=== PATIENT | male | born 1940 | race American Indian/Alaskan Native ===

== ENCOUNTER 2020-07-29 12:13 | Outpatient (REF) | payer OTHER, SELFPAY | END 2020-07-29 12:14 | disposition home or self-care (01) | LOC: HO.LAB 12:13 | PROVIDERS: Visit Provider Internal Medicine | DX: Z20.822 Contact with and (suspected) exposure to COVID-19 (principal) | CPT/HCPCS: 36415; C9803; U0003; U0005 ==

== ENCOUNTER 2020-08-19 15:41 | Outpatient (REF) | payer OTHER, SELFPAY | END 2020-08-19 15:42 | disposition home or self-care (01) | LOC: HO.LAB 15:41 | PROVIDERS: Visit Provider Internal Medicine | DX: Z20.822 Contact with and (suspected) exposure to COVID-19 (principal) | CPT/HCPCS: 36415; C9803; U0003; U0005 ==

== ENCOUNTER 2020-11-01 10:00 | Outpatient (RCR) | payer OTHER, SELFPAY | END 2021-01-23 08:40 | disposition home or self-care (01) | LOC: HO.PT 10:00 | PROVIDERS: PCP Internal Medicine; Visit Provider Internal Medicine | DX: H81.10 Benign paroxysmal vertigo, unspecified ear (principal) | CPT/HCPCS: 95992; 97112; 97162 ==

== ENCOUNTER 2023-02-11 14:35 | Outpatient (AMB) | payer OTHER, SELFPAY ==
--- NOTE | 2023-01-10 10:22 | A.OFFPC_ITS ---
Vital Signs 01/10/23 10:22 Height 5 ft 7 in Blood Pressure Location Lt brachial Position Sitting Pulse Source Pulse Oximeter Oxygen Delivery Method Room Air Intake Visit Reasons: Establish Care Allergies No Known Allergies Allergy (Mild, Verified 01/10/23 10:22) NA Tobacco use date assessed: 01/10/23 [facility] Social History Patient Tobacco Use Status: Never used Tobacco Physical exam (Primary Care) Tobacco/Smoking Status: Tobacco use Status Patient Tobacco Use Status Never used Tobacco 11/07/22 11:13 Coding Diagnoses
[2023-02-11 14:38] VITALS: BP 104/62; PULSE 60; O2SAT 98; BMI 33.5
--- NOTE | 2023-02-11 14:38 | A.OFFPC_ITS ---
Vital Signs 01/10/23 10:22 02/11/23 14:38 Height 5 ft 7 in 5 ft 7 in Weight 214 lb BMI 33.5 BP 104/62 Blood Pressure Location Lt brachial Lt brachial Position Sitting Sitting Pulse 60 Pulse Source Pulse Oximeter Pulse Oximeter Pulse Oximetry (%) 98 Oxygen Delivery Method Room Air Room Air Intake Visit Reasons: Establish Care Intake Note: Patient is a new patient here to establish care for DN type 2, HTN and GERD. Transferring care from [facility]. Medical release form faxed today. [employer] Consultant Required: Yes [employer] Consultant Language: Romanian Accompanied by: ROAD REPAIRER-Sophie Camargo Allergies No Known Allergies Allergy (Mild, Verified 02/11/23 15:01) NA Medication List - Last Reconciled 02/11/23 by Jerrod Smith PA-C albuterol sulfate 90 mcg/actuation (Ventolin HFA) 2 puffs inhalation Q4H PRN atorvastatin 80 mg PO DAILY bimatoprost 0.01% (Lumigan) 1 drp ophthalmic (eye) BEDTIME blood sugar diagnostic (FreeStyle Lite Strips) As directed blood-glucose meter (FreeStyle Lite Meter kit) As directed cyclobenzaprine 10 mg PO BEDTIME [disposable bedpads As directed] disposable gloves As directed docusate sodium 100 mg PO DAILY hydralazine 25 mg PO Q8H [incontinence wipes As directed] levothyroxine 25 mcg PO DAILY lorazepam 1 mg PO meloxicam 15 mg PO DAILY [men's pull ups As directed] omeprazole 20 mg PO DAILY timolol maleate 0.5% 1 drp ophthalmic (eye) QAM valsartan 320 mg PO DAILY Tobacco use date assessed: 02/11/23 Fall risk assessment: No Falls in past year Last assessed Fall Risk: 02/11/23 Dental Screening Dental Screen Date: 02/11/23 Did you have a dental visit in the last 12 months?: Yes Did you have a dental problem in the last 6 months where you did not have access to dental care?: No Was dental information given to patient?: Patient has dentist HPI Establish Care HPI Details Patient is an 82-year-old male here today for transferring care/establishing care visit. Today patient presents with a ROAD REPAIRER. Previous PCP was at [facility]. Patient has a past medical history hyperlipidemia, glaucoma, legal blindness, hypertension. He presents today with ROAD REPAIRER whom help some with his activities of daily living as patient is legally blind. .. Type 2 diabetes: Today's A1c is 6.3. He is currently diet controlled. .. Hypertension: Continues on hydralazine and valsartan. Reports that home blood pressures are stable. Today's blood pressure in office acceptable. He denies any headache, chest pain or shortness of breath on exertion. Also has urinary incontinence status post radical prostatectomy. Does use urinary incontinence supplies and needs scripts sent to his insurance. [facility] Medical History (Updated 02/12/23 @ 07:07 by Jerrod Smith PA-C) Type II diabetes mellitus Social History Housing: Apartment Patient Tobacco Use Status: Never used Tobacco e-Cigarette/Vaping Use: Never Used service: No Current occupational status: disabled Cognitive needs: No Hearing needs: No Vision needs: Yes Questionnaire PHQ-9 Over the last 2 weeks, how often have you been bothered by any of the following problems? 1. Little interest or pleasure in doing things: not at all 2. Feeling down, depressed, or hopeless: several days 3. Trouble falling or staying asleep, or sleeping too much: nearly every day 4. Feeling tired or having little energy: nearly every day 5. Poor appetite or overeating: nearly every day Source: Developed by Drs. Juan A Pires, Jennifer Morales, Tha Oneil and colleagues, with an educational [place] from [employer]. Thrive Questionnaire Date Thrive assessed: 02/11/23 I am a: Patient What is your living situation today?: I have a steady place to live Within the past 12 months, did the food you bought not last and you didn't have the money to get more?: Never true Within the past 12 months, did you worry whether your food would run out before you got money to buy more?: Never true Do you have trouble paying for medicines?: No Do you have trouble getting transportation to medical appointments?: No Do you have trouble paying your heating and electricity bill?: No Do you have trouble taking care of your child, family member or friend?: No Do you have trouble with day-to-day activities such as bathing, preparing meals, shopping, managing finances, etc.?: No Are you currently unemployed and looking for a job?: No Are you interested in more education?: No Please select the resources that you would like help with: None Currently or been in a relationship where the following occur: no concerns reported AUDIT C Alcohol Use Questionnaire (AUDIT-C) 1. How often do you have a drink containing alcohol?: Never 3. How often do you have six or more drinks on one occasion?: Never Total Score: 0 CYNTHIA-7 AMB Questionnaire CYNTHIA-7 Date CYNTHIA - 7 assessed: 02/11/23 Feeling nervous, anxious, or on edge: 0 = Not at all Not being able to stop or control worryin = Not at all Worrying too much about different things: 0 = Not at all Trouble relaxin = Not at all Being so restless that it is hard to sit still: 0 = Not at all Becoming easily annoyed or irritable: 0 = Not at all Feeling afraid as if something awful might happen: 0 = Not at all Total CYNTHIA-7 score (0-4 normal; 5-9 mild; 10-14 moderate; 15-21 severe): 0 Source: Developed by Drs. Juan A Pires, Jennifer Morales, Tha Oneil and colleagues, with an educational [place] from [employer]. CYNTHIA-7 Assessment Billing CYNTHIA-7 Assessment Tool: CYNTHIA-7 Assessment 21100 Review of Systems Const Denies headache(s) Eyes Denies loss of vision ENT Denies vertigo, Denies dizziness, Denies headache(s) and Denies sore throat Card Denies chest pain, Denies leg edema and Denies lightheadedness Resp Denies cough, Denies hemoptysis and Denies wheezing GI Denies abdominal pain, Denies melena, Denies constipation, Denies diarrhea and Denies vomiting Denies dysuria, Denies urinary frequency and Denies urinary urgency Musc Denies arthralgias, Denies joint swelling, Denies numbness and Denies tingling Neuro Denies Abnormal speech present, Denies behavioral changes, Denies vertigo, Denies dizziness, Denies headache(s), Denies loss of vision, Denies memory loss, Denies numbness and Denies tingling Psych Denies anxiety, Denies behavioral changes, Denies depression, Denies memory loss and Denies panic attacks Wayne/Lymph Denies easy bleeding and Denies easy bruising Aller/Immun Denies wheezing Physical exam (Primary Care) Vital Signs: Last Vital Signs Pulse 60 02/11/23 14:38 BP 104/62 02/11/23 14:38 Pulse Ox 98 02/11/23 14:38 Oxygen Delivery Method Room Air 02/11/23 14:38 BMI result Body Mass Index 33.5 BMI Assessment/Plan discussion: High Tobacco/Smoking Status: Tobacco use Status Tobacco use date assessed 02/11/23 02/11/23 14:55 Patient Tobacco Use Status Never used Tobacco 02/11/23 14:55 e-Cigarette/Vaping Use Never Used 02/11/23 14:55 Thrive Assessment: Date of Thrive Assessment Date Thrive assessed 02/11/23 02/11/23 14:55 Currently or been in a relationship where the following occur: no concerns reported Const Other: OBESE General: healthy appearing, no acute distress, alert and awake Nutritional Appearance: well nourished Orientation/consciousness: oriented to person, oriented to place and oriented to time HENMT Ears: TM's normal bilaterally General nose exam: Normal nasal mucous membranes and turbinates present Eyes Conjunctivae: conjunctivae normal Sclerae: sclerae normal Pupils: Equal, round and reactive pupils present Neck Neck: Yes no lymphadenopathy and Yes no JVD Thyroid: Thyroid normal Carotids: no bruits Resp Effort & Inspection: normal respiratory effort and not tachypneic Auscultation: no crackles, no rales, no rhonchi and no wheezes Cardio Rate: regular rate Rhythm: regular rhythm Heart sounds: no murmurs and normal S1 and S2 GI Palpation (GI): Soft to palpation, nontender, no hepatomegaly and no splenomeg destiny Auscultation: normal bowel sounds Skin General skin exam: no rashes or lesions noted and dry skin Neuro General: oriented to person, oriented to place and oriented to time Cranial nerves: Yes Equal, round and reactive pupils present Speech: No Abnormal speech present Gait exam (Neuro): Normal gait present Motor exam (neuro): no tremor noted Extrem Right upper extremity: full ROM Left upper extremity: full ROM Right lower extremity: full ROM; no edema Left lower extremity: full ROM; no edema Psych Mental Status: mental status grossly normal Speech and movement: Normal speech and movement present Affect: normal affect Attitude: cooperative Thought process: Normal thought process present Results AMB Hemoglobin A1c AMB Hemoglobin A1c 6.3 % Last Edit by ZULEMA England on 02/11/23 15:06 Results Reviewed Results Reviewed: Laboratory Last Values Hgb A1c (Clinic) 6.3 % (4.0-6.0) H 02/11/23 15:00 Assessment and Plan Assessment & Plan (1) Type II diabetes mellitus: Code(s): E11.9 - Type 2 diabetes mellitus without complications Qualifiers: Diabetes mellitus complication status: with hyperglycemia Diabetes mellitus fpc insulin use: with fpc use Qualified Code(s): E11.65 - Type 2 diabetes mellitus with hyperglycemia; Z79.4 - manager intermediate (current) use of insulin Plan: Today's A1c 6.3. Will continue to implement lifestyle modifications to control his diabetes. Goal A1c is to remain below 7.0. (2) HTN (hypertension): Code(s): I10 - Essential (primary) hypertension Qualifiers: Hypertension type: primary hypertension Qualified Code(s): I10 - Essential (primary) hypertension Plan: Patient's blood pressure acceptable today in office. Will continue his current dose of antihypertensive medication with goal blood pressure to be below 140/90 (3) Glaucoma: Code(s): H40.9 - Unspecified glaucoma Qualifiers: Glaucoma type: unspecified Laterality: bilateral Qualified Code(s): H40.9 - Unspecified glaucoma Plan: Patient continues on multiple drops for his glaucoma. He is legally blind in does need full assistance while ambulating. He does have a ROAD REPAIRER whom is with him most of his day. (4) HLD (hyperlipidemia): Code(s): E78.5 - Hyperlipidemia, unspecified Qualifiers: Hyperlipidemia type: mixed hyperlipidemia Qualified Code(s): E78.2 - Mixed hyperlipidemia Plan: Patient is on high-dose statin therapy, will check a fasting lipid panel with goal LDL to remain below 100 (5) GERD (gastroesophageal reflux disease): Code(s): K21.9 - Gastro-esophageal reflux disease without esophagitis Qualifiers: Esophagitis presence: without esophagitis Qualified Code(s): K21.9 - Gastro-esophageal reflux disease without esophagitis Plan: Patient continues on omeprazole 20 mg with good effect on reducing his gastritis. Advised on refraining from gastric irritants been (6) Hypothyroid: Code(s): E03.9 - Hypothyroidism, unspecified Qualifiers: Hypothyroidism type: unspecified Qualified Code(s): E03.9 - Hypothyroidism, unspecified Plan: Patient continues on low-dose levothyroxine. Will check a TSH to assure normal. (7) Urinary incontinence: Code(s): R32 - Unspecified urinary incontinence Qualifiers: Urinary Incontinence type: continuous leakage Qualified Code(s): N39.45 - Continuous leakage (8) H/O radical prostatectomy: Code(s): Z90.79 - Acquired absence of other genital organ(s) (9) Asthma: Code(s): J45.909 - Unspecified asthma, uncomplicated Qualifiers: Asthma complication type: uncomplicated Asthma persistence: intermittent Asthma severity: mild Qualified Code(s): J45.20 - Mild intermittent asthma, uncomplicated Plan: Patient reports his asthma is fairly well controlled with only p.r.n. use of albuterol inhaler. He denies any recent asthma exacerbations or nighttime awakenings with asthma symptoms. (10) Cervical spine arthritis: Code(s): M47.812 - Spondylosis without myelopathy or radiculopathy, cervical region (11) Insomnia: Code(s): G47.00 - Insomnia, unspecified Qualifiers: Insomnia type: primary Qualified Code(s): F51.01 - Primary insomnia Plan: Patient's ROAD REPAIRER spleens that Jevon often has a lot of trouble sleeping. He is willing to try trazodone 25 mg before bed as it has worked for him in the past. (12) Obese: Code(s): E66.9 - Obesity, unspecified Qualifiers: Obesity type: due to excess calories Obesity classification: adult class 1 (BMI 30 - 34.9) Serious obesity comorbidity presence: without serious comorbidity Body mass index: BMI 33.0-33.9 Qualified Code(s): E66.09 - Other obesity due to excess calories; Z68.33 - Body mass index [BMI] 33.0-33.9, adult Plan: Patient does understand his BMI is over 30 will work on being more physically active and adapting to better eating habits to reduce his weight Orders: Orders Comprehensive [place]. Panel Fast 02/11/23 I10 - Essential (primary) hypertension Lipid Panel 02/11/23 E78.2 - Mixed hyperlipidemia Prostate Specific Antigen Scr 02/11/23 I10 - Essential (primary) hypertension, Z12.5 - Encounter for screening for malignant neoplasm of prostate TSH reflex Free T4 02/11/23 E03.9 - Hypothyroidism, unspecified Microalbumin, Random (w Creat) 02/11/23 I10 - Essential (primary) hypertension AMB Hemoglobin A1c 02/11/23 E11.9 - Type 2 diabetes mellitus without complications Medications: New trazodone 25 mg (1/2 x 50 mg) PO BEDTIME 30 days 15 tabs 3RF sleep F51.01 - Primary insomnia levothyroxine 25 mcg PO DAILY 90 days 90 tabs 1RF E03.9 - Hypothyroidism, unspecified hydralazine 25 mg PO Q8H 90 days 270 tabs 1RF I10 - Essential (primary) hypertension atorvastatin 80 mg PO DAILY 90 days 90 tabs 1RF E78.2 - Mixed hyperlipidemia valsartan 320 mg PO DAILY 90 days 90 tabs 1RF I10 - Essential (primary) hypertension Changed From albuterol sulfate 90 mcg/actuation (Ventolin HFA) 2 puffs inhalation Q4H PRN J45.20 - Mild intermittent asthma, uncomplicated To albuterol sulfate 90 mcg/actuation (Ventolin HFA) 2 puffs inhalation Q4H 30 days 6.7 grams 3RF J45.20 - Mild intermittent asthma, uncomplicated Refilled [disposable bedpads] As directed 150 ea 11RF R32 - Unspecified urinary inc ontinence [incontinence wipes] As directed 2 multiple units 11RF R32 - Unspecified urinary incontinence [men's pull ups] As directed 150 ea 11RF R32 - Unspecified urinary incontinence disposable gloves As directed 50 ea 11RF R32 - Unspecified urinary incontinence Coding Level of Care Code New Pt Level 4 (40915) Diagnoses Type II diabetes mellitus E11.65; Z79.4 Diabetes mellitus complication status: with hyperglycemia Diabetes mellitus fpc insulin use: with fpc use HTN (hypertension) I10 Hypertension type: primary hypertension Glaucoma H40.9 Glaucoma type: unspecified Laterality: bilateral HLD (hyperlipidemia) E78.2 Hyperlipidemia type: mixed hyperlipidemia GERD (gastroesophageal reflux disease) K21.9 Esophagitis presence: without esophagitis Hypothyroid E03.9 Hypothyroidism type: unspecified Urinary incontinence N39.45 Urinary Incontinence type: continuous leakage H/O radical prostatectomy Z90.79 Asthma J45.20 Asthma complication type: uncomplicated Asthma persistence: intermittent Asthma severity: mild Cervical spine arthritis M47.812 Insomnia F51.01 Insomnia type: primary Obese E66.09; Z68.33 Obesity type: due to excess calories Obesity classification: adult class 1 (BMI 30 - 34.9) Serious obesity comorbidity presence: without serious comorbidity Body mass index: BMI 33.0-33.9 Additional Codes CYNTHIA-7 Assessment Billing - CYNTHIA-7 Assessment Tool: CYNTHIA-7 Assessment [id number] ([id number])
== END 2023-02-11 15:34 | disposition home or self-care (01) ==
PROVIDERS: PCP Physician Assistant; Visit Provider Physician Assistant
DX: E11.65 Type 2 diabetes mellitus with hyperglycemia (principal); Z79.4 Long term (current) use of insulin; I10 Essential (primary) hypertension; K21.9 Gastro-esophageal reflux disease without esophagitis; E03.9 Hypothyroidism, unspecified; H40.9 Unspecified glaucoma; E78.2 Mixed hyperlipidemia; J45.20 Mild intermittent asthma, uncomplicated; N39.45 Continuous leakage; Z90.79 Acquired absence of other genital organ(s); M47.812 Spondylosis without myelopathy or radiculopathy, cervical region; F51.01 Primary insomnia
CPT/HCPCS: 83036; 99204

== ENCOUNTER 2023-02-14 10:09 | Outpatient (REF) | payer OTHER, SELFPAY ==
[2023-02-14 11:40] LABS: Alanine Aminotransferase 16 U/L (0-40); Albumin Level 3.3 g/dL (3.5-5.0); Alkaline Phosphatase 84 U/L (39-117); Anion Gap 9 (12-20); Aspartate Amino Transferase 19 U/L (5-37); Bilirubin Total 0.5 mg/dL (0.0-1.0); Blood Urea Nitrogen 25 mg/dL (9-16); Carbon Dioxide 27 mmol/L (22-29); Chloride 110 mmol/L (96-108); Cholesterol 142 mg/dL (<200); Estimated Glomerular Filt Rate 49; Glucose Fasting 106 mg/dL (60-99); HDL Cholesterol 40 mg/dL (>40); LDL Cholesterol Calculated 70 mg/dL (<100); Potassium 4.9 mmol/L (3.3-5.1); Sodium 141 mmol/L (135-145); Total Protein 6.6 g/dL (6.5-8.0); Triglycerides 161 mg/dL (<150)
[2023-02-14 11:57] LABS: TSH reflex Free T4 34.15 uIU/mL (0.32-4.0)
[2023-02-14 11:58] LABS: Prostate Specific Antigen Scr 5.38 ng/mL (<0.05-4.0)
[2023-02-14 13:09] LABS: Creatinine Urine 233.09 mg/dL; Microalbum/Creatinine Ratio Ur 6.4 ug/mg cr (<30)
[2023-02-14 15:16] LABS: Free T4 (Free Thyroxine) 0.92 ng/dL (0.71-1.85)
== END 2023-02-14 10:10 | disposition home or self-care (01) ==
LOC: HO.LAB 10:09
PROVIDERS: PCP Physician Assistant; Visit Provider Physician Assistant
DX: I10 Essential (primary) hypertension (principal); E78.2 Mixed hyperlipidemia; E03.9 Hypothyroidism, unspecified; Z12.5 Encounter for screening for malignant neoplasm of prostate
CPT/HCPCS: 36415; 80053; 80061; 82043; 84153; 84439; 84443

== ENCOUNTER 2023-04-23 10:34 | Outpatient (AMB) | payer OTHER, SELFPAY ==
[2023-04-23 10:55] VITALS: BP 128/70; PULSE 52; O2SAT 97; BMI 33.6
--- NOTE | 2023-04-23 10:55 | MHC.PC.OV ---
Vital Signs 04/23/23 10:55 Height 5 ft 7 in Weight 214 lb 6 oz BMI 33.6 BP 128/70 Blood Pressure Location Lt brachial Position Sitting Pulse 52 Pulse Source Pulse Oximeter Pulse Oximetry (%) 97 Oxygen Delivery Method Room Air Intake Visit Reasons: PE Intake Note: Patient is here today for a physical. Pt is requesting Nasal spray for allergies. Network Consultant Required: No Accompanied by: MECHANICAL EQUIPMENT TEST ENGINEER- Sophie Allergies No Known Allergies Allergy (Mild, Verified 04/23/23 11:06) NA Medication List - Last Reconciled 04/23/23 by Jerrod Smith PA-C albuterol sulfate 90 mcg/actuation (Ventolin HFA) 2 puffs inhalation Q4H 30 days atorvastatin 80 mg PO DAILY 90 days bimatoprost 0.01% (Lumigan) 1 drp ophthalmic (eye) BEDTIME blood sugar diagnostic (FreeStyle Lite Strips) As directed blood-glucose meter (FreeStyle Lite Meter kit) As directed cyclobenzaprine 10 mg PO BEDTIME [disposable bedpads As directed] disposable gloves As directed docusate sodium 100 mg PO DAILY hydralazine 25 mg PO Q8H 90 days [incontinence wipes As directed] levothyroxine 50 mcg PO DAILY 30 days lorazepam 1 mg PO meloxicam 15 mg PO DAILY [men's pull ups As directed] omeprazole 20 mg PO DAILY timolol maleate 0.5% 1 drp ophthalmic (eye) QAM trazodone 25 mg (1/2 x 50 mg) PO BEDTIME 30 days valsartan 320 mg PO DAILY 90 days Tobacco use date assessed: 02/11/23 Fall risk assessment: No Falls in past year Last assessed Fall Risk: 04/23/23 Dental Screening Dental Screen Date: 04/23/23 Did you have a dental visit in the last 12 months?: No Did you have a dental problem in the last 6 months where you did not have access to dental care?: No Was dental information given to patient?: Patient has dentist HPI PE HPI Details Patient is an 82-year-old male here today for annual physical. Today patient presents with a MECHANICAL EQUIPMENT TEST ENGINEER. Previous PCP was at [facility]. Patient has a past medical history hyperlipidemia, glaucoma, legal blindness, hypertension. He presents today with MECHANICAL EQUIPMENT TEST ENGINEER whom help some with his activities of daily living as patient is legally blind. Concern--> patient's PSA concerned about patient's memory as he has been noted to have short-term memory loss and often is repeating himself. He is interested in starting medication help him with his memory. Also has itchy skin lesion over his left shoulder. Skin lesion most consistent with an actinic keratosis. .. Type 2 diabetes: Diabetes has been well controlled. Most recent A1c is 6.4 He is currently diet controlled. .. Hypothyroidism: Most recent TSH very elevated at 34. His levothyroxine was increased to 50 mcg . H/o prostate cancer : Followed by DR Luu urologist on annual basis. Most recent PSA elevated which is concerning as he has had a total prostatectomy in 2006 .. Hypertension: Continues on hydralazine and valsartan. Reports that home blood pressures are stable. Today's blood pressure in office acceptable. He denies any headache, chest pain or shortness of breath on exertion. Also has urinary incontinence status post radical prostatectomy ? 2006. He does use urinary incontinence briefs on a nightly basis. Most recent PSA elevated Vaccines : Up-to-date with shingles vaccine, up-to-date with pneumonia vaccine tetanus vaccine, willing to get flu shot today Laboratory Tests 02/14/23 10:19 Fasting Glucose 106 H Triglycerides 161 H PSA Screen 5.38 H TSH 34.15 H PFSH Medical History (Updated 04/23/23 @ 14:19 by Jerrod Smith PA-C) Type II diabetes mellitus Social History Housing: Apartment Patient Tobacco Use Status: Never used Tobacco e-Cigarette/Vaping Use: Never Used service: No Current occupational status: disabled Cognitive needs: No Hearing needs: No Vision needs: Yes Questionnaire PHQ-9 Over the last 2 weeks, how often have you been bothered by any of the following problems? 1. Little interest or pleasure in doing things: not at all 2. Feeling down, depressed, or hopeless: not at all 3. Trouble falling or staying asleep, or sleeping too much: not at all 4. Feeling tired or having little energy: not at all 5. Poor appetite or overeating: not at all 6. Feeling bad about yourself - or that you are a failure or have let yourself or your family down: not at all 7. Trouble concentrating on things, such as reading the newspaper or watching television: not at all 8. Moving or speaking so slowly that other people could have noticed. Or the opposite - being so fidgety or restless that you have been moving around a lot more than usual: not at all 9. Thoughts that you would be better off or of hurting yourself in some way: not at all Total score: 0 Depression Screening Interpretation: Negative Depression Screening Done: Yes 13252 - PHQ-9 Billing: Yes Source: Developed by Drs. Juan A Pires, Jennifer Morales, Tha Oneil and colleagues, with an educational [place] from [employer]. Thrive Questionnaire Date Thrive assessed: 02/11/23 CYNTHIA-7 AMB Questionnaire CYNTHIA-7 Date CYNTHIA - 7 assessed: 02/11/23 Source: Developed by Drs. Juan A Pires, Jennifer Morales, Tha Oneil and colleagues, with an educational [place] from [employer]. Review of Systems Const Denies body aches, Denies chills, Denies excessive sweating, Denies fatigue, Denies fever(s) and Denies headache(s) Eyes Denies blurry vision ENT Denies dysphagia, Denies vertigo, Denies dizziness, Denies headache(s), Denies hearing loss and Denies tinnitus Card Denies chest pain, Denies chest pain with activity, Denies syncope, Denies irregular heart rhythm and Denies dyspnea Resp Denies chest congestion, Denies cough, Denies hemoptysis, Denies dyspnea and Denies wheezing GI Denies abdominal pain, Denies melena, Denies hematochezia, Denies coffee ground emesis, Denies dysphagia, Denies diarrhea, Denies nausea and Denies vomiting Denies difficulty urinating, Denies dysuria, Denies urinary frequency, Denies urinary hesitancy and Denies urinary urgency Musc Denies arthralgias, Denies limited range of motion, Denies muscle cramps and Denies muscle weakness Skin/Breast Denies rash and Denies skin ulcer Neuro Denies Abnormal speech present, Denies confusion, Denies vertigo, Denies dizziness, Denies syncope, Denies headache(s), Denies memory loss and Denies seizure-like activity Psych Denies anxiety, Denies confusion, Denies depression, Denies memory loss, Denies panic attacks and Denies paranoia Endo Denies excessive sweating, Denies fatigue, Denies flushing, Denies polydipsia and Denies polyuria Aller/Immun Denies wheezing Physical exam (Primary Care) Vital Signs: Last Vital Signs Pulse 52 04/23/23 10:55 BP 128/70 04/23/23 10:55 Pulse Ox 97 04/23/23 10:55 Oxygen Delivery Method Room Air 04/23/23 10:55 BMI result Body Mass Index 33.6 Tobacco/Smoking Status: Tobacco use Status Tobacco use date assessed 02/11/23 04/23/23 11:00 Patient Tobacco Use Status Never used Tobacco 04/23/23 11:00 e-Cigarette/Vaping Use Never Used 04/23/23 11:00 PHQ-9: PHQ-9 Score PHQ-9: Total score 0 04/23/23 11:07 Depression Screening Interpretation: Negative Thrive Assessment: Date of Thrive Assessment Date Thrive assessed 02/11/23 04/23/23 11:00 Const General: cooperative, comfortable, no acute distress, alert and awake; No confusion Orientation/consciousness: oriented to person, oriented to place, patient oriented x3 and No confusion HENMT Head: Yes normocephalic Ears: external ears normal and TM's normal bilaterally Face and sinus: No sinus tenderness Mouth: Normal oral and palatal mucosa present and tongue normal Teeth and gingiva: dentition normal and gingiva normal Throat: Yes posterior oropharynx normal, Yes tonsils normal and Yes uvula midline Eyes Conjunctivae: conjunctivae normal Sclerae: sclerae normal Pupils: Equal, round and reactive pupils present EOM: EOMs intact bilaterally Direct Ophthalmoscopy: No no photophobia Neck Neck: Yes no lymphadenopathy, No tender and Yes no JVD Thyroid: Thyroid normal Carotids: no bruits Chest Chest palpation & inspection: no tenderness Resp Effort & Inspection: normal respiratory effort, no audible wheezes, not labored and no stridor Auscultation: no crackles, no rales, no rhonchi and no wheezes Cardio Jugular venous distension: no JVD Rate: regular rate, not bradycardic and not tachycardic Rhythm: regular rhythm Bruits: no carotid bruits Peripheral pulses: Peripheral pulses 2+ throughout GI Inspection: Yes normal to inspection, No abdominal wall ecchymosis and No visible herniation Palpation (GI): Soft to palpation, nontender, no guarding, not rigid and No hepatosplenomegaly present Auscultation: normoactive bowel sounds General: Yes no CVA tenderness Back/Spine/Pelvis Back: no CVA tenderness and No back tenderness Cervical Spine: cervical ROM normal Thoracic/Lumbar Spine: thoracic and lumbar spine normal to inspection, straight leg raise negative bilaterally, No thoraco-lumbar ROM limited and No lumbar spinal tenderness Skin Lesions: no lesions Rashes: no rashes Wounds: no wounds Neuro General: oriented to person, oriented to place, patient oriented x3, CN's II-XI intact bilaterally and No confusion Cranial nerves: Yes Equal, round and reactive pupils present and Yes Normal accommodation reflex present Cognition (Neuro): normal cognition Speech: No Abnormal speech present Gait exam (Neuro): Normal gait present Motor exam (neuro): 5/5 motor strength present throughout Extrem Right upper extremity: full ROM; no cyanosis Left upper extremity: full ROM; no cyanosis Right lower extremity: no edema Left lower extremity: no edema Psych Appearance: grossly normal Mental Status: mental status grossly normal Affect: normal affect Attitude: cooperative Thought process: Normal thought process present Office Procedures Flu Questionnaire Does the patient have a severe egg allergy?: No Does the patient have severe life threatening allergies?: No Does the patient have a fever or illness today?: No Has the patient ever had Guillain-Cisne Syndrome?: No Has the patient ever had any past reaction to a flu shot?: No Immunizations flu vacc [id number] 6mos up(PF) 60 mcg(15 mcgx4)/0.5 mL IM syringe Performing Provider: Jerrod Smith PA-C Performing Location: [facility] Administered by: ZULEMA England on 04/23/23 11:50 Dose Route Admin Location Dispensed Lot Number Expiration Date [employer] 0.5 mL IM Right Deltoid 0.5 mL [id number] 12/22/23 [id number] [employer] VIS Given Date VIS Provided VIS Publication Date 04/23/23 Single Vaccine 21 Eligibility Eligibility Date Funding Source Not [facility] Eligible 04/23/23 Private Assessment and Plan Assessment & Plan (1) Annual physical exam: Code(s): Z00.00 - Encounter for general adult medical examination without abnormal findings (2) Type II diabetes mellitus: Code(s): E11.9 - Type 2 diabetes mellitus without complications Qualifiers: Diabetes mellitus complication status: with hyperglycemia Diabetes mellitus intermodal truck driver insulin use: without shelter use Qualified Code(s): E11.65 - Type 2 diabetes mellitus with hyperglycemia Plan: Patient's type 2 diabetes well controlled. Will continue to implement lifestyle modifications to control his diabetes. Goal A1c is to remain below 7.0. (3) HTN (hypertension): Code(s): I10 - Essential (primary) hypertension Qualifiers: Hypertension type: primary hypertension Qualified Code(s): I10 - Essential (primary) hypertension Plan: Patient's blood pressure acceptable today in office. Will continue his current dose of antihypertensive medication with goal blood pressure to be below 140/90 (4) Glaucoma: Code(s): H40.9 - Unspecified glaucoma Qualifiers: Glaucoma type: unspecified Laterality: bilateral Qualified Code(s): H40.9 - Unspecified glaucoma Plan: Patient continues on multiple drops for his glaucoma. He is legally blind in does need full assistance while ambulating. He does have a MECHANICAL EQUIPMENT TEST ENGINEER whom is with him most of his day. (5) HLD (hyperlipidemia): Code(s): E78.5 - Hyperlipidemia, unspecified Qualifiers: Hyperlipidemia type: mixed hyperlipidemia Qualified Code(s): E78.2 - Mixed hyperlipidemia Plan: Patient is on high-dose statin therapy, will check a fasting lipid panel with goal LDL to remain below 100 (6) GERD (gastroesophageal reflux disease): Code(s): K21.9 - Gastro-esophageal reflux disease without esophagitis Qualifiers: Esophagitis presence: without esophagitis Qualified Code(s): K21.9 - Gastro-esophageal reflux disease without esophagitis Plan: Patient continues on omeprazole 20 mg with good effect on reducing his gastritis. Advised on refraining from gastric irritants been (7) Hypothyroid: Code(s): E03.9 - Hypothyroidism, unspecified Qualifiers: Hypothyroidism type: unspecified Qualified Code(s): E03.9 - Hypothyroidism, unspecified Plan: Patient's most recent TSH elevated at 34. His levothyroxine dose was increased to 50 mcg. Advised to recheck TSH. Will adjust levothyroxine dose accordingly. (8) Urinary incontinence: Code(s): R32 - Unspecified urinary incontinence Qualifiers: Urinary Incontinence type: continuous leakage Qualified Code(s): N39.45 - Continuous leakage Plan: Continues to have urinary incontinence worse at night. Has had a history of total prostatectomy and is followed by Urology an annual basis. Noted elevated PSA on most recent labs and will follow-up with his urologist (9) H/O radical prostatectomy: Code(s): Z90.79 - Acquired absence of other genital organ(s) Plan: Had a total prostatectomy 2006 due to have a prostate carcinoma. He reports he is followed by Urology and has cup coming appointment with them. Most recent PSA elevated (10) Asthma: Code(s): J45.909 - Unspecified asthma, uncomplicated Qualifiers: Asthma complication type: uncomplicated Asthma persistence: intermittent Asthma severity: mild Qualified Code(s): J45.20 - Mild intermittent asthma, uncomplicated Plan: Patient reports his asthma is fairly well controlled with only p.r.n. use of albuterol inhaler. He denies any recent asthma exacerbations or nighttime awakenings with asthma symptoms. (11) Insomnia: Code(s): G47.00 - Insomnia, unspecified Qualifiers: Insomnia type: primary Qualified Code(s): F51.01 - Primary insomnia Plan: Patient's MECHANICAL EQUIPMENT TEST ENGINEER spleens that Jevon often has a lot of trouble sleeping. He is willing to try trazodone 25 mg before bed as it has worked for him in the past. (12) Obese: Code(s): E66.9 - Obesity, unspecified Qualifiers: Body mass index: BMI 33.0-33.9 Obesity classification: adult class 1 (BMI 30 - 34.9) Obesity type: due to excess calories Serious obesity comorbidity presence: without serious comorbidity Qualified Code(s): E66.09 - Other obesity due to excess calories; Z68.33 - Body mass index [BMI] 33.0-33.9, adult Plan: Patient does understand his BMI is over 30 will work on being more physically active and adapting to better eating habits to reduce his weight (13) Memory impairment: Code(s): R41.3 - Other amnesia Plan: Has notable memory impairment. Continues to repeat himself here in office. His MECHANICAL EQUIPMENT TEST ENGINEER has noted worsening memory issues. Does work with them on a daily basis to remind him to take his medication. They are willing to be treated for dementia with medication. (14) Allergic rhinitis: Code(s): J30.9 - Allergic rhinitis, unspecified Qualifiers: Allergic rhinitis seasonality: seasonal Allergic rhinitis trigger: other Qualified Code(s): J30.89 - Other allergic rhinitis (15) Actinic keratosis: Code(s): L57.0 - Actinic keratosis Plan: Patient has with seems to be actinic keratosis. Will supply patient with topical steroid to use on skin lesions when itchy. Orders: Orders Influenza [id number] Immunization Today Z23 - Encounter for immunization Complete Blood Count no Diff Today I10 - Essential (primary) hypertension TSH reflex Free T4 Today E03.9 - Hypothyroidism, unspecified Lipid Panel Today E78.2 - Mixed hyperlipidemia Comprehensive [place]. Panel Fast Today I10 - Essential (primary) hypertension Medications: New triamcinolone acetonide 0.5% 1 appl topical DAILY 30 days 15 grams 1RF L57.0 - Actinic keratosis donepezil 10 mg PO DAILY 90 days 90 tabs 1RF R41.3 - Other amnesia fluticasone propionate 50 mcg/actuation (Flonase Allergy Relief) administer into each nostril 1 spray intranasal Q12H 30 days PRN 16 grams 3RF nasal congestion J30.89 - Other allergic rhinitis Changed From trazodone 25 mg (1/2 x 50 mg) PO BEDTIME 30 days 15 tabs 3RF sleep F51.01 - Primary insomnia To trazodone 25 mg (1/2 x 50 mg) PO BEDTIME 90 days 45 tabs 3RF sleep F51.01 - Primary insomnia Refilled albuterol sulfate 90 mcg/actuation (Ventolin HFA) 2 puffs inhalation Q4H 30 days 6.7 grams 3RF J45.20 - Mild intermittent asthma, uncomplicated atorvastatin 80 mg PO DAILY 90 days 90 tabs 1RF E78.2 - Mixed hyperlipidemia hydralazine 25 mg PO Q8H 90 days 270 tabs 1RF I10 - Essential (primary) hypertension valsartan 320 mg PO DAILY 90 days 90 tabs 1RF I10 - Essential (primary) hypertension Discontinued meloxicam Discontinued Reason: Doctor's Order 15 mg PO DAILY 14 tabs 0RF Coding Level of Care Code Est Pt Prev Care >65y(14637) Diagnoses Annual physical exam Z00.00 Type 2 diabetes mellitus with hyperglycemia, without long-term current use of insulin E11.65 Diabetes mellitus complication status: with hyperglycemia Diabetes mellitus intermodal truck driver insulin use: without intermodal truck driver use Primary hypertension I10 Hypertension type: primary hypertension Glaucoma of both eyes, unspecified glaucoma type H40.9 Glaucoma type: unspecified Laterality: bilateral Mixed hyperlipidemia E78.2 Hyperlipidemia type: mixed hyperlipidemia Gastroesophageal reflux disease without esophagitis K21.9 Esophagitis presence: without esophagitis Hypothyroidism, unspecified type E03.9 Hypothyroidism type: unspecified Continuous leakage of urine N39.45 Urinary Incontinence type: continuous leakage H/O radical prostatectomy Z90.79 Mild intermittent asthma without complication J45.20 Asthma complication type: uncomplicated Asthma persistence: intermittent Asthma severity: mild Primary insomnia F51.01 Insomnia type: primary Class 1 obesity due to excess calories without serious comorbidity with body mass index (BMI) of 33.0 to 33.9 in adult E66.09; Z68.33 Body mass index: BMI 33.0-33.9 Obesity classification: adult class 1 (BMI 30 - 34.9) Obesity type: due to excess calories Serious obesity comorbidity presence: without serious comorbidity Memory impairment R41.3 Seasonal allergic rhinitis due to other allergic trigger J30.89 Allergic rhinitis seasonality: seasonal Allergic rhinitis trigger: other Actinic keratosis L57.0
== END 2023-04-23 11:51 | disposition home or self-care (01) ==
PROVIDERS: Visit Provider Physician Assistant
DX: Z23 Encounter for immunization (principal)
CPT/HCPCS: 90471; 90686; 99397

== ENCOUNTER 2023-08-01 06:55 | Emergency (ER) | payer OTHER, SELFPAY ==
--- NOTE | ~2023-08-01 | CT_ITS ---
EXAMINATION: CT HEAD WITHOUT CONTRAST CLINICAL INFORMATION: Dizziness. COMPARISON: No relevant prior imaging. TECHNIQUE: Contiguous axial imaging was performed from the skull base to vertex without intravenous administration of contrast. This CT examination was performed using dose optimization techniques as appropriate, variously including the following: *Automated exposure control *Adjustment of mA and/or kV according to patient size (this includes techniques or standardized protocols for targeted exams where dose is matched to indication/reason for exam; i.e. extremities or head) *Use of iterative reconstruction technique DLP: 731 mGy-cm FINDINGS: There is no acute intracranial hemorrhage or abnormal extra-axial collection. No intracranial mass effect or midline shift. Lateral and third ventricles are normal. No hydrocephalus. There is a small age indeterminant infarct within the right cerebellar hemisphere and scattered nonspecific foci of hypoattenuation within the periventricular white matter, basal ganglia, and salvador that most likely represent a chronic manifestation of small vessel ischemia. [place]-white matter differentiation is otherwise preserved. The calvarium and skull base are intact. Mastoid air cells and middle ear cavities are well aerated. Mild to moderate paranasal sinus disease. 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 The left orbit is unremarkable. CT/CT head/brain wo IV con IMPRESSION: There is a small age indeterminant right cerebellar infarct and scattered chronic small vessel ischemic changes within the periventricular white matter, basal ganglia, and salvador. No acute intracranial hemorrhage.
[2023-08-01 07:03] VITALS: BP 132/62; PULSE 73; RESP 15; TEMP 35.6; O2SAT 99; BMI 33.8
--- NOTE | 2023-08-01 07:10 | ECG_ITS ---
Test Reason : dizziness Blood Pressure : / mmHG Vent. Rate : 070 BPM Atrial Rate : 070 BPM P-R Int : 194 ms QRS Dur : 076 ms QT Int : 384 ms P-R-T Axes : 072 -02 048 degrees QTc Int : 414 ms Normal sinus rhythm Normal ECG When compared with ECG of 11-SEP-2004 09:18, No significant change was found Referred By: Generic ED Physician Electronically Signed By:GERALD ACOSTA
--- NOTE | 2023-08-01 07:26 | ED.DIZZY ---
HPI - Dizziness General Chief Complaint: General Medical Stated Complaint: Dizziness Time Seen by Provider: 08/01/23 07:25 Source: patient, old records reviewed and other Mode of arrival: ambulatory Limitations: no limitations History of Present Illness HPI Narrative: 82 yo male with PMH of asthma, HTN, HLD, glaucoma, memory impairment here with c/o Saturday and Saturday he felt headache on L side and ringing in left ear with room spinning 4 times no other symptoms and he is much better this week. No trauma no URI symptoms. Feels normal but wanted to get checked out. His BP on saturday was 180 systolic. MD elicited complaint: dizziness Onset (ago): day(s) (Saturday and Saturday ) Timing: sudden onset and intermittent Severity: moderate Description: room spinning Context: change in body position History of similar symptoms: No Exacerbating factors: change in body position Relieving factors: remaining still Associated symptoms: ear discomfort and tinnitus Related Data Home Medications Medication Instructions Recorded Confirmed bimatoprost 0.01 % eye drops 1 drp ophthalmic (eye) BEDTIME 11/07/22 04/23/23 (Chava) blood sugar diagnostic (FreeStyle #10 ea 11/07/22 04/23/23 Lite Strips) docusate sodium 100 mg capsule 100 mg PO DAILY 11/07/22 04/23/23 timolol maleate 0.5 % eye drops 1 drp ophthalmic (eye) QAM 11/07/22 04/23/23 blood-glucose meter (FreeStyle #1 ea 02/11/23 04/23/23 Lite Meter kit) lorazepam 1 mg tablet 1 mg PO 02/11/23 04/23/23 Previous Rx's Medication Instructions Recorded cyclobenzaprine 10 mg tablet 10 mg PO BEDTIME #14 tabs 11/07/22 disposable bedpads #150 ea 02/11/23 disposable gloves #50 ea 02/11/23 incontinence wipes #2 multiple units 02/11/23 men's pull ups #150 ea 02/11/23 albuterol sulfate 90 mcg/actuation 2 puff inhalation Q4H 30 days #6.7 04/23/23 aerosol inhaler (Ventolin HFA) grams atorvastatin 80 mg tablet 80 mg PO DAILY 90 days #90 tabs 04/23/23 donepezil 10 mg tablet 10 mg PO DAILY 90 days #90 tabs 04/23/23 hydralazine 25 mg tablet 25 mg PO Q8H 90 days #270 tabs 04/23/23 trazodone 50 mg tablet 25 mg (1/2 x 50 mg) PO BEDTIME 04/23/23 sleep 90 days #45 tabs triamcinolone acetonide 0.5 % 1 appl topical DAILY 30 days #15 04/23/23 topical ointment grams valsartan 320 mg tablet 320 mg PO DAILY 90 days #90 tabs 04/23/23 omeprazole 20 mg capsule,delayed 20 mg PO DAILY #90 caps 06/10/23 release levothyroxine 25 mcg tablet 25 mcg PO DAILY #90 tabs 06/14/23 fluticasone propionate 50 1 spray intranasal Q12H PRN nasal 07/21/23 mcg/actuation nasal congestion 30 days #16 grams spray,suspension (Flonase Allergy Relief) aspirin 81 mg tablet,delayed 81 mg PO DAILY #30 tabs 08/01/23 release Allergies Allergy/AdvReac Type Severity Reaction Status Date / Time No Known Allergies Allergy Mild NA Verified 04/23/23 11:06 Review of Systems Review of Systems: Constitutional : No Fever, No Chills, No Fatigue ENT/Mouth : No sore throat, No Rhinorrhea, pos tinnitus Eyes: No Eye Pain, No Swelling, No Redness Cardiovascular : No Chest Pain, No SOB, No Dyspnea on Exertion Respiratory : No Cough, No Sputum Gastrointestinal : No Nausea, No Vomiting, No Diarrhea, No abdominal Pain Genitourinary : No Dysuria, No Urinary Frequency, No Hematuria, Musculoskeletal : No joint pain, No Myalgias, No Joint Swelling Skin : No Skin Lesions, No rash Neuro : No Weakness, No Numbness, pos Dizziness, positive Headache Psych : No Anxiety/Panic, No Depression All other systems reviewed and are negative [facility] Past Medical History Attestation statement: The following information was validated with the patient. Source: old records reviewed Medical History Memory impairment Obese Asthma Hypothyroid GERD (gastroesophageal reflux disease) HLD (hyperlipidemia) Glaucoma HTN (hypertension) Type II diabetes mellitus Social History Social History Housing: Apartment Patient Tobacco Use Status: Never used Tobacco Smoked in Last 30 Days: No e-Cigarette/Vaping Use: Never Used Use of substances other than those prescribed or required for medical reasons: No Advance Directives: No service: No Current occupational status: disabled Cognitive needs: No Hearing needs: No Vision needs: Yes Physical Exam Vital Signs: Vital Signs: Last Vital Signs Temp 96.0 F L 08/01/23 07:03 Pulse 63 08/01/23 09:10 Resp 15 08/01/23 07:03 BP 136/66 08/01/23 09:10 Pulse Ox 99 08/01/23 07:03 O2 Del Method Room Air 08/01/23 07:03 BMI result Body Mass Index 33.8 Appearance: Alert. Oriented X3. No acute distress. Eyes: both cornea opacified ENT: Pharynx normal. TMs normal Neck: Normal inspection. Neck supple. CVS: Normal heart rate and rhythm. Pulses normal. Respiratory: No respiratory distress. Breath sounds normal. Abdomen: Soft and nontender. Skin: Skin warm and dry. Normal skin color. Normal skin turgor. Extremities: No lower extremity edema. No calf ttp Neuro: Oriented X 3. No motor deficit. No sensory deficit. no drift Course Course Course Narrative: discussed stroke findings with patient and he states he had prior CVA but he is unsure Medical Decision Making Medical Decision Making [facility] Narrative: 82 yo male with PMH of asthma, HTN, HLD, glaucoma, memory impairment here with c/o resolved dizziness and ringing in left ear x 4 episodes with headache on Saturday it was abrupt on onset and came and went quickly. It seems vertiginous from what he was describing. No CP/SOB. He has no neuro symptoms. At this time will obtain labs, trop x 2, ortho VS, CT head for mass. BP stable now. Differential Diagnosis Differential Diagnoses: The differential diagnosis associated with the presentation includes vertigo, mass, URI Admission/Observation Consideration of admission/observation: Escalation of care including admission/observation considered repeat trop flat, no symptom since Saturday, CT scan small age indeterminate infarct but this was 6 days ago not in afib will start on aspirin and refer to PCP for further workup already on statin no symptoms now and no edema on CT scan 6 days later doubt he needs monitoring for swelling Lab Data [facility] Lab Attestation statement: I reviewed the patient's lab results. 08/01/23 07:30 08/01/23 07:30 Labs: Lab Results 08/01/23 08/01/23 08/01/23 Range/Units 07:30 07:31 08:30 WBC 5.6 (4.8-10.8) X10*3/uL RBC 4.31 L (4.60-5.80) X10*6/uL Hgb 11.8 L (14.0-18.0) g/dl Hct 37.6 L (42.0-52.0) % MCV 87.2 (80.0-98.0) fL MCH 27.4 (27.0-33.0) pg MCHC 31.4 (31.0-36.0) g/dl RDW 13.4 (11.0-16.0) % Plt Count 190 (160-400) X10*3/uL MPV 11.0 (9.4-12.4) fL Immature Gran % (Auto) 0.0 (0.0-0.4) % Neut % (Auto) 57.4 (45-73) % Lymph % (Auto) 28.2 (20-40) % [place] % (Auto) 8.0 (2-11) % Eos % (Auto) 5.9 H (0-4) % Baso % (Auto) 0.5 (0-2) % Lymph # (Auto) 1.6 (1.2-4.9) X10*3/uL [place] # (Auto) 0.5 (0.1-1.2) X10*3/uL Eos # (Auto) 0.3 (0.0-0.4) X10*3/uL Baso # (Auto) 0.0 (0.0-0.2) X10*3/uL Abs Immat Gran (auto) 0.00 (0.00-0.03) X10*3/uL Absolute Neuts (auto) 3.2 (2.0-8.3) x10*3/uL Absolute Nucleated RBC 0.000 (0.0-0.012) X10*3/uL Nucleated RBC % (auto) 0.0 (0.0-0.2) /100WBC Sodium 141 (135-145) mmol/L Potassium 4.3 (3.3-5.1) mmol/L Chloride 109 H (96-108) mmol/L Carbon Dioxide 26 (22-29) mmol/L Anion Gap 10 L (12-20) BUN 31 H (9-16) mg/dL Creatinine 1.25 (0.5-1.4) mg/dL Estim Creat Clear Calc 50.8 Estimated GFR 55 Random Glucose 169 H (60-115) mg/dL Calcium 9.2 (8.4-10.2) mg/dL Magnesium 2.0 (1.6-2.6) mg/dL Total Bilirubin 0.4 (0.0-1.0) mg/dL Direct Bilirubin 0.2 (0.0-0.5) mg/dL AST 19 (5-37) U/L ALT 20 (0-40) U/L Alkaline Phosphatase 89 (39-117) U/L Troponin I High Sens 18.2 12.5 (<3.5-35.0) ng/L Total Protein 6.5 (6.5-8.0) g/dL Albumin 3.3 L (3.5-5.0) g/dL Lipase 26 (8-78) U/L COVID-19 (KADI) Negative (Negative) COVID-19 Clin Com See Note Influenza Type A (JUAN JOSE) Negative (Negative) Influenza Type B (JUAN JOSE) Negative (Negative) Influenza A & B Note See Note Independent Interpretation I performed an independent interpretation of an: EKG and CT Scan (no ICH, possible age indeterminate infarct no edema asymptomatic now) Interpretation: Rate: 70 Rhythm: NSR Lawrence: left Normal P waves. Normal AMANDEEP. Normal QRS complex. ST T wave : normal no KATE qTC: 414 prior studies: no acute ischemia The study has been interpreted contemporaneously by me. . Radiology Impression Discussion of test interpretation with radiology: I have reviewed the radiologist's reading. Independent Historian Clinical information obtained from an independent historian. History obtained from or confirmed by: Other (caregiver) External Record Review External record reviewed: Inpatient record Discharge Plan Discharge Clinical Impression: Dizziness, Vertigo Patient Disposition: Home, Self-Care Instructions: Vertigo (ED), Dizziness (ED) Additional Instructions: labs and electrocardiogram reassuring. return for worsening symptoms weakness, numbness, confusion, or any other concerns. laboratorios y electrocardiograma tranquilizadores. Regrese si los s?ntomas empeoran: debilidad, entumecimiento, confusi?n o cualquier otra inquietud. 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 At this time follow up with your doctor outpatient ECHO, MRI and we will start you on a baby aspirin daily. Betancourt tomograf?a computarizada mostr? un antiguo derrame cerebral en el cerebelo. Es dif?cil decir si esto fue lo que sucedi? el s?bado, odalis probablemente fue m?s antiguo que eso. En kellie momento, elsie un seguimiento con betancourt m?dico ambulatorio, ECHO, MRI y comenzaremos con marvin aspirina para beb?s diariamente. Prescriptions: New aspirin 81 mg tablet,delayed release (DR/EC) 81 mg PO DAILY Qty: 30 0RF No Action omeprazole 20 mg capsule,delayed release(DR/EC) 20 mg PO DAILY Qty: 90 1RF levothyroxine 25 mcg tablet 25 mcg PO DAILY Qty: 90 1RF fluticasone propionate [Flonase Allergy Relief] 50 mcg/actuation spray,suspension 1 spray intranasal Q12H PRN (Reason: nasal congestion) 30 Days Qty: 16 3RF Rx Instructions: administer into each nostril donepezil 10 mg tablet 10 mg PO DAILY 90 Days Qty: 90 1RF triamcinolone acetonide 0.5 % ointment 1 appl topical DAILY 30 Days Qty: 15 1RF albuterol sulfate [Ventolin HFA] 90 mcg/actuation HFA aerosol inhaler 2 puff inhalation Q4H 30 Days Qty: 6.7 3RF atorvastatin 80 mg tablet 80 mg PO DAILY 90 Days Qty: 90 1RF hydralazine 25 mg tablet 25 mg PO Q8H 90 Days Qty: 270 1RF trazodone 50 mg tablet 25 mg PO BEDTIME 90 Days Qty: 45 3RF valsartan 320 mg tablet 320 mg PO DAILY 90 Days Qty: 90 1RF lorazepam 1 mg tablet 1 mg PO (DME) blood-glucose meter [FreeStyle Lite Meter] Kit See Rx Instructions .ROUTE BID Qty: 1 Rx Instructions: As directed (DME) disposable bedpads See Rx Instructions .Route .MEDSUPPLY Qty: 150 11RF Rx Instructions: As directed (DME) incontinence wipes See Rx Instructions .Route .MEDSUPPLY Qty: 2 11RF Rx Instructions: As directed (DME) men's pull ups XL See Rx Instructions .Route .MEDSUPPLY Qty: 150 11RF Rx Instructions: As directed (DME) disposable gloves Package See Rx Instructions .Route Qty: 50 11RF Rx Instructions: As directed timolol maleate 0.5 % drops 1 drp ophthalmic (eye) QAM [place] 0.01 % drops 1 drp ophthalmic (eye) BEDTIME docusate sodium 100 mg capsule 100 mg PO DAILY (DME) FreeStyle Lite Strips Strip See Rx Instructions .ROUTE .MEDSUPPLY Qty: 10 Rx Instructions: As directed cyclobenzaprine 10 mg tablet 10 mg PO BEDTIME Qty: 14 0RF Referrals: Jerrod Smith PA-C [Primary Care Provider] - (call for next appointment available) Stand Alone Forms: Work/School Release Interventions: ED Discharge Assessment Last Done: 08/01/23 10:24 Discharge Date/Time: 08/01/23 10:24 Print Language: Yoruba
[2023-08-01 07:38] LABS: MANUAL DIFF FLAG NO
[2023-08-01 07:41] LABS: Basophils Percent Auto 0.5 % (0-2); Eosinophils Absolute Auto 0.3 X10*3/uL (0.0-0.4); Eosinophils Percent Auto 5.9 % (0-4); Hematocrit 37.6 % (42.0-52.0); Hemoglobin 11.8 g/dl (14.0-18.0); Lymphocytes Absolute Auto 1.6 X10*3/uL (1.2-4.9); Lymphocytes Percent Auto 28.2 % (20-40); Mean Corpuscular HGB Conc 31.4 g/dl (31.0-36.0); Mean Corpuscular Hemoglobin 27.4 pg (27.0-33.0); Mean Corpuscular Volume 87.2 fL (80.0-98.0); Monocytes Absolute Auto 0.5 X10*3/uL (0.1-1.2); Neutrophils Absolute Auto 3.2 x10*3/uL (2.0-8.3); Neutrophils Percent Auto 57.4 % (45-73); Platelet Count 190 X10*3/uL (160-400); Red Blood Count 4.31 X10*6/uL (4.60-5.80); Red Cell Distribution Width 13.4 % (11.0-16.0); White Blood Count 5.6 X10*3/uL (4.8-10.8)
[2023-08-01 07:59] LABS: COVID-19 Test Negative (Negative); IDNOW Serial# 08D9AD1C
[2023-08-01 07:59] LABS: Anion Gap 10 (12-20); Blood Urea Nitrogen 31 mg/dL (9-16); Calcium 9.2 mg/dL (8.4-10.2); Carbon Dioxide 26 mmol/L (22-29); Chloride 109 mmol/L (96-108); Creatinine Clr Calc Pharmacy 50.8; Estimated Glomerular Filt Rate 55; Glucose Random 169 mg/dL (60-115); Potassium 4.3 mmol/L (3.3-5.1); Sodium 141 mmol/L (135-145)
[2023-08-01 08:00] LABS: Troponin-I High Sensitivity 18.2 ng/L (<3.5-35.0)
[2023-08-01 08:05] LABS: IDNOW Serial# 9DB6401D; Influenza A Negative (Negative); Influenza B2 Negative (Negative)
[2023-08-01 08:35] LABS: Alanine Aminotransferase 20 U/L (0-40); Albumin Level 3.3 g/dL (3.5-5.0); Alkaline Phosphatase 89 U/L (39-117); Aspartate Amino Transferase 19 U/L (5-37); Bilirubin Direct 0.2 mg/dL (0.0-0.5); Bilirubin Total 0.4 mg/dL (0.0-1.0); Lipase 26 U/L (8-78); Total Protein 6.5 g/dL (6.5-8.0)
[2023-08-01 08:54] LABS: Troponin-I High Sensitivity 12.5 ng/L (<3.5-35.0)
[2023-08-01 09:05] VITALS: BP 131/71; PULSE 58
[2023-08-01 09:09] VITALS: BP 134/64; PULSE 70
[2023-08-01 09:10] VITALS: BP 136/66; PULSE 63
== END 2023-08-01 10:24 | disposition home or self-care (01) ==
PROVIDERS: Emergency Provider Emergency Medicine; PCP Physician Assistant
DX: R42 Dizziness and giddiness (principal); R51.9 Headache, unspecified; H93.12 Tinnitus, left ear; Z11.52 Encounter for screening for COVID-19; Z79.899 Other long term (current) drug therapy
CPT/HCPCS: 36415; 70450; 80048; 80076; 83690; 83735; 84484; 85025; 87502; 87635; 93005; 99284

== ENCOUNTER → 2023-08-01 07:10 | Outpatient (BNV) | payer OTHER, SELFPAY | PROVIDERS: Emergency Provider Emergency Medicine; PCP Physician Assistant; Visit Provider Internal Medicine | DX: R42 Dizziness and giddiness (principal) | CPT/HCPCS: 93010 ==

== ENCOUNTER 2023-08-13 10:06 | Outpatient (AMB) | payer OTHER, SELFPAY ==
[2023-08-13 10:13] VITALS: BP 124/60; PULSE 60; O2SAT 98; BMI 33.4
--- NOTE | 2023-08-13 10:13 | A.OFFPC_ITS ---
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 Required: No Accompanied by: Sophie Camargo-EXTRUSION LINE OPERATOR Allergies No Known Allergies Allergy (Mild, Verified 08/13/23 10:31) NA Medication List - Last Reconciled 08/13/23 by Jerrod Smith PA-C albuterol sulfate 90 mcg/actuation (Ventolin HFA) 2 puffs inhalation Q4H 30 days aspirin 81 mg PO DAILY atorvastatin 80 mg PO DAILY 90 days bimatoprost 0.01% (Lumigan) 1 drp ophthalmic (eye) BEDTIME blood sugar diagnostic (FreeStyle Lite Strips) As directed blood-glucose meter (FreeStyle Lite Meter kit) As directed cyclobenzaprine 10 mg PO BEDTIME [disposable bedpads As directed] disposable gloves As directed docusate sodium 100 mg PO DAILY donepezil 10 mg PO DAILY 90 days fluticasone propionate 50 mcg/actuation (Flonase Allergy Relief) 1 spray intranasal Q12H PRN 30 days hydralazine 25 mg PO Q8H 90 days [incontinence wipes As directed] levothyroxine 25 mcg PO DAILY lorazepam 1 mg PO [men's pull ups As directed] omeprazole 20 mg PO DAILY timolol maleate 0.5% 1 drp ophthalmic (eye) QAM trazodone 25 mg (1/2 x 50 mg) PO BEDTIME 90 days triamcinolone acetonide 0.5% 1 appl topical DAILY 30 days valsartan 320 mg PO DAILY 90 days Tobacco use date assessed: 08/13/23 Fall risk assessment: No Falls in past year Last assessed Fall Risk: 08/13/23 Dental Screening Dental Screen Date: 08/13/23 Did you have a dental visit in the last 12 months?: Yes Did you have a dental problem in the last 6 months where you did not have access to dental care?: No Was dental information given to patient?: Patient has dentist HPI Follow-up hypertension, hypothyroidism 2 HPI0 Details Patient is an 82-year-old male here today for follow-up visit. Today patient presents with a EXTRUSION LINE OPERATOR. [facility] PCP was at [facility]. Patient has a past medical history hyperlipidemia, glaucoma, legal blindness, hypertension. He presents today with EXTRUSION LINE OPERATOR whom help some with his activities of daily living as patient is legally blind. Concern--> has multiple complaints today including a skin lesion on his lower buttocks, having dizziness when lying down on his left side. .. Type 2 diabetes: Diabetes has been well controlled. Most recent A1c is 6.4 He is currently diet controlled. .. Hypothyroidism: Most recent TSH very elevated at 34. His levothyroxine was increased to 50 mcg though apparently has not been taking this medication on empty stomach. Will recheck TSH . BPH: Followed by DR Luu urologist on annual basis. Most recent PSA elevated. Unclear what kind of prostate surgery though it sounds like he had a TURP procedure in the past. .. Hypertension: Continues on hydralazine and valsartan. Reports that home blood pressures are stable. Today's blood pressure in office acceptable. He denies any headache, chest pain or shortness of breath on exertion. Laboratory Tests 08/01/23 07:30 Hgb 11.8 L Random Glucose 169 H [facility] Medical History (Updated 08/13/23 @ 10:53 by Jerrod Smith PA-C) Hypothyroid Memory impairment Obese Asthma GERD (gastroesophageal reflux disease) HLD (hyperlipidemia) Glaucoma HTN (hypertension) Type II diabetes mellitus Social History Housing: Apartment Patient Tobacco Use Status: Never used Tobacco e-Cigarette/Vaping Use: Never Used service: No Current occupational status: disabled Cognitive needs: No Hearing needs: No Vision needs: Yes Questionnaire PHQ-9 Over the last 2 weeks, how often have you been bothered by any of the following problems? 1. Little interest or pleasure in doing things: not at all 2. Feeling down, depressed, or hopeless: not at all 3. Trouble falling or staying asleep, or sleeping too much: not at all 4. Feeling tired or having little energy: not at all 5. Poor appetite or overeating: not at all 6. Feeling bad about yourself - or that you are a failure or have let yourself or your family down: not at all 7. Trouble concentrating on things, such as reading the newspaper or watching television: not at all 8. Moving or speaking so slowly that other people could have noticed. Or the opposite - being so fidgety or restless that you have been moving around a lot more than usual: not at all 9. Thoughts that you would be better off or of hurting yourself in some way: not at all Total score: 0 Depression Screening Interpretation: Negative Depression Screening Done: Yes 61060 - PHQ-9 Billing: Yes Source: Developed by Drs. Juan A Pires, Jennifer Morales, Tha Oneil and colleagues, with an educational [place] from [employer]. Thrive Questionnaire Date Thrive assessed: 08/13/23 I am a: Patient What is your living situation today?: I have a steady place to live Within the past 12 months, did the food you bought not last and you didn't have the money to get more?: Never true Within the past 12 months, did you worry whether your food would run out before you got money to buy more?: Never true Do you have trouble paying for medicines?: No Do you have trouble getting transportation to medical appointments?: No Do you have trouble paying your heating and electricity bill?: No Do you have trouble taking care of your child, family member or friend?: No Do you have trouble with day-to-day activities such as bathing, preparing meals, shopping, managing finances, etc.?: No Are you currently unemployed and looking for a job?: No Are you interested in more education?: No Please select the resources that you would like help with: None Currently or been in a relationship where the following occur: no concerns reported THRIVE Score: 0 AUDIT C Alcohol Use Questionnaire (AUDIT-C) 1. How often do you have a drink containing alcohol?: Never 3. How often do you have six or more drinks on one occasion?: Never Total Score: 0 CYNTHIA-7 AMB Questionnaire CYNTHIA-7 Date CYNTHIA - 7 assessed: 08/13/23 Feeling nervous, anxious, or on edge: 0 = Not at all Not being able to stop or control worryin = Not at all Worrying too much about different things: 0 = Not at all Trouble relaxin = Not at all Being so restless that it is hard to sit still: 0 = Not at all Becoming easily annoyed or irritable: 0 = Not at all Feeling afraid as if something awful might happen: 0 = Not at all Total CYNTHIA-7 score (0-4 normal; 5-9 mild; 10-14 moderate; 15-21 severe): 0 Source: Developed by Drs. Juan A Pires, Jennifer Morales, Tha Oneil and colleagues, with an educational [place] from [employer]. CYNTHIA-7 Assessment Billing CYNTHIA-7 Assessment Tool: CYNTHIA-7 Assessment 81809 Review of Systems Const Denies headache(s) Eyes Denies loss of vision ENT Denies vertigo, Denies dizziness, Denies headache(s) and Denies sore throat Card Denies chest pain, Denies leg edema and Denies lightheadedness Resp Denies cough, Denies hemoptysis and Denies wheezing GI Denies abdominal pain, Denies melena, Denies constipation, Denies diarrhea and Denies vomiting Denies dysuria, Denies urinary frequency and Denies urinary urgency Musc Denies arthralgias, Denies joint swelling, Denies numbness and Denies tingling Neuro Denies Abnormal speech present, Denies behavioral changes, Denies vertigo, Denies dizziness, Denies headache(s), Denies loss of vision, Denies memory loss, Denies numbness and Denies tingling Psych Denies anxiety, Denies behavioral changes, Denies depression, Denies memory loss and Denies panic attacks Wayne/Lymph Denies easy bleeding and Denies easy bruising Aller/Immun Denies wheezing Physical exam (Primary Care) Vital Signs: Last Vital Signs Pulse 60 08/13/23 10:13 BP 124/60 08/13/23 10:13 Pulse Ox 98 08/13/23 10:13 Oxygen Delivery Method Room Air 08/13/23 10:13 BMI result Body Mass Index 33.4 Tobacco/Smoking Status: Tobacco use Status Tobacco use date assessed 08/13/23 08/13/23 10:29 Patient Tobacco Use Status Never used Tobacco 08/13/23 10:13 e-Cigarette/Vaping Use Never Used 08/13/23 10:13 PHQ-9: PHQ-9 Score PHQ-9: Total score 0 08/13/23 10:32 Depression Screening Interpretation: Negative Thrive Assessment: Date of Thrive Assessment Date Thrive assessed 08/13/23 08/13/23 10:26 Currently or been in a relationship where the following occur: no concerns reported Const General: healthy appearing, no acute distress, alert and awake Nutritional Appearance: well nourished Orientation/consciousness: oriented to person, oriented to place and oriented to time HENMT Ears: TM's normal bilaterally General nose exam: Normal nasal mucous membranes and turbinates present Eyes Conjunctivae: conjunctivae normal Sclerae: sclerae normal Pupils: Equal, round and reactive pupils present Neck Neck: Yes no lymphadenopathy and Yes no JVD Thyroid: Thyroid normal Carotids: no bruits Resp Effort & Inspection: normal respiratory effort and not tachypneic Auscultation: no crackles, no rales, no rhonchi and no wheezes Cardio Rate: regular rate Rhythm: regular rhythm Heart sounds: no murmurs and normal S1 and S2 GI Palpation (GI): Soft to palpation, nontender, no hepatomegaly and no splenomegaly Auscultation: normal bowel sounds Skin General skin exam: no rashes or lesions noted and dry skin Full body images: 2 1. TWO GROUPED VESICULAR LESIONS OVER UPPER COCCYX REGION CONCERNING FOR HERPETIC LESION Neuro General: oriented to person, oriented to place and oriented to time Cranial nerves: Yes Equal, round and reactive pupils present Speech: No Abnormal speech present Gait exam (Neuro): Normal gait present Motor exam (neuro): no tremor noted Extrem Right upper extremity: full ROM Left upper extremity: full ROM Right lower extremity: full ROM; no edema Left lower extremity: full ROM; no edema Psych Mental Status: mental status grossly normal Speech and movement: Normal speech and movement present Affect: normal affect Attitude: cooperative Thought process: Normal thought process present Assessment and Plan Assessment & Plan (1) Type II diabetes mellitus: Code(s): E11.9 - Type 2 diabetes mellitus without complications Qualifiers: Diabetes mellitus complication status: with hyperglycemia 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 Will continue to implement lifestyle modifications to control his diabetes. Goal A1c is to remain below 7.0. (2) HTN (hypertension): Code(s): I10 - Essential (primary) hypertension Qualifiers: Hypertension type: primary hypertension Qualified Code(s): I10 - Essential (primary) hypertension Plan: Patient's blood pressure acceptable today in office. Will continue his current dose of antihypertensive medication with goal blood pressure to be below 140/90 (3) Glaucoma: Code(s): H40.9 - Unspecified glaucoma Qualifiers: Glaucoma type: unspecified Laterality: bilateral Qualified Code(s): H 40.9 - Unspecified glaucoma Plan: Patient continues on multiple drops for his glaucoma. He is legally blind in does need full assistance while ambulating. He does have a EXTRUSION LINE OPERATOR whom is with him most of his day. (4) HLD (hyperlipidemia): Code(s): E78.5 - Hyperlipidemia, unspecified Qualifiers: Hyperlipidemia type: mixed hyperlipidemia Qualified Code(s): E78.2 - Mixed hyperlipidemia Plan: Patient is on high-dose statin therapy, will check a fasting lipid panel with goal LDL to remain below 100 (5) GERD (gastroesophageal reflux disease): Code(s): K21.9 - Gastro-esophageal reflux disease without esophagitis Qualifiers: Esophagitis presence: without esophagitis Qualified Code(s): K21.9 - Gastro-esophageal reflux disease without esophagitis Plan: Patient continues on omeprazole 20 mg with good effect on reducing his gastritis. Advised on refraining from gastric irritants been (6) Hypothyroid: Code(s): E03.9 - Hypothyroidism, unspecified Qualifiers: Hypothyroidism type: unspecified Qualified Code(s): E03.9 - Hypothyroidism, unspecified Plan: Patient's most recent TSH elevated at 34. His levothyroxine dose was increased to 50 mcg. Apparently patient has not been taking levothyroxine on an empty stomach thus absorption is likely minimal.. Advised to recheck TSH. (7) Asthma: Code(s): J45.909 - Unspecified asthma, uncomplicated Qualifiers: Asthma complication type: uncomplicated Asthma persistence: i ntermittent Asthma severity: mild Qualified Code(s): J45.20 - Mild intermittent asthma, uncomplicated Plan: Patient reports his asthma is fairly well controlled with only p.r.n. use of albuterol inhaler. He denies any recent asthma exacerbations or nighttime awakenings with asthma symptoms. (8) Insomnia: Code(s): G47.00 - Insomnia, unspecified Qualifiers: Insomnia type: primary Qualified Code(s): F51.01 - Primary insomnia Plan: Patient's EXTRUSION LINE OPERATOR spleens that Jevon often has a lot of trouble sleeping. He is willing to try trazodone 25 mg before bed as it has worked for him in the past. (9) Obese: Code(s): E66.9 - Obesity, unspecified Qualifiers: Body mass index: BMI 33.0-33.9 Obesity classification: adult class 1 (BMI 30 - 34.9) Obesity type: due to excess calories Serious obesity comorbidity presence: without serious comorbidity Qualified Code(s): E66.09 - Other obesity due to excess calories; Z68.33 - Body mass index [BMI] 33.0-33.9, adult Plan: Patient does understand his BMI is over 30 will work on being more physically active and adapting to better eating habits to reduce his weight (10) BPPV (benign paroxysmal positional vertigo): Code(s): H81.10 - Benign paroxysmal vertigo, unspecified ear Qualifiers: Laterality: right Qualified Code(s): H81.11 - Benign paroxysmal vertigo, right ear Plan: Patient's signs and symptoms of dizziness while lying down on left side most consistent with benign positional paroxysmal vertigo. Advised on meclizine use as needed. Did also advised on trying vestibular therapy though patient declines at this time. (11) BPH with elevated PSA: Code(s): N40.0 - Benign prostatic hyperplasia without lower urinary tract symptoms; R97.20 - Elevated prostate specific antigen [PSA] Plan: Followed by Urology in [place]. Most recent PSA elevated at 5. He does report some signs symptoms of urinary retention. Advised on perhaps starting tamsulosin hold talk to his urologist about this. (12) Shingles: Code(s): B02.9 - Zoster without complications Qualifiers: Herpes zoster complications: without complications Qualified Code(s): B 02.9 - Zoster without complications Plan: Patient skin manifestation concerning for shingles in appearance. Will supply patient with Valtrex (13) Skin infection: Code(s): L08.9 - Local infection of the skin and subcutaneous tissue, unspecified Medications: New 2 valacyclovir (Valtrex) 1,000 mg PO BID 7 days 14 tabs 0RF B02.9 - Zoster without complications mupirocin 2% 1 appl topical BID 14 days 22 grams 0RF L08.9 - Local infection of the skin and subcutaneous tissue, unspecified levothyroxine take on an empty stomach in the morning. 50 mcg PO DAILY 30 days 30 tabs 1RF E03.9 - Hypothyroidism, unspecified meclizine 12.5 mg PO BID 30 days 60 tabs 2RF dizziness H81.11 - Benign paroxysmal vertigo, right ear Refilled 2 trazodone 25 mg (1/2 x 50 mg) PO BEDTIME 90 days 45 tabs 3RF sleep F51.01 - Primary insomnia omeprazole 20 mg PO DAILY 90 caps 1RF K21.9 - Gastro-esophageal reflux disease without esophagitis Discontinued 2 levothyroxine Discontinued Reason: Doctor's Order 25 mcg PO DAILY 90 tabs 1RF E03.9 - Hypothyroidism, unspecified Coding Level of Care Code Est Pt Level 4 (37469) Diagnoses Type 2 diabetes mellitus with hyperglycemia, without long-term current use of insulin E11.65 Diabetes mellitus complication status: with hyperglycemia 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 insulin use: without laborer marine terminal use Primary hypertension I10 Hypertension type: primary hypertension Glaucoma of both eyes, unspecified glaucoma type H40.9 Glaucoma type: unspecified Laterality: bilateral Mixed hyperlipidemia E78.2 Hyperlipidemia type: mixed hyperlipidemia Gastroesophageal reflux disease without esophagitis K21.9 Esophagitis presence: without esophagitis Hypothyroidism, unspecified type E03.9 Hypothyroidism type: unspecified Mild intermittent asthma without complication J45.20 Asthma complication type: uncomplicated Asthma persistence: intermittent Asthma severity: mild Primary insomnia F51.01 Insomnia type: primary Class 1 obesity due to excess calories without serious comorbidity with body mass index (BMI) of 33.0 to 33.9 in adult E66.09; Z68.33 Body mass index: BMI 33.0-33.9 Obesity classification: adult class 1 (BMI 30 - 34.9) Obesity type: due to excess calories Serious obesity comorbidity presence: without serious comorbidity Benign paroxysmal positional vertigo of right ear H81.11 Laterality: right BPH with elevated PSA N40.0; R97.20 Herpes zoster without complication B02.9 Herpes zoster complications: without complications Skin infection L08.9 Additional Codes CYNTHIA-7 Assessment Billing - CYNTHIA-7 Assessment Tool: CYNTHIA-7 Assessment [id number] ([id number])
== END 2023-08-13 11:09 | disposition home or self-care (01) ==
PROVIDERS: PCP Physician Assistant; Visit Provider Physician Assistant
DX: E11.65 Type 2 diabetes mellitus with hyperglycemia (principal); I10 Essential (primary) hypertension; H40.9 Unspecified glaucoma; E78.2 Mixed hyperlipidemia; K21.9 Gastro-esophageal reflux disease without esophagitis; E03.9 Hypothyroidism, unspecified; J45.20 Mild intermittent asthma, uncomplicated; F51.01 Primary insomnia; E66.09 Other obesity due to excess calories; Z68.33 Body mass index [BMI] 33.0-33.9, adult; H81.11 Benign paroxysmal vertigo, right ear; N40.0 Benign prostatic hyperplasia without lower urinary tract symptoms; R97.20 Elevated prostate specific antigen [PSA]; B02.9 Zoster without complications; L08.9 Local infection of the skin and subcutaneous tissue, unspecified
CPT/HCPCS: 99214

== ENCOUNTER 2023-08-13 11:19 | Outpatient (REF) | payer OTHER, SELFPAY ==
[2023-08-13 11:57] LABS: Hematocrit 42.3 % (42.0-52.0); Hemoglobin 13.3 g/dl (14.0-18.0); Mean Corpuscular HGB Conc 31.4 g/dl (31.0-36.0); Mean Corpuscular Hemoglobin 27.5 pg (27.0-33.0); Mean Corpuscular Volume 87.4 fL (80.0-98.0); Mean Platelet Volume 11.3 fL (9.4-12.4); Platelet Count 205 X10*3/uL (160-400); Red Blood Count 4.84 X10*6/uL (4.60-5.80); Red Cell Distribution Width 13.4 % (11.0-16.0); White Blood Count 5.8 X10*3/uL (4.8-10.8)
[2023-08-13 12:26] LABS: Alanine Aminotransferase 28 U/L (0-40); Albumin Level 3.5 g/dL (3.5-5.0); Alkaline Phosphatase 98 U/L (39-117); Anion Gap 12 (12-20); Aspartate Amino Transferase 21 U/L (5-37); Bilirubin Total 0.4 mg/dL (0.0-1.0); Blood Urea Nitrogen 26 mg/dL (9-16); Calcium 9.2 mg/dL (8.4-10.2); Carbon Dioxide 25 mmol/L (22-29); Chloride 108 mmol/L (96-108); Cholesterol 141 mg/dL (<200); Estimated Glomerular Filt Rate 49; Glucose Fasting 128 mg/dL (60-99); HDL Cholesterol 42 mg/dL (>40); LDL Cholesterol Calculated 73 mg/dL (<100); Potassium 4.9 mmol/L (3.3-5.1); Sodium 140 mmol/L (135-145); Total Protein 7.1 g/dL (6.5-8.0); Triglycerides 134 mg/dL (<150)
[2023-08-13 13:04] LABS: Free T4 (Free Thyroxine) 1.01 ng/dL (0.71-1.85)
== END 2023-08-13 11:20 | disposition home or self-care (01) ==
LOC: HO.LAB 11:19
PROVIDERS: PCP Physician Assistant; Visit Provider Physician Assistant
DX: E03.9 Hypothyroidism, unspecified (principal); E78.2 Mixed hyperlipidemia; I10 Essential (primary) hypertension
CPT/HCPCS: 36415; 80053; 80061; 84439; 84443; 85027

== ENCOUNTER 2023-10-14 11:03 | Outpatient (AMB) | payer OTHER, SELFPAY ==
--- NOTE | 2023-10-14 11:12 | A.OFFPC_ITS ---
Vital Signs 10/14/23 11:23 Height 5 ft 7 in Weight 214 lb 11.684 oz BMI 33.6 BP 120/60 Blood Pressure Location Lt brachial Position Sitting Pulse 65 Pulse Source Pulse Oximeter Pulse Oximetry (%) 98 Oxygen Delivery Method Room Air Intake Visit Reasons: dizziness, red bumps entire body,dark bump LT foot Intake Note: The patient is presenting with red bumps covering their entire body, along with worsening dark bumps on the left foot. They describe the bumps as appearing red, warm to the touch, and causing intense itching and burning sensations. Screener Perfumer Required: No Accompanied by: FOOD SAFETY COORDINATOR Allergies No Known Allergies Allergy (Mild, Verified 10/14/23 11:35) NA Medication List - Last Reconciled 10/14/23 by Jerrod Smith PA-C albuterol sulfate 90 mcg/actuation (Ventolin HFA) 2 puffs inhalation Q4H 30 days aspirin 81 mg PO DAILY atorvastatin 80 mg PO DAILY 90 days bimatoprost 0.01% (Lumigan) 1 drp ophthalmic (eye) BEDTIME blood sugar diagnostic (FreeStyle Lite Strips) As directed blood-glucose meter (FreeStyle Lite Meter kit) As directed cyclobenzaprine 10 mg PO BEDTIME [disposable bedpads As directed] disposable gloves As directed docusate sodium 100 mg PO DAILY donepezil 10 mg PO DAILY 90 days fluticasone propionate 50 mcg/actuation (Flonase Allergy Relief) 1 spray intranasal Q12H PRN 30 days hydralazine 25 mg PO Q8H 90 days [incontinence wipes As directed] levothyroxine 50 mcg PO DAILY 30 days lorazepam 1 mg PO meclizine 12.5 mg PO BID 30 days [men's pull ups As directed] mupirocin 2% 1 appl topical BID 14 days omeprazole 20 mg PO DAILY timolol maleate 0.5% 1 drp ophthalmic (eye) QAM trazodone 25 mg (1/2 x 50 mg) PO BEDTIME 90 days triamcinolone acetonide 0.5% 1 appl topical DAILY 30 days valacyclovir (Valtrex) 1,000 mg PO BID 7 days valsartan 320 mg PO DAILY 90 days Tobacco use date assessed: 08/13/23 Dental Screening Dental Screen Date: 08/13/23 HPI dizziness, red bumps entire body,dark bump LT foot HPI Details Patient is an 82-year-old male here today for a problem visit. Has noted several areas on his legs, trunk and arms of dry patchy circles. Has tried topical antibiotic and steroid without much relief. Skin manifestation has been evident over the last year and and reports that times especially at night is very itchy. [facility] [place] [place] Medical History (Updated 10/14/23 @ 11:39 by Jerrod Smith PA-C) Hypothyroid Memory impairment Obese Asthma GERD (gastroesophageal reflux disease) HLD (hyperlipidemia) Glaucoma HTN (hypertension) Type II diabetes mellitus Social History Housing: Apartment Patient Tobacco Use Status: Never used Tobacco e-Cigarette/Vaping Use: Never Used service: No Current occupational status: disabled Cognitive needs: No Hearing needs: No Vision needs: Yes Questionnaire Thrive Questionnaire Date Thrive assessed: 08/13/23 CYNTHIA-7 AMB Questionnaire CYNTHIA-7 Date CYNTHIA - 7 assessed: 08/13/23 Source: Developed by Drs. Juan A Pires, Jennifer Morales, Tha Oneil and colleagues, with an educational [place] from [email or web address]. Review of Systems Const Denies headache(s) Eyes Denies loss of vision ENT Denies vertigo, Denies dizziness, Denies headache(s) and Denies sore throat Card Denies chest pain, Denies leg edema and Denies lightheadedness Resp Denies cough, Denies hemoptysis and Denies wheezing GI Denies abdominal pain, Denies melena, Denies constipation, Denies diarrhea and Denies vomiting Denies dysuria, Denies urinary frequency and Denies urinary urgency Musc Denies arthralgias, Denies joint swelling, Denies numbness and Denies tingling Neuro Denies Abnormal speech present, Denies behavioral changes, Denies vertigo, Denies dizziness, Denies headache(s), Denies loss of vision, Denies memory loss, Denies numbness and Denies tingling Psych Denies anxiety, Denies behavioral changes, Denies depression, Denies memory loss and Denies panic attacks Wayne/Lymph Denies easy bleeding and Denies easy bruising Aller/Immun Denies wheezing Physical exam (Primary Care) Vital Signs: Last Vital Signs Pulse 65 10/14/23 11:23 BP 120/60 10/14/23 11:23 Pulse Ox 98 10/14/23 11:23 Oxygen Delivery Method Room Air 10/14/23 11:23 BMI result Body Mass Index 33.6 Tobacco/Smoking Status: Tobacco use Status Tobacco use date assessed 08/13/23 10/14/23 11:12 Patient Tobacco Use Status Never used Tobacco 10/14/23 11:12 e-Cigarette/Vaping Use Never Used 10/14/23 11:12 Thrive Assessment: Date of Thrive Assessment Date Thrive assessed 08/13/23 10/14/23 11:12 Const General: healthy appearing, no acute distress, alert and awake Nutritional Appearance: well nourished Orientation/consciousness: oriented to person, oriented to place and oriented to time HENMT Ears: TM's normal bilaterally General nose exam: Normal nasal mucous membranes and turbinates present Eyes Conjunctivae: conjunctivae normal Sclerae: sclerae normal Pupils: Equal, round and reactive pupils present Neck Neck: Yes no lymphadenopathy and Yes no JVD Thyroid: Thyroid normal Carotids: no bruits Resp Effort & Inspection: normal respiratory effort and not tachypneic Auscultation: no crackles, no rales, no rhonchi and no wheezes Cardio Rate: regular rate Rhythm: regular rhythm Heart sounds: no murmurs and normal S1 and S2 GI Palpation (GI): Soft to palpation, nontender, no hepatomegaly and no splenomegaly Auscultation: normal bowel sounds Skin Other: SMALL AREAS OF CIRCULAR DRY PATCHES. ONE LARGE PLAQUE-LIKE AREA ON HIS RIGHT LOWER EXTREMITY WITH DRY SCALY SKIN. General skin exam: dry skin Neuro General: oriented to person, oriented to place and oriented to time Cranial nerves: Yes Equal, round and reactive pupils present Speech: No Abnormal speech present Gait exam (Neuro): Normal gait present Motor exam (neuro): no tremor noted Extrem Right upper extremity: full ROM Left upper extremity: full ROM Right lower extremity: full ROM; no edema Left lower extremity: full ROM; no edema Psych Mental Status: mental status grossly normal Speech and movement: Normal speech and movement present Affect: normal affect Attitude: cooperative Thought process: Normal thought process present Assessment and Plan Assessment & Plan (1) Psoriasis: Code(s): L40.9 - Psoriasis, unspecified Plan: Patient continues to several areas of dry scaly skin that is consistent with psoriasis versus eczema. Has tried moisturizers and topical steroid in the past without much relief. He believes he had shingles thus he did take Valtrex a few months back. Advised to moisturize well after showers. Will refer to Dermatology for evaluation and possible further treatment of a skin condition here. Orders: Referrals Dermatology Referral L40.9 - Psoriasis, unspecified Medications: New triamcinolone acetonide 0.1% 1 appl topical DAILY 80 grams 2RF 30 days L40.9 - Psoriasis, unspecified Discontinued triamcinolone acetonide 0.5% Discontinued Reason: Doctor's Order 1 appl topical DAILY 30 days 15 grams 1RF L57.0 - Actinic keratosis valacyclovir (Valtrex) Discontinued Reason: Doctor's Order 1,000 mg PO BID 7 days 14 tabs 0RF B02.9 - Zoster without complications mupirocin 2% Discontinued Reason: Doctor's Order 1 appl topical BID 14 days 22 grams 0RF L08.9 - Local infection of the skin and subcutaneous tissue, unspecified Coding Level of Care Code Est Pt Level 3 (42197) Diagnoses Psoriasis L40.9
[2023-10-14 11:23] VITALS: BP 120/60; PULSE 65; O2SAT 98; BMI 33.6
== END 2023-10-14 11:52 | disposition home or self-care (01) ==
PROVIDERS: PCP Physician Assistant; Visit Provider Physician Assistant
DX: L40.9 Psoriasis, unspecified (principal)
CPT/HCPCS: 99213

== ENCOUNTER 2023-11-14 09:49 | Outpatient (REF) | payer OTHER, SELFPAY ==
[2023-11-14 11:32] LABS: TSH reflex Free T4 39.01 uIU/mL (0.32-4.0)
== END 2023-11-14 09:50 | disposition home or self-care (01) ==
LOC: HO.LAB 09:49
PROVIDERS: PCP Physician Assistant; Visit Provider Physician Assistant
DX: E03.9 Hypothyroidism, unspecified (principal)
CPT/HCPCS: 36415; 84439; 84443

== ENCOUNTER 2024-01-09 10:36 | Outpatient (REF) | payer OTHER, SELFPAY ==
[2024-01-09 12:28] LABS: Prostate Specific Antigen 6.53 ng/mL (<0.05-4.0)
== END 2024-01-09 10:37 | disposition home or self-care (01) ==
LOC: HO.LAB 10:36
PROVIDERS: PCP Physician Assistant; Visit Provider Physician Assistant
DX: C61 Malignant neoplasm of prostate (principal); Z12.5 Encounter for screening for malignant neoplasm of prostate
CPT/HCPCS: 36415; 84153

== ENCOUNTER 2024-02-26 10:39 | Outpatient (AMB) | payer OTHER, SELFPAY ==
--- NOTE | 2024-02-26 10:43 | A.OFFPC_ITS ---
Vital Signs 3 02/26/24 10:45 Height 5 ft 7 in Weight 213 lb BMI 33.4 BP 134/60 Blood Pressure Location Lt brachial Position Sitting Pulse 76 Pulse Source Pulse Oximeter Pulse Oximetry (%) 98 Oxygen Delivery Method Room Air Intake Visit Reasons: 6 month f/u Intake Note: The patient is here for a 6-month follow-up. The ASSISTIVE TECHNOLOGY TRAINER reports that the patient feels depressed, experiences skin itchiness, suspects HPV papilloma, and has had a crawling sensation for the past 8 months. There is a possible abscess on the left side of the back with discharge and a foul odor. Compressed Yeast Supervisor Required: Yes Compressed Yeast Supervisor Language: Upper Sorbian Accompanied by: ASSISTIVE TECHNOLOGY TRAINER-Sophie Camargo Allergies No Known Allergies Allergy (Mild, Verified 02/26/24 10:59) NA Medication List - Last Reconciled 02/26/24 by Jerrod Smith PA-C albuterol sulfate 90 mcg/actuation (Ventolin HFA) 2 puffs inhalation Q4H 30 days aspirin 81 mg PO DAILY atorvastatin 80 mg PO DAILY 90 days bimatoprost 0.01% (Lumigan) 1 drp ophthalmic (eye) BEDTIME blood sugar diagnostic (FreeStyle Lite Strips) As directed blood-glucose meter (FreeStyle Lite Meter kit) As directed cyclobenzaprine 10 mg PO BEDTIME [disposable bedpads As directed] disposable gloves As directed docusate sodium 100 mg PO DAILY donepezil 10 mg PO DAILY 90 days fluticasone propionate 50 mcg/actuation (Flonase Allergy Relief) 1 spray intranasal Q12H PRN 30 days hydralazine 25 mg PO Q8H 90 days [incontinence wipes As directed] levothyroxine 50 mcg PO DAILY 30 days levothyroxine 100 mcg PO DAILY 30 days lorazepam 0.5 mg PO DAILY 4 days meclizine 12.5 mg PO BID 30 days [men's pull ups As directed] omeprazole 20 mg PO DAILY timolol maleate 0.5% 1 drp ophthalmic (eye) QAM trazodone 25 mg (1/2 x 50 mg) PO BEDTIME 90 days triamcinolone acetonide 0.1% 1 appl topical DAILY 30 days valsartan 320 mg PO DAILY 90 days Tobacco use date assessed: 08/13/23 Dental Screening Dental Screen Date: 08/13/23 HPI 6 month f/u 2 HPI0 Details Patient is an 83-year-old male here today for follow-up visit. Today patient presents with a ASSISTIVE TECHNOLOGY TRAINER. Patient has a past medical history hyperlipidemia, glaucoma, legal blindness, hypertension. He presents today with ASSISTIVE TECHNOLOGY TRAINER whom help some with his activities of daily living as patient is legally blind. Concern--> reports feeling palpitations quite regularly. He believes this is due to his dementia medication benazepril to which he has stopped taking. Unfortunately still has the palpitations. Will retest his thyroid and if thyroid still very under functioning will consider up titrating levothyroxine dose which may be the reason for his palpitations. We did discuss Holter monitoring will like to hold off until after lab testing. Skin issue: Continues to have dry scaly patches itchy irritated skin over his extremities, torso and hands. At times they do produce pustules. My concerns here for psoriasis. Does have upcoming appointment with Dermatology on March 20. Has been using triamcinolone though has not been very effective. .. Type 2 diabetes: Diabetes has been well controlled. Most recent A1c is 6.4 He is currently diet controlled. .. Hypothyroidism: Most recent TSH very elevated at 34. We have increased his levothyroxine to 100 mcg. Does take his thyroid medication daily on empty stomach in the mornings. Will recheck his TSH to assure stabilization . BPH: Followed by DR Luu urologist on annual basis. Most recent PSA elevated At 6. Unclear what kind of prostate surgery though it sounds like he had a TURP procedure in the past. .. Hypertension: Continues on hydralazine and valsartan. Reports that home blood pressures are stable. Today's blood pressure in office acceptable. He denies any headache, chest pain or shortness of breath on exertion. [facility] Medical History HLD (hyperlipidemia) Hypothyroid Memory impairment Obese Asthma GERD (gastroesophageal reflux disease) Glaucoma HTN (hypertension) Type II diabetes mellitus Social History Housing: Apartment Patient Tobacco Use Status: Never used Tobacco e-Cigarette/Vaping Use: Never Used service: No Current occupational status: disabled Cognitive needs: No Hearing needs: No Vision needs: Yes Questionnaire Thrive Questionnaire Date Thrive assessed: 08/13/23 CYNTHIA-7 AMB Questionnaire CYNTHIA-7 Date CYNTHIA - 7 assessed: 08/13/23 Source: Developed by Drs. Juan A Pires, Jennifer Morales, Tha Oneil and colleagues, with an educational [place] from [employer]. Review of Systems Const Denies headache(s) Eyes Denies loss of vision ENT Denies vertigo, Denies dizziness, Denies headache(s) and Denies sore throat Card Denies chest pain, Denies leg edema and Denies lightheadedness Resp Denies cough, Denies hemoptysis and Denies wheezing GI Denies abdominal pain, Denies melena, Denies constipation, Denies diarrhea and Denies vomiting Denies dysuria, Denies urinary frequency and Denies urinary urgency Musc Denies arthralgias, Denies joint swelling, Denies numbness and Denies tingling Neuro Denies Abnormal speech present, Denies behavioral changes, Denies vertigo, Denies dizziness, Denies headache(s), Denies loss of vision, Denies memory loss, Denies numbness and Denies tingling Psych Denies anxiety, Denies behavioral changes, Denies depression, Denies memory loss and Denies panic attacks Wayne/Lymph Denies easy bleeding and Denies easy bruising Aller/Immun Denies wheezing Physical exam (Primary Care) Vital Signs: Last Vital Signs Pulse 76 02/26/24 10:45 BP 134/60 02/26/24 10:45 Pulse Ox 98 02/26/24 10:45 Oxygen Delivery Method Room Air 02/26/24 10:45 BMI result Body Mass Index 33.4 Tobacco/Smoking Status: Tobacco use Status Tobacco use date assessed 08/13/23 02/26/24 10:43 Patient Tobacco Use Status Never used Tobacco 02/26/24 10:43 e-Cigarette/Vaping Use Never Used 02/26/24 10:43 Thrive Assessment: Date of Thrive Assessment Date Thrive assessed 08/13/23 02/26/24 10:43 Const General: healthy appearing, no acute distress, alert and awake Nutritional Appearance: well nourished Orientation/consciousness: oriented to person, oriented to place and oriented to time HENMT Ears: TM's normal bilaterally General nose exam: Normal nasal mucous membranes and turbinates present Eyes Conjunctivae: conjunctivae normal Sclerae: sclerae normal Pupils: Equal, round and reactive pupils present Neck Neck: Yes no lymphadenopathy and Yes no JVD Thyroid: Thyroid normal Carotids: no bruits Resp Effort & Inspection: normal respiratory effort and not tachypneic Auscultation: no crackles, no rales, no rhonchi and no wheezes Cardio Rate: regular rate Rhythm: regular rhythm Heart sounds: no murmurs and normal S1 and S2 GI Palpation (GI): Soft to palpation, nontender, no hepatomegaly and no splenomegaly Auscultation: normal bowel sounds Skin Other: General skin exam: no rashes or lesions noted and dry skin Neuro General: oriented to person, oriented to place and oriented to time Cranial nerves: Yes Equal, round and reactive pupils present Speech: No Abnormal speech present Gait exam (Neuro): Normal gait present Motor exam (neuro): no tremor noted Extrem Right upper extremity: full ROM Left upper extremity: full ROM Right lower extremity: full ROM; no edema Left lower extremity: full ROM; no edema Psych Mental Status: mental status grossly normal Speech and movement: Normal speech and movement present Affect: normal affect Attitude: cooperative Thought process: Normal thought process present Assessment and Plan Assessment & Plan (1) Type II diabetes mellitus: Code(s): E11.9 - Type 2 diabetes mellitus without complications Qualifiers: Diabetes mellitus complication status: without complication Diabetes mellitus fdc insulin use: without terminal make up operator use Qualified Code(s): E11.9 - Type 2 diabetes mellitus without complications Plan: Patient's type 2 diabetes well controlled. Will continue to implement lifestyle modifications to control his diabetes. Goal A1c is to remain below 7.0. (2) Psoriasis: Code(s): L40.9 - Psoriasis, unspecified Plan: ADDITIONAL PICTURES OF SKIN MANIFESTATION IN PHYSICAL EXAM SECTION. Patient continues to several areas of dry scaly skin that is consistent with psoriasis versus eczema. Has tried moisturizers and topical steroid in the past without much relief. He believes he had shingles thus he did take Valtrex a few months back. Advised to moisturize well after showers. Has upcoming appointment with Dermatology. Advised to continue use of triamcinolone ointment on the dry patchy areas. Will supply patient with a week of an antibiotic as a trial to see reduce his itchiness and pustules. (3) HTN (hypertension): Code(s): I10 - Essential (primary) hypertension Qualifiers: Hypertension type: primary hypertension Qualified Code(s): I10 - Essential (primary) hypertension Plan: Patient's blood pressure acceptable today in office. Will continue his current dose of antihypertensive medication with goal blood pressure to be below 140/90 (4) Glaucoma: Code(s): H40.9 - Unspecified glaucoma Qualifiers: Glaucoma type: unspecified Laterality: bilateral Qualified Code(s): H 40.9 - Unspecified glaucoma Plan: Patient continues on multiple drops for his glaucoma. He is legally blind in does need full assistance while ambulating. He does have a ASSISTIVE TECHNOLOGY TRAINER whom is with him most of his day. (5) HLD (hyperlipidemia): Code(s): E78.5 - Hyperlipidemia, unspecified Qualifiers: Hyperlipidemia type: mixed hyperlipidemia Qualified Code(s): E78.2 - Mixed hyperlipidemia Plan: Patient is on high-dose statin therapy, will check a fasting lipid panel with goal LDL to remain below 100 (6) Hypothyroid: Code(s): E03.9 - Hypothyroidism, unspecified Qualifiers: Hypothyroidism type: unspecified Qualified Code(s): E03.9 - Hypothyroidism, unspecified Plan: Patient's most recent TSH elevated at 39. His levothyroxine dose was increased to 100mcg / Apparently patient has not been taking levothyroxine on an empty stomach thus absorption is likely minimal.. Advised to recheck TSH. (7) Insomnia: Code(s): G47.00 - Insomnia, unspecified Qualifiers: Insomnia type: primary Qualified Code(s): F51.01 - Primary insomnia Plan: Patient's ASSISTIVE TECHNOLOGY TRAINER spleens that Jevon often has a lot of trouble sleeping. (8) BPH with elevated PSA: Code(s): N40.0 - Benign prostatic hyperplasia without lower urinary tract symptoms; R97.20 - Elevated prostate specific antigen [PSA] Plan: Followed by Urology in [place]. Most recent PSA elevated at 6. He does report some signs symptoms of urinary retention. Advised on perhaps starting tamsulosin hold talk to his urologist about this. (9) Heart palpitations: Code(s): R00.2 - Palpitations Plan: PER HPI PATIENT REPORTS HAVING PALPITATIONS QUITE OFTEN. COULD BE RELATED TO A SIDE EFFECT OF MEDICATION OR HYPO FUNCTIONING THYROID. Discuss Holter monitor though like to hold off and get lab testing to check his thyroid. Orders: Orders 2 Prostate Specific Antigen Scr Today N40.0 - Benign prostatic hyperplasia without lower urinary tract symptoms, R97.20 - Elevated prostate specific antigen [PSA], Z12.5 - Encounter for screening for malignant neoplasm of prostate TSH reflex Free T4 Today E03.9 - Hypothyroidism, unspecified Comprehensive [place]. Panel Fast Today Z13.1 - Encounter for screening for diabetes mellitus Lipid Panel Today E11.9 - Type 2 diabetes mellitus without complications, E78.2 - Mixed hyperlipidemia NITESH Reflex Titer and Pattern Today L40.9 - Psoriasis, unspecified Complete Blood Count no Diff Today L40.9 - Psoriasis, unspecified Medications: New 2 doxycycline monohydrate 100 mg PO BID 7 days 14 caps 0RF L40.9 - Psoriasis, unspecified Refilled 2 valsartan 320 mg PO DAILY 90 days 90 tabs 1RF I10 - Essential (primary) hypertension albuterol sulfate 90 mcg/actuation (Ventolin HFA) 2 puffs inhalation Q4H 30 days 6.7 grams 3RF J45.20 - Mild intermittent asthma, uncomplicated atorvastatin 80 mg PO DAILY 90 days 90 tabs 1RF E78.2 - Mixed hyperlipidemia omeprazole 20 mg PO DAILY 90 caps 1RF K21.9 - Gastro-esophageal reflux disease without esophagitis levothyroxine 100 mcg PO DAILY 30 days 30 tabs 3RF E03.9 - Hypothyroidism, unspecified hydralazine 25 mg PO Q8H 90 days 270 tabs 1RF I10 - Essential (primary) hypertension Discontinued 2 levothyroxine take on an empty stomach in the morning. Discontinued Reason: Doctor's Order 50 mcg PO DAILY 30 days 30 tabs 1RF E03.9 - Hypothyroidism, unspecified donepezil Discontinued Reason: Doctor's Order 10 mg PO DAILY 90 days 90 tabs 1RF R41.3 - Other amnesia Patient Instructions: Goal: A1c to remain below 6.5, pressure to remain below 140/90 :Barrier: Adherence to physical activity and healthy eating habits Coding Level of Care Code Est Pt Level 4 (69663) Diagnoses Type 2 diabetes mellitus without complication, without long-term current use of insulin E11.9 Diabetes mellitus complication status: without complication Diabetes mellitus fdc insulin use: without fdc use Psoriasis L40.9 Primary hypertension I10 Hypertension type: primary hypertension Glaucoma of both eyes, unspecified glaucoma type H40.9 Glaucoma type: unspecified Laterality: bilateral Mixed hyperlipidemia E78.2 Hyperlipidemia type: mixed hyperlipidemia Hypothyroidism, unspecified type E03.9 Hypothyroidism type: unspecified Primary insomnia F51.01 Insomnia type: primary BPH with elevated PSA N40.0; R97.20 Heart palpitations R00.2
[2024-02-26 10:45] VITALS: BP 134/60; PULSE 76; O2SAT 98; BMI 33.4
== END 2024-02-26 11:36 | disposition home or self-care (01) ==
PROVIDERS: PCP Physician Assistant; Visit Provider Physician Assistant
DX: E11.9 Type 2 diabetes mellitus without complications (principal); L40.9 Psoriasis, unspecified; I10 Essential (primary) hypertension; H40.9 Unspecified glaucoma; E78.2 Mixed hyperlipidemia; E03.9 Hypothyroidism, unspecified; F51.01 Primary insomnia; N40.0 Benign prostatic hyperplasia without lower urinary tract symptoms; R97.20 Elevated prostate specific antigen [PSA]; R00.2 Palpitations
CPT/HCPCS: 99214

== ENCOUNTER 2024-02-27 10:37 | Outpatient (REF) | payer OTHER, SELFPAY ==
[2024-02-27 11:45] LABS: Hematocrit 38.8 % (42.0-52.0); Hemoglobin 12.1 g/dl (14.0-18.0); Mean Corpuscular HGB Conc 31.2 g/dl (31.0-36.0); Mean Corpuscular Hemoglobin 27.1 pg (27.0-33.0); Mean Platelet Volume 11.8 fL (9.4-12.4); Platelet Count 183 X10*3/uL (160-400); Red Blood Count 4.46 X10*6/uL (4.60-5.80); Red Cell Distribution Width 13.6 % (11.0-16.0); White Blood Count 5.4 X10*3/uL (4.8-10.8)
[2024-02-27 12:30] LABS: Prostate Specific Antigen Scr 5.33 ng/mL (<0.05-4.0)
[2024-02-27 12:31] LABS: Alanine Aminotransferase 24 U/L (0-40); Albumin Level 3.5 g/dL (3.5-5.0); Alkaline Phosphatase 96 U/L (39-117); Anion Gap 12 (12-20); Aspartate Amino Transferase 21 U/L (5-37); Bilirubin Total 0.6 mg/dL (0.0-1.0); Blood Urea Nitrogen 24 mg/dL (9-16); Calcium 9.2 mg/dL (8.4-10.2); Carbon Dioxide 26 mmol/L (22-29); Chloride 111 mmol/L (96-108); Cholesterol 133 mg/dL (<200); Estimated Glomerular Filt Rate 58; Glucose Fasting 114 mg/dL (60-99); HDL Cholesterol 42 mg/dL (>40); LDL Cholesterol Calculated 72 mg/dL (<100); Potassium 4.7 mmol/L (3.3-5.1); Sodium 144 mmol/L (135-145); Total Protein 6.8 g/dL (6.5-8.0); Triglycerides 97 mg/dL (<150)
[2024-02-27 12:34] LABS: TSH reflex Free T4 38.63 uIU/mL (0.32-4.0)
[2024-02-27 13:17] LABS: Free T4 (Free Thyroxine) 1.36 ng/dL (0.71-1.85)
[2024-03-04 10:38] LABS: Anti Nuclear Antibody Screen NEGATIVE (NEGATIVE)
== END 2024-02-27 10:38 | disposition home or self-care (01) ==
LOC: HO.LAB 10:37
PROVIDERS: PCP Physician Assistant; Visit Provider Physician Assistant
DX: E03.9 Hypothyroidism, unspecified (principal); Z12.5 Encounter for screening for malignant neoplasm of prostate; N40.0 Benign prostatic hyperplasia without lower urinary tract symptoms; R97.20 Elevated prostate specific antigen [PSA]; Z13.1 Encounter for screening for diabetes mellitus; E78.2 Mixed hyperlipidemia; E11.9 Type 2 diabetes mellitus without complications; L40.9 Psoriasis, unspecified
CPT/HCPCS: 36415; 80053; 80061; 84153; 84439; 84443; 85027; 86038

== ENCOUNTER 2024-03-30 18:39 | Emergency (ER) | payer OTHER, SELFPAY ==
[2024-03-30 18:55] VITALS: BP 150/54; PULSE 73; RESP 18; TEMP 36.6; O2SAT 98; BMI 33.7
--- NOTE | 2024-03-30 18:55 | ED.MALEGU ---
HPI - Male Genitourinary General Chief complaint: General Medical Stated complaint: ? bleeding from testicles Related Data Home Medications ?Medication ?Instructions ?Recorded ?Confirmed bimatoprost 0.01 % eye drops 1 drp ophthalmic (eye) BEDTIME 11/07/22 04/01/24 (Lumigan) blood sugar diagnostic (FreeStyle #10 ea 11/07/22 04/01/24 Lite Strips) docusate sodium 100 mg capsule 100 mg PO DAILY 11/07/22 04/01/24 timolol maleate 0.5 % eye drops 1 drp ophthalmic (eye) QAM 11/07/22 04/01/24 blood-glucose meter (FreeStyle #1 ea 02/11/23 04/01/24 Lite Meter kit) Previous Rx's ?Medication ?Instructions ?Recorded cyclobenzaprine 10 mg tablet 10 mg PO BEDTIME #14 tabs 11/07/22 disposable bedpads #150 ea 02/11/23 disposable gloves #50 ea 02/11/23 incontinence wipes #2 multiple units 02/11/23 men's pull ups #150 ea 02/11/23 trazodone 50 mg tablet 25 mg (1/2 x 50 mg) PO BEDTIME 08/13/23 sleep 90 days #45 tabs lorazepam 0.5 mg tablet 0.5 mg PO DAILY anxiety 4 days #4 11/14/23 tabs meclizine 12.5 mg tablet 12.5 mg PO BID dizziness 30 days 12/31/23 #60 tabs fluticasone propionate 50 1 spray intranasal Q12H PRN nasal 01/28/24 mcg/actuation nasal congestion 30 days #16 grams spray,suspension (Flonase Allergy Relief) albuterol sulfate 90 mcg/actuation 2 puff inhalation Q4H 30 days #6.7 02/26/24 aerosol inhaler (Ventolin HFA) grams atorvastatin 80 mg tablet 80 mg PO DAILY 90 days #90 tabs 02/26/24 doxycycline monohydrate 100 mg 100 mg PO BID 7 days #14 caps 02/26/24 capsule hydralazine 25 mg tablet 25 mg PO Q8H 90 days #270 tabs 02/26/24 omeprazole 20 mg capsule,delayed 20 mg PO DAILY #90 caps 02/26/24 release valsartan 320 mg tablet 320 mg PO DAILY 90 days #90 tabs 02/26/24 levothyroxine 150 mcg tablet 150 mcg PO DAILY 30 days #30 tabs 02/27/24 aspirin 81 mg tablet,delayed 81 mg PO DAILY #30 tabs 03/13/24 release triamcinolone acetonide 0.1 % 1 appl topical DAILY 30 days #80 03/20/24 topical ointment grams Allergies Allergy/AdvReac Type Severity Reaction Status Date / Time codeine Allergy Rash Verified 04/01/24 09:55 [facility] Past Medical History Medical History HLD (hyperlipidemia) Hypothyroid Memory impairment Obese Asthma GERD (gastroesophageal reflux disease) Glaucoma HTN (hypertension) Type II diabetes mellitus Social History Social History Housing: Apartment Patient Tobacco Use Status: Never used Tobacco e-Cigarette/Vaping Use: Never Used service: No Current occupational status: disabled Cognitive needs: No Hearing needs: No Vision needs: Yes Physical Exam Vital Signs: Vital Signs: Last Vital Signs Temp 98 F 03/30/24 18:55 Pulse 73 03/30/24 18:55 Resp 18 03/30/24 18:55 BP 150/54 H 03/30/24 18:55 Pulse Ox 98 03/30/24 18:55 O2 Del Method Room Air 03/30/24 18:55 BMI result Body Mass Index 33.7 Course Course Course Narrative: This is a Rapid Medical Examination (RME) performed by Satish Fox PA-C in triage. Full HPI, ROS, assessment and treatment plan per primary provider in the Main ED. 83 yo Pakistani speaking male with history of DM2, HLD, psoriasis, hypothyroidism who presents to the ER for evaluation of bleeding from his left testicle that was noticed while in the shower today by his INFORMATION DELIVERY ANALYST. INFORMATION DELIVERY ANALYST describes a hole on the scrotum that was bleeding. denies trauma. no bleeding before the shower. not on anticoagulation. denies any associated pain. in triage patient is awake, alert. no distress. speaking in complete sentences. abd is soft and nontender. unable to perform exam in triage. Plan: labs, examination Reevaluation(s) Reevaluation #1: patient eloped prior to completing treatment Medical Decision Making Lab Data 03/30/24 20:01 03/30/24 20:01 Labs: Lab Results 03/30/24 03/30/24 Range/Units 20:01 22:05 WBC 6.4 (4.8-10.8) X10*3/uL RBC 4.27 L (4.60-5.80) X10*6/uL Hgb 11.6 L (14.0-18.0) g/dl Hct 36.5 L (42.0-52.0) % MCV 85.5 (80.0-98.0) fL MCH 27.2 (27.0-33.0) pg MCHC 31.8 (31.0-36.0) g/dl RDW 13.3 (11.0-16.0) % Plt Count 195 (160-400) X10*3/uL MPV 10.9 (9.4-12.4) fL Immature Gran % (Auto) 0.2 (0.0-0.4) % Neut % (Auto) 56.0 (45-73) % Lymph % (Auto) 24.5 (20-40) % Mcminn % (Auto) 12.2 H (2-11) % Eos % (Auto) 6.3 H (0-4) % Baso % (Auto) 0.8 (0-2) % Lymph # (Auto) 1.6 (1.2-4.9) X10*3/uL Mcminn # (Auto) 0.8 (0.1-1.2) X10*3/uL Eos # (Auto) 0.4 (0.0-0.4) X10*3/uL Baso # (Auto) 0.1 (0.0-0.2) X10*3/uL Abs Immat Gran (auto) 0.01 (0.00-0.03) X10*3/uL Absolute Neuts (auto) 3.6 (2.0-8.3) x10*3/uL Absolute Nucleated RBC 0.000 (0.0-0.012) X10*3/uL Nucleated RBC % (auto) 0.0 (0.0-0.2) /100WBC Sodium 142 (135-145) mmol/L Potassium 4.5 (3.3-5.1) mmol/L Chloride 110 H (96-108) mmol/L Carbon Dioxide 27 (22-29) mmol/L Anion Gap 10 L (12-20) BUN 32 H (9-16) mg/dL Creatinine 1.49 H (0.5-1.4) mg/dL Estim Creat Clear Calc 41.7 Estimated GFR 45 Random Glucose 131 H (60-115) mg/dL Calcium 8.8 (8.4-10.2) mg/dL Magnesium 2.3 (1.6-2.6) mg/dL Total Bilirubin 0.3 (0.0-1.0) mg/dL Direct Bilirubin 0.1 (0.0-0.5) mg/dL AST 20 (5-37) U/L ALT 22 (0-40) U/L Alkaline Phosphatase 87 (39-117) U/L Total Protein 6.8 (6.5-8.0) g/dL Albumin 3.5 (3.5-5.0) g/dL Urine Color Yellow Urine Appearance Clear Urine pH 5.5 (5.0-9.0) Ur Specific [place] 1.010 (1.005-1.025) Urine Protein Negative (Neg-Trace) mg/dL Urine Glucose (UA) Negative (Negative) mg/dL Urine Ketones Negative (Negative) mg/dL Urine Blood Small (1+) H (Negative) Urine Nitrite Negative (Negative) Ur Leukocyte Esterase Negative (Negative) Urine RBC 0-2 (0-2) /HPF Urine WBC 0-5 (0-5) /HPF Ur Squamous Epith Cells 0-2 (0-2) /HPF Urine Bacteria None Seen (None Seen) Hyaline Casts 0-2 (0-2) /LPF Discharge Plan Discharge Clinical Impression: Scrotal bleeding Patient Disposition: Left W/O Completing Treatment Prescriptions: No Action lorazepam 0.5 mg tablet 0.5 mg PO DAILY 4 Days Qty: 4 0RF Rx Instructions: Take 1 hour before flight or travel meclizine 12.5 mg tablet 12.5 mg PO BID 30 Days Qty: 60 2RF fluticasone propionate [Flonase Allergy Relief] 50 mcg/actuation spray,suspension 1 spray intranasal Q12H PRN (Reason: nasal congestion) 30 Days Qty: 16 1RF Rx Instructions: administer into each nostril levothyroxine 150 mcg tablet 150 mcg PO DAILY 30 Days Qty: 30 1RF aspirin 81 mg tablet,delayed release (DR/EC) 81 mg PO DAILY Qty: 30 0RF triamcinolone acetonide 0.1 % ointment 1 appl topical DAILY 30 Days Qty: 80 2RF trazodone 50 mg tablet 25 mg PO BEDTIME 90 Days Qty: 45 3RF doxycycline monohydrate 100 mg capsule 100 mg PO BID 7 Days Qty: 14 0RF atorvastatin 80 mg tablet 80 mg PO DAILY 90 Days Qty: 90 1RF omeprazole 20 mg capsule,delayed release(DR/EC) 20 mg PO DAILY Qty: 90 1RF valsartan 320 mg tablet 320 mg PO DAILY 90 Days Qty: 90 1RF albuterol sulfate [Ventolin HFA] 90 mcg/actuation HFA aerosol inhaler 2 puff inhalation Q4H 30 Days Qty: 6.7 3RF hydralazine 25 mg tablet 25 mg PO Q8H 90 Days Qty: 270 1RF (DME) blood-glucose meter [FreeStyle Lite Meter] Kit See Rx Instructions .ROUTE BID Qty: 1 Rx Instructions: As directed (DME) disposable bedpads See Rx Instructions .Route .MEDSUPPLY Qty: 150 11RF Rx Instructions: As directed (DME) incontinence wipes See Rx Instructions .Route .MEDSUPPLY Qty: 2 11RF Rx Instructions: As directed (DME) men's pull ups XL See Rx Instructions .Route .MEDSUPPLY Qty: 150 11RF Rx Instructions: As directed (DME) disposable gloves Package See Rx Instructions .Route Qty: 50 11RF Rx Instructions: As directed timolol maleate 0.5 % drops 1 drp ophthalmic (eye) QAM Lumigan 0.01 % drops 1 drp ophthalmic (eye) BEDTIME docusate sodium 100 mg capsule 100 mg PO DAILY (DME) FreeStyle Lite Strips Strip See Rx Instructions .ROUTE .MEDSUPPLY Qty: 10 Rx Instructions: As directed cyclobenzaprine 10 mg tablet 10 mg PO BEDTIME Qty: 14 0RF Discharge Date/Time: 03/30/24 23:47
[2024-03-30 20:08] LABS: MANUAL DIFF FLAG NO
[2024-03-30 20:11] LABS: Basophils Absolute Auto 0.1 X10*3/uL (0.0-0.2); Basophils Percent Auto 0.8 % (0-2); Eosinophils Absolute Auto 0.4 X10*3/uL (0.0-0.4); Eosinophils Percent Auto 6.3 % (0-4); Hematocrit 36.5 % (42.0-52.0); Hemoglobin 11.6 g/dl (14.0-18.0); Imm Gran Abs Auto 0.01 X10*3/uL (0.00-0.03); Imm Gran Pct Auto 0.2 % (0.0-0.4); Lymphocytes Absolute Auto 1.6 X10*3/uL (1.2-4.9); Lymphocytes Percent Auto 24.5 % (20-40); Mean Corpuscular HGB Conc 31.8 g/dl (31.0-36.0); Mean Corpuscular Hemoglobin 27.2 pg (27.0-33.0); Mean Corpuscular Volume 85.5 fL (80.0-98.0); Mean Platelet Volume 10.9 fL (9.4-12.4); Monocytes Absolute Auto 0.8 X10*3/uL (0.1-1.2); Monocytes Percent Auto 12.2 % (2-11); Neutrophils Absolute Auto 3.6 x10*3/uL (2.0-8.3); Platelet Count 195 X10*3/uL (160-400); Red Blood Count 4.27 X10*6/uL (4.60-5.80); Red Cell Distribution Width 13.3 % (11.0-16.0); White Blood Count 6.4 X10*3/uL (4.8-10.8)
[2024-03-30 20:58] LABS: Alanine Aminotransferase 22 U/L (0-40); Albumin Level 3.5 g/dL (3.5-5.0); Alkaline Phosphatase 87 U/L (39-117); Anion Gap 10 (12-20); Aspartate Amino Transferase 20 U/L (5-37); Bilirubin Direct 0.1 mg/dL (0.0-0.5); Bilirubin Total 0.3 mg/dL (0.0-1.0); Blood Urea Nitrogen 32 mg/dL (9-16); Calcium 8.8 mg/dL (8.4-10.2); Carbon Dioxide 27 mmol/L (22-29); Chloride 110 mmol/L (96-108); Creatinine Clr Calc Pharmacy 41.7; Estimated Glomerular Filt Rate 45; Glucose Random 131 mg/dL (60-115); Magnesium 2.3 mg/dL (1.6-2.6); Potassium 4.5 mmol/L (3.3-5.1); Sodium 142 mmol/L (135-145); Total Protein 6.8 g/dL (6.5-8.0)
[2024-03-30 22:25] LABS: Appearance Urine Clear; Color Urine Yellow; Glucose Urine UA Negative (Negative); Leukocyte Esterase Urine Negative (Negative); Nitrite Urine Negative (Negative); PH 5.5 (5.0-9.0); UMIC TRIGGER UACC YES; Urine Blood Small (1+) (Negative); Urine Ketones Negative (Negative); Urine Protein Negative (Neg-Trace)
--- OUTSIDE RECORDS SUMMARY | 2024-03-30 23:29 | XMS_ITS | Continuity of Care Document ---
Author Organization [facility] Address [address] [place] [address]- Care Team Providers Care Supervisor Prepress Name Role Phone Madhav CHASE, Jovany Fox Primary Care Physician En[place] [facility] [place] [id number] Date(s): 03/23/21 - 04/22/21 [facility] [address] [place] [address]- Attending Physician: Doyle Dooley Admitting Physician: AdmtrDoyle Referring Physician: Admtr, Ar8 Allergies, Adverse Reactions, Alerts Substance Reaction Severity Status codeine Active Pollen Persistent Moderate Active Other Food Allergy spicey foods Active Medications atorvastatin 80 mg oral tablet 1 tablet = 80 mg, By Mouth, Daily, # 30 tablet, 0 Refills, Maintenance, 03/10/20 14:03:00 EDT, Tablet Start Date: 03/10/20 Status: Ordered chlorthalidone 25 mg oral tablet Refills 0, Maintenance, 12/24/18 11:41:12 EDT Start Date: 12/24/18 Status: Ordered Freestyle [employer]x Test Strips Maintenance, 03/10/20 14:03:00 EDT, Supply Start Date: 03/10/20 Status: Ordered Freestyle Lancets See Instructions, # 200 each, Refills 5, Maintenance, use as directed for Type 2 Diabetes Mellitus,03/10/20 14:03:00 EDT, Supply Start Date: 03/10/20 Stop Date: 04/09/20 Status: Ordered hydrALAZINE 0 Refills, Maintenance, 02/18/20 14:10:00 EDT Start Date: 02/18/20 Status: Ordered levothyroxine 0.025 mg oral tablet 1 tablet = 25 mcg, By Mouth, Daily, # 30 tablet, 0 Refills, Maintenance, 02/18/20 14:10:00 EDT, Tablet Start Date: 02/18/20 Status: Ordered Loratadine By Mouth, Daily, Refills 0, Maintenance, 02/18/20 14:10:00 EDT Start Date: 02/18/20 Status: Ordered losartan 100 mg oral tablet 1 tablet = 100 mg, By Mouth, Daily, 0 Refills, Maintenance, 02/18/20 14:10:00 EDT Start Date: 02/18/20 Status: Ordered Lumigan Eyes, Both, Daily before dinner, 0 Refills, Maintenance, 02/18/20 14:09:00 EDT Start Date: 02/18/20 Status: Ordered metoprolol 25 mg oral tablet 25 mg, 1, tablet, By Mouth, 2 times a day, # 60 tablet, Refills 0, Maintenance, 10/15/18 10:55:53 EDT Start Date: 10/15/18 Status: Ordered Prilosec OTC = 20 mg, By Mouth, Daily, 0 Refills, Maintenance, 10/15/18 10:56:41 EDT Start Date: 10/15/18 Status: Ordered Simvastatin By Mouth, 0 Refills, Maintenance, 10/15/18 10:56:19 EDT Start Date: 10/15/18 Status: Ordered Timolol By Mouth, 2 times a day, 0 Refills, Maintenance, 02/18/20 14:09:00 EDT Start Date: 02/18/20 Status: Ordered Triamcinolone Once, 0 Refills, Maintenance, 02/18/20 14:09:00 EDT Start Date: 02/18/20 Status: Ordered Problem List Condition Effective Dates Status Health Status Inform ant Chronic liver disease(Confirmed) Active Diabetes(Confirmed) Active Chronic GERD(Confirmed) Active Glaucoma(Confirmed) Active Gynecomastia, male(Confirmed) Active History of prostate cancer(Confirmed) Active Hyperlipidemia(Confirmed) Active Social History Social History Type Response Smoking Status Never (less than 100 in lifetime) entered on: 10/15/18 Sex
--- OUTSIDE RECORDS SUMMARY | 2024-03-30 23:29 | XMS_ITS | Continuity of Care Document ---
Author Organization [facility] Address [address] [place] [address]- Care Team Providers Care Workcell Operator Name Role Phone Jovany Corey MD Primary Care Physician [place] [facility] [place] [id number] Date(s): 02/06/21 - 04/12/21 [facility] [address] [place] [address]- Attending Physician: Sophie Mc NP Admitting Physician: Alexandro VALDEZ, Sophie Referring Physician: Jovany Corey MD Allergies, Adverse Reactions, Alerts Substance Reaction Severity [...]
--- OUTSIDE RECORDS SUMMARY | 2024-03-30 23:29 | XMS_ITS | Continuity of Care Document ---
Author Organization [facility] Address [address] [address]- Care Team Providers Care Chemical Process Equipment Operator Name Role Phone Jovany Corey MD Primary Care Physician ( [phone] Encounter [facility] ACCT R [id number] Date(s): 02/25/20 - 04/09/20 [facility] [address] [place] [address]- [facility] Attending Physician: Charlee Arriaga DO Admitting Physician: Charlee Arriaga DO Referring Physician: Jovany Corey MD Allergies, Adverse [...]
--- OUTSIDE RECORDS SUMMARY | 2024-03-30 23:29 | XMS_ITS | Continuity of Care Document ---
Author Organization [facility] Address [address] [place] [address]- Care Team Providers Care Surgical Product Sales Consultant Name Role Phone Jovany Corey MD Primary Care Physician ( [phone] Encounter [facility] [place] ACCT R [id number] Date(s): 11/17/19 - 03/20/20 [facility] [address] [place] [address] [facility] Attending Physician: Sophie Mc NP Admitting Physician: [...]
--- OUTSIDE RECORDS SUMMARY | 2024-03-30 23:29 | XMS_ITS | Continuity of Care Document ---
Author Organization [facility] Address [address] [place] [id number]- Care Team Providers Care Cash Register Repairer Name Role Phone Madhav CHASE, Jovany Fox Primary Care Physician Encounter [facility] [place] Date(s): 03/23/21 - 05/04/[address] [address] Attending Physician: Sophie Mc NP Admitting Physician: Alexandro VALDEZ, Sophie Referring Physician: Sophie Mc NP Allergies, Adverse Reactions, Alerts Substance Reaction Severity [...]
[2024-03-30 23:33] LABS: Bacteria Urine None Seen (None Seen); Hyaline Casts Urine 0-2 /LPF (0-2); RBC Urine 0-2 /HPF (0-2); Squamous Epithelial Cell Urine 0-2 /HPF (0-2); WBC Urine 0-5 /HPF (0-5)
== END 2024-03-30 23:47 | disposition left against medical advice (07) ==
PROVIDERS: Physician Assistant; Emergency Provider Emergency Medicine; PCP Physician Assistant
DX: N50.1 Vascular disorders of male genital organs (principal)
CPT/HCPCS: 36415; 80048; 80076; 81001; 83735; 85025; 99282; 99283

== ENCOUNTER 2024-04-01 09:37 | Outpatient (AMB) | payer OTHER, SELFPAY ==
--- NOTE | 2024-04-01 09:39 | MHC.PC.OV ---
Vital Signs 04/01/24 09:50 Height 5 ft 7 in Weight 212 lb 4.882 oz BMI 33.2 BP 140/80 H Blood Pressure Location Lt brachial Position Sitting Pulse 64 Pulse Source Pulse Oximeter Pulse Oximetry (%) 99 Oxygen Delivery Method Room Air Intake Visit Reasons: Testicle bleeding Sledger Required: Yes Sledger Language: Hungarian Top Lifter: Present Accompanied by: ADMINISTRATIVE COORDINATOR Allergies codeine Allergy (Verified 04/01/24 09:55) Rash Medication List - Last Reconciled 04/01/24 by Jerrod Smith PA-C albuterol sulfate 90 mcg/actuation (Ventolin HFA) 2 puffs inhalation Q4H 30 days aspirin 81 mg PO DAILY atorvastatin 80 mg PO DAILY 90 days bimatoprost 0.01% (Lumigan) 1 drp ophthalmic (eye) BEDTIME blood sugar diagnostic (FreeStyle Lite Strips) As directed blood-glucose meter (FreeStyle Lite Meter kit) As directed cyclobenzaprine 10 mg PO BEDTIME [disposable bedpads As directed] disposable gloves As directed docusate sodium 100 mg PO DAILY doxycycline monohydrate 100 mg PO BID 7 days fluticasone propionate 50 mcg/actuation (Flonase Allergy Relief) 1 spray intranasal Q12H PRN 30 days hydralazine 25 mg PO Q8H 90 days [incontinence wipes As directed] levothyroxine 150 mcg PO DAILY 30 days lorazepam 0.5 mg PO DAILY 4 days meclizine 12.5 mg PO BID 30 days [men's pull ups As directed] omeprazole 20 mg PO DAILY timolol maleate 0.5% 1 drp ophthalmic (eye) QAM trazodone 25 mg (1/2 x 50 mg) PO BEDTIME 90 days triamcinolone acetonide 0.1% 1 appl topical DAILY 30 days valsartan 320 mg PO DAILY 90 days Tobacco use date assessed: 08/13/23 Dental Screening Dental Screen Date: 08/13/23 HPI Testicle bleeding HPI Details Patient is an 83-year-old male here today for an ER follow-up visit. Recently seen at the ER for bleeding around his scrotum. He denies any trauma to his scrotum. Patient presents with his ADMINISTRATIVE COORDINATOR reports he had a small hole in the left side of his testicle that was bleeding. The bleeding seems to have stopped. Physical exam benign today in office. Of note patient does have a history of nephrolithiasis and history of prostate cancer. Urinalysis done while in the ER did show 1+ red blood cell, otherwise no signs of UTI. [facility] Medical History HLD (hyperlipidemia) Hypothyroid Memory impairment Obese Asthma GERD (gastroesophageal reflux disease) Glaucoma HTN (hypertension) Type II diabetes mellitus Social History Housing: Apartment Patient Tobacco Use Status: Never used Tobacco e-Cigarette/Vaping Use: Never Used service: No Current occupational status: disabled Cognitive needs: No Hearing needs: No Vision needs: Yes Questionnaire Thrive Questionnaire Date Thrive assessed: 08/13/23 Are you currently unemployed and looking for a job?: No CYNTHIA-7 AMB Questionnaire CYNTHIA-7 Date CYNTHIA - 7 assessed: 08/13/23 Source: Developed by Drs. Juan A Pires, Jennifer Morales, Tha Oneil and colleagues, with an educational [place] from [employer]. Review of Systems Const Denies headache(s) Eyes Denies loss of vision ENT Denies vertigo, Denies dizziness, Denies headache(s) and Denies sore throat Card Denies chest pain, Denies leg edema and Denies lightheadedness Resp Denies cough, Denies hemoptysis and Denies wheezing GI Denies abdominal pain, Denies melena, Denies constipation, Denies diarrhea and Denies vomiting Denies dysuria, Denies urinary frequency and Denies urinary urgency Musc Denies arthralgias, Denies joint swelling, Denies numbness and Denies tingling Neuro Denies Abnormal speech present, Denies behavioral changes, Denies vertigo, Denies dizziness, Denies headache(s), Denies loss of vision, Denies memory loss, Denies numbness and Denies tingling Psych Denies anxiety, Denies behavioral changes, Denies depression, Denies memory loss and Denies panic attacks Wayne/Lymph Denies easy bleeding and Denies easy bruising Aller/Immun Denies wheezing Physical exam (Primary Care) Vital Signs: Last Vital Signs Pulse 64 04/01/24 09:50 BP 140/80 H 04/01/24 09:50 Pulse Ox 99 04/01/24 09:50 Oxygen Delivery Method Room Air 04/01/24 09:50 BMI result Body Mass Index 33.2 Tobacco/Smoking Status: Tobacco use Status Tobacco use date assessed 08/13/23 04/01/24 09:39 Patient Tobacco Use Status Never used Tobacco 04/01/24 09:39 e-Cigarette/Vaping Use Never Used 04/01/24 09:39 Thrive Assessment: Date of Thrive Assessment Date Thrive assessed 08/13/23 04/01/24 09:39 Const General: healthy appearing, no acute distress, alert and awake Nutritional Appearance: well nourished Orientation/consciousness: oriented to person, oriented to place and oriented to time HENMT Ears: TM's normal bilaterally General nose exam: Normal nasal mucous membranes and turbinates present Eyes Conjunctivae: conjunctivae normal Sclerae: sclerae normal Pupils: Equal, round and reactive pupils present Neck Neck: Yes no lymphadenopathy and Yes no JVD Thyroid: Thyroid normal Carotids: no bruits Resp Effort & Inspection: normal respiratory effort and not tachypneic Auscultation: no crackles, no rales, no rhonchi and no wheezes Cardio Rate: regular rate Rhythm: regular rhythm Heart sounds: no murmurs and normal S1 and S2 GI Palpation (GI): Soft to palpation, nontender, no hepatomegaly and no splenomegaly Auscultation: normal bowel sounds Skin General skin exam: no rashes or lesions noted and dry skin Neuro General: oriented to person, oriented to place and oriented to time Cranial nerves: Yes Equal, round and reactive pupils present Speech: No Abnormal speech present Gait exam (Neuro): Normal gait present Motor exam (neuro): no tremor noted Extrem Right upper extremity: full ROM Left upper extremity: full ROM Right lower extremity: full ROM; no edema Left lower extremity: full ROM; no edema Psych Mental Status: mental status grossly normal Speech and movement: Normal speech and movement present Affect: normal affect Attitude: cooperative Thought process: Normal thought process present Office Procedures Flu Questionnaire Does the patient have a severe egg allergy?: No Does the patient have severe life threatening allergies?: No Does the patient have a fever or illness today?: No Has the patient ever had Guillain-Osceola Syndrome?: No Has the patient ever had any past reaction to a flu shot?: No Results AMB Hemoglobin A1c AMB Hemoglobin A1c 6.2 % Last Edit by ZULEMA England on 04/01/24 10:13 Immunizations Fluarix Triv [id number] (PF) 45 mcg (15 mcg x 3)/0.5 mL IM syringe Performing Provider: Jerrod Smith PA-C [place] Administered by: ZULEMA England on 04/01/24 09:52 Dose Route Admin Location Dispensed Lot Number Expiration Date [facility] [address] 0.5 mL IM Left Deltoid 0.5 mL [id number] 12/21/24 [id number] [employer] VIS Given Date VIS Provided VIS Publication Date 04/01/24 Single Vaccine 21 Eligibility Eligibility Date Funding Source Not [facility] Eligible 04/01/24 Private Results Reviewed Results Reviewed: Laboratory Last Values Hgb A1c (Clinic) 6.2 % (4.0-6.0) H 04/01/24 10:00 Coding Level of Care Code Est Pt Level 3 (65757) Diagnoses Other microscopic hematuria R31.29 Hematuria type: other microscopic Assessment & Plan Assessment & Plan (1) Blood in urine: Code(s): R31.9 - Hematuria, unspecified Category: Medical Qualifiers: Hematuria type: other microscopic Qualified Code(s): R31.29 - Other microscopic hematuria Plan: Patient does have 1+ blood cells in urine. Does have a history of nephrolithiasis and prostate cancer. Will send for x-ray KUB to evaluate for nephrolithiasis. Orders: Orders Influenza [id number] Immunization Today Z23 - Encounter for immunization AMB Hemoglobin A1c Today E11.9 - Type 2 diabetes mellitus without complications XR KUB Today R31.29 - Other microscopic hematuria
[2024-04-01 09:50] VITALS: BP 140/80; PULSE 64; O2SAT 99; BMI 33.2
== END 2024-04-01 10:15 | disposition home or self-care (01) ==
PROVIDERS: PCP Physician Assistant; Visit Provider Physician Assistant
DX: Z23 Encounter for immunization (principal); E11.9 Type 2 diabetes mellitus without complications; R31.29 Other microscopic hematuria

== ENCOUNTER → 2024-04-01 09:37 | Outpatient (BNVA) | payer OTHER, SELFPAY | PROVIDERS: PCP Physician Assistant; Visit Provider Physician Assistant | DX: Z23 Encounter for immunization (principal); R31.29 Other microscopic hematuria; E11.9 Type 2 diabetes mellitus without complications | CPT/HCPCS: 83036; 90471; 90656; 99212 ==

== ENCOUNTER 2024-04-09 10:14 | Outpatient (REF) | payer OTHER, SELFPAY ==
--- NOTE | ~2024-04-09 | XR_ITS ---
EXAMINATION: XR KUB 2 VIEWS CLINICAL INDICATION: Other microscopic hematuria R31.29. COMPARISON: None available TECHNIQUE: AP view of the abdomen. FINDINGS: Nonobstructive bowel gas pattern. Mild to moderate diffuse colonic stool burden. No suspicious calcifications are seen over the expected position of either kidney or ureter. The lung bases are clear. Mild degenerative changes of the spine and hips. XR/XR KUB IMPRESSION: No suspicious calcifications to suggest renal or ureteral calculi. Electronically signed by: Haresh Domingo MD 06/03/2024 07:55 AM EST
[2024-04-09 11:52] LABS: TSH reflex Free T4 37.89 uIU/mL (0.32-4.0)
[2024-04-09 12:30] LABS: Free T4 (Free Thyroxine) 1.53 ng/dL (0.71-1.85)
== END 2024-04-09 10:15 | disposition home or self-care (01) ==
LOC: HO.LAB 10:14
PROVIDERS: PCP Physician Assistant; Visit Provider Physician Assistant
DX: R31.29 Other microscopic hematuria (principal); E03.9 Hypothyroidism, unspecified
CPT/HCPCS: 36415; 74018; 84439; 84443

== ENCOUNTER 2024-04-24 09:58 | Outpatient (AMB) | payer OTHER, SELFPAY ==
--- NOTE | 2024-04-24 09:58 | MHC.OFFVIS ---
Vital Signs 04/24/24 10:02 Height 5 ft 7 in Weight 210 lb 15.718 oz BMI 33.0 BP 124/56 L Blood Pressure Location Lt brachial Position Sitting Pulse 74 Pulse Source Pulse Oximeter Intake Visit Reasons: Hypothyroidism-conf Intake Note: Patient present today for Hypothyroidism follow up visit. Fur Joiner Required: No Accompanied by: BINDERY LIBRARY TECHNICAL ASSISTANT Allergies codeine Allergy (Verified 04/24/24 10:10) Rash Medication List - Last Reconciled 04/24/24 by Annemarie Rapp MD albuterol sulfate 90 mcg/actuation (Ventolin HFA) 2 puffs inhalation Q4H 30 days aspirin 81 mg PO DAILY atorvastatin 80 mg PO DAILY 90 days bimatoprost 0.01% (Lumigan) 1 drp ophthalmic (eye) BEDTIME blood sugar diagnostic (FreeStyle Lite Strips) As directed blood-glucose meter (FreeStyle Lite Meter kit) As directed cyclobenzaprine 10 mg PO BEDTIME [disposable bedpads As directed] disposable gloves As directed docusate sodium 100 mg PO DAILY doxycycline monohydrate 100 mg PO BID 7 days fluticasone propionate 50 mcg/actuation (Flonase Allergy Relief) 1 spray intranasal Q12H PRN 30 days hydralazine 25 mg PO Q8H 90 days [incontinence wipes As directed] levothyroxine 200 mcg PO DAILY 30 days lorazepam 0.5 mg PO DAILY 4 days meclizine 12.5 mg PO BID 30 days [men's pull ups As directed] omeprazole 20 mg PO DAILY timolol maleate 0.5% 1 drp ophthalmic (eye) QAM trazodone 25 mg (1/2 x 50 mg) PO BEDTIME 90 days triamcinolone acetonide 0.1% 1 appl topical DAILY 30 days valsartan 320 mg PO DAILY 90 days HPI Comments Details: 83 years old here today for initial evaluation of hypothyroidism. He is here today with his BINDERY LIBRARY TECHNICAL ASSISTANT who is responsible for his care. Hypothyroidism diagnosed about 5 years ago per patient. Started on levothyroxine 25 mcg daily , and he was on this dose for a long time up until July 2023, when he was noted to have elevated TSH levels, requiring up titration of the dose slowly over this past year, now at 200 mcg daily dose changed on 04/10/2024 after results from 04/09/2024 resulted with TSH of 37.89, free T4 of 1.53. . Takes it daily at 6 AM , on empty stomach , he weighed 3 hours before he has breakfast or anything with coffee. His BINDERY LIBRARY TECHNICAL ASSISTANT gives him the medication herself and she make sure he swallows it. He only takes it with hydralazine and no other medications. He reports that since his dose has been increased over this past year he overall feels better with less dizziness which was something troubling him over this past year. Reports cold intolerance. Excessive tiredness .Loss of appetite. Endorses mood changes. reports constipation. Weight stable. Getting scabs on skin. He denies palpitations or tremors. He is also complaining of difficulty swallowing, especially when it comes to big bites and pills that has been happening with the past year. His BINDERY LIBRARY TECHNICAL ASSISTANT endorses this. Denies changes in voice, choking sensation when lying down flat. He does not know his family so we do not have any family history of thyroid cancer or thyroid disease. Denies history of head or neck radiation. He has never been on medications such as lithium, amiodarone or biotin. Review of systems Constitutional: no fevers, chills or weight loss HEENT: Has legal blindness Cardiac: No chest pain, discomfort or palpitations. Pulmonary: No SOB GI:No abdominal pain, no nausea or vomiting, no anorexia, no blood in stool MSK: Reports chronic back pain Physical exam General: sitting comfortably in no acute distress HEENT: normocephalic/atraumatic, moist oral mucosa Neck: supple, symmetrical, no thyromegaly , no dorsocervical or supraclavicular fat pads Cardiac: normal heart sounds Pulm: normal breath sounds B/L, no added breath sounds Abd: not distended, no tenderness Extremities: no edema, no signs of myxedema, scaly lesion on laterla malleolus of left foot Laboratory Tests 02/14/23 08/13/23 11/14/23 10:19 11:30 10:03 TSH 34.15 H 37.80 H 39.01 H Free T4 0.92 1.01 1.20 02/27/24 04/09/24 10:48 10:28 TSH 38.63 H 37.89 H Free T4 1.36 1.53 [facility] Medical History (Updated 04/16/24 @ 13:09 by [facility] Stage 3a chronic kidney disease (CKD) Retinopathy due to secondary diabetes mellitus Erectile dysfunction due to type 2 diabetes mellitus Urinary incontinence Gynecomastia Reactive airway disease Allergic rhinitis Hypertensive renal disease Hearing loss sensory, bilateral Legal blindness [place] Nondependent alcohol abuse, 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, moderate Fear of flying Vitamin D deficiency Renal disorder Carcinoma of prostate HLD (hyperlipidemia) Hypothyroid Memory impairment Obese Asthma GERD (gastroesophageal reflux disease) HTN (hypertension) Type II diabetes mellitus Surgical History History of colonoscopy S/P prostatectomy Social History Housing: Apartment Patient Tobacco Use Status: Never used Tobacco e-Cigarette/Vaping Use: Never Used service: No Current occupational status: disabled Cognitive needs: No Hearing needs: No Vision needs: Yes Physical Exam Vital Signs: Last Vital Signs Pulse 74 04/24/24 10:02 BP 124/56 L 04/24/24 10:02 BMI result Body Mass Index 33.0 Assessment & Plan Assessment & Plan (1) Hypothyroid: Code(s): E03.9 - Hypothyroidism, unspecified Category: Medical Qualifiers: Hypothyroidism type: unspecified Qualified Code(s): E03.9 - Hypothyroidism, unspecified Plan: Patient with a history of hypothyroidism diagnosed around 2019, who is on low-dose levothyroxine 25 mcg daily for many years, but over this past year in 2023 has required up titration of his levothyroxine go to elevated TSH levels in the 30s, with most recent dose change from 150 to 200 mcg on 04/10/2024 when he was noted to have an elevated TSH of 37.89 from 04/09/2024 with normal free T4 of 1.53. Patient has had no other medication changes recently, and besides the PPI inhibitor omeprazole on his medication list I do not see any other medications that could interfere with his thyroid medication absorption. He does not take the omeprazole with the thyroid medicine. His weight has been stable, no major weight changes to contribute to more requirement of medication. His weight based dosing is close to 150 mcg daily, so I am surprised that he is requiring so much more. I will have him repeat labs in 3 weeks which would be 6 weeks from his last dose change. If his free T4 goes up, and TSH still remains elevated, we will suspect interference with hydrophilic antibody such as human anti mouse antibodies. For now I will have him come back in 5 weeks to discuss results. He is also reporting difficulty swallowing. I do not feel any thyroid nodules on my exam, however we will also order a thyroid ultrasound. Plan: -continue levothyroxine 200 mcg daily -do blood work in 3 weeks -ordered thyroid ultrasound -follow up in 5 weeks to discuss results Plan I spent 45 minutes in reviewing the record, seeing the patient and documenting in the medical record. Orders: Orders Thyroid Peroxidase Antibodies 3 Weeks E03.9 - Hypothyroidism, unspecified US thyroid Today E03.9 - Hypothyroidism, unspecified Thyroid Stimulating Hormone 3 Weeks E03.9 - Hypothyroidism, unspecified Free T4 (Free Thyroxine) 3 Weeks E03.9 - Hypothyroidism, unspecified Patient Instructions: do blood work in 3 weeks Do ultrasound thyroid I will see you back in 5 weeks to discuss results Continue levothyroxine 200 mcg daily hacer an?lisis de alexandra en 3 semanas Hacer ultrasonido de tiroides Te caesar? en 5 semanas para discutir los resultados. Continuar con levotiroxina 200 mcg al d?a. Coding Level of Care Code New Pt Level 4 (60720) Diagnoses Hypothyroidism, unspecified type E03.9 Hypothyroidism type: unspecified Time Spent (min) 45
[2024-04-24 10:02] VITALS: BP 124/56; PULSE 74; BMI 33.0
== END 2024-04-24 11:37 | disposition home or self-care (01) ==
LOC: HO.ENCR 09:58
PROVIDERS: PCP Physician Assistant; Visit Provider Student in an Organized Health Care Education/Training Program
DX: E03.9 Hypothyroidism, unspecified (principal)
CPT/HCPCS: 99204

== ENCOUNTER → 2024-04-24 09:58 | Outpatient (BNVA) | payer OTHER, SELFPAY | PROVIDERS: PCP Physician Assistant; Visit Provider Student in an Organized Health Care Education/Training Program | DX: E03.9 Hypothyroidism, unspecified (principal) | CPT/HCPCS: 99202 ==

== ENCOUNTER 2024-05-18 09:53 | Outpatient (REF) | payer OTHER, SELFPAY ==
[2024-05-18 11:26] LABS: Free T4 (Free Thyroxine) 1.89 ng/dL (0.71-1.85)
[2024-05-22 17:42] LABS: Thyroid Peroxidase Antibodies 1 IU/mL (<9)
== END 2024-05-18 09:54 | disposition home or self-care (01) ==
LOC: HO.US 09:53
PROVIDERS: PCP Physician Assistant; Visit Provider Student in an Organized Health Care Education/Training Program
DX: E03.9 Hypothyroidism, unspecified (principal)
CPT/HCPCS: 36415; 76536; 84439; 84443; 86376

== ENCOUNTER 2024-05-28 11:32 | Outpatient (AMB) | payer OTHER, SELFPAY ==
--- NOTE | 2024-05-28 11:34 | A.OFFPC_ITS ---
Vital Signs 3 05/28/24 11:36 Height 5 ft 7 in Weight 209 lb 3.499 oz BMI 32.8 BP 120/62 Blood Pressure Location Lt brachial Position Sitting Pulse 70 Pulse Source Pulse Oximeter Pulse Oximetry (%) 96 Oxygen Delivery Method Room Air Intake Visit Reasons: ANNUAL Intake Note: Patient is here today for a physical. Operations Superintendent Required: No Senior Geotechnical Engineer: Present Accompanied by: ONLINE CONTENT EDITOR Allergies codeine Allergy (Verified 05/28/24 11:45) Rash Medication List - Last Reconciled 05/28/24 by Jerrod Smith PA-C albuterol sulfate 90 mcg/actuation (Ventolin HFA) 2 puffs inhalation Q4H 30 days aspirin 81 mg PO DAILY 90 days atorvastatin 80 mg PO DAILY 90 days bimatoprost 0.01% (Lumigan) 1 drp ophthalmic (eye) BEDTIME blood sugar diagnostic (FreeStyle Lite Strips) testing Twice per day blood-glucose meter (FreeStyle Lite Meter kit) As directed cyclobenzaprine 10 mg PO BEDTIME [disposable bedpads As directed] disposable gloves As directed docusate sodium 100 mg PO DAILY fluocinonide 0.05% 1 appl topical BID fluticasone propionate 50 mcg/actuation (Flonase Allergy Relief) 1 spray intranasal Q12H PRN 30 days hydralazine 25 mg PO Q8H 90 days [incontinence wipes As directed] levothyroxine 150 mcg PO DAILY lorazepam 0.5 mg PO DAILY 4 days meclizine 12.5 mg PO BID 30 days [men's pull ups As directed] omeprazole 20 mg PO DAILY timolol maleate 0.5% 1 drp ophthalmic (eye) QAM trazodone 25 mg (1/2 x 50 mg) PO BEDTIME 90 days triamcinolone acetonide 0.1% 1 appl topical DAILY 30 days valsartan 320 mg PO DAILY 90 days Tobacco use date assessed: 05/28/24 Fall risk assessment: No Falls in past year Last assessed Fall Risk: 05/28/24 Dental Screening Dental Screen Date: 08/13/23 HPI ANNUAL 2 HPI0 Details Patient is an 83-year-old male here today for annual physical. Today patient presents with a ONLINE CONTENT EDITOR. Patient has a past medical history hyperlipidemia, glaucoma, legal blindness, hypertension. He presents today with ONLINE CONTENT EDITOR whom help some with his activities of daily living as patient is legally blind. Concern--> Will psoriasis: Continues to have dry scaly patches itchy irritated skin over his extremities, torso and hands. At times they do produce pustules. My concerns here for psoriasis. Has establish care with Dermatology and has been on a new topical steroid which patient reports has not help much. .. Type 2 diabetes: Diabetes has been well controlled with diet. A1c is have been stable. He is currently diet controlled. .. Hypothyroidism: Continues to have elevated TSH even on high doses levothyroxine. Has been established with endocrinology. We are awaiting radiologist read out thyroid ultrasound Does take his thyroid medication daily on empty stomach in the mornings. Will recheck his TSH to assure stabilization . BPH: Followed by DR Luu urologist on annual basis. Most recent PSA elevated At 6. Unclear what kind of prostate surgery though it sounds like he had a TURP procedure in the past. .. Hypertension: Continues on hydralazine and valsartan. Reports that home blood pressures are stable. Today's blood pressure in office acceptable. He denies any headache, chest pain or shortness of breath on exertion. 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, moderate Fear of flying Vitamin D deficiency Renal disorder Carcinoma of prostate HLD (hyperlipidemia) Hypothyroid Memory impairment Obese Asthma GERD (gastroesophageal reflux disease) HTN (hypertension) Type II diabetes mellitus Surgical History History of colonoscopy S/P prostatectomy Social History Housing: Apartment Alcohol intake: never Patient Tobacco Use Status: Never used Tobacco e-Cigarette/Vaping Use: Never Used Second Hand Smoke Exposure: No service: No Current occupational status: disabled Cognitive needs: No Hearing needs: No Vision needs: Yes Questionnaire PHQ-9 Over the last 2 weeks, how often have you been bothered by any of the following problems? 1. Little interest or pleasure in doing things: not at all 2. Feeling down, depressed, or hopeless: nearly every day 3. Trouble falling or staying asleep, or sleeping too much: not at all 4. Feeling tired or having little energy: nearly every day 5. Poor appetite or overeating: not at all 6. Feeling bad about yourself - or that you are a failure or have let yourself or your family down: not at all 7. Trouble concentrating on things, such as reading the newspaper or watching television: not at all 8. Moving or speaking so slowly that other people could have noticed. Or the opposite - being so fidgety or restless that you have been moving around a lot more than usual: nearly every day 9. Thoughts that you would be better off or of hurting yourself in some way: not at all Total score: 9 Depression Screening Interpretation: Positive Depression Screening Done: Yes Source: Developed by Drs. Juan A Pires, Jennifer Morales, Tha Oneil and colleagues, with an educational [place] from [employer]. Thrive Questionnaire Date Thrive assessed: 05/28/24 I am a: Patient What is your living situation today?: I choose not to answer this question Within the past 12 months, did the food you bought not last and you didn't have the money to get more?: I choose not to answer this question Within the past 12 months, did you worry whether your food would run out before you got money to buy more?: I choose not to answer this question Do you have trouble paying for medicines?: No Do you have trouble getting transportation to medical appointments?: No Do you have trouble paying your heating and electricity bill?: No Do you have trouble taking care of your child, family member or friend?: No Do you have trouble with day-to-day activities such as bathing, preparing meals, shopping, managing finances, etc.?: Yes Are you interested in more education?: No Please select the resources that you would like help with: None Currently or been in a relationship where the following occur: I choose not to answer THRIVE Score: 0 AUDIT C Alcohol Use Questionnaire (AUDIT-C) 1. How often do you have a drink containing alcohol?: Never Total Score: 0 CYNTHIA-7 AMB Questionnaire CYNTHIA-7 Date CYNTHIA - 7 assessed: 05/28/24 Feeling nervous, anxious, or on edge: 3 = Nearly every day Not being able to stop or control worryin = Not at all Worrying too much about different things: 0 = Not at all Trouble relaxin = Not at all Being so restless that it is hard to sit still: 3 = Nearly every day Becoming easily annoyed or irritable: 3 = Nearly every day Feeling afraid as if something awful might happen: 3 = Nearly every day Total CYNTHIA-7 score (0-4 normal; 5-9 mild; 10-14 moderate; 15-21 severe): 12 Source: Developed by Drs. Juan A Pires, Jennifer Morales, Tha Oneil and colleagues, with an educational [place] from [employer]. Review of Systems Const Denies body aches, Denies chills, Denies excessive sweating, Denies fatigue, Denies fever(s) and Denies headache(s) Eyes Denies blurry vision ENT Denies dysphagia, Denies vertigo, Denies dizziness, Denies headache(s), Denies hearing loss and Denies tinnitus Card Denies chest pain, Denies chest pain with activity, Denies syncope, Denies irregular heart rhythm and Denies dyspnea Resp Denies chest congestion, Denies cough, Denies hemoptysis, Denies dyspnea and Denies wheezing GI Denies abdominal pain, Denies melena, Denies hematochezia, Denies coffee ground emesis, Denies dysphagia, Denies diarrhea, Denies nausea and Denies vomiting Denies difficulty urinating, Denies dysuria, Denies urinary frequency, Denies urinary hesitancy and Denies urinary urgency Musc Denies arthralgias, Denies limited range of motion, Denies muscle cramps and Denies muscle weakness Skin/Breast Denies rash and Denies skin ulcer Neuro Denies Abnormal speech present, Denies confusion, Denies vertigo, Denies dizziness, Denies syncope, Denies headache(s), Denies memory loss and Denies seizure-like activity Psych Denies anxiety, Denies confusion, Denies depression, Denies memory loss, Denies panic attacks and Denies paranoia Endo Denies excessive sweating, Denies fatigue, Denies flushing, Denies polydipsia and Denies polyuria Aller/Immun Denies wheezing Physical exam (Primary Care) Vital Signs: Last Vital Signs Pulse 70 05/28/24 11:36 BP 120/62 05/28/24 11:36 Pulse Ox 96 05/28/24 11:36 Oxygen Delivery Method Room Air 05/28/24 11:36 BMI result Body Mass Index 32.8 Tobacco/Smoking Status: Tobacco use Status Tobacco use date assessed 05/28/24 05/28/24 11:43 Patient Tobacco Use Status Never used Tobacco 05/28/24 11:43 e-Cigarette/Vaping Use Never Used 05/28/24 11:43 PHQ-9: PHQ-9 Score PHQ-9: Total score 9 05/28/24 11:46 Depression Screening Interpretation: Positive Thrive Assessment: Date of Thrive Assessment Date Thrive assessed 05/28/24 05/28/24 11:43 Currently or been in a relationship where the following occur: I choose not to answer Const General: cooperative, comfortable, no acute distress, alert and awake; No confusion Orientation/consciousness: oriented to person, oriented to place, patient oriented x3 and No confusion HENMT Head: Yes normocephalic Ears: external ears normal and TM's normal bilaterally Face and sinus: No sinus tenderness Face images: 2 1. NOTABLE FULLNESS OVER THE PAROTID GLAND ON RIGHT SIDE Mouth: Normal oral and palatal mucosa present and tongue normal Teeth and gingiva: dentition normal and gingiva normal Throat: Yes posterior oropharynx normal, Yes tonsils normal and Yes uvula midline Eyes Conjunctivae: conjunctivae normal Sclerae: sclerae normal Pupils: Equal, round and reactive pupils present EOM: EOMs intact bilaterally Direct Ophthalmoscopy: No no photophobia Neck Neck: Yes no lymphadenopathy, No tender and Yes no JVD Thyroid: Thyroid normal Carotids: no bruits Chest Chest palpation & inspection: no tenderness Resp Effort & Inspection: normal respiratory effort, no audible wheezes, not labored and no stridor Auscultation: no crackles, no rales, no rhonchi and no wheezes Cardio Jugular venous distension: no JVD Rate: regular rate, not bradycardic and not tachycardic Rhythm: regular rhythm Bruits: no carotid bruits Peripheral pulses: Peripheral pulses 2+ throughout GI Inspection: Yes normal to inspection, No abdominal wall ecchymosis and No visible herniation Palpation (GI): Soft to palpation, nontender, no guarding, not rigid and No hepatosplenomegaly present Auscultation: normoactive bowel sounds General: Yes no CVA tenderness Back/Spine/Pelvis Back: no CVA tenderness and No back tenderness Cervical Spine: cervical ROM normal Thoracic/Lumbar Spine: thoracic and lumbar spine normal to inspection, straight leg raise negative bilaterally, No thoraco-lumbar ROM limited and No lumbar spinal tenderness Skin Lesions: no lesions Rashes: no rashes Wounds: no wounds Neuro General: oriented to person, oriented to place, patient oriented x3, CN's II-XI intact bilaterally and No confusion Cranial nerves: Yes Equal, round and reactive pupils present and Yes Normal accommodation reflex present Cognition (Neuro): normal cognition Speech: No Abnormal speech present Gait exam (Neuro): Normal gait present Motor exam (neuro): 5/5 motor strength present throughout Extrem Right upper extremity: full ROM; no cyanosis Left upper extremity: full ROM; no cyanosis Right lower extremity: no edema Left lower extremity: no edema Psych Appearance: grossly normal Mental Status: mental status grossly normal Affect: normal affect Attitude: cooperative Thought process: Normal thought process present Immunizations pneumoc 20-cata conj-dip cr(PF) 0.5 mL IM syringe Performing Provider: Jerrod Smith PA-C Performing Location: [facility] [facility] Administered by: BLAISE Cobb on 05/28/24 12:14 2 Dose Route Admin Location Dispensed Lot Number Expiration Date [facility] Assignment Clerk 0.5 mL IM Left Deltoid 0.5 mL [id number] 06/24/25 [employer] 2 VIS Given Date VIS Provided VIS Publication Date 05/28/24 Single Vaccine 21 Eligibility Eligibility Date Funding Source Not [facility] Eligible 05/28/24 Private Coding Level of Care Code Est Pt Prev Care >65y([id number]) Diagnoses Annual physical exam Z00.00 Mixed hyperlipidemia E78.2 Hyperlipidemia type: mixed hyperlipidemia Type 2 diabetes mellitus with hyperglycemia, without long-term current use of insulin E11.65 Diabetes mellitus television news producer insulin use: without television news producer use Diabetes mellitus complication status: with hyperglycemia Psoriasis L40.9 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 He continues with high potency statin. LDL is to remain below 100 (3) Type II diabetes mellitus: Code(s): E11.9 - Type 2 diabetes mellitus without complications Category: Medical Qualifiers: Diabetes mellitus television news producer insulin use: without residential use Diabetes mellitus complication status: with hyperglycemia Qualified Code(s): E11.65 - Type 2 diabetes mellitus with hyperglycemia Plan: Patient's type 2 diabetes well controlled with diet. Goal A1c is to remain below 7.0 (4) Psoriasis: Code(s): L40.9 - Psoriasis, unspecified Category: Medical Plan: Followed by dermatology and was started on new cream which patient and ONLINE CONTENT EDITOR reports did help some. Apparently this was the fluocinolone 0.05% cream. Will supply patient with more if this. 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 Unclear etiology though could have a intermittent periodic duct obstruction. Will send for CT of the area consider ENT evaluation. Orders: Orders 2 Lipid Panel Today E78.2 - Mixed hyperlipidemia Hemoglobin A1c Today E11.9 - Type 2 diabetes mellitus without complications Basic Metabolic Panel Today K11.8 - Other diseases of salivary glands Comprehensive Arnold. Panel Fast Today E11.9 - Type 2 diabetes mellitus without complications Complete Blood Count no Diff Today E11.9 - Type 2 diabetes mellitus without complications Microalbumin, Random (w Creat) Today E11.9 - Type 2 diabetes [address] without complications [address] facial bones w IV con Today K11.8 - Other diseases of salivary glands XR mandible min 4V Today K11.8 - Other diseases of salivary glands Pneumococcal 20 Immunization Today K11.8 - Other diseases of salivary glands, Z23 - Encounter for immunization Medications: New 2 fluocinonide 0.05% 1 appl topical BID 30 days 120 grams 3RF L40.9 - Psoriasis, unspecified pneumoc 20-cata conj-dip cr(PF) 0.5 mL IM ONCE 0.5 mL 0RF K11.8 - Other diseases of salivary glands, Z23 - Encounter for immunization Changed 2 From aspirin 81 mg PO DAILY 30 tabs 2RF To aspirin 81 mg PO DAILY 90 days 90 tabs 1RF From blood sugar diagnostic (FreeStyle Lite Strips) As directed 10 ea E11.9 - Type 2 diabetes mellitus without complications To blood sugar diagnostic (FreeStyle Lite Strips) testing Twice per day 100 ea 3RF E11.9 - Type 2 diabetes mellitus without complications Refilled 2 hydralazine 25 mg PO Q8H 90 days 270 tabs 1RF I10 - Essential (primary) hypertension meclizine 12.5 mg PO BID 30 days 60 tabs 2RF dizziness H81.11 - Benign paroxysmal vertigo, right ear levothyroxine 150 mcg PO DAILY 30 caps 4RF atorvastatin 80 mg PO DAILY 90 days 90 tabs 1RF E78.2 - Mixed hyperlipidemia omeprazole 20 mg PO DAILY 90 caps 1RF K21.9 - Gastro-esophageal reflux disease without esophagitis trazodone 25 mg (1/2 x 50 mg) PO BEDTIME 90 days 45 tabs 3RF sleep F51.01 - Primary insomnia valsartan 320 mg PO DAILY 90 days 90 tabs 1RF I10 - Essential (primary) hypertension Discontinued 2 doxycycline monohydrate Discontinued Reason: Doctor's Order 100 mg PO BID 7 days 14 caps 0RF L40.9 - Psoriasis, unspecified
[2024-05-28 11:36] VITALS: BP 120/62; PULSE 70; O2SAT 96; BMI 32.8
== END 2024-05-28 12:16 | disposition home or self-care (01) ==
PROVIDERS: PCP Physician Assistant; Visit Provider Physician Assistant
DX: Z00.00 Encounter for general adult medical examination without abnormal findings (principal); E78.2 Mixed hyperlipidemia; E11.65 Type 2 diabetes mellitus with hyperglycemia; L40.9 Psoriasis, unspecified; K11.8 Other diseases of salivary glands; Z23 Encounter for immunization

== ENCOUNTER → 2024-05-28 11:32 | Outpatient (BNVA) | payer OTHER, SELFPAY | PROVIDERS: PCP Physician Assistant; Visit Provider Physician Assistant | DX: Z00.00 Encounter for general adult medical examination without abnormal findings (principal); Z23 Encounter for immunization; E78.2 Mixed hyperlipidemia; E11.65 Type 2 diabetes mellitus with hyperglycemia; L40.0 Psoriasis vulgaris; K11.8 Other diseases of salivary glands | CPT/HCPCS: 90471; 90677; 96127; 99397 ==

== ENCOUNTER → 2024-07-28 09:52 | Outpatient (BNV) | payer OTHER, SELFPAY | PROVIDERS: PCP Physician Assistant; Visit Provider General Practice | DX: I70.0 Atherosclerosis of aorta (principal) | CPT/HCPCS: 70491 ==

== ENCOUNTER 2024-09-10 13:39 | Outpatient (REF) | payer OTHER, SELFPAY ==
[2024-09-10 15:48] LABS: Hematocrit 36.9 % (42.0-52.0); Mean Corpuscular HGB Conc 32.5 g/dl (31.0-36.0); Mean Corpuscular Hemoglobin 27.1 pg (27.0-33.0); Mean Corpuscular Volume 83.5 fL (80.0-98.0); Mean Platelet Volume 11.7 fL (9.4-12.4); Platelet Count 202 X10*3/uL (160-400); Red Blood Count 4.42 X10*6/uL (4.60-5.80); White Blood Count 5.6 X10*3/uL (4.8-10.8)
[2024-09-10 16:11] LABS: Estimated Average Glucose 131 mg/dL; Hemoglobin A1c % 6.2 % (<6.0)
[2024-09-10 16:32] LABS: Alanine Aminotransferase 24 U/L (0-40); Albumin Level 3.3 g/dL (3.5-5.0); Anion Gap 9 (12-20); Aspartate Amino Transferase 24 U/L (5-37); Bilirubin Total 0.4 mg/dL (0.0-1.0); Blood Urea Nitrogen 30 mg/dL (9-16); Calcium 8.6 mg/dL (8.4-10.2); Carbon Dioxide 27 mmol/L (22-29); Chloride 109 mmol/L (96-108); Cholesterol 119 mg/dL (<200); Estimated Glomerular Filt Rate 56; Glucose Fasting 96 mg/dL (60-99); Glucose Random 95 mg/dL (60-115); HDL Cholesterol 39 mg/dL (>40); LDL Cholesterol Calculated 56 mg/dL (<100); Potassium 4.9 mmol/L (3.3-5.1); Sodium 140 mmol/L (135-145); Total Protein 7.2 g/dL (6.5-8.0); Triglycerides 120 mg/dL (<150)
[2024-09-10 16:43] LABS: Alkaline Phosphatase 107 U/L (39-117); Free T4 (Free Thyroxine) 1.53 ng/dL (0.71-1.85)
[2024-09-10 16:47] LABS: Thyroid Stimulating Hormone 36.86 uIU/mL (0.32-4.0)
[2024-09-10 17:40] LABS: Creatinine Urine 133.03 mg/dL; Microalbumin Urine < 5.0 mg/L
[2024-09-11 08:53] LABS: Triiodothyronine T3 Total 106 ng/dL (76-181)
== END 2024-09-10 13:40 | disposition home or self-care (01) ==
LOC: HO.LAB 13:39
PROVIDERS: PCP Physician Assistant; Visit Provider Student in an Organized Health Care Education/Training Program
DX: E11.9 Type 2 diabetes mellitus without complications (principal); E78.2 Mixed hyperlipidemia; K11.8 Other diseases of salivary glands; E03.9 Hypothyroidism, unspecified
CPT/HCPCS: 36415; 80048; 80053; 80061; 82043; 82570; 83036; 84439; 84443; 84480; 85027; 99212

== ENCOUNTER 2024-09-10 13:39 | Outpatient (AMB) | payer OTHER, SELFPAY ==
--- NOTE | 2024-09-10 13:47 | MHC.OFFVIS ---
Vital Signs 09/10/24 13:54 Height 5 ft 7 in Weight 207 lb 7.28 oz BMI 32.5 BP 112/50 L Blood Pressure Location Rt brachial Position Sitting Pulse 55 Pulse Source Pulse Oximeter Pulse Oximetry (%) 97 Oxygen Delivery Method Room Air Intake Visit Reasons: Hypothyroidism Intake Note: New patient present today for Hypothyroidism office visit. Legal Job Titles Required: Yes Legal Job Titles Language: Director Patient Accounting Services: Legal Job Titles Offered & Declined Accompanied by: INDEPENDENT PRODUCER Allergies codeine Allergy (Verified 09/10/24 13:58) Rash Medication List - Last Reconciled 09/10/24 by Annemarie Rapp MD albuterol sulfate 90 mcg/actuation (Ventolin HFA) 2 puffs inhalation Q4H 30 days aspirin 81 mg PO DAILY 90 days atorvastatin 80 mg PO DAILY 90 days bimatoprost 0.01% (Lumigan) 1 drp ophthalmic (eye) BEDTIME blood sugar diagnostic (FreeStyle Lite Strips) testing Twice per day blood-glucose meter (FreeStyle Lite Meter kit) As directed cyclobenzaprine 10 mg PO BEDTIME [disposable bedpads As directed] disposable gloves As directed docusate sodium 100 mg PO DAILY fluocinonide 0.05% 1 appl topical BID 30 days fluticasone propionate 50 mcg/actuation (Flonase Allergy Relief) 1 spray intranasal Q12H PRN 30 days hydralazine 25 mg PO Q8H 90 days [incontinence wipes As directed] levothyroxine 150 mcg PO DAILY 30 days lorazepam 0.5 mg PO DAILY 4 days meclizine 12.5 mg PO BID 30 days [men's pull ups As directed] omeprazole 20 mg PO DAILY timolol maleate 0.5% 1 drp ophthalmic (eye) QAM trazodone 25 mg (1/2 x 50 mg) PO BEDTIME 90 days triamcinolone acetonide 0.1% 1 appl topical DAILY 30 days valsartan 320 mg PO DAILY 90 days HPI Comments Details: 83 years old here today for follow up of hypothyroidism. He is here today with his INDEPENDENT PRODUCER who is responsible for his care. HPI from initial visit Hypothyroidism diagnosed about 5 years ago per patient. Started on levothyroxine 25 mcg daily , and he was on this dose for a long time up until July 2023, when he was noted to have elevated TSH levels, requiring up titration of the dose slowly over this past year, now at 200 mcg daily dose changed on 04/10/2024 after results from 04/09/2024 resulted with TSH of 37.89, free T4 of 1.53. . Takes it daily at 6 AM , on empty stomach , he weighed 3 hours before he has breakfast or anything with coffee. His INDEPENDENT PRODUCER gives him the medication herself and she make sure he swallows it. He only takes it with hydralazine and no other medications. He reports that since his dose has been increased over this past year he overall feels better with less dizziness which was something troubling him over this past year. Reports cold intolerance. Excessive tiredness .Loss of appetite. Endorses mood changes. reports constipation. Weight stable. Getting scabs on skin. He denies palpitations or tremors. He is also complaining of difficulty swallowing, especially when it comes to big bites and pills that has been happening with the past year. His INDEPENDENT PRODUCER endorses this. Denies changes in voice, choking sensation when lying down flat. He does not know his family so we do not have any family history of thyroid cancer or thyroid disease. Denies history of head or neck radiation. He has never been on medications such as lithium, amiodarone or biotin. Interval history 05/18/2024: TSH high at 46, free T4 elevated at 1.89, this made us concerned about possibly interference of heterophilic antibodies He missed a couple of his follow up appointments and did not get repeat labs. His dose at that time was reduced from levothyroxine 200 mcg daily to 150 mcg daily. Ultrasound of the thyroid on 05/18/2024 showed a left midpole subcentimeter TR 2 category nodule. No need for follow up. No palpitations, no tremors, no diarrhea Lost 7 lbs in past 6 months INDEPENDENT PRODUCER gives him the medicine Physical exam General: sitting comfortably in no acute distress HEENT: normocephalic/atraumatic, moist oral mucosa Neck: supple, symmetrical, no thyromegaly , no dorsocervical or supraclavicular fat pads Cardiac: normal heart sounds Pulm: normal breath sounds B/L, no added breath sounds Abd: not distended, no tenderness Extremities: no edema, no signs of myxedema, scaly lesion on laterla malleolus of left foot Laboratory Tests 08/08/13/23 11/14/23 10:19 11:30 10:03 TSH 34.15 H 37.80 H 39.01 H Free T4 0.92 1.01 1.20 02/27/24 04/09/24 10:48 10:28 TSH 38.63 H 37.89 H Free T4 1.36 1.53 Laboratory Tests 08/13/23 11/14/23 02/27/24 11:30 10:03 10:48 TSH 37.80 H 39.01 H 38.63 H Free T4 1.01 1.20 1.36 04/09/24 05/18/24 10:28 10:12 TSH 37.89 H 46.00 H Free T4 1.53 1.89 H EXAMINATION: US THYROID 05/18/24 CLINICAL INFORMATION: Hypothyroidism, unspecified. COMPARISON: None available. TECHNIQUE: Linear transducer grayscale and color Doppler examination with attention to the region of the thyroid. FINDINGS: SIZE: Measurements of the thyroid lobes and nodules are given in sagittal, anteroposterior and transverse dimensions respectively. Right Thyroid Lobe: 3.7 x 1.3 x 1.3 cm, volume 3.1 mL. Parenchyma: The gland echotexture is homogeneous. Thyroid vascularity is normal. Left Thyroid Lobe: 3.3 x 1.3 x 1.1 cm, volume 2.6 mL. Parenchyma: The gland echotexture is homogeneous. Thyroid vascularity is normal. Isthmus: 0.3 cm in maximum AP dimension. Estimated total number of nodules greater than or equal to 1 cm: 0. [employer] nodules are described as follows: 1. Location: Left mid pole. Size: 0.5 x 0.6 x 0.4 cm, volume 0.07 mL. Nodule characteristics: Composition: Mixed cystic and solid (1). Echogenicity: Hyperechoic (1). Shape: Not taller than wide (0). Margins: Smooth (0). Echogenic Foci: None (0). ACR TI-RADS total points: 2 ACR TI-RADS category: 2 NODES: No lymphadenopathy is seen in the tissue surrounding the thyroid gland. US/US thyroid IMPRESSION: 0.6 cm LEFT TR 2 thyroid nodule. 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, moderate Fear of flying Vitamin D deficiency Renal disorder Carcinoma of prostate HLD (hyperlipidemia) Hypothyroid Memory impairment Obese Asthma GERD (gastroesophageal reflux disease) HTN (hypertension) Type II diabetes mellitus Surgical History History of colonoscopy S/P prostatectomy Family History Mother No known health problems Father Glaucoma Social History Housing: Apartment Alcohol intake: never Patient Tobacco Use Status: Never used Tobacco e-Cigarette/Vaping Use: Never Used Second Hand Smoke Exposure: No service: No Current occupational status: disabled Cognitive needs: No Hearing needs: No Vision needs: Yes Physical Exam Vital Signs: Last Vital Signs Pulse 55 09/10/24 13:54 BP 112/50 L 09/10/24 13:54 Pulse Ox 97 09/10/24 13:54 Oxygen Delivery Method Room Air 09/10/24 13:54 BMI result Body Mass Index 32.5 Assessment & Plan Assessment & Plan (1) Hypothyroid: Code(s): E03.9 - Hypothyroidism, unspecified Category: Medical Qualifiers: Hypothyroidism type: unspecified Qualified Code(s): E03.9 - Hypothyroidism, unspecified Plan: Patient with a history of hypothyroidism diagnosed around 2018, who is on low-dose levothyroxine 25 mcg daily for many years, but over this past year in 2023 has required up titration of his levothyroxine go to elevated TSH levels in the 30s, with dose change from 150 to 200 mcg on 04/10/2024 when he was noted to have an elevated TSH of 37.89 from 04/09/2024 with normal free T4 of 1.53. Patient has had no other medication changes recently, and besides the PPI inhibitor omeprazole on his medication list I do not see any other medications that could interfere with his thyroid medication absorption. He does not take the omeprazole with the thyroid medicine. His weight has been stable, no major weight changes to contribute to more requirement of medication. His weight based dosing is close to 150 mcg daily, so I am surprised that he was requiring so much more. 05/18/2024: TSH high at 46, free T4 elevated at 1.89, this made us concerned about possibly interference of heterophilic antibodies such as human anti mouse antibodies, I will check for these. He has not had labs done for a while. Last we reduced his dose from 200-150 when we saw those labs. He has been taking this appropriately. At this time I will have him repeat labs would also have the labs sent out a TSH with a reflex free T4 to [facility] as they do it with a different free agent which she uses bovine antibodies as opposed to mouse antibodies. I checked with the lab they do not perform the test with nonimmune mouse antibodies to eliminate the effect of human anti mouse antibodies. ?The human antimouse monoclonal antibodies (HAMA) occur naturally in up to 10% of the general population (not just laboratory workers with mouse exposure, as was first described), and they result in a false elevation of serum TSH. Preincubation of the patient?s serum with nonimmune mouse antibodies (intended to eliminate the effect of HAMA) is an added step in the assay.? Ultrasound of the thyroid on 05/18/2024 showed a left midpole subcentimeter TR 2 category nodule. No need for follow up. Plan: -continue levothyroxine 150 mcg daily -do TSH, free T4, total T3 now -do human anti mouse antibody testing -send out TSH with reflex free T4 to [facility] -follow up in 10 weeks Plan see above Orders: Orders Thyroid Stimulating Hormone Today E03.9 - Hypothyroidism, unspecified Human Anti-mouse Antibody Today E03.9 - Hypothyroidism, unspecified Free T4 (Free Thyroxine) Today E03.9 - Hypothyroidism, unspecified Triiodothyronine T3 Total Today E03.9 - Hypothyroidism, unspecified Other Ref Test - Misc Today E03.9 - Hypothyroidism, unspecified Medications: Refilled levothyroxine 150 mcg PO DAILY 30 days 30 tabs 5RF E03.9 - Hypothyroidism, unspecified Patient Instructions: Do blood work today Continue levothyroxine 150 mcg daily We will let you know results of blood work and if dose needs to be changed Follow up in 10 weeks Coding Level of Care Code Est Pt Level 3 (49530) Diagnoses Hypothyroidism, unspecified type E03.9 Hypothyroidism type: unspecified
[2024-09-10 13:54] VITALS: BP 112/50; PULSE 55; O2SAT 97; BMI 32.5
== END 2024-09-10 14:28 | disposition home or self-care (01) ==
LOC: HO.ENCR 13:41
PROVIDERS: PCP Physician Assistant; Visit Provider Student in an Organized Health Care Education/Training Program
DX: E03.9 Hypothyroidism, unspecified (principal)
CPT/HCPCS: 99213

== ENCOUNTER 2024-10-06 10:12 | Outpatient (AMB) | payer OTHER, SELFPAY ==
--- NOTE | 2024-10-06 10:45 | A.OFFPC_ITS ---
Vital Signs 10/06/24 11:03 Height 5 ft 7 in Weight 205 lb BMI 32.1 BP 122/50 L Blood Pressure Location Lt brachial Position Sitting Pulse 65 Pulse Source Pulse Oximeter Temp 97.1 F Temp Source Temporal Artery Scan Pulse Oximetry (%) 97 Oxygen Delivery Method Room Air Intake Visit Reasons: f/u DMII/ HTN/ psoriasis Physical Therapy Instructor Required: Yes Physical Therapy Instructor Language: Senior Staff Consultant Name: Pt refused B2B APPOINTMENT SETTER will interpret Accompanied by: B2B APPOINTMENT SETTER Allergies codeine Allergy (Verified 10/06/24 11:20) Rash Medication List - Last Reconciled 10/06/24 by Jerrod Smith PA-C albuterol sulfate 90 mcg/actuation (Ventolin HFA) 2 puffs inhalation Q4H 30 days aspirin 81 mg PO DAILY 90 days atorvastatin 80 mg PO DAILY 90 days bimatoprost 0.01% (Lumigan) 1 drp ophthalmic (eye) BEDTIME blood sugar diagnostic (FreeStyle Lite Strips) testing Twice per day blood-glucose meter (FreeStyle Lite Meter kit) As directed cyclobenzaprine 10 mg PO BEDTIME [disposable bedpads As directed] disposable gloves As directed docusate sodium 100 mg PO DAILY fluocinonide 0.05% 1 appl topical BID 30 days fluticasone propionate 50 mcg/actuation (Flonase Allergy Relief) 1 spray intranasal Q12H PRN 30 days hydralazine 25 mg PO Q8H 90 days [incontinence wipes As directed] levothyroxine 150 mcg PO DAILY 30 days lorazepam 0.5 mg PO DAILY 4 days meclizine 12.5 mg PO BID 30 days [men's pull ups As directed] omeprazole 20 mg PO DAILY timolol maleate 0.5% 1 drp ophthalmic (eye) QAM trazodone 25 mg (1/2 x 50 mg) PO BEDTIME 90 days triamcinolone acetonide 0.1% 1 appl topical DAILY 30 days valsartan 320 mg PO DAILY 90 days Tobacco use date assessed: 10/06/24 Fall risk assessment: No Falls in past year Last assessed Fall Risk: 10/06/24 Dental Screening Dental Screen Date: 10/06/24 Did you have a dental visit in the last 12 months?: Yes Did you have a dental problem in the last 6 months where you did not have access to dental care?: No Was dental information given to patient?: Patient has dentist HPI f/u DMII/ HTN/ psoriasis HPI Details Patient is an 83-year-old male here today for a follow-up visit. Today patient presents with a B2B APPOINTMENT SETTER. Patient has a past medical history hyperlipidemia, glaucoma, legal blindness, hypertension. He presents today with B2B APPOINTMENT SETTER whom help some with his activities of daily living as patient is legally blind. Concern--> reports he will be traveling soon to [place] to visit and will need lorazepam for his anxiety. psoriasis: Continues to have dry scaly patches itchy irritated skin over his extremities, torso and hands. He has reduced his coffee in she is intake and reports his skin lesions has been better. Has establish care with Dermatology and has been on a new topical steroid which patient reports has not help much. .. Type 2 diabetes: Diabetes has been well controlled with diet. A1c is have been stable. He is currently diet controlled. .. Hypothyroidism: Continues to have elevated TSH even on high doses levothyroxine. Has been established with endocrinology. He is taking high dose of levothyroxine correctly in the morning on empty stomach. . BPH: Followed by DR Luu urologist on annual basis. Most recent PSA elevated at 6. Unclear what kind of prostate surgery though it sounds like he had a TURP procedure in the past. .. Hypertension: Continues on hydralazine and valsartan. Reports that home blood pressures are stable. Today's blood pressure in on the low side and does experience some dizziness. Will reduce his dose of valsartan to 160 mg. We did discuss perhaps his timolol drops causing some low blood pressures as well. He otherwise denies any headache, chest pain or shortness of breath on exertion. Laboratory Tests 08/13/23 11/14/23 01/09/24 11:30 10:03 10:57 Hgb Creatinine Hemoglobin A1c % Prostate Specific Ag 6.53 H TSH 37.80 H 39.01 H Human Anti-Mouse A b 04/09/24 05/18/24 09/10/24 10:28 10:12 15:01 Hgb 12.0 L Creatinine 1.24 Hemoglobin A1c % 6.2 H Prostate Specific Ag TSH 37.89 H 46.00 H 36.86 H Human Anti-Mouse A b 197 H [facility] Medical History (Updated 10/06/24 @ 11:32 by Jerrod Smith PA-C) GERD (gastroesophageal reflux disease) HTN (hypertension) Stage 3a chronic kidney disease (CKD) Retinopathy due to secondary diabetes mellitus Erectile dysfunction due to type 2 diabetes mellitus Urinary incontinence Gynecomastia Reactive airway disease Allergic rhinitis Hypertensive renal disease Hearing loss sensory, bilateral Legal blindness [facility] Nondependent alcohol abuse, 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, moderate Fear of flying Vitamin D deficiency Renal disorder Carcinoma of prostate HLD (hyperlipidemia) Hypothyroid Memory impairment Obese Asthma Type II diabetes mellitus Surgical History History of colonoscopy S/P prostatectomy Family History Mother No known health problems Father Glaucoma Social History Housing: Apartment Alcohol intake: never Patient Tobacco Use Status: Never used Tobacco e-Cigarette/Vaping Use: Never Used Second Hand Smoke Exposure: No service: No Current occupational status: disabled Cognitive needs: No Hearing needs: No Vision needs: Yes Questionnaire PHQ-9 Over the last 2 weeks, how often have you been bothered by any of the following problems? 1. Little interest or pleasure in doing things: not at all 2. Feeling down, depressed, or hopeless: not at all 3. Trouble falling or staying asleep, or sleeping too much: not at all 4. Feeling tired or having little energy: not at all 5. Poor appetite or overeating: not at all 6. Feeling bad about yourself - or that you are a failure or have let yourself or your family down: not at all 7. Trouble concentrating on things, such as reading the newspaper or watching television: not at all 8. Moving or speaking so slowly that other people could have noticed. Or the opposite - being so fidgety or restless that you have been moving around a lot m ore than usual: not at all 9. Thoughts that you would be better off or of hurting yourself in some way: not at all Total score: 0 Depression Screening Interpretation: Negative Depression Screening Done: Yes 28963 - PHQ-9 Billing: Yes Source: Developed by Drs. Juan A Pires, Jennifer Morales, Tha Oneil and colleagues, with an educational [place] from [employer]. Thrive Questionnaire Date Thrive assessed: 10/06/24 I am a: Patient What is your living situation today?: I have a steady place to live Within the past 12 months, did the food you bought not last and you didn't have the money to get more?: Never true Within the past 12 months, did you worry whether your food would run out before you got money to buy more?: Never true Do you have trouble paying for medicines?: No Do you have trouble getting transportation to medical appointments?: No Do you have trouble paying your heating and electricity bill?: No Do you have trouble taking care of your child, family member or friend?: No Do you have trouble with day-to-day activities such as bathing, preparing meals, shopping, managing finances, etc.?: No Are you currently unemployed and looking for a job?: No Are you interested in more education?: No Please select the resources that you would like help with: None Currently or been in a relationship where the following occur: No concerns reported THRIVE Score: 0 AUDIT C Alcohol Use Questionnaire (AUDIT-C) 1. How often do you have a drink containing alcohol?: Never 3. How often do you have six or more drinks on one occasion?: Never Total Score: 0 CYNTHIA-7 AMB Questionnaire CYNTHIA-7 Date CYNTHIA - 7 assessed: 10/06/24 Feeling nervous, anxious, or on edge: 0 = Not at all Not being able to stop or control worryin = Not at all Worrying too much about different things: 0 = Not at all Trouble relaxin = Not at all Being so restless that it is hard to sit still: 0 = Not at all Becoming easily annoyed or irritable: 0 = Not at all Feeling afraid as if something awful might happen: 0 = Not at all Total CYNTHIA-7 score (0-4 normal; 5-9 mild; 10-14 moderate; 15-21 severe): 0 Source: Developed by Drs. Juan A Pires, Jennifer Morales, Tha Oneil and colleagues, with an educational [place] from [employer]. CYNTHIA-7 Assessment Billing CYNTHIA-7 Assessment Tool: CYNTHIA-7 Assessment 23609 Review of Systems Const Denies headache(s) Eyes Denies loss of vision ENT Denies vertigo, Denies dizziness, Denies headache(s) and Denies sore throat Card Denies chest pain, Denies leg edema and Denies lightheadedness Resp Denies cough, Denies hemoptysis and Denies wheezing GI Denies abdominal pain, Denies melena, Denies constipation, Denies diarrhea and Denies vomiting Denies dysuria, Denies urinary frequency and Denies urinary urgency Musc Denies arthralgias, Denies joint swelling, Denies numbness and Denies tingling Neuro Denies Abnormal speech present, Denies behavioral changes, Denies vertigo, Denies dizziness, Denies headache(s), Denies loss of vision, Denies memory loss, Denies numbness and Denies tingling Psych Denies anxiety, Denies behavioral changes, Denies depression, Denies memory loss and Denies panic attacks Wayne/Lymph Denies easy bleeding and Denies easy bruising Aller/Immun Denies wheezing Physical exam (Primary Care) Vital Signs: Last Vital Signs Temp 97.1 F 10/06/24 11:03 Pulse 65 10/06/24 11:03 BP 122/50 L 10/06/24 11:03 Pulse Ox 97 10/06/24 11:03 Oxygen Delivery Method Room Air 10/06/24 11:03 BMI result Body Mass Index 32.1 Tobacco/Smoking Status: Tobacco use Status Tobacco use date assessed 10/06/24 10/06/24 10:54 Patient Tobacco Use Status Never used Tobacco 10/06/24 10:45 e-Cigarette/Vaping Use Never Used 10/06/24 10:45 PHQ-9: PHQ-9 Score PHQ-9: Total score 0 10/06/24 11:18 Depression Screening Interpretation: Negative Thrive Assessment: Date of Thrive Assessment Date Thrive assessed 10/06/24 10/06/24 10:54 Currently or been in a relationship where the following occur: No concerns reported Const General: healthy appearing, no acute distress, alert and awake Nutritional Appearance: well nourished Orientation/consciousness: oriented to person, oriented to place and oriented to time HENMT Ears: TM's normal bilaterally General nose exam: Normal nasal mucous membranes and turbinates present Eyes Conjunctivae: conjunctivae normal Sclerae: sclerae normal Pupils: Equal, round and reactive pupils present Neck Neck: Yes no lymphadenopathy and Yes no JVD Thyroid: Thyroid normal Carotids: no bruits Resp Effort & Inspection: normal respiratory effort and not tachypneic Auscultation: no crackles, no rales, no rhonchi and no wheezes Cardio Rate: regular rate Rhythm: regular rhythm Heart sounds: no murmurs and normal S1 and S2 GI Palpation (GI): Soft to palpation, nontender, no hepatomegaly and no splenomegaly Auscultation: normal bowel sounds Skin General skin exam: no rashes or lesions noted and dry skin Neuro General: oriented to person, oriented to place and oriented to time Cranial nerves: Yes Equal, round and reactive pupils present Speech: No Abnormal speech present Gait exam (Neuro): Normal gait present Motor exam (neuro): no tremor noted Extrem Right upper extremity: full ROM Left upper extremity: full ROM Right lower extremity: full ROM; no edema Left lower extremity: full ROM; no edema Psych Mental Status: mental status grossly normal Speech and movement: Normal speech and movement present Affect: normal affect Attitude: cooperative Thought process: Normal thought process present Coding Level of Care Code Est Pt Level 4 (10573) Diagnoses Type 2 diabetes mellitus with hyperglycemia, without long-term current use of insulin E11.65 Diabetes mellitus complication status: with hyperglycemia Diabetes mellitus correction insulin use: without correction use Mixed hyperlipidemia E78.2 Hyperlipidemia type: mixed hyperlipidemia Psoriasis L40.9 Primary hypertension I10 Hypertension type: primary hypertension Gastroesophageal reflux disease without esophagitis K21.9 Esophagitis presence: without esophagitis Additional Codes CYNTHIA-7 Assessment Billing - CYNTHIA-7 Assessment Tool: CYNTHIA-7 Assessment 42893 ([id number]) PHQ-9 - 88697 - PHQ-9 Billing: Yes ([id number]) Assessment & Plan Assessment & Plan (1) Type II diabetes mellitus: Code(s): E11.9 - Type 2 diabetes mellitus without complications Category: Medical Qualifiers: Diabetes mellitus complication status: with hyperglycemia Diabetes mellitus rat exterminator insulin use: without rat exterminator use Qualified Code(s): E11.65 - Type 2 diabetes mellitus with hyperglycemia Plan: Patient's type 2 diabetes well controlled with diet. Goal A1c is to remain below 7.0 (2) HLD (hyperlipidemia): Code(s): E78.5 - Hyperlipidemia, unspecified Category: Medical Qualifiers: Hyperlipidemia type: mixed hyperlipidemia Qualified Code(s): E78.2 - Mixed hyperlipidemia Plan: Patient's most recent lipid panel showing good control of his total cholesterol and LDL. He continues with high potency statin. LDL is to remain below 100 (3) Psoriasis: Code(s): L40.9 - Psoriasis, unspecified Category: Medical Plan: Followed by dermatology and was started on new cream which patient and B2B APPOINTMENT SETTER reports did help some. Apparently this was the fluocinolone 0.05% cream. Will supply patient with more if this. (4) HTN (hypertension): Code(s): I10 - Essential (primary) hypertension Category: Medical Qualifiers: Hypertension type: primary hypertension Qualified Code(s): I10 - Essential (primary) hypertension Plan: Patient's blood pressure on the low side today in office. Will reduce her dose of valsartan 160 mg to reduce any hypotensive episodes. We did discuss the possibility of his timolol drops causing blood pressure is also below. Goal blood pressures to be below 140/90 and above 100/60. (5) GERD (gastroesophageal reflux disease): Comment: onset: 12/16/13 Code(s): K21.9 - Gastro-esophageal reflux disease without esophagitis Category: Medical Qualifiers: Esophagitis presence: without esophagitis Qualified Code(s): K21.9 - Gastro-esophageal reflux disease without esophagitis Plan: Patient reports her his GERD symptoms to relapse even with omeprazole 20 mg he is interested in increasing his dose of omeprazole 40 mg to see if it works better. Medications: New valsartan 160 mg PO DAILY 90 tabs 1RF 90 days I10 - Essential (primary) hypertension omeprazole 40 mg PO DAILY 90 caps 1RF 90 days K21.9 - Gastro-esophageal reflux disease without esophagitis Refilled albuterol sulfate 90 mcg/actuation (Ventolin HFA) 2 puffs inhalation Q4H 6.7 grams 3RF 30 days J45.20 - Mild intermittent asthma, uncomplicated lorazepam Take 1 hour before flight or travel 0.5 mg PO DAILY 4 tabs 0RF anxiety 4 days atorvastatin 80 mg PO DAILY 90 tabs 1RF 90 days E78.2 - Mixed hyperlipidemia aspirin 81 mg PO DAILY 90 tabs 1RF 90 days On Hold omeprazole Hold Comment: Doctor's Order 20 mg PO DAILY 90 caps 1RF K21.9 - Gastro- esophageal reflux disease without esophagitis valsartan Hold Comment: Doctor's Order 320 mg PO DAILY 90 days 90 tabs 1RF I10 - Essential (primary) hypertension
[2024-10-06 11:03] VITALS: BP 122/50; PULSE 65; TEMP 36.2; O2SAT 97; BMI 32.1
== END 2024-10-06 11:46 | disposition home or self-care (01) ==
LOC: HO.HMCH 10:12
PROVIDERS: PCP Physician Assistant; Visit Provider Physician Assistant
DX: E11.65 Type 2 diabetes mellitus with hyperglycemia (principal); E78.2 Mixed hyperlipidemia; L40.9 Psoriasis, unspecified; I10 Essential (primary) hypertension; K21.9 Gastro-esophageal reflux disease without esophagitis

== ENCOUNTER → 2024-10-06 10:12 | Outpatient (BNVA) | payer OTHER, SELFPAY | PROVIDERS: PCP Physician Assistant; Visit Provider Physician Assistant | DX: E11.65 Type 2 diabetes mellitus with hyperglycemia (principal); I10 Essential (primary) hypertension; L40.9 Psoriasis, unspecified; E78.5 Hyperlipidemia, unspecified; N40.0 Benign prostatic hyperplasia without lower urinary tract symptoms; E78.2 Mixed hyperlipidemia; K21.9 Gastro-esophageal reflux disease without esophagitis; J45.20 Mild intermittent asthma, uncomplicated; Z79.899 Other long term (current) drug therapy | CPT/HCPCS: 96127; 99212 ==

== ENCOUNTER 2024-11-11 11:27 | Outpatient (AMB) | payer OTHER, SELFPAY ==
[2024-11-11 11:31] VITALS: BP 110/54; PULSE 64; BMI 32.2
--- NOTE | 2024-11-11 11:31 | MHC.OFFVIS ---
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 Recyclable Materials Collector Required: Yes Recyclable Materials Collector Language: Closer On Name: [id number] Accompanied by: Daughter Allergies codeine Allergy (Verified 10/06/24 11:20) Rash Medication List - Last Reconciled 11/11/24 by Armin Sewell MD albuterol sulfate 90 mcg/actuation (Ventolin HFA) 2 puffs inhalation Q4H 30 days aspirin 81 mg PO DAILY 90 days atorvastatin 80 mg PO DAILY 90 days bimatoprost 0.01% (Lumigan) 1 drp ophthalmic (eye) BEDTIME blood sugar diagnostic (FreeStyle Lite Strips) testing Twice per day blood-glucose meter (FreeStyle Lite Meter kit) As directed cyclobenzaprine 10 mg PO BEDTIME [disposable bedpads As directed] disposable gloves As directed docusate sodium 100 mg PO DAILY fluocinonide 0.05% 1 appl topical BID 30 days fluticasone propionate 50 mcg/actuation (Flonase Allergy Relief) 1 spray intranasal Q12H PRN 30 days hydralazine 25 mg PO Q8H 90 days [incontinence wipes As directed] levothyroxine 150 mcg PO DAILY 30 days lorazepam 0.5 mg PO DAILY 4 days meclizine 12.5 mg PO BID 30 days [men's pull ups As directed] omeprazole 20 mg PO DAILY omeprazole 40 mg PO DAILY 90 days timolol maleate 0.5% 1 drp ophthalmic (eye) QAM trazodone 25 mg (1/2 x 50 mg) PO BEDTIME 90 days triamcinolone acetonide 0.1% 1 appl topical DAILY 30 days valsartan 160 mg PO DAILY 90 days HPI Comments Details: Jevon is here for consultation regarding atherosclerotic plaque in the arch seen on CT scan. Patient himself has no clear history of any coronary disease or other cardiac issues. He is quite frail. He is also blind. He has had some nonspecific right-sided chest pains but no clear-cut exertional angina type symptoms. Tiredness and fatigue. Generalized weakness. Many comorbidities. 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, moderate Fear of flying Vitamin D deficiency Renal disorder Carcinoma of prostate HLD (hyperlipidemia) Hypothyroid Memory impairment Obese Asthma Type II diabetes mellitus Surgical History History of colonoscopy S/P prostatectomy Family History Mother No known health problems Father Glaucoma Social History Housing: Apartment Alcohol intake: never Patient Tobacco Use Status: Never used Tobacco e-Cigarette/Vaping Use: Never Used Second Hand Smoke Exposure: No service: No Current occupational status: disabled Cognitive needs: No Hearing needs: No Vision needs: Yes Review of Systems Const Denies chills, Denies fatigue, Denies fever(s), Denies frequent falls, Reports weakness, Denies weight gain and Denies weight loss ENT Denies dizziness Card Denies chest pain, Denies leg edema, Denies lightheadedness, Denies palpitations, Reports dyspnea, Reports dyspnea on exertion and Reports orthopnea Resp Denies cough, Reports dyspnea and Reports dyspnea on exertion GI Denies bloating and Denies change in bowel habits Musc Denies muscle weakness, Denies numbness and Denies tingling Neuro Denies dizziness, Denies frequent falls, Denies numbness, Denies tingling and Reports weakness Endo Denies fatigue and Denies palpitations Physical Exam Vital Signs: Last Vital Signs Pulse 64 11/11/24 11:31 BP 110/54 L 11/11/24 11:31 BMI result Body Mass Index 32.2 Const General: comfortable and no acute distress Orientation/consciousness: patient oriented x3 HEENT Other: Unremarkable Head: Yes normal to inspection Neck Neck: Yes normal visual inspection Chest Chest palpation & inspection: normal inspection of the chest Resp Auscultation: clear to auscultation bilaterally Cardio Palpation: normal PMI Heart sounds: S1 normal heart sound present, S2 normal heart sound present, no gallops, no murmurs and no rubs GI Palpation (GI): Soft to palpation Back/Spine/Pelvis Other: unremarkable Skin General skin exam: no rashes or lesions noted Neuro General: patient oriented x3 Extrem General: Yes normal to inspection Psych Mental Status: mental status grossly normal Office Procedures EKG Details: EKG with underlying sinus rhythm at 64/Min; PAC; no ischemic changes; [place] 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 At his age, not uncommon to have such findings. He has got no clinical angina and is also quite frail and legally blind. Hence mainly conservative care. We will check an echocardiogram for any cardiomyopathy or other overt findings. We will check carotid ultrasound as well. Otherwise, can stay on aspirin and high-dose statins. Last LDL 56 mg/dL. 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
== END 2024-11-11 11:52 | disposition home or self-care (01) ==
LOC: HO.HCS 11:27
PROVIDERS: PCP Physician Assistant; Visit Provider Internal Medicine
DX: I25.10 Atherosclerotic heart disease of native coronary artery without angina pectoris (principal)
CPT/HCPCS: 93010; 99214; G2211

== ENCOUNTER → 2024-11-11 11:27 | Outpatient (BNVA) | payer OTHER, SELFPAY | PROVIDERS: PCP Physician Assistant; Visit Provider Internal Medicine | DX: I25.10 Atherosclerotic heart disease of native coronary artery without angina pectoris (principal) | CPT/HCPCS: 93005; 99212 ==

== ENCOUNTER 2024-11-19 10:49 | Outpatient (AMB) | payer OTHER, SELFPAY ==
[2024-11-19 10:52] VITALS: BP 124/58; PULSE 62; O2SAT 97; BMI 33.2
--- NOTE | 2024-11-19 10:52 | MHC.OFFVIS ---
Vital Signs 11/19/24 10:52 Height 5 ft 7 in Weight 212 lb 4.882 oz BMI 33.2 BP 124/58 L Blood Pressure Location Lt brachial Position Sitting Pulse 62 Pulse Source Pulse Oximeter Pulse Oximetry (%) 97 Oxygen Delivery Method Room Air Intake Visit Reasons: Hypothyroidism Intake Note: Patient present today for Hypothyroidism office visit. Replenishment Buyer Required: No Accompanied by: DIRECTOR HUMAN SERVICES Allergies codeine Allergy (Verified 11/19/24 10:57) Rash Medication List - Last Reconciled 11/19/24 by Annemarie Rapp MD albuterol sulfate 90 mcg/actuation (Ventolin HFA) 2 puffs inhalation Q4H 30 days aspirin 81 mg PO DAILY 90 days atorvastatin 80 mg PO DAILY 90 days bimatoprost 0.01% (Lumigan) 1 drp ophthalmic (eye) BEDTIME blood sugar diagnostic (FreeStyle Lite Strips) testing Twice per day blood-glucose meter (FreeStyle Lite Meter kit) As directed cyclobenzaprine 10 mg PO BEDTIME [disposable bedpads As directed] disposable gloves As directed docusate sodium 100 mg PO DAILY fluocinonide 0.05% 1 appl topical BID 30 days fluticasone propionate 50 mcg/actuation (Flonase Allergy Relief) 1 spray intranasal Q12H PRN 30 days hydralazine 25 mg PO Q8H 90 days [incontinence wipes As directed] levothyroxine 150 mcg PO DAILY 30 days lorazepam 0.5 mg PO DAILY 4 days meclizine 12.5 mg PO BID 30 days [men's pull ups As directed] omeprazole 20 mg PO DAILY omeprazole 40 mg PO DAILY 90 days timolol maleate 0.5% 1 drp ophthalmic (eye) QAM trazodone 25 mg (1/2 x 50 mg) PO BEDTIME 90 days triamcinolone acetonide 0.1% 1 appl topical DAILY 30 days valsartan 160 mg PO DAILY 90 days HPI Comments Details: 83 years old here today for follow up of hypothyroidism. He is here today with his DIRECTOR HUMAN SERVICES who is responsible for his care. HPI from initial visit Hypothyroidism diagnosed about 5 years ago per patient. Started on levothyroxine 25 mcg daily , and he was on this dose for a long time up until July 2023, when he was noted to have elevated TSH levels, requiring up titration of the dose slowly over this past year, now at 200 mcg daily dose changed on 04/10/2024 after results from 04/09/2024 resulted with TSH of 37.89, free T4 of 1.53. . Takes it daily at 6 AM , on empty stomach , he weighed 3 hours before he has breakfast or anything with coffee. His DIRECTOR HUMAN SERVICES gives him the medication herself and she make sure he swallows it. He only takes it with hydralazine and no other medications. He reports that since his dose has been increased over this past year he overall feels better with less dizziness which was something troubling him over this past year. Reports cold intolerance. Excessive tiredness .Loss of appetite. Endorses mood changes. reports constipation. Weight stable. Getting scabs on skin. He denies palpitations or tremors. He is also complaining of difficulty swallowing, especially when it comes to big bites and pills that has been happening with the past year. His DIRECTOR HUMAN SERVICES endorses this. Denies changes in voice, choking sensation when lying down flat. He does not know his family so we do not have any family history of thyroid cancer or thyroid disease. Denies history of head or neck radiation. He has never been on medications such as lithium, amiodarone or biotin. Interval history 09/10/24 05/18/2024: TSH high at 46, free T4 elevated at 1.89, this made us concerned about possibly interference of heterophilic antibodies He missed a couple of his follow up appointments and did not get repeat labs. His dose at that time was reduced from levothyroxine 200 mcg daily to 150 mcg daily. Ultrasound of the thyroid on 05/18/2024 showed a left midpole subcentimeter TR 2 category nodule. No need for follow up. No palpitations, no tremors, no diarrhea Lost 7 lbs in past 6 months Interval history 11/19/2024 09/10/2024: Labs showed done at [facility] that TSH was low at 0.02, free T4 normal at 1.7, labs done at our lab same day showed TSH on 09/10/2024 was elevated at 36.86, with free T4 of 1.53, human anti mouse antibodies positive and elevated at 197. He is currently on levothyroxine 150 mcg daily No palpitations, tremors, diarrhea. Says he feels good overall. DIRECTOR HUMAN SERVICES gives him the medicine Physical exam General: sitting comfortably in no acute distress HEENT: normocephalic/atraumatic, moist oral mucosa Neck: supple, symmetrical, no thyromegaly , no dorsocervical or supraclavicular fat pads Cardiac: normal heart sounds Pulm: normal breath sounds B/L, no added breath sounds Abd: not distended, no tenderness Extremities: no edema Laboratory Tests 02/14/23 08/13/23 11/14/23 10:19 11:30 10:03 TSH 34.15 H 37.80 H 39.01 H Free T4 0.92 1.01 1.20 02/27/24 04/09/24 10:48 10:28 TSH 38.63 H 37.89 H Free T4 1.36 1.53 Laboratory Tests 08/13/23 11/14/23 02/27/24 11:30 10:03 10:48 TSH 37.80 H 39.01 H 38.63 H Free T4 1.01 1.20 1.36 04/09/24 05/18/24 10:28 10:12 TSH 37.89 H 46.00 H Free T4 1.53 1.89 H Laboratory Tests 09/10/24 15:01 TSH 36.86 H Free T4 1.53 Total T3 106 Human Anti-Mouse Ab 197 H EXAMINATION: US THYROID 05/18/24 CLINICAL INFORMATION: Hypothyroidism, unspecified. COMPARISON: None available. TECHNIQUE: Linear transducer grayscale and color Doppler examination with attention to the region of the thyroid. FINDINGS: SIZE: Measurements of the thyroid lobes and nodules are given in sagittal, anteroposterior and transverse dimensions respectively. Right Thyroid Lobe: 3.7 x 1.3 x 1.3 cm, volume 3.1 mL. Parenchyma: The gland echotexture is homogeneous. Thyroid vascularity is normal. Left Thyroid Lobe: 3.3 x 1.3 x 1.1 cm, volume 2.6 mL. Parenchyma: The gland echotexture is homogeneous. Thyroid vascularity is normal. Isthmus: 0.3 cm in maximum AP dimension. Estimated total number of nodules greater than or equal to 1 cm: 0. Supervisor Of Operations nodules are described as follows: 1. Location: Left mid pole. Size: 0.5 x 0.6 x 0.4 cm, volume 0.07 mL. Nodule characteristics: Composition: Mixed cystic and solid (1). Echogenicity: Hyperechoic (1). Shape: Not taller than wide (0). Margins: Smooth (0). Echogenic Foci: None (0). ACR TI-RADS total points: 2 ACR TI-RADS category: 2 NODES: No lymphadenopathy is seen in the tissue surrounding the thyroid gland. US/US thyroid IMPRESSION: 0.6 cm LEFT TR 2 thyroid nodule. 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, moderate Fear of flying Vitamin D deficiency Renal disorder Carcinoma of prostate HLD (hyperlipidemia) Hypothyroid Memory impairment Obese Asthma Type II diabetes mellitus Surgical History History of colonoscopy S/P prostatectomy Family History Mother No known health problems Father Glaucoma Social History Housing: Apartment Alcohol intake: never Patient Tobacco Use Status: Never used Tobacco e-Cigarette/Vaping Use: Never Used Second Hand Smoke Exposure: No service: No Current occupational status: disabled Cognitive needs: No Hearing needs: No Vision needs: Yes Physical Exam Vital Signs: Last Vital Signs Pulse 62 11/19/24 10:52 BP 124/58 L 11/19/24 10:52 Pulse Ox 97 11/19/24 10:52 Oxygen Delivery Method Room Air 11/19/24 10:52 BMI result Body Mass Index 33.2 Assessment & Plan Assessment & Plan (1) Hypothyroid: Code(s): E03.9 - Hypothyroidism, unspecified Category: Medical Qualifiers: Hypothyroidism type: unspecified Qualified Code(s): E03.9 - Hypothyroidism, unspecified Plan: Patient with a history of hypothyroidism diagnosed around 2018, who was on low-dose levothyroxine 25 mcg daily for many years, but over the year in 2023 has required up titration of his levothyroxine go to elevated TSH levels in the 30s, with dose change from 150 to 200 mcg on 04/10/2024 when he was noted to have an elevated TSH of 37.89 from 04/09/2024 with normal free T4 of 1.53. no other medication changes recently, and besides the PPI inhibitor omeprazole on his medication list I do not see any other medications that could interfere with his thyroid medication absorption. He does not take the omeprazole with the thyroid medicine. His weight has been stable, no major weight changes to contribute to more requirement of medication. His weight based dosing is close to 150 mcg daily, so I was surprised that he was requiring so much more. 05/18/2024: TSH high at 46, free T4 elevated at 1.89, this made us concerned about possibly interference of heterophilic antibodies such as human anti mouse antibodies, and on 09/15/2024 was found to have elevated human anti mouse antibodies. In April 2024 we reduced his dose from 200-150 when we saw those labs. He has been taking this appropriately. We sent out blood work for TSH with a reflex free T4 to [facility] as they do it with a different reagent which she uses bovine antibodies as opposed to mouse antibodies. ? The human antimouse monoclonal antibodies (HAMA) occur naturally in up to 10% of the general population (not just laboratory workers with mouse exposure, as was first described), and they result in a false elevation of serum TSH. Preincubation of the patient?s serum with nonimmune mouse antibodies (intended to eliminate the effect of HAMA) is an added step in the assay.? 09/10/2024: Labs showed done at [facility] that TSH was low at 0.02, free T4 normal at 1.7, labs done at our lab same day showed TSH on 09/10/2024 was elevated at 36.86, with free T4 of 1.53, human anti mouse antibodies positive and elevated at 197. He is currently on levothyroxine 150 mcg daily, at this point I would want to see if he does better with the dose reduction especially since his TSH was low back in August 2024. Ultrasound of the thyroid on 05/18/2024 showed a left midpole subcentimeter TR 2 category nodule. No need for follow up. Plan: -reduce levothyroxine to 125 mcg daily -do TSH, free T4, at [facility] in 6 weeks -follow up in 3 months Plan see above Orders: Orders Thyroid Stimulating Hormone 6 Weeks E03.9 - Hypothyroidism, unspecified Free T4 (Free Thyroxine) 6 Weeks E03.9 - Hypothyroidism, unspecified Medications: New levothyroxine 125 mcg PO DAILY 30 tabs 5RF Discontinued levothyroxine Discontinued Reason: Doctor's Order 150 mcg PO DAILY 30 days 30 tabs 5RF E03.9 - Hypothyroidism, unspecified Patient Instructions: Reduce levothyroxine to 125 mcg daily, new prescription has been sent to pharmacy Do blood work at [facility] [address] [place] [address] in 6 weeks We will call with results Follow up in 3 months Coding Level of Care Code Est Pt Level 4 (96483) Diagnoses Hypothyroidism, unspecified type E03.9 Hypothyroidism type: unspecified Time Spent (min) 30
== END 2024-11-19 11:29 | disposition home or self-care (01) ==
LOC: HO.ENCR 10:50
PROVIDERS: PCP Physician Assistant; Visit Provider Student in an Organized Health Care Education/Training Program
DX: E03.9 Hypothyroidism, unspecified (principal)
CPT/HCPCS: 99214

== ENCOUNTER → 2024-11-19 10:49 | Outpatient (BNVA) | payer OTHER, SELFPAY | PROVIDERS: PCP Physician Assistant; Visit Provider Student in an Organized Health Care Education/Training Program | DX: E03.9 Hypothyroidism, unspecified (principal) | CPT/HCPCS: 99212 ==

== ENCOUNTER → 2024-12-07 12:35 | Outpatient (REF) | payer OTHER, SELFPAY ==
--- NOTE | 2024-12-07 12:38 | CA_ITS ---
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 Study Quality: Adequate ECG Rhythm: Sinus Conclusions: - The left ventricular systolic function is normal. The calculated ejection fraction is 60% by biplane method. - The left atrium is moderately dilated. - No obvious valvular pathology seen on this study. - There is mild dilatation of the ascending aorta measuring 4.00 cm. Findings Left Ventricle Normal left ventricular cavity size. There is mildly increased left ventricular wall thickness. The left ventricular systolic function is normal. The calculated ejection fraction is 60% by biplane method. There is no evidence of regional wall motion abnormalities. Diastolic function is normal for age. Right Ventricle Mildly increased right ventricular cavity size. There is normal right ventricular systolic function. Atria The left atrium is moderately dilated. The right atrium is mildly dilated. Aortic Valve There is a normal trileaflet aortic valve. There is no aortic valve stenosis. There is no aortic valve regurgitation. Mitral Valve The mitral valve appears normal. There is trace mitral valve regurgitation. There is no mitral valve stenosis. Pulmonic Valve The pulmonic valve is likely normal. Tricuspid Valve There is mild tricuspid valve regurgitation. There is no evidence of pulmonary hypertension. Great Vessels There is mild dilatation of the ascending aorta measuring 4.00 cm. Venous The inferior vena cava is normal in size and collapses greater than 50% with inspiration. Pericardium/Pleural There is no evidence of pericardial effusion. Prior Study Comparison No prior study available for comparison. Recommendations, Care & Conclusions No obvious valvular pathology seen on this study. Measurements 2D Linear Measurements IVSd: 1.11 0.6-0.9/0.6-1.0 cm LVIDd: 4.42 3.9-5.3/4.2-5.9 cm LVIDd Index: 2.14 2.4-3.2/2.2-3.1 cm/m2 LVIDs: 2.53 2.0-3.6 cm LVPWd: 1.15 0.7-1.1 cm LA Diam: 4.20 2.7-3.8/3.0-4.0 cm LAIDs Index: 2.03 1.5-2.3 cm/m2 LV Mass: 220.20 67-162/88-224 g LV Mass Index: 106.37 43-95/49-115 g/m2 LVOT Diam: 2.40 3.0+(-)1.3 cm 2D Systolic Function EF 4C: 60.80 >55% EF 2C: 59.20 >55% EF BiP: 60.20 >55% Mitral Valve MV Pk E: 0.85 MV PK A: 1.02 MV Decel Time: 301.00 E/A: 0.80 E'Lateral: 8.27 E'Medial: 6.96 E/E' Med: 12.20 E/E' Lat: 10.30 PHT: 88.00 MVA PHT: 2.50 Decel [place]: 2.82 Aortic Valve AoV Pk Aj: 1.70 AoV Mn Aj: 1.10 AoV VTI: 0.40 AoV Pk Grad: 12.00 Aov Mn Grad: 6.00 VERO Cont.VTI: 2.65 LVOT LVOT Pk Aj: 1.09 LVOT Mn Aj: 0.68 LVOT VTI: 0.23 LVOT Pk Grad: 5.00 LVOT Mn Grad: 2.00 LVOT Diam: 2.40 LVOT Area: 4.52 Diastolic Function MV Pk E: 0.85 MV Pk A: 1.02 E/A: 0.80 E'Medial: 6.96 E/E' Med: 12.20 E' Laterial: 8.27 E/E' Lat: 10.30 Right Ventricle TAPSE (mm): 31.80 TVS' Aj: 18.60 Tricuspid Valve TR Pk Aj: 2.73 TR Pk Grad: 30.00 RA Press: 3.00 RVSP: 33.00 Great Vessels Aorta Sinus of Valsalva: 3.78 2.0-3.[address] [place]: 3.29 1.7-3.4 cm Ao Asc: 4.00 2.1-3.4 cm Updated in Other Vendor System with Status of Final Armin Sewell MD electronically signed on 12/08/2024 10:10:44 AM with status of Final
--- OUTSIDE RECORDS SUMMARY | 2024-12-07 13:57 | XMS_ITS | Data Portability ---
Author Organization [employer] [facility] Address [address] [place] [address] Care Team Providers Care Dry Pan Operator Name Role Phone HIM [facility] OTHER TRUPTI BELLA Primary Care Provider [phone] Assessment Encounter Date Assessment Date Assessment LastModified by Organization Details LastModified Time 11/07/2023 11/07/2023 I provided real -time medical direction via phone for this encounter and was available for additional phone-based assistance as needed. I have reviewed and agree with the Assessment and Plan as documented by the Pricer Bagger. Patient given the opportunity to ask questions. Our service contacted for an assessment of: a rash As per above, patient with TNTC AKs on chest, trunk, legs. Is not particularly symptomatic. Denies any lesions that are bleeding. Per looseleaf binder coverer on the scene, VSS. Non-toxic. Please see uploaded pictures. Impression: Actinic keratosis Plan: For now - continue Triamcinolone cream. Will ask [facility] team to help with a Derm referral. We discussed the diagnostic uncertainty of home visits and the risk associated with this. In this case, the patient and I felt this to be an acceptable and reasonable amount of risk given the benefit of avoiding an ED visit. [email or web address] Not available 11/07/2023 12:19:16 Plan of Treatment Reminders Order Date Submit Date Provider Last Modified By Organization Details Last Modified Time Details Appointments None record ed. Lab None record ed. Referral None record ed. Procedures None record ed. Surgeries None record ed. Imaging None record ed. Medication Orders None record ed. Patient TargetsNo targets recorded. Patient InstructionsNo instructions recorded. Reason for Referral None Reported. Medical Equipment None Reported. Medications Name Sig Start Date Stop Date Status Note LastModified by Organization Details LastModified Time cyclobenzapr ine 10 mg tablet TAKE 1 TABLET BY MOUTH EVERYDAY AT BEDTIME active Not Available Not Available No t Available atorvastatin 80 mg tablet TAKE 1 TABLET BY MOUTH EVERY DAY active Not Available Not Available No t Available trazodone 50 mg tablet TAKE 1/2 TABLET BY MOUTH AT BEDTIME FOR SLEEP FOR 90 DAYS active Not Available Not Available No t Available valacyclovir 1 gram tablet TAKE 1 TABLET ORALLY 2 TIMES A DAY FOR 7 DAYS active Not Available Not Available N ot Available donepezil 10 mg tablet TAKE 1 TABLET BY MOUTH EVERY DAY active Not Available Not Available No t Available meloxicam 15 mg tablet TAKE 1 TABLET BY MOUTH DAILY active Not Available Not Available Not Available FreeStyle Lancets 28 gauge USE TO TEST DAILY. E11.319 active Not Available Not Available No t Available hydralazine 25 mg tablet TAKE 1 TABLET BY MOUTH EVERY 8 HOURS active Not Available Not Available No t Available meclizine 12.5 mg tablet TAKE 1 TABLET BY MOUTH TWICE A DAY FOR DIZZINESS active Not Available Not Available No t Available triamcinolon e acetonide 0.5 % topical ointment APPLY TO AFFECTED AREA EVERY DAY FOR 30 DAYS active Not Available Not Available No t Available aspirin 81 mg tablet,delay ed release TAKE 1 TABLET BY MOUTH EVERY DAY active Not Available Not Available No t Available levothyroxin e 25 mcg tablet TAKE 1 TABLET BY MOUTH EVERY DAY active Not Available Not Available No t Available levothyroxin e 50 mcg tablet TAKE 1 TABLET BY MOUTH EVERY DAY FOR 30 DAYS. TAKE ON EMPTY STOMACH IN MORNING. active Not Available Not Available No t Available triamcinolon e acetonide 0.1 % topical ointment APPLY 1 APPLICATION TOPICALLY DAILY X30 DAYS active Not Available Not Available No t Available valsartan 320 mg tablet TAKE 1 TABLET BY MOUTH EVERY DAY active Not Available Not Available No t Available omeprazole 20 mg capsule,candi yed release TAKE 1 CAPSULE BY MOUTH EVERY DAY active Not Available Not Available No t Available mupirocin 2 % topical ointment APPLY TOPICALLY TWICE A DAY FOR 14 DAYS active Not Available Not Available Not Available timolol maleate 0.5 % eye drops INSTILL 1 DROP IN LEFT EYE EVERY MORNING active Not Available Not Available No t Available fluticasone propionate 50 mcg/actuatio n nasal spray,suspen deb PLEASE SEE ATTACHED FOR DETAILED DIRECTIONS active Not Available Not Available N ot Available Ventolin HFA 90 mcg/actuatio n aerosol inhaler TAKE 2 PUFFS BY MOUTH EVERY 4 HOURS FOR 30 DAYS active Not Available Not Available No t Available FreeStyle Lite Strips USE 1 STRIP TWICE A DAY DIRECTED active Not Available Not Available Not Available Lumigan 0.01 % eye drops INSTILL 1 DROP IN LEFT EYE AT BEDTIME active Not Available Not Available No t Available Vitals Date Recorded Body temperature Body weight Oxygen saturation Oxygen saturation in Arterial blood by Pulse oximetry Respiratory rate Heart rate Systolic blood pressure Diastolic blood pressure Provider Name and Address Organization Details Last Updated DateTime 4 98.7 [degF] 94121.8 72 g 98 % 98 % 16 /min 74 /min 148 mm[Hg] 72 mm[Hg] Not Available [facility] - production 4 12:15:22 Social History None recorded. Functional Status None recorded. Mental Status None recorded. Family History Nothing Reported. Medical History No medical history recorded. Past Encounters Encounter ID Performer Location Encounter Start Date Encounter Closed Date Diagnosis/Indication Diagnosis SNOMED-CT Code Diagnosis ICD10 Code Diagnosis Note [id number] Vira Iraheta MD [facility] [address] [place] [phone] [id number] 11/07/2023 12:15:09 11/07/2023 22:14:54 Actinic keratosis 751149949 L57.0 Health Concerns Section Related Observation LastModified by Organization Detai ls LastModified Time None Recorded Concern Status LastModified by Organization Details LastModified Time None Recorded Advance Directives Directive None Recorded Payers Insurance Date Sequence Insurance Name Policy Number Policy Petersen Covered Member ID Petersen Member ID Guarantor Name 01/26/2024 1 [facility] - DOS ON OR AFTER 2022 - DUAL ELIGIBLE - SNF OPTIONS AND ONE CARE (MEDICARE REPLACEMENT/ADV ANTAGE - HMO) Jevon Oliver [id number] Jevon Oliver Notes Date Note Type Note Provider Name and Address Organization Details Recorded Time 11/07/2023 text/html [facility] Nurse Triage Notes (Sophie Reid): Reason For Request: Rash/Skin infection Chief Complaints: Pain, Fever/Chills PMH: Diabetes Comments: 1130 member wants visit on 11/06 in the [facility] calling up to report ? skin infection, has pimples all over his body, feet, back, buttock, arms. bilateral feet are very big per family and open areas. Problem is ongoing for 3 months, was prescribed an antibiotic cream (unsure of name) , stated it looks like it is drying up but still the rash is not gone and very itchy.Also c/o stomachache, family wondering if the rash is shingles but reported receiving the Shingles Vaccine. No new medications started except ASA about 3 months agoPMH: VA, DM. Visit before 1pm if possible so daughter can be there or after 5 pm today. ................... ................... ................... ................... ................... ................... ................... ........ Pricer Bagger Note From Maury Camargo: Patient complaint today of a rash that has been going on for the last x3 weeks. Pt is stating he is having itching in the rash located on his forearms, legs and back as well as buttocks. Pt has been prescribed medication for the itching. Pt is concerned of the deep color associated with the rash on his legs and feet. Pictures are uploaded into the system.Pt denies NVD. Chest pain. SOBVitals taken and notes to be WNL. NON FOCAL NEURO EXAM performed, benign abdominal, Positive csm in all extremity. Slight edema/ +1, no pitting in lower extremities with one patch 1.5 inches in size showed purpling in color.[facility] consultedCare team will be contacted for referral to stonemason helper.Pt instructed to call for emergency services if red flag signs and symptoms occur. Pt educated on red flag symptoms.Pt instructed to call pcp with any further questions. ................... ................... ................... ................... ................... ................... ................... ........ Disposition: Fulfilled Vira Iraheta MD [address] [place] [address],[address], [place], [phone], HAM SWAIN 11/07/2023 12:19:32
== END ==
LOC: HO.CARD 12:35
PROVIDERS: PCP Physician Assistant; Visit Provider Internal Medicine
DX: I25.10 Atherosclerotic heart disease of native coronary artery without angina pectoris (principal)
CPT/HCPCS: 93306

== ENCOUNTER → 2024-12-07 12:38 | Outpatient (BNV) | payer OTHER, SELFPAY | PROVIDERS: PCP Physician Assistant; Visit Provider Internal Medicine | DX: I51.7 Cardiomegaly (principal); I36.1 Nonrheumatic tricuspid (valve) insufficiency; I25.10 Atherosclerotic heart disease of native coronary artery without angina pectoris | CPT/HCPCS: 93306 ==

== ENCOUNTER 2024-12-28 12:26 | Outpatient (REF) | payer OTHER, SELFPAY ==
--- NOTE | ~2024-12-28 | US_ITS ---
CLINICAL HISTORY: I65.23 - Occlusion and stenosis of bilateral carotid arteries US bilateral carotid duplex Comparison: None Findings: Prominent noncalcified atherosclerotic plaque of the right distal CCA to carotid bulb, mild luminal narrowing on grayscale ultrasound. Prominent noncalcified and calcified plaques left mid to distal CCA to carotid bulb, mild stenosis on grayscale ultrasound. Peak systolic velocities: Right CCA: 109 cm/s Right ICA: 153 cm/s ICA/CCA ratio: 0.8 Right ECA: Unremarkable Right vertebral artery flow antegrade, 52.5 cm/s. Right subclavian artery: 73.7 cm/s. Left CCA: 67.8 cm/s Left ICA: 130 cm/s ICA/CCA ratio: 1.06 Left ECA: Unremarkable Left vertebral artery flow antegrade, 52.7 cm/s. Left subclavian artery : 145 cm/s Impression: 1. Soft plaque in the right distal CCA, calcified and soft plaques of the left mid to distal CCA, causing mild stenosis. 2. Elevated peak systolic velocities of bilateral ICAs, moderate stenosis (50-79%), worse on the right. This document has been electronically signed by: Elba Jacob MD on 12/29/2024 11:37:15
--- OUTSIDE RECORDS SUMMARY | 2024-12-28 13:04 | XMS_ITS | Data Portability ---
Author Organization [employer] [facility], [facility] HospitalYour Policy Manager Medical [facility] Address [address] [place] [address] Care Team Providers Care Collator Operator Name Role Phone HIM CCA OTHER TRUPTI BELLA Primary Care Provider [phone] Assessment Encounter Date Assessment Date Assessment LastModified by Organization Details LastModified Time 11/07/2023 11/07/2023 I provided real -time medical direction via phone for this encounter and was available for additional phone-based assistance as needed. I have reviewed and agree with the Assessment and Plan as documented by the Neonatal Icu Coordinator. Patient given the opportunity to ask questions. Our service contacted for an assessment of: a rash As per above, [facility] chest, trunk, legs. Is not particularly symptomatic. Denies any lesions that are bleeding. Per clinical data coordinator on the scene, VSS. Non-toxic. Please see uploaded pictures. Impression: Actinic keratosis Plan: For now - continue Triamcinolone cream. Will ask [facility] team to help with a Derm referral. [...] Pulse oximetry Respiratory rate Heart rate Systolic And Diastolic Provider Name and Address Organization Details Last Updated DateTime 4 98.7 [degF] 40865.8 72 g 98 % 98 % 16 /min 74 /min 148/72 mm[Hg] Not Available [facility] - production 4 12:15:22 Social History None recorded. Functional Status None recorded. Mental Status None recorded. Family History Nothing Reported. Medical History No medical history recorded. Past Encounters Encounter ID Performer Location Encounter Start Date Encounter Closed Date Diagnosis/Indication Diagnosis SNOMED-CT Code Diagnosis ICD10 Code Diagnosis Note [id number] Vira Iraheta MD Main - [facility] [address] [place] [id number] 11/07/2023 12:15:09 11/07/2023 22:14:54 Actinic keratosis 678197790 L57.0 Health Concerns Section Related Observation LastModified by Organization Detai ls LastModified Time None Recorded Concern Status LastModified by Organization Details LastModified Time None Recorded Advance Directives Directive None Recorded Payers Insurance Date Sequence Insurance Name Policy Number Policy Petersen Covered Member ID Petersen Member ID Guarantor Name 01/26/2024 1 [facility] - DOS ON OR AFTER 2022 - DUAL ELIGIBLE - ASSISTED OPTIONS AND ONE CARE (MEDICARE REPLACEMENT/ADV ANTAGE - HMO) Jevon Oliver [id number] Jevon Oliver Notes Date Note Type Note Provider Name and Address Organization Details Recorded Time 11/07/2023 text/html CRC Nurse Triage Notes (Sophie Reid): Reason For Request: Rash/Skin infection Chief Complaints: Pain, Fever/Chills PMH: Diabetes Comments: 1130 member wants visit on 11/06 in the [facility] calling up to report ? skin infection, [...] started except ASA about 3 months agoPMH: DE, DM. Visit before 1pm if possible so daughter can be there or after 5 pm today. ................... ................... ................... ................... ................... ................... ................... ........ Neonatal Icu Coordinator Note From Maury Camargo: Patient complaint today [...] 1.5 inches in size showed purpling in color.[facility] consultedCare team will be contacted for referral to cfa.Pt instructed to call for emergency services if red flag signs and symptoms occur. Pt educated on red flag symptoms.Pt instructed to call pcp with any further questions. ................... ................... ................... ................... ................... ................... ................... ........ Disposition: Fulfilled Vira Iraheta MD [address] [place] [address],[address], [place], [address], HAM SWAIN 11/07/2023 12:19:32
== END 2024-12-28 12:27 | disposition home or self-care (01) ==
LOC: HO.US 12:26
PROVIDERS: PCP Physician Assistant; Visit Provider Internal Medicine
DX: I65.23 Occlusion and stenosis of bilateral carotid arteries (principal)
CPT/HCPCS: 93880

== ENCOUNTER → 2024-12-28 12:29 | Outpatient (BNV) | payer OTHER, SELFPAY | PROVIDERS: PCP Physician Assistant; Visit Provider Radiology Diagnostic Radiology | DX: I65.23 Occlusion and stenosis of bilateral carotid arteries (principal) | CPT/HCPCS: 93880 ==

== ENCOUNTER 2025-01-14 11:10 | Outpatient (AMB) | payer OTHER, SELFPAY ==
[2025-01-14 11:14] VITALS: BP 124/56; PULSE 75; O2SAT 93; BMI 33.0
--- NOTE | 2025-01-14 11:14 | A.OFFPC_ITS ---
Vital Signs 01/14/25 11:14 Height 5 ft 7 in Weight 210 lb 15.718 oz BMI 33.0 BP 124/56 L Blood Pressure Location Lt brachial Position Sitting Pulse 75 Pulse Source Pulse Oximeter Pulse Oximetry (%) 93 Oxygen Delivery Method Room Air Intake Visit Reasons: f/u HTN Air Table Operator Required: No Accompanied by: Self / Same As Patient Allergies codeine Allergy (Verified 01/14/25 11:32) Rash Medication List - Last Reconciled 01/14/25 by Jerrod Smith PA-C albuterol sulfate 90 mcg/actuation (Ventolin HFA) 2 puffs inhalation Q4H 30 days aspirin 81 mg PO DAILY 90 days atorvastatin 80 mg PO DAILY 90 days bimatoprost 0.01% (Lumigan) 1 drp ophthalmic (eye) BEDTIME blood sugar diagnostic (FreeStyle Lite Strips) testing Twice per day blood-glucose meter (FreeStyle Lite Meter kit) As directed cyclobenzaprine 10 mg PO BEDTIME [disposable bedpads As directed] disposable gloves As directed docusate sodium 100 mg PO DAILY fluocinonide 0.05% 1 appl topical BID 30 days fluticasone propionate 50 mcg/actuation (Flonase Allergy Relief) 1 spray intranasal Q12H PRN 30 days hydralazine 25 mg PO Q8H 90 days [incontinence wipes As directed] levothyroxine 125 mcg PO DAILY lorazepam 0.5 mg PO DAILY 4 days meclizine 12.5 mg PO BID 30 days [men's pull ups As directed] omeprazole 20 mg PO DAILY Held on 10/06/24. Instructions: Doctor's Order omeprazole 40 mg PO DAILY 90 days timolol maleate 0.5% 1 drp ophthalmic (eye) QAM trazodone 25 mg (1/2 x 50 mg) PO BEDTIME 90 days triamcinolone acetonide 0.1% 1 appl topical DAILY 30 days valsartan 160 mg PO DAILY 90 days Tobacco use date assessed: 01/14/25 Fall risk assessment: No Falls in past year Last assessed Fall Risk: 01/14/25 Dental Screening Dental Screen Date: 01/14/25 Did you have a dental visit in the last 12 months?: Yes Did you have a dental problem in the last 6 months where you did not have access to dental care?: No Was dental information given to patient?: Patient has dentist HPI f/u HTN HPI Details Patient is an 84-year-old male here today for a follow-up visit. Today patient presents with a AIRCRAFT [employer] SU[employer] FITTER. Patient has a past medical history hyperlipidemia, glaucoma, legal blindness, hypertension. He presents today with AIR[employer]FT [employer] SU[employer]TER whom help some with his activities of daily living as patient is legally blind. Concern--> He reports difficulty swallowing, requiring liquids to aid in the passage of food, which has been a persistent issue. He describes the sensation of food getting stuck if not consumed with liquid, indicating a possible esophageal stricture. Hypertension: The patient has a history of hypertension, with blood pressure readings often showing a low diastolic value, potentially due to antihypertensive medications such as valsartan and hydralazine, or quite possibly his timolol drops. He experiences dizziness, which may be related to his blood pressure management, and there is consideration of adjusting his medication regimen. psoriasis: Continues to have dry scaly patches itchy irritated skin over his extremities, torso and hands. He has reduced his coffee in she is intake and reports his skin lesions has been better. Has establish care with Dermatology and has been on a new topical steroid which patient reports has not help much. .. Type 2 diabetes: Diabetes has been well controlled with diet. A1c is have been stable. He is currently diet controlled. .. Hypothyroidism: Continues to have elevated TSH even on high doses levothyroxine. Has been established with endocrinology. He is taking high dose of levothyroxine correctly in the morning on empty stomach. . BPH: Followed by DR Luu urologist on annual basis. Most recent PSA elevated at 6. Unclear what kind of prostate surgery though it sounds like he had a TURP procedure in the past. .. 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, moderate Fear of flying Vitamin D deficiency Renal disorder Carcinoma of prostate HLD (hyperlipidemia) Hypothyroid Memory impairment Obese Asthma Type II diabetes mellitus Surgical History History of colonoscopy S/P prostatectomy Family History Mother No known health problems Father Glaucoma Social History Housing: Apartment Alcohol intake: never Patient Tobacco Use Status: Never used Tobacco e-Cigarette/Vaping Use: Never Used Second Hand Smoke Exposure: No service: No Current occupational status: disabled Cognitive needs: No Hearing needs: No Vision needs: Yes Questionnaire PHQ-9 Over the last 2 weeks, how often have you been bothered by any of the following problems? 1. Little interest or pleasure in doing things: not at all 2. Feeling down, depressed, or hopeless: several days 3. Trouble falling or staying asleep, or sleeping too much: more than half the days 4. Feeling tired or having little energy: more than half the days 5. Poor appetite or overeating: several days 6. Feeling bad about yourself - or that you are a failure or have let yourself or your family down: not at all 7. Trouble concentrating on things, such as reading the newspaper or watching television: nearly every day 8. Moving or speaking so slowly that other people could have noticed. Or the opposite - being so fidgety or restless that you have been moving around a lot more than usual: several days 9. Thoughts that you would be better off or of hurting yourself in some way: not at all Total score: 10 Depression Screening Interpretation: Positive Depression Screening Follow-up: Existing condition Depression Screening Done: Yes 10386 - PHQ-9 Billing: Yes Source: Developed by Drs. Juan A Pires, Jennifer Morales, Tha Oneil and colleagues, with an educational [place] from [employer]. Thrive Questionnaire Date Thrive assessed: 01/14/25 I am a: Parent/Caregiver What is your living situation today?: I choose not to answer this question Within the past 12 months, did the food you bought not last and you didn't have the money to get more?: Often true Within the past 12 months, did you worry whether your food would run out before you got money to buy more?: I choose not to answer this question Do you have trouble paying for medicines?: I choose not to answer this question Do you have trouble getting transportation to medical appointments?: I choose not to answer this question Do you have trouble paying your heating and electricity bill?: I choose not to answer this question Do you have trouble taking care of your child, family member or friend?: Yes Do you have trouble with day-to-day activities such as bathing, preparing meals, shopping, managing finances, etc.?: Yes Are you currently unemployed and looking for a job?: No Are you interested in more education?: No Please select the resources that you would like help with: None Currently or been in a relationship where the following occur: I choose not to answer THRIVE Score: 1 AUDIT C Alcohol Use Questionnaire (AUDIT-C) 1. How often do you have a drink containing alcohol?: Never 3. How often do you have six or more drinks on one occasion?: Never Total Score: 0 CYNTHIA-7 AMB Questionnaire CYNTHIA-7 Date CYNTHIA - 7 assessed: 01/14/25 Feeling nervous, anxious, or on edge: 1 = Several days Not being able to stop or control worryin = Several days Worrying too much about different things: 1 = Several days Trouble relaxin = Several days Being so restless that it is hard to sit still: 1 = Several days Becoming easily annoyed or irritable: 1 = Several days Feeling afraid as if something awful might happen: 1 = Several days Total CYNTHIA-7 score (0-4 normal; 5-9 mild; 10-14 moderate; 15-21 severe): 7 Source: Developed by Drs. Juan A Pires, Jennifer Morales, Tha Oneil and colleagues, with an educational [place] from [employer]. CYNTHIA-7 Assessment Billing CYNTHIA-7 Assessment Tool: CYNTHIA-7 Assessment 95565 Review of Systems Const Denies headache(s) Eyes Denies loss of vision ENT Denies vertigo, Reports dizziness, Denies headache(s) and Denies sore throat Card Denies chest pain, Denies leg edema and Denies lightheadedness Resp Denies cough, Denies hemoptysis and Denies wheezing GI Denies abdominal pain, Denies melena, Denies constipation, Denies diarrhea and Denies vomiting Denies dysuria, Denies urinary frequency and Denies urinary urgency Musc Denies arthralgias, Denies joint swelling, Denies numbness and Denies tingling Neuro Denies Abnormal speech present, Denies behavioral changes, Denies vertigo, Reports dizziness, Denies headache(s), Denies loss of vision, Denies memory loss, Denies numbness and Denies tingling Psych Denies anxiety, Denies behavioral changes, Denies depression, Denies memory loss and Denies panic attacks Wayne/Lymph Denies easy bleeding and Denies easy bruising Aller/Immun Denies wheezing Physical exam (Primary Care) Vital Signs: Last Vital Signs Pulse 75 01/14/25 11:14 BP 124/56 L 01/14/25 11:14 Pulse Ox 93 01/14/25 11:14 Oxygen Delivery Method Room Air 01/14/25 11:14 BMI result Body Mass Index 33.0 Tobacco/Smoking Status: Tobacco use Status Tobacco use date assessed 01/14/25 01/14/25 11:19 Patient Tobacco Use Status Never used Tobacco 01/14/25 11:19 e-Cigarette/Vaping Use Never Used 01/14/25 11:19 PHQ-9: PHQ-9 Score PHQ-9: Total score 10 01/14/25 12:03 Depression Screening Interpretation: Positive Depression Screening Follow-up: Existing condition Thrive Assessment: Date of Thrive Assessment Date Thrive assessed 01/14/25 01/14/25 11:19 Currently or been in a relationship where the following occur: I choose not to answer Const General: healthy appearing, no acute distress, alert and awake Nutritional Appearance: well nourished Orientation/consciousness: oriented to person, oriented to place and oriented to time HENHI Ears: TM's normal bilaterally General nose exam: Normal nasal mucous membranes and turbinates present Eyes Conjunctivae: conjunctivae normal Sclerae: sclerae normal Pupils: Equal, round and reactive pupils present Neck Neck: Yes no lymphadenopathy and Yes no JVD Thyroid: Thyroid normal Carotids: no bruits Resp Effort & Inspection: normal respiratory effort and not tachypneic Auscultation: no crackles, no rales, no rhonchi and no wheezes Cardio Rate: regular rate Rhythm: regular rhythm Heart sounds: no murmurs and normal S1 and S2 GI Palpation (GI): Soft to palpation, nontender, no hepatomegaly and no splenomegaly Auscultation: normal bowel sounds Skin General skin exam: no rashes or lesions noted and dry skin Neuro General: oriented to person, oriented to place and oriented to time Cranial nerves: Yes Equal, round and reactive pupils present Speech: No Abnormal speech present Gait exam (Neuro): Normal gait present Motor exam (neuro): no tremor noted Extrem Right upper extremity: full ROM Left upper extremity: full ROM Right lower extremity: full ROM; no edema Left lower extremity: full ROM; no edema Psych Mental Status: mental status grossly normal Speech and movement: Normal speech and movement present Affect: normal affect Attitude: cooperative Thought process: Normal thought process present Coding Level of Care Code Est Pt Level 4 (51261) Diagnoses Type 2 diabetes mellitus with hyperglycemia, without long-term current use of insulin E11.65 Diabetes mellitus complication status: with hyperglycemia Diabetes mellitus termite exterminator helper insulin use: without termite exterminator helper use Pharyngeal dysphagia R13.13 Dysphagia type: pharyngeal phase Carotid stenosis, bilateral I65.23 Mixed hyperlipidemia E78.2 Hyperlipidemia type: mixed hyperlipidemia Primary hypertension I10 Hypertension type: primary hypertension Gastroesophageal reflux disease without esophagitis K21.9 Esophagitis presence: without esophagitis Additional Codes CYNTHIA-7 Assessment Billing - CYNTHIA-7 Assessment Tool: CYNTHIA-7 Assessment 20829 ([id number]) PHQ-9 - 19491 - PHQ-9 Billing: Yes ([id number]) Assessment & Plan Assessment & Plan (1) Type II diabetes mellitus: Code(s): E11.9 - Type 2 diabetes mellitus without complications Category: Medical Qualifiers: Diabetes mellitus complication status: with hyperglycemia Diabetes mellitus usp insulin use: without termite exterminator helper use Qualified Code(s): E11.65 - Type 2 diabetes mellitus with hyperglycemia Plan: Patient's type 2 diabetes well controlled with diet. Goal A1c is to remain below 7.0 (2) Dysphagia: Code(s): R13.10 - Dysphagia, unspecified Category: Medical Qualifiers: Dysphagia type: pharyngeal phase Qualified Code(s): R13.13 - Dysphagia, pharyngeal phase Plan: A barium swallow test is recommended to evaluate the cause of dysphagia, with consideration for an endoscopy if necessary to assess for esophageal stricture. (3) Carotid stenosis, bilateral: Code(s): I65.23 - Occlusion and stenosis of bilateral carotid arteries Category: Medical Plan: Noted to have bilateral carotid stenosis worse in the right side. Will continue high dose statin therapy and has been. (4) HLD (hyperlipidemia): Code(s): E78.5 - Hyperlipidemia, unspecified Category: Medical Qualifiers: Hyperlipidemia type: mixed hyperlipidemia Qualified Code(s): E78.2 - Mixed hyperlipidemia Plan: Patient's most recent lipid panel showing good control of his total cholesterol and LDL. He continues with high potency statin. LDL is to remain below 100 (5) HTN (hypertension): Code(s): I10 - Essential (primary) hypertension Category: Medical Qualifiers: Hypertension type: primary hypertension Qualified Code(s): I10 - Essential (primary) hypertension Plan: Patient's blood pressure on the low side today in office. Has been experiencing dizziness which we have tried to reduce his dose of valsartan though still has dizziness. Will change his valsartan to lisinopril 5 m to see if his dizziness episodes improved. We did discuss the possibility of his timolol drops causing blood pressure is also below. Goal blood pressures to be below 140/90 and above 100/60. (6) GERD (gastroesophageal reflux disease): Comment: onset: 12/16/13 Code(s): K21.9 - Gastro-esophageal reflux disease without esophagitis Category: Medical Qualifiers: Esophagitis presence: without esophagitis Qualified Code(s): K21.9 - Gastro-esophageal reflux disease without esophagitis Plan: Patient reports her his GERD symptoms to relapse even with omeprazole 20 mg he is interested in increasing his dose of omeprazole 40 mg to see if it works better. Orders: Orders Lipid Panel 01/14/25 I25.10 - Atherosclerotic heart disease of [place] coronary artery without angina pectoris Complete Blood Count no Diff 01/14/25 I10 - Essential (primary) hypertension Hemoglobin A1c 01/14/25 E11.65 - Type 2 diabetes mellitus with hyperglycemia [place] barium swallow 01/14/25 R13.13 - Dysphagia, pharyngeal phase Comprehensive Golden. Panel Fast 01/14/25 I10 - Essential (primary) hypertension Referrals Gastroenterology Referral R13.13 - Dysphagia, pharyngeal phase Medications: New lisinopril 5 mg PO DAILY 90 tabs 1RF 90 days I10 - Essential (primary) hypertension Refilled aspirin 81 mg PO DAILY 90 tabs 1RF 90 days R13.13 - Dysphagia, pharyngeal phase albuterol sulfate 90 mcg/actuation (Ventolin HFA) 2 puffs inhalation Q4H 6.7 grams 3RF 30 days J45.20 - Mild intermittent asthma, uncomplicated atorvastatin 80 mg PO DAILY 90 tabs 1RF 90 days E78.2 - Mixed hyperlipidemia On Hold valsartan Hold Comment: Dose Change 160 mg PO DAILY 90 days 90 tabs 1RF I10 - Essential (primary) hypertension
--- OUTSIDE RECORDS SUMMARY | 2025-01-14 12:05 | XMS_ITS | Data Portability ---
Author Organization [employer] [facility] Address [address] [place] [address] Care Team Providers Care Storekeeper Engineering Name Role Phone HIM CCA OTHER TRUPTI BELLA Primary Care Provider Assessment Encounter Date Assessment Date Assessment LastModified by Organization Details LastModified Time 11/07/2023 11/07/2023 I provided real -time medical direction via phone for this encounter and was available for additional phone-based assistance as needed. I have reviewed and agree with the Assessment and Plan as documented by the Quill Machine Tender. Patient given the opportunity to ask questions. Our service contacted for an assessment of: a rash As per above, [facility] chest, trunk, legs. Is not particularly symptomatic. Denies any lesions that are bleeding. Per electrotyper apprentice on the scene, VSS. Non-toxic. Please see uploaded pictures. Impression: Actinic keratosis Plan: For now - continue Triamcinolone cream. Will ask [facility] team to help with a Derm referral. [...] Details Last Updated DateTime 4 98.7 [degF] 27361.8 72 g 98 % 98 % 16 /min 74 /min 148/72 mm[Hg] Not Available [facility] - production 4 12:15:22 Social History None recorded. Functional Status None recorded. Mental Status None recorded. Family History Nothing Reported. Medical History No medical history recorded. Past Encounters Encounter ID Performer Location Encounter Start Date Encounter Closed Date Diagnosis/Indication Diagnosis SNOMED-CT Code Diagnosis ICD10 Code Diagnosis Note [id number] Vira Iraheta MD Main - [facility] [address] [place] [phone] 11/07/2023 12:15:09 11/07/2023 22:14:54 Actinic keratosis 663815893 L57.0 Health Concerns Section Related Observation LastModified by Organization Detai ls LastModified Time None Recorded Concern Status LastModified by Organization Details LastModified Time None Recorded Advance Directives Directive None Recorded Payers Insurance Date Sequence Insurance Name Policy Number Policy Petersen Covered Member ID Petersen Member ID Guarantor Name 01/26/2024 1 [facility] - DOS ON OR AFTER 2022 - DUAL ELIGIBLE - USP OPTIONS AND ONE CARE (MEDICARE REPLACEMENT/ADV ANTAGE - HMO) Jevon Oliver [id number] Jevon Oliver Notes Date Note Type Note Provider Name and Address Organization Details Recorded Time 11/07/2023 text/html CRC Nurse Triage Notes (Sophie Reid): Reason For Request: Rash/Skin infection Chief Complaints: Pain, Fever/Chills PMH: Diabetes Comments: 1130 member wants visit on 11/06 in the [facility] calling up to report ? skin infection, [...] started except ASA about 3 months agoPMH: ID, DM. Visit before 1pm if possible so daughter can be there or after 5 pm today. ................... ................... ................... ................... ................... ................... ................... ........ Quill Machine Tender Note From Maury Camargo: Patient complaint today [...] 1.5 inches in size showed purpling in color.[facility] consultedCare team will be contacted for referral to automotive diagnostic technician.Pt instructed to call for emergency services if red flag signs and symptoms occur. Pt educated on red flag symptoms.Pt instructed to call pcp with any further questions. ................... ................... ................... ................... ................... ................... ................... ........ Disposition: Fulfilled Vira Iraheta MD [address] [place] [address],[address], [place], [phone], HAM SWAIN 11/07/2023 12:19:32
== END 2025-01-14 12:02 | disposition home or self-care (01) ==
LOC: HO.HMCH 11:11
PROVIDERS: PCP Physician Assistant; Visit Provider Physician Assistant
DX: E11.65 Type 2 diabetes mellitus with hyperglycemia (principal); R13.13 Dysphagia, pharyngeal phase; I65.23 Occlusion and stenosis of bilateral carotid arteries; E78.2 Mixed hyperlipidemia; I10 Essential (primary) hypertension; K21.9 Gastro-esophageal reflux disease without esophagitis

== ENCOUNTER → 2025-01-14 11:10 | Outpatient (BNVA) | payer OTHER, SELFPAY | PROVIDERS: PCP Physician Assistant; Visit Provider Physician Assistant | DX: E11.65 Type 2 diabetes mellitus with hyperglycemia (principal); R13.13 Dysphagia, pharyngeal phase; I65.23 Occlusion and stenosis of bilateral carotid arteries; E78.2 Mixed hyperlipidemia; I10 Essential (primary) hypertension; K21.9 Gastro-esophageal reflux disease without esophagitis; Z13.31 Encounter for screening for depression; Z13.39 Encounter for screening examination for other mental health and behavioral disorders | CPT/HCPCS: 96127; 99212 ==

== ENCOUNTER 2025-02-18 08:34 | Outpatient (REF) | payer OTHER, SELFPAY ==
[2025-02-18 09:49] LABS: Hematocrit 39.8 % (42.0-52.0); Hemoglobin 12.6 g/dl (14.0-18.0); Mean Corpuscular HGB Conc 31.7 g/dl (31.0-36.0); Mean Corpuscular Hemoglobin 27.2 pg (27.0-33.0); Mean Corpuscular Volume 85.8 fL (80.0-98.0); NRBC Abs Auto 0.000 X10*3/uL (0.0-0.012); NRBC Pct Auto 0.0 /100WBC (0.0-0.2); Platelet Count 183 X10*3/uL (160-400); Red Blood Count 4.64 X10*6/uL (4.60-5.80); White Blood Count 7.7 X10*3/uL (4.8-10.8)
[2025-02-18 09:59] LABS: Hemoglobin A1C 155.0017 umol/L; Total Hemoglobin (HGBA1C) 3280.2141 umol/L
[2025-02-18 10:24] LABS: Alanine Aminotransferase 22 U/L (0-40); Albumin Level 3.6 g/dL (3.5-5.0); Alkaline Phosphatase 105 U/L (39-117); Anion Gap 8 (12-20); Aspartate Amino Transferase 22 U/L (5-37); Blood Urea Nitrogen 36 mg/dL (9-16); Calcium 8.8 mg/dL (8.4-10.2); Carbon Dioxide 29 mmol/L (22-29); Chloride 108 mmol/L (96-108); Cholesterol 247 mg/dL (<200); Estimated Glomerular Filt Rate 40; HDL Cholesterol 40 mg/dL (>40); Potassium 5.7 mmol/L (3.3-5.1); Sodium 139 mmol/L (135-145); Total Protein 7.2 g/dL (6.5-8.0); Triglycerides 205 mg/dL (<150)
[2025-02-18 10:41] LABS: Free T4 (Free Thyroxine) 1.33 ng/dL (0.71-1.85)
[2025-02-18 10:43] LABS: Thyroid Stimulating Hormone 36.70 uIU/mL (0.32-4.0)
== END 2025-02-18 08:35 | disposition home or self-care (01) ==
LOC: HO.LAB 08:34
PROVIDERS: Absent Provider Student in an Organized Health Care Education/Training Program; PCP Physician Assistant; Visit Provider Nurse Practitioner Family
DX: E03.9 Hypothyroidism, unspecified (principal); I25.10 Atherosclerotic heart disease of native coronary artery without angina pectoris; I10 Essential (primary) hypertension; I65.23 Occlusion and stenosis of bilateral carotid arteries; E78.2 Mixed hyperlipidemia; E11.65 Type 2 diabetes mellitus with hyperglycemia; Z79.82 Long term (current) use of aspirin; Z79.899 Other long term (current) drug therapy
CPT/HCPCS: 36415; 80053; 80061; 83036; 84439; 84443; 85027; 99212

== ENCOUNTER 2025-02-18 08:34 | Outpatient (AMB) | payer OTHER, SELFPAY ==
[2025-02-18 08:38] VITALS: BP 110/52; PULSE 60; BMI 30.2
--- NOTE | 2025-02-18 08:38 | A.OFFVIS_ITS ---
Vital Signs 02/18/25 08:38 Height 5 ft 7 in Weight 192 lb 10.944 oz BMI 30.2 BP 110/52 L Blood Pressure Location Lt brachial Position Sitting Pulse 60 Pulse Source Pulse Oximeter Intake Visit Reasons: dr cabrera pt rs from 01/25 Blocking Machine Tender Required: Yes Blocking Machine Tender Name: voice iglesias [id number] Windows Application Packager: Windows Application Packager Present Allergies codeine Allergy (Verified 02/18/25 10:02) Rash Medication List - Last Reconciled 02/18/25 by PEYMAN Gutierres albuterol sulfate 90 mcg/actuation (Ventolin HFA) 2 puffs inhalation Q4H 30 days aspirin 81 mg PO DAILY 90 days atorvastatin 80 mg PO DAILY 90 days bimatoprost 0.01% (Lumigan) 1 drp ophthalmic (eye) BEDTIME blood sugar diagnostic (FreeStyle Lite Strips) testing Twice per day blood-glucose meter (FreeStyle Lite Meter kit) As directed [disposable bedpads As directed] disposable gloves As directed docusate sodium 100 mg PO DAILY fluocinonide 0.05% 1 appl topical BID 30 days fluticasone propionate 50 mcg/actuation (Flonase Allergy Relief) 1 spray intranasal Q12H PRN 30 days hydralazine 25 mg PO Q8H 90 days [incontinence wipes As directed] levothyroxine 125 mcg PO DAILY lorazepam 0.5 mg PO DAILY 4 days [men's pull ups As directed] omeprazole 40 mg PO DAILY 90 days timolol maleate 0.5% 1 drp ophthalmic (eye) QAM trazodone 25 mg (1/2 x 50 mg) PO BEDTIME 90 days triamcinolone acetonide 0.1% 1 appl topical DAILY 30 days valsartan 80 mg PO DAILY HPI HPI dr cabrera pt rs from 01/25: Details: Jevon is an 84-year-old male with past medical history of hypertension, diabetes, chronic kidney disease, blindness, hard of hearing, 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 Today he reports he has been doing well since his last visit in October. He has no specific cardiac symptoms. He does have some dizziness at times which is long- term and unchanged in recent months. He has a chronic pain in the back of his head which is also unchanged. No chest discomfort, shortness of breath, heart palpitations, leg edema. He does light physical activities only. He is compliant with his medications. [employer] is present. Certified educational sign language interpreter used. 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, moderate Fear of flying Vitamin D deficiency Renal disorder Carcinoma of prostate HLD (hyperlipidemia) Hypothyroid Memory impairment Obese Asthma Type II diabetes mellitus Surgical History History of colonoscopy S/P prostatectomy Family History Mother No known health problems Father Glaucoma Social History Housing: Apartment Alcohol intake: never Patient Tobacco Use Status: Never used Tobacco e-Cigarette/Vaping Use: Never Used Second Hand Smoke Exposure: No service: No Current occupational status: disabled Cognitive needs: No Hearing needs: No Vision needs: Yes Review of Systems Const All systems reviewed & are unremarkable except as noted in HPI and below ENT Reports dizziness Card Denies chest pain, Denies chest pain at rest, Denies chest pain with activity, Denies rapid heart rate, Denies pedal edema, Denies edema, Denies leg edema, Denies lightheadedness, Denies palpitations, Denies dyspnea, Denies dyspnea on exertion and Denies orthopnea Resp Denies cough, Denies dyspnea and Denies dyspnea on exertion GI Denies hematochezia and Denies change in stool character Musc Denies abnormal gait, Denies limited range of motion, Denies muscle cramps, Denies muscle weakness, Denies numbness, Denies radiating pain into limb, Denies stiffness and Denies tingling Neuro Denies abnormal gait, Reports dizziness, Denies numbness and Denies tingling Endo Denies palpitations Physical Exam Vital Signs: Last Vital Signs Pulse 60 02/18/25 08:38 BP 110/52 L 08/28/25 08:38 BMI result Body Mass Index 30.2 Const General: cooperative, healthy appearing, comfortable and no acute distress Orientation/consciousness: patient oriented x3 Neck Neck: Yes normal visual inspection Resp Effort & Inspection: normal respiratory effort Auscultation: clear to auscultation bilaterally, no crackles, no rales, no rhonchi and no wheezes Cardio Rate: regular rate Rhythm: regular rhythm Heart sounds: S1 normal heart sound present, S2 normal heart sound present, no murmurs and no rubs Peripheral pulses: Peripheral pulses 2+ throughout Neuro General: patient oriented x3 Extrem General: Yes normal to inspection and No no pedal edema Psych Appearance: grossly normal Mental Status: mental status grossly normal Speech and movement: Normal speech and movement present Assessment & Plan Assessment & Plan (1) Atherosclerotic cardiovascular disease: Code(s): I25.10 - Atherosclerotic heart disease of [place] coronary artery without angina pectoris Category: Medical Plan: CT scan of neck 07/29/2024 shows severe atherosclerotic plaque present in the aortic arch. Likely has coronary artery disease as well. Cardiac risk factors of age, hypertension, hyperlipidemia, diabetes. No anginal symptoms. Echocardiogram 12/07/2024 showed EF 60%, left atrium moderately dilated, ascending aorta 4 cm. Continue aspirin indefinitely. Continue atorvastatin with ideal LDL goal less than 70. Continue with good blood pressure control. Signs and symptoms of angina reviewed with him. Cardiology follow-up 6 months, sooner if needed. (2) Carotid stenosis, bilateral: Code(s): I65.23 - Occlusion and stenosis of bilateral carotid arteries Category: Medical Plan: Bilateral carotid stenosis. Carotid ultrasound 12/29/2024 shows bilateral ICAs moderate stenosis, 50-79%, worse on right. Asymptomatic currently. Continue aspirin indefinitely. Continue atorvastatin. Will follow with periodic carotid ultrasounds. (3) HTN (hypertension): Code(s): I10 - Essential (primary) hypertension Category: Medical Qualifiers: Hypertension type: primary hypertension Qualified Code(s): I10 - Essential (primary) hypertension Plan: Blood pressure goal less than 130/80. Currently well controlled. Continue hydralazine and valsartan. (4) HLD (hyperlipidemia): Code(s): E78.5 - Hyperlipidemia, unspecified Category: Medical Qualifiers: Hyperlipidemia type: mixed hyperlipidemia Qualified Code(s): E78.2 - Mixed hyperlipidemia Plan: [place] LDL goal less than 70. Labs done 09/10/2024 showed LDL 56. Continue atorvastatin 80 mg daily. Plan I discussed his test results and the importance of managing cholesterol levels, blood pressure and maintaining medication adherence. We agreed on a follow-up in six months, with instructions to report any new chest pain or shortness of breath immediately. Patient Instructions: - Continue taking valsartan, hydralazine, atorvastatin and daily aspirin as prescribed. - Report any new chest pain or sob immediately. - Follow up in six months or sooner if needed. Patient was informed and verbally consented to the use of an ambient scribe for clinic note documentation during this visit. Visit time spent on chart review, interview, assessment, orders, documentation. Coding Level of Care Code Est Pt Level 4 (89755) Complex EM visit Add On G2211 Diagnoses Atherosclerotic cardiovascular disease I25.10 Carotid stenosis, bilateral I65.23 Primary hypertension I10 Hypertension type: primary hypertension Mixed hyperlipidemia E78.2 Hyperlipidemia type: mixed hyperlipidemia Time Spent (min) 28
== END 2025-02-18 09:17 | disposition home or self-care (01) ==
LOC: HO.HCS 08:35
PROVIDERS: PCP Physician Assistant; Visit Provider Nurse Practitioner Family
DX: I25.10 Atherosclerotic heart disease of native coronary artery without angina pectoris (principal); I65.23 Occlusion and stenosis of bilateral carotid arteries; I10 Essential (primary) hypertension; E78.2 Mixed hyperlipidemia
CPT/HCPCS: 99214; G2211

== ENCOUNTER 2025-02-18 09:50 | Outpatient (AMB) | payer OTHER, SELFPAY ==
[2025-02-18 09:52] VITALS: BP 108/64; PULSE 67; O2SAT 97; BMI 32.3
--- NOTE | 2025-02-18 09:52 | MHC.OFFVIS ---
Vital Signs 02/18/25 09:52 Height 5 ft 7 in Weight 206 lb 5.643 oz BMI 32.3 BP 108/64 Blood Pressure Location Lt brachial Position Sitting Pulse 67 Pulse Source Pulse Oximeter Pulse Oximetry (%) 97 Oxygen Delivery Method Room Air Intake Visit Reasons: Hypothyroidism Intake Note: Patient present today for Hypothyroidism office visit. Branch Account Executive Required: No Accompanied by: SPEEDER OPERATOR Allergies codeine Allergy (Verified 02/18/25 10:02) Rash Medication List - Last Reconciled 02/18/25 by Annemarie Rapp MD albuterol sulfate 90 mcg/actuation (Ventolin HFA) 2 puffs inhalation Q4H 30 days aspirin 81 mg PO DAILY 90 days atorvastatin 80 mg PO DAILY 90 days bimatoprost 0.01% (Lumigan) 1 drp ophthalmic (eye) BEDTIME blood sugar diagnostic (FreeStyle Lite Strips) testing Twice per day blood-glucose meter (FreeStyle Lite Meter kit) As directed [disposable bedpads As directed] disposable gloves As directed docusate sodium 100 mg PO DAILY fluocinonide 0.05% 1 appl topical BID 30 days fluticasone propionate 50 mcg/actuation (Flonase Allergy Relief) 1 spray intranasal Q12H PRN 30 days hydralazine 25 mg PO Q8H 90 days [incontinence wipes As directed] levothyroxine 125 mcg PO DAILY lisinopril 5 mg PO DAILY 90 days lorazepam 0.5 mg PO DAILY 4 days [men's pull ups As directed] omeprazole 40 mg PO DAILY 90 days timolol maleate 0.5% 1 drp ophthalmic (eye) QAM trazodone 25 mg (1/2 x 50 mg) PO BEDTIME 90 days triamcinolone acetonide 0.1% 1 appl topical DAILY 30 days valsartan 80 mg PO DAILY HPI Comments Details: 83 years old here today for follow up of hypothyroidism. He is here today with his SPEEDER OPERATOR who is responsible for his care. HPI from initial visit Hypothyroidism diagnosed about 5 years ago per patient. Started on levothyroxine 25 mcg daily , and he was on this dose for a long time up until July 2023, when he was noted to have elevated TSH levels, requiring up titration of the dose slowly over this past year, now at 200 mcg daily dose changed on 04/10/2024 after results from 04/09/2024 resulted with TSH of 37.89, free T4 of 1.53. . Takes it daily at 6 AM , on empty stomach , he weighed 3 hours before he has breakfast or anything with coffee. His SPEEDER OPERATOR gives him the medication herself and she make sure he swallows it. He only takes it with hydralazine and no other medications. He reports that since his dose has been increased over this past year he overall feels better with less dizziness which was something troubling him over this past year. Reports cold intolerance. Excessive tiredness .Loss of appetite. Endorses mood changes. reports constipation. Weight stable. Getting scabs on skin. He denies palpitations or tremors. He is also complaining of difficulty swallowing, especially when it comes to big bites and pills that has been happening with the past year. His SPEEDER OPERATOR endorses this. Denies changes in voice, choking sensation when lying down flat. He does not know his family so we do not have any family history of thyroid cancer or thyroid disease. Denies history of head or neck radiation. He has never been on medications such as lithium, amiodarone or biotin. Interval history 09/10/24 05/18/2024: TSH high at 46, free T4 elevated at 1.89, this made us concerned about possibly interference of heterophilic antibodies He missed a couple of his follow up appointments and did not get repeat labs. His dose at that time was reduced from levothyroxine 200 mcg daily to 150 mcg daily. Ultrasound of the thyroid on 05/18/2024 showed a left midpole subcentimeter TR 2 category nodule. No need for follow up. No palpitations, no tremors, no diarrhea Lost 7 lbs in past 6 months Interval history 11/19/2024 09/10/2024: Labs showed done at [facility] that TSH was low at 0.02, free T4 normal at 1.7, labs done at our lab same day showed TSH on 09/10/2024 was elevated at 36.86, with free T4 of 1.53, human anti mouse antibodies positive and elevated at 197. He is currently on levothyroxine 150 mcg daily No palpitations, tremors, diarrhea. Says he feels good overall. SPEEDER OPERATOR gives him the medicine Interval history 02/18/2025 Forgot to do blood work prior to this appointment Currently on levothyroxine 125 mcg daily Physical exam General: sitting comfortably in no acute distress HEENT: normocephalic/atraumatic, moist oral mucosa Neck: supple, symmetrical, no thyromegaly , no dorsocervical or supraclavicular fat pads Cardiac: normal heart sounds Pulm: normal breath sounds B/L, no added breath sounds Abd: not distended, no tenderness Extremities: no edema Laboratory Tests 02/14/23 08/13/23 11/14/23 10:19 11:30 10:03 TSH 34.15 H 37.80 H 39.01 H Free T4 0.92 1.01 1.20 02/27/24 04/09/24 10:48 10:28 TSH 38.63 H 37.89 H Free T4 1.36 1.53 Laboratory Tests 08/13/23 11/14/23 02/27/24 11:30 10:03 10:48 TSH 37.80 H 39.01 H 38.63 H Free T4 1.01 1.20 1.36 04/09/24 05/18/24 10:28 10:12 TSH 37.89 H 46.00 H Free T4 1.53 1.89 H Laboratory Tests 09/10/24 15:01 TSH 36.86 H Free T4 1.53 Total T3 106 Human Anti-Mouse Ab 197 H EXAMINATION: US THYROID 05/18/24 CLINICAL INFORMATION: Hypothyroidism, unspecified. COMPARISON: None available. TECHNIQUE: Linear transducer grayscale and color Doppler examination with attention to the region of the thyroid. FINDINGS: SIZE: Measurements of the thyroid lobes and nodules are given in sagittal, anteroposterior and transverse dimensions respectively. Right Thyroid Lobe: 3.7 x 1.3 x 1.3 cm, volume 3.1 mL. Parenchyma: The gland echotexture is homogeneous. Thyroid vascularity is normal. Left Thyroid Lobe: 3.3 x 1.3 x 1.1 cm, volume 2.6 mL. Parenchyma: The gland echotexture is homogeneous. Thyroid vascularity is normal. Isthmus: 0.3 cm in maximum AP dimension. Estimated total number of nodules greater than or equal to 1 cm: 0. Family Development Specialist nodules are described as follows: 1. Location: Left mid pole. Size: 0.5 x 0.6 x 0.4 cm, volume 0.07 mL. Nodule characteristics: Composition: Mixed cystic and solid (1). Echogenicity: Hyperechoic (1). Shape: Not taller than wide (0). Margins: Smooth (0). Echogenic Foci: None (0). ACR TI-RADS total points: 2 ACR TI-RADS category: 2 NODES: No lymphadenopathy is seen in the tissue surrounding the thyroid gland. US/US thyroid IMPRESSION: 0.6 cm LEFT TR 2 thyroid nodule. 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, moderate Fear of flying Vitamin D deficiency Renal disorder Carcinoma of prostate HLD (hyperlipidemia) Hypothyroid Memory impairment Obese Asthma Type II diabetes mellitus Surgical History History of colonoscopy S/P prostatectomy Family History Mother No known health problems Father Glaucoma Social History Housing: Apartment Alcohol intake: never Patient Tobacco Use Status: Never used Tobacco e-Cigarette/Vaping Use: Never Used Second Hand Smoke Exposure: No service: No Current occupational status: disabled Cognitive needs: No Hearing needs: No Vision needs: Yes Physical Exam Vital Signs: Last Vital Signs Pulse 67 02/18/25 09:52 BP 108/64 02/18/25 09:52 Pulse Ox 97 02/18/25 09:52 Oxygen Delivery Method Room Air 02/18/25 09:52 BMI result Body Mass Index 32.3 Assessment & Plan Assessment & Plan (1) Hypothyroid: Code(s): E03.9 - Hypothyroidism, unspecified Category: Medical Qualifiers: Hypothyroidism type: unspecified Qualified Code(s): E03.9 - Hypothyroidism, unspecified Plan: Patient with a history of hypothyroidism diagnosed around 2018, who was on low-dose levothyroxine 25 mcg daily for many years, but over the year in 2023 has required up titration of his levothyroxine go to elevated TSH levels in the 30s, with dose change from 150 to 200 mcg on 04/10/2024 when he was noted to have an elevated TSH of 37.89 from 04/09/2024 with normal free T4 of 1.53. no other medication changes recently, and besides the PPI inhibitor omeprazole on his medication list I do not see any other medications that could interfere with his thyroid medication absorption. He does not take the omeprazole with the thyroid medicine. His weight has been stable, no major weight changes to contribute to more requirement of medication. His weight based dosing is close to 150 mcg daily, so I was surprised that he was requiring so much more. 05/18/2024: TSH high at 46, free T4 elevated at 1.89, this made us concerned about possibly interference of heterophilic antibodies such as human anti mouse antibodies, and on 09/15/2024 was found to have elevated human anti mouse antibodies. In April 2024 we reduced his dose from 200-150 when we saw those labs. He has been taking this appropriately. We sent out blood work for TSH with a reflex free T4 to [facility] as they do it with a different reagent which she uses bovine antibodies as opposed to mouse antibodies. ? The human antimouse monoclonal antibodies (HAMA) occur naturally in up to 10% of the general population (not just laboratory workers with mouse exposure, as was first described), and they result in a false elevation of serum TSH. Preincubation of the patient?s serum with nonimmune mouse antibodies (intended to eliminate the effect of HAMA) is an added step in the assay.? 09/10/2024: Labs showed done at [facility] that TSH was low at 0.02, free T4 normal at 1.7, labs done at our lab same day showed TSH on 09/10/2024 was elevated at 36.86, with free T4 of 1.53, human anti mouse antibodies positive and elevated at 197. 11/19/2024: Levothyroxine reduced From 150 mcg to 125 mcg daily. He was supposed to repeat blood work in 6 weeks from this dose change at [facility], never did the blood work. Again papers given for request today. Overall he feels well. ultrasound of the thyroid on 05/18/2024 showed a left midpole subcentimeter TR 2 category nodule. No need for follow up. Plan: -continue levothyroxine to 125 mcg daily -do TSH, free T4, at [facility] -follow up in 6months Plan see above Orders: Orders Thyroid Stimulating Hormone 02/23/25 E03.9 - Hypothyroidism, unspecified Free T4 (Free Thyroxine) 02/23/25 E03.9 - Hypothyroidism, unspecified Coding Level of Care Code Est Pt Level 3 (12568) Diagnoses Hypothyroidism, unspecified type E03.9 Hypothyroidism type: unspecified
== END 2025-02-18 10:22 | disposition home or self-care (01) ==
LOC: HO.ENCR 09:51
PROVIDERS: PCP Physician Assistant; Visit Provider Student in an Organized Health Care Education/Training Program
DX: E03.9 Hypothyroidism, unspecified (principal)
CPT/HCPCS: 99213

== ENCOUNTER 2025-02-23 12:29 | Outpatient (REF) | payer OTHER, SELFPAY ==
[2025-02-23 14:49] LABS: Anion Gap 10 (12-20); Blood Urea Nitrogen 23 mg/dL (9-16); Calcium 8.7 mg/dL (8.4-10.2); Carbon Dioxide 26 mmol/L (22-29); Chloride 110 mmol/L (96-108); Estimated Glomerular Filt Rate 52; Potassium 4.8 mmol/L (3.3-5.1); Sodium 141 mmol/L (135-145)
[2025-02-23 15:03] LABS: Free T4 (Free Thyroxine) 1.40 ng/dL (0.71-1.85)
[2025-02-23 15:06] LABS: Thyroid Stimulating Hormone 39.17 uIU/mL (0.32-4.0)
== END 2025-02-23 12:30 | disposition home or self-care (01) ==
LOC: HO.LAB 12:29
PROVIDERS: Student in an Organized Health Care Education/Training Program; PCP Physician Assistant; Visit Provider Physician Assistant
DX: N17.9 Acute kidney failure, unspecified (principal); E03.9 Hypothyroidism, unspecified
CPT/HCPCS: 36415; 80048; 84439; 84443

== ENCOUNTER 2025-04-20 11:21 | Outpatient (AMB) | payer OTHER, SELFPAY ==
--- NOTE | 2025-04-20 11:27 | A.OFFPC_ITS ---
Vital Signs 04/20/25 11:28 Height 5 ft 7 in Weight 203 lb 2 oz BMI 31.8 BP 120/66 Blood Pressure Location Lt brachial Position Sitting Pulse 66 Pulse Source Pulse Oximeter Temp 97.1 F Temp Source Temporal Artery Scan Pulse Oximetry (%) 97 Oxygen Delivery Method Room Air Intake Visit Reasons: 3 mnth f/u Intake Note: Patient is here to follow up on DM, ZORA, HLD, HTN. Media Planner Required: Yes Media Planner Language: Romansh Information Interpreted: non-clinical & clinical Casting Operator: Present Accompanied by: [employer]ERSON Allergies codeine Allergy (Verified 04/20/25 11:38) Rash Medication List - Last Reconciled 04/20/25 by Jerrod Smith PA-C albuterol sulfate 90 mcg/actuation (Ventolin HFA) 2 puffs inhalation Q4H 30 days amlodipine 5 mg PO DAILY 90 days aspirin 81 mg PO DAILY 90 days atorvastatin 80 mg PO DAILY 90 days bimatoprost 0.01% (Lumigan) 1 drp ophthalmic (eye) BEDTIME blood sugar diagnostic (FreeStyle Lite Strips) testing Twice per day blood-glucose meter (FreeStyle Lite Meter kit) As directed [disposable bedpads As directed] disposable gloves As directed docusate sodium 100 mg PO DAILY fluocinonide 0.05% 1 appl topical BID 30 days fluticasone propionate 50 mcg/actuation (Flonase Allergy Relief) 1 spray intranasal Q12H PRN 30 days hydralazine 25 mg PO Q8H 90 days [incontinence wipes As directed] levothyroxine 125 mcg PO DAILY lorazepam 0.5 mg PO DAILY 4 days [men's pull ups As directed] omeprazole 40 mg PO DAILY 90 days timolol maleate 0.5% 1 drp ophthalmic (eye) QAM trazodone 25 mg (1/2 x 50 mg) PO BEDTIME 90 days triamcinolone acetonide 0.1% 1 appl topical DAILY 30 days Tobacco use date assessed: 04/20/25 Fall risk assessment: No Falls in past year Last assessed Fall Risk: 04/20/25 Dental Screening Dental Screen Date: 01/14/25 HPI 3 mnth f/u HPI Details Patient is an 84-year-old male here today for a follow-up visit. Today patient presents with a [employer] SALESPERSON. Patient has a past medical history hyperlipidemia, glaucoma, legal blindness, hypertension. He presents today with [employer]ERSON whom help some with his activities of daily living as patient is legally blind. Concern--> patient reports numbness in his legs, which sometimes awakens him from sleep and causes pain. He also has a history of back pain, which he attributes to arthritis. He has visible spider veins on his legs that are reportedly getting bigger. Hypertension/atherosclerotic vascular disease: Patient's blood pressure acceptable today in office. He continues with the use of hydralazine and amlodipine with decent affect on his blood pressure. psoriasis: Continues to have dry scaly patches itchy irritated skin over his extremities, torso and hands. He has reduced his coffee in she is intake and reports his skin lesions has been better. He has had some more irritating outbreaks over his hands thus will supply patient with an ointment based topical steroid .. Type 2 diabetes: Diabetes has been well controlled with diet. A1c is have been stable. He is currently diet controlled. .. Hypothyroidism: Continues to have elevated TSH even on high doses levothyroxine. Has been established with endocrinology. He is taking high dose of levothyroxine correctly in the morning on empty stomach. . BPH: Followed by DR Luu urologist on annual basis. Most recent PSA elevated at 6. Unclear what kind of prostate surgery though it sounds like he had a TURP procedure in the past. 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, moderate Fear of flying Vitamin D deficiency Renal disorder Carcinoma of prostate HLD (hyperlipidemia) Hypothyroid Memory impairment Obese Asthma Type II diabetes mellitus Surgical History History of colonoscopy S/P prostatectomy Family History Mother No known health problems Father Glaucoma Social History Housing: Apartment Alcohol intake: never Patient Tobacco Use Status: Never used Tobacco e-Cigarette/Vaping Use: Never Used Second Hand Smoke Exposure: No service: No Current occupational status: disabled Cognitive needs: No Hearing needs: No Vision needs: Yes Questionnaire Thrive Questionnaire Date Thrive assessed: 01/14/25 I am a: Parent/Caregiver What is your living situation today?: I choose not to answer this question Within the past 12 months, did the food you bought not last and you didn't have the money to get more?: Often true Within the past 12 months, did you worry whether your food would run out before you got money to buy more?: I choose not to answer this question Do you have trouble paying for medicines?: I choose not to answer this question Do you have trouble getting transportation to medical appointments?: I choose not to answer this question Do you have trouble paying your heating and electricity bill?: I choose not to answer this question Do you have trouble taking care of your child, family member or friend?: Yes Do you have trouble with day-to-day activities such as bathing, preparing meals, shopping, managing finances, etc.?: Yes Are you currently unemployed and looking for a job?: No Are you interested in more education?: No Please select the resources that you would like help with: None Currently or been in a relationship where the following occur: I choose not to answer THRIVE Score: 1 AUDIT C Alcohol Use Questionnaire (AUDIT-C) 2. How many drinks containing alcohol do you have on a typical day when you are drinking?: 3 or 4 3. How often do you have six or more drinks on one occasion?: Never Total Score: 1 CYNTHIA-7 AMB Questionnaire CYNTHIA-7 Date CYNTHIA - 7 assessed: 01/14/25 Source: Developed by Drs. Juan A Pires, Jennifer Morales, Tha Oneil and colleagues, with an educational [place] from [email or web address]. Review of Systems Const Denies headache(s) Eyes Denies loss of vision ENT Denies vertigo, Denies dizziness, Denies headache(s) and Denies sore throat Card Denies chest pain, Denies leg edema and Denies lightheadedness Resp Denies cough, Denies hemoptysis and Denies wheezing GI Denies abdominal pain, Denies melena, Denies constipation, Denies diarrhea and Denies vomiting Denies dysuria, Denies urinary frequency and Denies urinary urgency Musc Denies arthralgias, Denies joint swelling, Denies numbness and Denies tingling Neuro Denies Abnormal speech present, Denies behavioral changes, Denies vertigo, Denies dizziness, Denies headache(s), Denies loss of vision, Denies memory loss, Denies numbness and Denies tingling Psych Denies anxiety, Denies behavioral changes, Denies depression, Denies memory loss and Denies panic attacks Wayne/Lymph Denies easy bleeding and Denies easy bruising Aller/Immun Denies wheezing Physical exam (Primary Care) Vital Signs: Last Vital Signs Temp 97.1 F 04/20/25 11:28 Pulse 66 04/20/25 11:28 BP 120/66 04/20/25 11:28 Pulse Ox 97 04/20/25 11:28 Oxygen Delivery Method Room Air 04/20/25 11:28 BMI result Body Mass Index 31.8 Tobacco/Smoking Status: Tobacco use Status Tobacco use date assessed 04/20/25 04/20/25 11:34 Patient Tobacco Use Status Never used Tobacco 04/20/25 11:34 e-Cigarette/Vaping Use Never Used 04/20/25 11:34 Thrive Assessment: Date of Thrive Assessment Date Thrive assessed 01/14/25 04/20/25 11:34 Currently or been in a relationship where the following occur: I choose not to answer Const General: healthy appearing, no acute distress, alert and awake Nutritional Appearance: well nourished Orientation/consciousness: oriented to person, oriented to place and oriented to time HENMT Ears: TM's normal bilaterally General nose exam: Normal nasal mucous membranes and turbinates present Eyes Conjunctivae: conjunctivae normal Sclerae: sclerae normal Pupils: Equal, round and reactive pupils present Neck Neck: Yes no lymphadenopathy and Yes no JVD Thyroid: Thyroid normal Carotids: no bruits Resp Effort & Inspection: normal respiratory effort and not tachypneic Auscultation: no crackles, no rales, no rhonchi and no wheezes Cardio Rate: regular rate Rhythm: regular rhythm Heart sounds: no murmurs and normal S1 and S2 GI Palpation (GI): Soft to palpation, nontender, no hepatomegaly and no splenomegaly Auscultation: normal bowel sounds Skin General skin exam: no rashes or lesions noted and dry skin Neuro General: oriented to person, oriented to place and oriented to time Cranial nerves: Yes Equal, round and reactive pupils present Speech: No Abnormal speech present Gait exam (Neuro): Normal gait present Motor exam (neuro): no tremor noted Extrem Right upper extremity: full ROM Left upper extremity: full ROM Right lower extremity: full ROM; no edema Left lower extremity: full ROM; no edema Psych Mental Status: mental status grossly normal Speech and movement: Normal speech and movement present Affect: normal affect Attitude: cooperative Thought process: Normal thought process present Office Procedures Flu Questionnaire Does the patient have a severe egg allergy?: No Does the patient have severe life threatening allergies?: No Does the patient have a fever or illness today?: No Has the patient ever had Guillain-[place] Syndrome?: No Has the patient ever had any past reaction to a flu shot?: No Immunizations Fluarix [id number] (PF) 45 mcg (15 mcg x 3)/0.5 mL IM syringe Performing Provider: Jerrod Smith PA-C [facility] [place] Administered by: Myranda Bhardwaj CMA on 04/20/25 12:14 Dose Route Admin Location Dispensed Lot Number Expiration Date NDC Procurement Forester 0.5 mL IM Left Deltoid 0.5 mL [id number] 12/21/25 22190-843-80 [employer] VIS Given Date VIS Provided VIS Publication Date 04/20/25 Single Vaccine 24 Eligibility Eligibility Date Funding Source Not [facility] Eligible 04/20/25 Private Coding Level of Care Code Est Pt Level 4 (50628) Diagnoses Type 2 diabetes mellitus with hyperglycemia, without long-term current use of insulin E11.65 Diabetes mellitus complication status: with hyperglycemia Diabetes mellitus buttermaker helper insulin use: without buttermaker helper use Mixed hyperlipidemia E78.2 Hyperlipidemia type: mixed hyperlipidemia Primary hypertension I10 Hypertension type: primary hypertension Peripheral vascular disease of lower extremity I73.9 Paresthesia of both lower extremities R20.2 Assessment & Plan Assessment & Plan (1) Type II diabetes mellitus: Code(s): E11.9 - Type 2 diabetes mellitus without complications Category: Medical Qualifiers: Diabetes mellitus complication status: with hyperglycemia Diabetes mellitus buttermaker helper insulin use: without fci use Qualified Code(s): E11.65 - Type 2 diabetes mellitus with hyperglycemia Plan: Patient's type 2 diabetes well controlled with diet. Goal A1c is to remain below 7.0 (2) HLD (hyperlipidemia): Code(s): E78.5 - Hyperlipidemia, unspecified Category: Medical Qualifiers: Hyperlipidemia type: mixed hyperlipidemia Qualified Code(s): E78.2 - Mixed hyperlipidemia Plan: Patient's most recent lipid panel showing good control of his total cholesterol and LDL. He continues with high potency statin. LDL is to remain below 100 (3) HTN (hypertension): Code(s): I10 - Essential (primary) hypertension Category: Medical Qualifiers: Hypertension type: primary hypertension Qualified Code(s): I10 - Essential (primary) hypertension Plan: Patient's blood pressure acceptable today in office. Will continue on current doses of antihypertensive medication. Goal blood pressures to be below 140/90 and above 100/60. (4) Peripheral vascular disease of lower extremity: Code(s): I73.9 - Peripheral vascular disease, unspecified Category: Medical Plan: To investigate the leg numbness and discoloration, the patient will be referred for a vascular ultrasound to evaluate for venous insufficiency. A nerve conduction study will also be considered to assess for neuropathy (5) Paresthesia of both lower extremities: Code(s): R20.2 - Paresthesia of skin Category: Medical Plan: As above Orders: Orders Comprehensive [place]. Panel Fast 04/20/25.65 - Type 2 diabetes mellitus with hyperglycemia NE nerve conduction velocity 04/20/25 R20.2 - Paresthesia of skin US venous duplex LE BI 04/20/25 I73.9 - Peripheral vascular disease, unspecified Influenza [id number] Immunization 04/20/25 Z23 - Encounter for immunization T Spot TB 04/20/25 Z11.1 - Encounter for screening for respiratory tuberculosis Complete Blood Count no Diff 04/20/2565 - Type 2 diabetes mellitus with hyperglycemia Lipid Panel 04/20/25 I10 - Essential (primary) hypertension NE electromyogram (EMG) 04/20/25 R20.2 - Paresthesia of skin Hemoglobin A1c 04/20/25 E11.65 - Type 2 diabetes mellitus with hyperglycemia Medications: New triamcinolone acetonide 0.1% 1 appl topical DAILY 80 grams 0RF 4 weeks L40.9 - Psoriasis, unspecified metformin 500 mg PO BID 180 tabs 1RF 90 days E11.65 - Type 2 diabetes mellitus with hyperglycemia On Hold fluocinonide 0.05% Hold Comment: Doctor's Order 1 appl topical BID 30 days 120 grams 3RF L40.9 - Psoriasis, unspecified
[2025-04-20 11:28] VITALS: BP 120/66; PULSE 66; TEMP 36.2; O2SAT 97; BMI 31.8
--- OUTSIDE RECORDS SUMMARY | 2025-04-20 14:35 | XMS_ITS | Data Portability ---
Author Organization [facility], Main Office Address [address] [facility] [address] [place] [address] Care Team Providers Care Loan Assistant Name Role Phone JOVANY COREY Primary Care Provider ED BRUNNER Referring Provider [phone] [place] Urologist IRAIDA BURTON Backend Developer Assessment No assessment recorded. Plan of Treatment Reminders Order Date Submit Date Provider Last Modified By Organization Details Last Modified Time Details Appointments None recorded . Lab lipid panel, serum 2022 023 [email or web address] [facility], [address], [place] [address], [place], [address], 3 07:54:10 TSH, serum or plasma 2022 023 [email or web address] [facility], [address], [place] [address], [place], [address], 3 07:54:09 hemoglob in A1C, fingerst ick 2022 023 [email or web address] In-Office Order, Internal Use Only DO Not Attach Compendium DO Not Attach Compendium, Do Not Delete/merge, [id number] 3 13:39:16 CMP, serum or plasma 2022 023 [email or web address] [facility], [address], [place], [address], 3 13:39:16 microalb umin, urine 2022 023 [email or web address] [facility], [address], [address], [place], [address], 3 13:39:16 CBC w/ auto diff 2022 023 [email or web address] [facility], [address], [address], [place], [address], 3 13:39:16 hemoglob in A1C, fingerst ick 2021 022 JESSE In-Office Order, Internal Use Only DO Not Attach Compendium DO Not Attach Compendium, Do Not Delete/merge, [id number] 11:17:52 CMP, serum or plasma 2021 022 JESSE [facility], [address], [address], [place], [address], 2 20:28:36 BMP, serum or plasma 2021 022 [email or web address] [facility], [address], [address], [place], [address], 2 08:59:10 hemoglob in A1C, fingerst ick 2021 022 JESSE In-Office Order, Internal Use Only DO Not Attach Compendium DO Not Attach Compendium, Do Not Delete/merge, [id number] 2 11:22:58 microalb umin, urine 2021 022 JESSE [facility], [address], [address], [place], [address], 2 18:20:41 lipid panel, serum 2021 022 JESSE [facility], [address], [address], [place], [address], 16:49:47 CMP, serum or plasma 2021 022 [email or web address] [facility], [address], [address], [place], [address], 13:50:29 lipid panel, serum 2020 021 JESSE [facility], [address], [address], [place], [address], 16:11:28 CMP, serum or plasma 2020 021 JESSE [facility], [address], [address], [place], [address], 16:11:26 microalb umin, urine 2020 021 JESSE [facility], [address], [address], [place], [place], [address], 16:50:19 hemoglob in A1C, fingerst ick 2020 [email or web address] In-Office Order, Internal Use Only DO Not Attach Compendium DO Not Attach Compendium, Do Not Delete/merge, [id number] 11:15:02 TSH, serum or plasma 2020 021 JESSE [facility], [address], [address], [place], [place], [address], 16:17:29 Referral physical therapis t referral - At risk for falling 2020 021 [email or web address] [facility], [address], [place], [address], 12:47:17 Procedures None recorded . Surgeries None recorded . Imaging electroc ardiogra m 2021 022 [email or web address] In-Office Order, Internal Use Only DO Not Attach Compendium DO Not Attach Compendium, Do Not Delete/merge, [id number] 11:39:57 Medication Orders Drysol 20 % topical solution 2022 023 [id number], [address] [place], [address], 3 08:12:56 lorazepa m 1 mg tablet 2022 023 [id number] [address] [place], [address], 3 15:48:52 docusate sodium 100 mg capsule 2022 023 [facility] [address] [place], [address], 3 15:48:51 albutero l sulfate HFA 90 mcg/actu ation aerosol inhaler 2021 022 [facility] [address] [place], [address], 2 10:49:24 chlortha lidone 25 mg tablet 2020 [email or web address] [facility] [address] [place], [address], 2 10:14:43 hydralaz ine 25 mg tablet 2020 021 [facility], [address] [place], [address], 1 14:09:50 valsarta n 320 mg tablet 2020 021 [facility]20[facility], [address] [place], [address], 1 14:09:50 atorvast atin 80 mg tablet 2020 021 JESSE [facility], [address], [place], [address], 03:33:41 omeprazo le 20 mg capsule, delayed release 2020 [email or web address] [facility] #2073, [address], [place], [address], 08:36:16 tamsulos in 0.4 mg capsule 2020 [email or web address] [facility]acy #[id number], [address], [place], [address], 10:14:55 Patient TargetsNo targets recorded. Patient Instructions Encounter Date Encounter Id Patient Instructions Last Modified By Organization Details Last Modified Time 03/22/2021 [id number] aprenda sobre la presi n arterial lópez - [learning about high blood pressure] [email or web address] Not available 03/23/2021 14:09:47 presi n arterial lópez: instrucciones de cuidado - [high blood pressure: care instructions] [email or web address] Not available 03/23/2021 14:09:47 enfermedad de reflujo gastroesof gico (GERD): instrucciones de cuidado - [gastroesophageal reflux disease (GERD): care instructions] [email or web address] Not available 03/22/2021 11:15:02 preventing falls : care instructions [email or web address] Not available 03/22/2021 11:15:03 medicare preventive services guide (male 74 rs and under) [email or web address] Not available 03/22/2021 11:15:02 hipotiroidismo: instrucciones de cuidado - [hypothyroidism: care instructions] [email or web address] Not available 03/22/2021 11:15:02 06/26/2021 [id number] medicamentos que debe evitar cuando tiene marvin enfermedad renal: instrucciones de cuidado - [medicines to avoid with kidney disease: care instructions] [email or web address] Not available 06/26/2021 18:01:57 enfermedad de reflujo gastroesof gico (GERD): instrucciones de cuidado - [gastroesophageal reflux disease (GERD): care instructions] [email or web address] Not available 06/26/2021 18:01:57 03/26/2022 [id number] aprenda sobre el asma - [learning about asthma] acennerazzo Not available 03/26/2022 10:49:22 control del asma : instrucciones de cuidado - [controlling your asthma: care instructions] acennerazzo Not available 03/26/2022 10:49:22 medicamentos que debe evitar cuando tiene marvin enfermedad renal: instrucciones de cuidado - [medicines to avoid with kidney disease: care instructions] [email or web address] Not available 03/26/2022 10:47:50 medicare preventive services guide (male 74 rs and under) [email or web address] Not available 03/26/2022 10:44:24 10/08/2022 [id number] sudoraci n anormal: instrucciones de cuidado - [abnormal sweating: care instructions] [email or web address] Not available 10/08/2022 15:54:05 Reason for Referral Physical Therapist Referral for Adult health examination At risk for falling Referring Physician: Jovany Corey, Family Medicine, Encounter Date: 03/22/2021 Results Created Date Observation Date Name Description Value Unit Range Abnormal Flag Note LastModifiedBy Organization Detail LastModifiedTime 03/22/2003/22/2021 hemog lobin A1C, finge rstic k A1C 6.3 % 4-6 Not Available In-Office Order Internal Use Only DO Not Attach Compendium DO Not Attach Compendium, Do Not Delete/merge, [id number] 03/22/2021 10:29:01 03/23/2003/23/2021 COMPR EHENS XOCHITL METAB OLIC PANL glucose 109 mg/dL (70-99 ) high Not Available [facility] (Centralized Electronic Ordering - All Locations) Patient Can Go To The Location Of Their Choice, [id number] 03/23/2021 16:11:03/23/2003/23/2021 COMPR EHENS XOCHITL METAB OLIC PANL BUN 26 mg/dL (8-23) high Not Available [facility] (Centralized Electronic Ordering - All Locations) Patient Can Go To The Location Of Their Choice, 03/23/2021 16:11:03/23/2003/23/2021 COMPR EHENS XOCHITL METAB OLIC PANL creatinine 1.3 mg/dL (0.7-1 .2) high Not Available [facility] (Centralized Electronic Ordering - All Locations) Patient Can Go To The Location Of Their Choice, 03/23/2021 16:11:03/23/2003/23/2021 COMPR EHENS XOCHITL METAB OLIC PANL sodium 141 mmol/ L (133-1 45) Not Available [facility] (Centralized Electronic Ordering - All Locations) Patient Can Go To The Location Of Their Choice, 03/23/2021 16:11:03/23/2003/23/2021 COMPR EHENS XOCHITL METAB OLIC PANL potassium 5.1 mmol/ L (3.6-5 .2) Not Available [facility] (Centralized Electronic Ordering - All Locations) Patient Can Go To The Location Of Their Choice, 03/23/2021 16:11:03/23/2003/23/2021 COMPR EHENS XOCHITL METAB OLIC PANL chloride 107 mmol/ L (98-10 7) Not Available [facility] (Centralized Electronic Ordering - All Locations) Patient Can Go To The Location Of Their Choice, 03/23/2021 16:11:03/23/2003/23/2021 COMPR EHENS XOCHITL METAB OLIC PANL bicarbonate 27 mmol/ L (22-29 ) Not Available [facility] (Centralized Electronic Ordering - All Locations) Patient Can Go To The Location Of Their Choice, 03/23/2021 16:11:03/23/2003/23/2021 COMPR EHENS XOCHITL METAB OLIC PANL anion gap 7 (4-17) Not Available [facility] (Centralized Electronic Ordering - All Locations) Patient Can Go To The Location Of Their Choice, 03/23/2021 16:11:03/23/2003/23/2021 COMPR EHENS XOCHITL METAB OLIC PANL albumin 3.5 gm/dL (3.4-4 .8) Not Available [facility] (Centralized Electronic Ordering - All Locations) Patient Can Go To The Location Of Their Choice, 03/23/2021 16:11:03/23/2003/23/2021 COMPR EHENS XOCHITL METAB OLIC PANL calcium 8.8 mg/dL (8.6-1 0.5) Not Available [facility] (Centralized Electronic Ordering - All Locations) Patient Can Go To The Location Of Their Choice, 03/23/2021 16:11:03/23/2003/23/2021 COMPR EHENS XOCHITL METAB OLIC PANL bilirubin,to sara 0.5 mg/dL (0-1.2 ) Not Available [facility] (Centralized Electronic Ordering - All Locations) Patient Can Go To The Location Of Their Choice, 03/23/2021 16:11:03/23/2003/23/2021 COMPR EHENS XOCHITL METAB OLIC PANL total protein 6.4 gm/dL (6.2-8 .2) Not Available [facility] (Centralized Electronic Ordering - All Locations) Patient Can Go To The Location Of Their Choice, 03/23/2021 16:11:03/23/2003/23/2021 COMPR EHENS XOCHITL METAB OLIC PANL Ag ratio 1.2 Not Available [facility] (Centralized Electronic Ordering - All Locations) Patient Can Go To The Location Of Their Choice, 03/23/2021 16:11:03/23/2003/23/2021 COMPR EHENS XOCHITL METAB OLIC PANL AST 17 U/L (0-40) Not Available [facility] (Centralized Electronic Ordering - All Locations) Patient Can Go To The Location Of Their Choice, 03/23/2021 16:11:03/23/2003/23/2021 COMPR EHENS XOCHITL METAB OLIC PANL alk phos 104 U/L (40-12 9) Not Available [facility] (Centralized Electronic Ordering - All Locations) Patient Can Go To The Location Of Their Choice, 03/23/2021 16:11:03/23/2003/23/2021 COMPR EHENS XOCHITL METAB OLIC PANL ALT 18 U/L (0-41) Not Available [facility] (Centralized Electronic Ordering - All Locations) Patient Can Go To The Location Of Their Choice, 03/23/2021 16:11:26 03/23/2003/23/2021 COMPR EHENS XOCHITL METAB OLIC PANL estimated GFR creatinine 51 mL/mi n/1.7 3_M2 Effec tive 2020, race modif iers will no longe r be inclu ded in our creat inine -base d CKD-E PI eGFR calcu latio ns. Accor dingl y, eGFR lab repor t descr iptor s (i.e. , EST GFR NON AFRIC AN AMERI CAN, EST GFR AFRIC AN AMERI CAN) will be disco ntinu ed. Pleas e take this into accou nt when utili zing creat inine -base d formu latio ns to diagn ose and manag e chron ic kidne y disea se. Creat inine based estim ated glome rular filtr ation rate (eGFR ) is calcu lated using the Chron ic Kidne y Disea se Epide miolo gy Colla borat ion (CKD- EPI). The CKD-E PI calcu latio n is not valid ated in child angelique (<18 years ), pregn ant woman or in racia l or ethni c subgr oups. Not Available [facility] (Centralized Electronic Ordering - All Locations) Patient Can Go To The Location Of Their Choice, 03/23/2021 16:11:26 03/23/2003/23/2021 LIPID PANEL cholesterol, total 149 mg/dL (<200) Not Available [facility] (Centralized Electronic Ordering - All Locations) Patient Can Go To The Location Of Their Choice, 03/23/2021 16:11:28 03/23/2003/23/2021 LIPID PANEL triglyceride 119 mg/dL (<150) Not Available [facility] (Central[facility] Ordering - All Locations) Patient Can Go To The Location Of Their Choice, 03/23/2021 16:11:28 03/23/2003/23/2021 LIPID PANEL HDL chol 41 mg/dL (>39) Not Available [facility] (Centralized Electronic Ordering - All Locations) Patient Can Go To The Location Of Their Choice, 03/23/2021 16:11:28 03/23/2003/23/2021 LIPID PANEL LDL cholesterol, calculated 84 mg/dL (0-130 ) Not Available [facility] (Centralized Electronic Ordering - All Locations) Patient Can Go To The Location Of Their Choice, 03/23/2021 16:11:28 03/23/2003/23/2021 LIPID PANEL non HDL cholesterol (calc) 108 mg/dL (<160) Not Available [facility] (Centralized Electronic Ordering - All Locations) Patient Can Go To The Location Of Their Choice, 03/23/2021 16:11:28 03/23/2003/23/2021 TSH WITH REFLE X TO FT4 TSH 1.70 uIU/m L (0.4-4 .2) Not Available [facility] (Centralized Electronic Ordering - All Locations) Patient Can Go To The Location Of Their Choice, 03/23/2021 16:17:29 03/23/2003/23/2021 URINA RY MICRO ALBUM IN micro-albumi n <12.0 mg/L (<20) The urine micro album in test is desig shyam to monit or renal funct ion. When scree uzma for Bence Lucas prote inuri a, urine elect ropho resis is recom rayshawn d. Not Available [facility] (Centralized Electronic Ordering - All Locations) Patient Can Go To The Location Of Their Choice, 03/23/2021 16:50:19 03/23/2003/23/2021 URINA RY MICRO ALBUM IN malb/creat ratio Unable to calcul ate mg/gm (0-20) Not Available [facility] (Centralized Electronic Ordering - All Locations) Patient Can Go To The Location Of Their Choice, 03/23/2021 16:50:19 03/23/2003/23/2021 URINA RY MICRO ALBUM IN urine creat for micro albumin 132.5 mg/dL Not Available [facility] (Centralized Electronic Ordering - All Locations) Patient Can Go To The Location Of Their Choice, 03/23/2021 16:50:19 06/26/1906/26/2021 hemog lobin A1C, arthur rosas k A1C 6.3 % 4-6 abnormal Not Available In-Office Order Internal Use Only DO Not Attach Compendium DO Not Attach Compendium, Do Not Delete/merge, [id number] 06/26/2021 11:10:39 09/21/1909/20/2021 COMPR EHENS XOCHITL METAB OLIC PANL glucose 101 mg/dL (70-99 ) high Not Available [facility] (Centralized Electronic Ordering - All Locations) Patient Can Go To The Location Of Their Choice, 09/20/2021 16:49:45 09/21/19 22 09/20/2021 COMPR EHENS XOCHITL METAB OLIC PANL BUN 25 mg/dL (8-23) high Not Available [facility] (Centralized Electronic Ordering - All Locations) Patient Can Go To The Location Of Their Choice, 09/20/2021 16:49:45 09/21/1909/20/2021 COMPR EHENS XOCHITL METAB OLIC PANL creatinine 1.4 mg/dL (0.7-1 .2) high Not Available [facility] (Centralized Electronic Ordering - All Locations) Patient Can Go To The Location Of Their Choice, 09/20/2021 16:49:45 09/21/1909/20/2021 COMPR EHENS XOCHITL METAB OLIC PANL sodium 142 mmol/ L (133-1 45) Not Available [facility] (Centralized Electronic Ordering - All Locations) Patient Can Go To The Location Of Their Choice, 09/20/2021 16:49:45 09/21/1909/20/2021 COMPR EHENS XOCHITL METAB OLIC PANL potassium 4.4 mmol/ L (3.6-5 .2) Not Available [facility] (Centralized Electronic Ordering - All Locations) Patient Can Go To The Location Of Their Choice, 09/20/2021 16:49:45 09/21/1909/20/2021 COMPR EHENS XOCHITL METAB OLIC PANL chloride 110 mmol/ L (98-10 7) high Not Available [facility] (Centralized Electronic Ordering - All Locations) Patient Can Go To The Location Of Their Choice, 09/20/2021 16:49:45 09/21/19 22 09/20/2021 COMPR EHENS XOCHITL METAB OLIC PANL bicarbonate 26 mmol/ L (22-29 ) Not Available [facility] (Centralized Electronic Ordering - All Locations) Patient Can Go To The Location Of Their Choice, 09/20/2021 16:49:45 09/21/19 22 09/20/2021 COMPR EHENS XOCHITL METAB OLIC PANL anion gap 6 (4-17) Not Available [facility] (Centralized Electronic Ordering - All Locations) Patient Can Go To The Location Of Their Choice, 09/20/2021 16:49:45 09/21/19 22 09/20/2021 COMPR EHENS XOCHITL METAB OLIC PANL albumin 3.8 gm/dL (3.4-4 .8) Not Available [facility] (Centralized Electronic Ordering - All Locations) Patient Can Go To The Location Of Their Choice, 09/20/2021 16:49:45 09/21/19 22 09/20/2021 COMPR EHENS XOCHITL METAB OLIC PANL calcium 8.9 mg/dL (8.6-1 0.5) Not Available [facility] (Centralized Electronic Ordering - All Locations) Patient Can Go To The Location Of Their Choice, 09/20/2021 16:49:45 09/21/1909/20/2021 COMPR EHENS XOCHITL METAB OLIC PANL bilirubin,to sara 0.3 mg/dL (0-1.2 ) Not Available [facility] (Centralized Electronic Ordering - All Locations) Patient Can Go To The Location Of Their Choice, 09/20/2021 16:49:45 09/21/1909/20/2021 COMPR EHENS XOCHITL METAB OLIC PANL total protein 6.3 gm/dL (6.2-8 .2) Not Available [facility] (Centralized Electronic Ordering - All Locations) Patient Can Go To The Location Of Their Choice, 09/20/2021 16:49:45 09/21/1909/20/2021 COMPR EHENS XOCHITL METAB OLIC PANL Ag ratio 1.5 Not Available [facility] (Centralized Electronic Ordering - All Locations) Patient Can Go To The Location Of Their Choice, 09/20/2021 16:49:45 09/21/1909/20/2021 COMPR EHENS XOCHITL METAB OLIC PANL AST 22 U/L (0-40) Not Available [facility] (Centralized Electronic Ordering - All Locations) Patient Can Go To The Location Of Their Choice, 09/20/2021 16:49:45 09/21/19 22 09/20/2021 COMPR EHENS XOCHITL METAB OLIC PANL alk phos 100 U/L (40-12 9) Not Available [facility] (Centralized Electronic Ordering - All Locations) Patient Can Go To The Location Of Their Choice, 09/20/2021 16:49:45 09/21/19 22 09/20/2021 COMPR EHENS XOCHITL METAB OLIC PANL ALT 21 U/L (0-41) Not Available [facility] (Centralized Electronic Ordering - All Locations) Patient Can Go To The Location Of Their Choice, 09/20/2021 16:49:45 09/21/19 22 09/20/2021 COMPR EHENS XOCHITL METAB OLIC PANL estimated GFR creatinine 46 mL/mi n/1.7 3_M2 Creat inine based estim ated glome rular filtr ation rate (eGFR ) is calcu lated using the Chron ic Kidne y Disea se Epide miolo gy Colla borat ion (CKD- EPI). The CKD-E PI calcu latio n is not valid ated in child angelique (<18 years ), pregn ant woman or in racia l or ethni c subgr oups. Not Available [facility] (Centralized Electronic Ordering - All Locations) Patient Can Go To The Location Of Their Choice, 09/20/2021 16:49:45 09/21/1909/20/2021 LIPID PANEL cholesterol, total 146 mg/dL (<200) Not Available [facility] (Centralized Electronic Ordering - All Locations) Patient Can Go To The Location Of Their Choice, 09/20/2021 16:49:47 09/21/1909/20/2021 LIPID PANEL triglyceride 199 mg/dL (<150) high Not Available [facility] (Centralized [facility] Ordering - All Locations) Patient Can Go To The Location Of Their Choice, 09/20/2021 16:49:47 09/21/1909/20/2021 LIPID PANEL HDL chol 41 mg/dL (>39) Not Available [facility] (Centralized Electronic Ordering - All Locations) Patient Can Go To The Location Of Their Choice, 09/20/2021 16:49:47 09/21/1909/20/2021 LIPID PANEL LDL cholesterol, calculated 65 mg/dL (0-130 ) Not Available [facility] (Centralized Electronic Ordering - All Locations) Patient Can Go To The Location Of Their Choice, 09/20/2021 16:49:47 09/21/1909/20/2021 LIPID PANEL non HDL cholesterol (calc) 105 mg/dL (<160) Not Available [facility] (Centralized Electronic Ordering - All Locations) Patient Can Go To The Location Of Their Choice, 09/20/2021 16:49:47 09/21/1909/20/2021 URINA RY MICRO ALBUM IN micro-albumi n <12.0 mg/L (<20) The urine micro album in test is desig shyam to monit or renal funct ion. When scree uzma for Bence Lucas prote inuri a, urine elect ropho resis is recom rayshawn echeverria. Not Available [facility] (Centralized Electronic Ordering - All Locations) Patient Can Go To The Location Of Their Choice, 09/20/2021 18:20:40 09/21/1909/20/2021 URINA RY MICRO ALBUM IN malb/creat ratio Unable to calcul ate mg/gm (0-20) Not Available [facility] (Centralized Electronic Ordering - All Locations) Patient Can Go To The Location Of Their Choice, 09/20/2021 18:20:40 09/21/1909/20/2021 URINA RY MICRO ALBUM IN urine creat for micro albumin 174.4 mg/dL Not Available [facility] (Centralized Electronic Ordering - All Locations) Patient Can Go To The Location Of Their Choice, 09/20/2021 18:20:40 03/26/2003/26/2022 COMPR EHENS XOCHITL METAB OLIC PANL glucose 70 mg/dL (70-99 ) Not Available [facility] (Centralized Electronic Ordering - All Locations) Patient Can Go To The Location Of Their Choice, 03/26/2022 20:28:36 03/26/2003/26/2022 COMPR EHENS XOCHITL METAB OLIC PANL BUN 36 mg/dL (8-23) high Not Available [facility] (Centralized Electronic Ordering - All Locations) Patient Can Go To The Location Of Their Choice, 03/26/2022 20:28:36 03/26/2003/26/2022 COMPR EHENS XOCHITL METAB OLIC PANL creatinine 1.5 mg/dL (0.7-1 .2) high Not Available [facility] (Centralized Electronic Ordering - All Locations) Patient Can Go To The Location Of Their Choice, 03/26/2022 20:28:36 03/26/2003/26/2022 COMPR EHENS XOCHITL METAB OLIC PANL sodium 141 mmol/ L (133-1 45) Not Available [facility] (Centralized Electronic Ordering - All Locations) Patient Can Go To The Location Of Their Choice, 03/26/2022 20:28:36 03/26/2003/26/2022 COMPR EHENS XOCHITL METAB OLIC PANL potassium 4.6 mmol/ L (3.6-5 .2) Not Available [facility] (Centralized Electronic Ordering - All Locations) Patient Can Go To The Location Of Their Choice, 03/26/2022 20:28:36 03/26/2003/26/2022 COMPR EHENS XOCHITL METAB OLIC PANL chloride 107 mmol/ L (98-10 7) Not Available [facility] (Centralized Electronic Ordering - All Locations) Patient Can Go To The Location Of Their Choice, 03/26/2022 20:28:36 03/26/2003/26/2022 COMPR EHENS XOCHITL METAB OLIC PANL bicarbonate 27 mmol/ L (22-29 ) Not Available [facility] (Centralized Electronic Ordering - All Locations) Patient Can Go To The Location Of Their Choice, 03/26/2022 20:28:36 03/26/2003/26/2022 COMPR EHENS XOCHITL METAB OLIC PANL anion gap 7 (4-17) Not Available [facility] (Centralized Electronic Ordering - All Locations) Patient Can Go To The Location Of Their Choice, 03/26/2022 20:28:36 03/26/2003/26/2022 COMPR EHENS XOCHITL METAB OLIC PANL albumin 3.9 gm/dL (3.4-4 .8) Not Available [facility] (Centralized Electronic Ordering - All Locations) Patient Can Go To The Location Of Their Choice, 03/26/2022 20:28:36 03/26/2003/26/2022 COMPR EHENS XOCHITL METAB OLIC PANL calcium 8.8 mg/dL (8.6-1 0.5) Not Available [facility] (Centralized Electronic Ordering - All Locations) Patient Can Go To The Location Of Their Choice, 03/26/2022 20:28:36 03/26/2003/26/2022 COMPR EHENS XOCHITL METAB OLIC PANL bilirubin,to sara 0.4 mg/dL (0-1.2 ) Not Available [facility] (Centralized Electronic Ordering - All Locations) Patient Can Go To The Location Of Their Choice, 03/26/2022 20:28:36 03/26/2003/26/2022 COMPR EHENS XOCHITL METAB OLIC PANL total protein 6.3 gm/dL (6.2-8 .2) Not Available [facility] (Centralized Electronic Ordering - All Locations) Patient Can Go To The Location Of Their Choice, 03/26/2022 20:28:36 03/26/2003/26/2022 COMPR EHENS XOCHITL METAB OLIC PANL Ag ratio 1.6 Not Available [facility] (Centralized Electronic Ordering - All Locations) Patient Can Go To The Location Of Their Choice, 03/26/2022 20:28:36 03/26/2003/26/2022 COMPR EHENS XOCHITL METAB OLIC PANL AST 21 U/L (0-40) Not Available [facility] (Centralized Electronic Ordering - All Locations) Patient Can Go To The Location Of Their Choice, 03/26/2022 20:28:36 03/26/2003/26/2022 COMPR EHENS XOCHITL METAB OLIC PANL alk phos 102 U/L (40-12 9) Not Available [facility] (Centralized Electronic Ordering - All Locations) Patient Can Go To The Location Of Their Choice, 03/26/2022 20:28:36 03/26/2003/26/2022 COMPR EHENS XOCHITL METAB OLIC PANL ALT 31 U/L (0-41) Not Available [facility] (Centralized Electronic Ordering - All Locations) Patient Can Go To The Location Of Their Choice, [id number] 03/26/2022 20:28:36 03/26/20 22 03/26/2022 COMPR EHENS XOCHITL METAB OLIC PANL estimated GFR creatinine 48 mL/mi n/1.7 3_M2 Creat inine based estim ated glome rular filtr ation (eGFR ) in adult s is calcu lated using the Natio nal Kidne y Found ation recom rayshawn d 2020 CKD-E PI equat ion. Estim ates GFR from serum creat inine , age and sex. Not Available [facility] (Centralized Electronic Ordering - All Locations) Patient Can Go To The Location Of Their Choice, [id number] 03/26/2022 20:28:36 03/26/20 22 03/26/2022 hemog lobin A1C, finge rstic k A1C 6.2 % 4-6 abnormal Not Available In-Office Order Internal Use Only DO Not Attach Compendium DO Not Attach Compendium, Do Not Delete/merge, [id number] 03/26/2022 10:44:51 10/09/19 23 10/08/2022 hemog lobin A1C, finge rstic k A1C 6.2 % 4-6 abnormal Not Available In-Office Order Internal Use Only DO Not Attach Compendium DO Not Attach Compendium, Do Not Delete/merge, [id number] 10/08/2022 15:24:44 06/26/19 22 06/26/2021 [facility] rocar diogr am No observ ation record ed. acennerazzo In-Office Order Internal Use Only DO Not Attach Compendium DO Not Attach Compendium, Do Not Delete/merge, [id number] 06/26/2021 14:50:15 06/26/19 [facility] rocar diogr am No observ ation record ed. acennerazzo In-Office Order Internal Use Only DO Not Attach Compendium DO Not Attach Compendium, Do Not Delete/merge, [id number] 06/26/2021 11:30:55 Result Notes None recorded. Problems Name Problem SNOMED Code Status Onset Date Resolution Date Notes Provider Name and Address Organization Details Recorded Time Erectile dysfunct ion due to type 2 diabetes mellitus 766170026 Active Not Available [facility] 3 11:45:53 Hearing loss 17737607 Active Sensorin eural Not Available [facility] 3 11:45:52 Type 2 diabetes mellitus 91272250 Completed 09/24/2016 Jovany Corey MD [address], [place], [address] , [facility] 7 10:13:18 Urinary incontin ence 060261892 Active Not Available [facility] 3 11:45:53 Fear of flying 720443937 Active Not Available [facility] 3 11:45:53 Snoring symptoms 952924807 Active Not Available [facility] 3 11:45:53 Retinopa thy due to type 2 diabetes mellitus 919080985 Active Not Available [facility] 3 11:45:53 Hypergly cemia 85263512 Completed 03/23/2021 Removal Reason: diabetes Jovany Corey MD [address], [place], [address] , [facility] 1 08:54:58 Neck pain 48955473 Active Not Available [facility] 3 11:45:53 Carcinom a of prostate 867882510 Active 2006 Followed by urology; had prostate ctomy Not Available [facility] 3 11:45:53 Impairme nt level of both eyes Completed 200701/05/2014 IMPRESSI ON: DR LOPES AND DR ANDREA; RECORDED 07/04/19 08 10:54AM BY KAROLYN PÉREZ MA, [facility]ATI [facility] 6 14:[facility] Impairme nt level of both eyes Completed 200702/01/2014 IMPRESSI ON: DR LOPES AND DR ANDREA; RECORDED 07/04/19 08 10:54AM BY KAROLYN PÉREZ MA, VLADIMIRATI ON/ADDEN DUM Trena Mcdaniels null, [facility] 6 14:33:43 Disorder of breast 07515707 Completed 200801/05/2014 RESOLVED DATE: 11/02/19; RECORDED 11/02/19 8:28PM BY CHRISTIN Schaefer NP, ANNOTATI ON/ADDEN DUM Trena Mcdaniels null, [facility] 6 14:33:43 Prostate specific antigen above referenc e range 400340914 Completed 200801/05/2014 RESOLVED DATE: 11/02/19; RECORDED 11/02/19 8:28PM BY CHRISTIN Schaefer NP, ANNOTATI ON/ADDEN DUM Trena Mcdaniels null, [facility] 6 14:33:43 Pre-surg domingo evaluati on Completed 200801/05/2014 RESOLVED DATE: 11/02/19; RECORDED 11/02/19 8:28PM BY CHRISTIN Schaefer NP, ANNOTATI ON/ADDEN DUM Trena Mcdaniels null, [facility] 6 14:33:43 Screenin g for malignan t neoplasm of colon Completed 200801/05/2014 RECORDED 11/02/19 10:25AM BY VLADIMIR BRICEÑOATI ON/ADDEN DUM Trena Mcdaniels null, [facility] 6 14:33:43 Acquired deformit y of finger 68304093 Completed 200801/05/2014 RESOLVED DATE: 11/02/19; RECORDED 11/02/19 8:28PM BY CHRISTIN Schaefer NP, ANNOTELLIOT ON/ADDEN DUM Trena Mcdaniels null, [facility] 6 14:33:43 Disorder of breast 79055440 Completed 200802/01/2014 RESOLVED DATE: 11/02/19; RECORDED 11/02/19 8:28PM BY CHRISTIN Schaefer NP, ANNOTATI ON/ADDEN DUM Trena Mcdaniels null, [facility] 6 14:33:43 Prostate specific antigen above referenc e range 495772383 Completed 200802/01/2014 RESOLVED DATE: 11/02/19; RECORDED 11/02/19 8:28PM BY CHRISTIN Schaefer NP, ANNOTATI ON/ADDEN DUM Trena Mcdaniels null, [facility] 6 14:33:43 Pre-surg domingo evaluati on Completed 200802/01/2014 RESOLVED DATE: 11/02/19; RECORDED 11/02/19 8:28PM BY CHRISTIN Schaefer NP, ANNOTATI ON/ADDEN DUM Trena Mcdaniels null, [facility] 6 14:33:43 Screenin g for malignan t neoplasm of colon Completed 200802/01/2014 RECORDED 11/02/19 10:25AM BY BRIAN LAMAS, ANNOTATI ON/ADDEN DUM Trena Mcdaniels null, [facility] 6 14:33:43 Acquired deformit y of finger 95401273 Completed 200802/01/2014 RESOLVED DATE: 11/02/19; RECORDED 11/02/19 8:28PM BY CHRISTIN Schaefer NP, ANNOTELLIOT ON/ADDEN DUM Trena Mcdaniels null, [facility] 6 14:33:43 Influenz a vaccine needed [id number] 06 Completed 201001/05/2014 DATE: 05/15/20 11; RECORDED 05/21/20 12 10:34AM BY TRENTON ORTIZ ON/ADDEN DUM Trena Mcdaniels null, [facility] 6 14:33:43 Influenz a vaccine needed 00500249921 06 Completed 201002/01/2014 DATE: 05/15/20 11; RECORDED 05/21/20 12 10:34AM BY TRENTON ORTIZ ON/ADDEN DUM Trena Mcdaniels null, [facility] 6 14:33:43 Abdomina l pain 85887350 Completed 201101/05/2014 IMPRESSI ON: RUQ, LAST US 1 YEAR AGO, NO MASS IN LIVER SHOWED SOME CHANGE IN [place], PT WITH REINA PRINCE ALCOHOL USE, WILL CHECK LABS AND US; RECORDED 05/21/20 12 10:35AM BY TRENTON ORTIZ ON/ADDEN DUM Trena Mcdaniels null, [facility] 6 14:33:43 Harmful pattern of use of alcohol 04427174 Completed 201101/05/2014 IMPRESSI ON: LONG TALK RE NEED TO DECREASE DUE TO HELATH CONCERNS , PT DOES NOT SEEM READY FOR CHANGE, WILL TX DEPRESSI ON.; RECORDED 05/21/20 12 10:35AM BY TRENTON ORTIZ ON/ADDEN DUM Trena Mcdaniels null, [facility] 6 14:33:43 Breast lump 57035619 Completed 201101/05/2014 IMPRESSI ON: PT TO SEE SURGEON, SEND IMAGING, I LEFT A MESSAGE AT [facility] THAT WE WILL BE SENDING AN APPT FOR BREAST DOCTOR AND WILL SEND A LETTER TOO; RECORDED 05/21/20 12 10:35AM BY TRENTON ORTIZ ON/ADDEN DUM Jovany Corey MD [address] [address], [place], [address] , [facility] 0 10:59:49 Screenin g for malignan t neoplasm of breast Completed 201101/05/2014 RECORDED 05/21/20 12 11:01AM BY JOVANY PEOPLES MD, [place] ON/ADDEN DUM Trenasav Mcdaniels null, [facility] 6 14:33:43 Respirat ory finding Completed 201101/05/2014 RECORDED 05/21/20 12 10:35AM BY TRENTON ORTIZ ON/ADDEN DUM Trena Mcdaniels null, [facility] 6 14:33:43 Pure hypercho lesterol emia 117122185 Completed 201101/05/2014 IMPRESSI ON: ON MEDS, CHECK LEVELS; RECORDED 05/21/20 12 10:34AM BY TRENTON ORTIZ ON/ADDEN DUM Trena Mcdaniels null, [facility] 6 14:33:43 Hypocalc emia 7975721 Completed 201101/05/2014 IMPRESSI ON: LAB SHOWS LOW CALCIUM OF 8.2, PT WITH ALOT OF ALCOHOL USE, NOT EATING WELL, WILL RECHECK WITH ABLUMIN AND MAKE SURE IT IS A TRUE LOW, WILL AHVE TP CALLED 09/19 ADN TRY TO GET REPEAT OFF VERY SOON; RECORDED 05/21/20 12 10:34AM BY TRENTON ORTIZ ON/ADDEN DUM Trena Mcdaniels null, [facility] 6 14:33:43 Malaise and fatigue 572193254 Completed 201101/05/2014 IMPRESSI ON: DEPRESSE D, TX WITH MEDS, DID NOT START IN PST; RECORDED 05/21/20 12 10:34AM BY TRENTON ORTIZ ON/ADDEN DUM Trena Mcdaniels null, [facility] 6 14:33:43 Peripher al vertigo 63188162 Completed 201101/05/2014 RECORDED 05/21/20 12 10:34AM BY TRENTON ORTIZ ON/ADDEN DUM Trena Mcdaniels null, [facility] 6 14:33:43 Adult health examinat ion Completed 201101/05/2014 RECORDED 05/21/20 12 10:35AM BY TRENTON ORTIZ ON/ADDEN DUM Trena Mcdaniels null, [facility] 6 14:33:43 Type 2 diabetes mellitus without complica tion 257369770 Completed 201101/05/2014 RECORDED 05/21/20 12 10:35AM BY TRENTON ORTIZ ON/ADDEN DUM Trena Mcdaniels null, [facility] 6 14:33:42 Abdomina l pain 58233922 Completed 201102/01/2014 IMPRESSI ON: RUQ, LAST US 1 YEAR AGO, NO MASS IN LIVER SHOWED SOME CHANGE IN [place], PT WITH REINA SURESH ALCOHOL USE, WILL CHECK LABS AND US; RECORDED 05/21/20 12 10:35AM BY TRENTON ORTIZ ON/ADDEN DUM Trena Mcdaniels null, [facility] 6 14:33:43 Harmful pattern of use of alcohol 60879549 Completed 201102/01/2014 IMPRESSI ON: LONG TALK RE NEED TO DECREASE DUE TO HELATH CONCERNS , PT DOES NOT SEEM READY FOR CHANGE, WILL TX DEPRESSI ON.; RECORDED 05/21/20 12 10:35AM BY TRENTON ORTIZ ON/ADDEN DUM Trena Mcdaniels null, [facility] 6 14:33:43 Breast lump 96777264 Completed 201102/01/2014 IMPRESSI ON: PT TO SEE SURGEON, SEND IMAGING, I LEFT A MESSAGE AT [facility] THAT WE WILL BE SENDING AN APPT FOR BREAST DOCTOR AND WILL SEND A LETTER TOO; RECORDED 05/21/20 12 10:35AM BY TRENTON ORTIZ ON/ADDEN DUM Jovany Corey MD [address] [address], [place], [address] , [facility] 0 10:59:49 Respirat ory finding Completed 201102/01/2014 RECORDED 05/21/20 12 10:35AM BY TRENTON ORTIZ ON/ADDEN DUM Trena Mcdaniels null, [facility] 6 14:33:43 Pure hypercho lesterol emia 732911076 Completed 201102/01/2014 IMPRESSI ON: ON MEDS, CHECK LEVELS; RECORDED 05/21/20 12 10:34AM BY TRENTON ORTIZ ON/ADDEN DUM Trena Mcdaniels null, [facility] 6 14:33:43 Hypocalc emia 0002225 Completed 201102/01/2014 IMPRESSI ON: LAB SHOWS LOW CALCIUM OF 8.2, PT WITH ALOT OF ALCOHOL USE, NOT EATING WELL, WILL RECHECK WITH ABLUMIN AND MAKE SURE IT IS A TRUE LOW, WILL AHVE TP CALLED 09/19 ADN TRY TO GET REPEAT OFF VERY SOON; RECORDED 05/21/20 12 10:34AM BY VLDAIMIR ORTIZATI ON/ADDEN DUM Trena Mcdaniels null, [facility] 6 14:33:43 Malaise and fatigue 519982230 Completed 201102/01/2014 IMPRESSI ON: DEPRESSE D, TX WITH MEDS, DID NOT START IN PST; RECORDED 05/21/20 12 10:34AM BY TRENTON ORTIZ ON/ADDEN DUM Trenakirsten Mcdaniels null, [facility] 6 14:33:43 Peripher al vertigo 62836553 Completed 201102/01/2014 RECORDED 05/21/20 12 10:34AM BY TRENTON ORTIZ ON/ADDEN DUM Trena Mcdaniels null, [facility] 6 14:33:43 Adult health examinat ion Completed 201102/01/2014 RECORDED 05/21/20 12 10:35AM BY TRENTON ORTIZ ON/ADDEN DUM Trena Mcdanielskirsten felix, [facility] 6 14:33:43 Legal blindnes s [facility] 244972061 Completed 201201/05/2014 RECORDED 07/16/19 13 7:53AM BY VLADIMIR ORTIZATI ON/ADDEN DUM BRIAN Maynard, [facility] 2 16:01:23 Anemia 081737181 Completed 201201/05/2014 RECORDED 08/19/19 13 10:33AM BY VLADIMIR ORTIZATI ON/ADDEN DUM Trena Mcdaniels null, [facility] 6 14:33:43 Apnea 7852768 Completed 201201/05/2014 IMPRESSI ON: WITNESSE D APNEAS FOR LONG 20 SECONDS. ; RECORDED 08/19/19 13 10:33AM BY VLADIMIR ORTIZATI ON/ADDEN DUM Trena Mcdaniels null, [facility] 6 14:33:43 Tobacco user [id number] Completed 201201/05/2014 RECORDED 08/19/19 13 10:33AM BY SHAUNNA RILEY I ANNOTATI ON/ADDEN DUM Trena Mcdaniels null, [facility] 6 14:33:43 History of clinical finding in subject 878810107 Completed 201203/23/2014 RECORDED 08/19/19 13 10:33AM BY VLADIMIR ORTIZATI ON/ADDEN DUM Trena Mcdaniels null, [facility] 6 14:33:43 Anemia 778689365 Completed 201202/01/2014 RECORDED 08/19/19 13 10:33AM BY SHAUNNA RILEY I ANNOTATI ON/ADDEN DUM Trena Mcdaniels null, [facility] 6 14:33:43 Apnea 7766219 Completed 201202/01/2014 IMPRESSI ON: WITNESSE D APNEAS FOR LONG 20 SECONDS. ; RECORDED 08/19/19 13 10:33AM BY VLADIMIR ORTIZATI ON/ADDEN DUM Trena Mcdaniels null, [facility] 6 14:33:43 Tobacco user [id number] Completed 201202/01/2014 RECORDED 08/19/19 13 10:33AM BY SHAUNNA RILEY I ANNOTATI ON/ADDEN DUM Trena Mcdaniels null, [facility] 6 14:33:43 Iron deficien cy anemia 82513878 Completed 201201/05/2014 RECORDED 11/11/19 13 9:34AM BY VLADIMIR ORTIZATI ON/ADDEN DUM Trena Mcdaniels null, [facility] 6 14:33:43 Iron deficien cy anemia 64119040 Completed 201202/01/2014 RECORDED 11/11/19 13 9:34AM BY SHAUNNA RILEY I ANNOTATI ON/ADDEN DUM Trena Mcdaniels null, [facility] 6 14:33:43 Contact dermatit is 02287624 Completed 201201/05/2014 IMPRESSI ON: RASH ON FACE.; RECORDED 03/19/20 13 8:55AM BY SHAUNNA RILEY I ANNOTATI ON/ADDEN DUM Trena Mcdaniels null, [facility] 6 14:33:43 Contact dermatit is 83157079 Completed 201202/01/2014 IMPRESSI ON: RASH ON FACE.; RECORDED 03/19/20 13 8:55AM BY VLADIMIR ORTIZATI ON/ADDEN DUM Trena Mcdaniels null, [facility] 6 14:33:43 Laborato ry procedur e performe d 170701505 Completed 201301/05/2014 RECORDED 09/16/19 14 6:49AM BY VLADIMIR ORTIZATI ON/ADDEN DUM Trena Mcdaniels null, [facility] 6 14:33:43 Laborato ry procedur e performe d 227801041 Completed 201302/01/2014 RECORDED 09/16/19 14 6:49AM BY VLADIMIR ORTIZATI ON/ADDEN DUM Trena Mcdaniels null, [facility] 6 14:33:43 Continuo us nondepen dent harmful pattern of use of alcohol 733630462 Active 2013 Not Available [facility] 3 11:45:53 Allergic rhinitis 40823833 Active 2013 Not Available [facility] 3 11:45:53 Gastroes ophageal reflux disease 997065675 Active 2013 Not Available [facility] 3 11:45:53 Glaucoma associat ed with ocular disorder 70271658 Active 2013 Not Available [facility] 3 11:45:53 Legal blindnes s [facility] 147456178 Active 2013 IMPRESSI ON: SECONDAR Y TO GLAUCOMA Not Available [facility] 3 11:45:53 Recurren t major depressi ve episodes , moderate 759745656 Active 2013 Not Available [facility] 3 11:45:53 Mixed hyperlip idemia 859546596 Active 2013 Not Available [facility] 3 11:45:53 Gastro-e sophagea l reflux disease with esophagi tis 558864306 Completed 201303/23/2014 RECORDED 12/17/19 14 9:52AM BY SHAUNNA RILEY I, OFFICE VISIT Trena felix [facility] 6 14:33:43 Type 2 diabetes mellitus without complica tion 532231106 Completed 201307/05/2014 IMPRESSI ON: GOOD CONTROL; CONTINUE CURRENT MGMT; RECORDED 12/17/19 14 9:53AM BY SHAUNNA RILEY I, OFFICE VISIT Trena felix [facility] 6 14:33:42 Disease of liver 307860879 Completed 201303/23/2021 Jovany Corey MD [address] [address] [address] [facility] 1 08:54:21 Vitamin D deficien cy 60298979 Active 2013 Not Available [facility] 3 11:45:53 Screenin g for malignan t neoplasm of breast Completed 201302/01/2014 RECORDED 12/17/19 14 9:53AM BY SHAUNNA RILEY I, ANNOTATI ON/ADDEN DUM Trena felix [facility] 6 14:33:43 Dysphagi a 64069230 Completed 201303/23/2021 Removal Reason: resolved Jovany Corey MD [address], [place], [address] , [facility] 1 08:54:36 Reactive airway disease 66896147780 6 Active 2015 Not Available [facility] 3 11:45:53 Breast lump 75015401 Active 2018 Schedule d for breast mammogra m. Had bx. No cancer. Not Available [facility] 3 11:45:53 Gynecoma stia 2253099 Active 2018 bilatera l; seen at [facility]; no cancer. No further treatmen t. Not Available [facility] 3 11:45:53 Chronic kidney disease stage 3A 967269411 Active 2018 Not Available [facility] 3 11:45:53 Hypothyr oidism 57215889 Active 2019 Not Available [facility] 3 11:45:53 History of SARS-CoV -2 46615230214 0865359 Active 2020 Not Available [facility] 3 11:45:53 Hyperten sive renal disease 83658159 Active 2020 Not Available [facility] 3 11:45:53 Renal disorder due to type 2 diabetes mellitus 428174247 Active 2022 Not Available [facility] 3 11:45:53 Problem Notes None recorded. Procedures Surgical History Date Name Laterality Status Provider Name and Address Organization Details Recorded Time 03/22/20 Diabetic Foot Exam (Monofilament) completed Salud Aldridge MA [facility] 03/22/2021 10:29:10 08/01/19 21 Diabetic Foot Exam (Monofilament) cancelled Janie Mascorro MA [facility] 08/01/2020 09:42:08 08/01/19 Six-Item Cognitive Test cancelled Janie Mascorro MA [facility] 08/01/2020 09:39:45 12/08/19 20 Diabetic Foot Exam (Monofilament) completed Shaunna Schultzki [facility] 12/08/2019 10:48:05 01/06/20 19 Diabetic Foot Exam (Monofilament) completed Shaunnarios Good [facility] 01/05/2019 09:57:27 09/05/19 19 Diabetic Foot Exam [facility]ilament[facility] 10:33:16 12/13/19 18 Diabetic Foot Exam (Monofilament) [facility] 12/12/2017 10:06:24 05/04/20 16 Fall Risk Assessment [facility] 05/04/2016 10:19:36 05/04/20 16 Mini-Cog Test completed [facility] 05/04/2016 10:07:27 07/05/19 15 Fall Risk Assessment [facility] 07/05[facility]2014 14:40:43 07/05/19 15 Mini[facility]Cog Test [facility] 07/[facility]2014 14:42:25 06/24/19 07 Prostate Surgery completed Jovany Corey MD [address], [address] 03/24/2014 08:39:17 06/24/19 07 prostatectomy completed Karolyn parekh MA [facility] 10/08/2022 15:14:16 08/16/19 05 Colonoscopy completed Karolyn parekh MA [facility] 05/30/2016 09:05:52 Imaging Results None recorded. Procedure Notes None recorded. Medical Equipment None Reported. Allergies Allergen ID Allergen Name Allergen Category Reaction Reaction Severity Criticality Documentation Date Start Date Code Code System Note Provider Name and Address Organization Details Recorded Time 80032 cetirizin e medicatio n headache Not available Not available 06/03/2019 RxNorm BRIAN Ortiz [facility] 9 10:54:40 51178 albuterol sulfate medicatio n chest pain severe Not available 03/26/2022 66247 3 RxNorm Not Available [facility] 3 11:45:53 Medications Name Sig Start Date Stop Date Status Note LastModified by Organization Details LastModified Time cyclobenz aprine 10 mg tablet TAKE 1 TABLET BY MOUTH EVERYDAY AT BEDTIME active Not Available Not Available No t Available atorvasta tin 40 mg tablet TAKE 1 TABLET EVERY DAY 08/16 completed Not Available Not Available Not Available atorvasta tin 80 mg tablet TAKE 1 TABLET BY MOUTH EVERY DAY active Not Available Not Available No t Available clindamyc in HCl 300 mg capsule 04/21 completed Not Available Not Available Not Available cetirizin e 10 mg tablet TAKE 1 TABLET(S ) NEEDED BY ORAL ROUTE AT BEDTIME.
06/03 completed caused headache Not Available Not Available Not Available ofloxacin 0.3 % eye drops PLEASE SEE ATTACHED FOR DETAILED DIRECTIO NS 10/08 completed Not Available Not Available Not Available metoprolo l succinate ER 50 mg tablet,ex tended release 24 hr Take 1 tablet every day by oral route for 90 days. 09/24 completed Not Available Not Available Not Available ranitidin e 300 mg tablet BID 03/02 completed RECORDED 03/02/20 10 4:37PM BY TRENTON HAMMER/OBI CARPENTER; Not Available Not Available Not Available meloxicam 15 mg tablet TAKE 1 TABLET BY MOUTH DAILY active Not Available Not Available No t Available FreeStyle Lancets 28 gauge USE TO TEST DAILY. E11.319 2023 active Not Available Not Available Not Avai lable Viagra 50 mg tablet Take 1 tablet as needed by oral route as directed . 10/23 completed Not Available Not Available Not Available metoprolo l succinate ER 100 mg tablet,ex tended release 24 hr TAKE 1 TABLET BY MOUTH EVERY DAY 10/23 completed Not Available Not Available Not Available sertralin e 100 mg tablet Take 1 tablet every day by oral route for 90 days. 01/31 completed ordered in error Not Available Not Available Not Available Wellbutri n SR 150 mg tablet, 12 hr sustained -release TWO TIMES DAILY SEE NOTE 08/04 completed RECORDED 08/21/19 10 8:54PM BY CHRISTIN Schaefer NP, MEDICATI ON AUTO-CHANO CTIVATIO N;FIRST 3 DAYS ONLY ONCE A DAY Not Available Not Available Not Available Diovan 160 mg capsule QD 08/06 completed RECORDED 08/06/19 07 8:27AM BY ELIZABETH BEAULIEU, MEDICATI ON AUTO-CHANO CTIVATIO N;THIS ORDER DISCONTI NUED PER MEDI-SPA N. Not Available Not Available Not Available hydralazi ne 25 mg tablet TAKE 1 TABLET EVERY 8 HOURS BY ORAL ROUTE FOR 90 DAYS. active Not Available Not Available No t Available chlorthal idone 25 mg tablet TAKE 1 TABLET BY MOUTH EVERY DAY 03/26 completed Not Available Not Available Not Available sulfameth oxazole 800 mg-trimet hoprim 160 mg tablet Take 1 tablet every 12 hours by oral route for 7 days. 12/07 completed Not Available Not Available Not Available sildenafi l 100 mg tablet NEEDED 08/15 completed RECORDED 08/15/19 12 5:16PM BY JOVANY PEOPLES MD, ANNOTATI ON/ADDEN DUM; Not Available Not Available Not Available triamcino lone acetonide 0.1 % topical cream APPLY TO AFFECTED AREA TWICE A DAY 2018 active Not Available Not Available Not Avai lable simvastat in 40 mg tablet Take 1 tablet every day by oral route for 90 days. 01/03 completed Not Available Not Available Not Available levothyro xine 25 mcg tablet Take 1 tablet every day by oral route. active Not Available Not Available No t Available oxycodone -acetamin ophen 5 mg-325 mg tablet 05/06 completed Not Available Not Available Not Available amoxicill in 875 mg tablet 01/30 completed Not Available Not Available Not Available citalopra m 20 mg tablet DAILY 08/15 completed RECORDED 08/15/19 12 5:16PM BY JOVANY PEOPLES MD, ANNOTATI ON/ADDEN DUM; Not Available Not Available Not Available prednisol one acetate 1 % eye drops,[place] pension INSTILL 1 DROP INTO THE LEFT EYE 4 TIMES A DAY STARTING THE DAY AFTER SURGERY 03/26 completed Not Available Not Available Not Available Vitamin C 1,000 mg tablet Take 1 mg every day by oral route. active Not Available Not Available No t Available tamsulosi n 0.4 mg capsule TAKE 1 CAPSULE BY MOUTH EVERY DAY 03/26 completed Not Available Not Available Not Available deslorata dine 5 mg tablet DAILY 03/19 completed RECORDED 03/19/20 13 5:08PM BY JOVANY PEOPLES MD, ANNOTATI ON/OBI DUM; Not Available Not Available Not Available erythromy carmine 5 mg/gram (0.5 %) eye ointment APPLY TO LIDS AT BEDTIME active Not Available Not Available No t Available naproxen sodium 550 mg tablet 04/21 completed Not Available Not Available Not Available ferrous sulfate 325 mg (65 mg iron) tablet TAKE 1 TABLET BY MOUTH TWICE A DAY active He no longer needs this med. His anemia has resolved . Not Available Not Available Not Available valsartan 320 mg tablet TAKE 1 TABLET BY MOUTH EVERY DAY active Not Available Not Available No t Available ascorbic acid (vitamin C) ER 500 mg capsule,e xtended release DAILY 2012 active RECORDED 12/17/19 14 9:52AM BY SHAUNNA RILEY I, OFFICE VISIT; Not Available Not Available Not Available docusate sodium 100 mg capsule TAKE 1 CAPSULE BY MOUTH EVERY DAY active Not Available Not Available No t Available omeprazol e 20 mg capsule,d elayed release TAKE 1 CAPSULE BY MOUTH EVERY DAY active Not Available Not Available No t Available dorzolami de 22.3 mg-timolo l 6.8 mg/mL eye drops INSTILL 1 DROP INTO BOTH EYES 2 TMES A DAY active Not Available Not Available No t Available metoprolo l succinate ER 25 mg tablet,ex tended release 24 hr TAKE 1/2 TABLET EVERY DAY BY ORAL ROUTE FOR 90 DAYS. 10/08 completed has not been taking for the last 3 months Not Available Not Available Not Available lorazepam 1 mg tablet TAKE 1 TABLET NEEDED BEFORE FLYING active Not Available Not Available No t Available ibuprofen 600 mg tablet Take 1 tablet every 8 hours by oral route as needed for 5 days. 04/21 completed Not Available Not Available Not Available timolol maleate 0.5 % eye drops INSTILL 1 DROP IN LEFT EYE EVERY MORNING active Not Available Not Available No t Available losartan 100 mg tablet TAKE 1 TABLET BY MOUTH EVERY DAY 03/22 completed Not Available Not Available Not Available fluoxetin e 20 mg capsule QD 06/03 completed RECORDED 06/03/20 09 8:49PM BY CHRISTIN Schaefer NP, OFFICE VISIT; Not Available Not Available Not Available fluticaso ne propionat e 50 mcg/actua tion nasal spray,[facility] [place] 2 sprays every day by nasal route for 30 days. active Not Available Not Available No t Available sertralin e 50 mg tablet Take 1 tablet every day by oral route for 90 days. 10/23 completed Not Available Not Available Not Available loratadin e 10 mg tablet TAKE 1 TABLET BY MOUTH EVERYDAY AT BEDTIME active Not Available Not Available No t Available Ventolin HFA 90 mcg/actua tion aerosol inhaler INHALE 2 PUFFS BY MOUTH EVERY 4 HOURS NEEDED active Not Available Not Available No t Available valsartan 160 mg tablet Take 1 tablet every day by oral route for 90 days. 11/12 completed wrong dose Not Available Not Available Not Available Vitamin D 50,000 unit capsule ONCE A WEEK 08/15 completed RECORDED 08/15/19 12 5:16PM BY JOVANY PEOPLES MD, [place] ON/ADDEN DUM;THIS ORDER DISCONTI NUED PER MEDI-SPA N. Not Available Not Available Not Available Vitamin D3 25 mcg (1,000 unit) tablet Take 2 tablets every day by oral route for 90 days. 2014 active Not Available Not Available Not Avai lable flunisoli de 29 mcg (0.025 %) nasal spray DAILY 08/15 completed RECORDED 08/15/19 12 5:16PM BY JOVANY PEOPLES MD, [place]/ADDEN DUM; Not Available Not Available Not Available Multivita min 50 Plus tablet Take 1 tablet every day by oral route. active Not Available Not Available No t Available cetirizin e 10 mg chewable tablet DAILY 08/15 completed RECORDED 08/15/19 12 5:16PM BY JOVANY PEOPLES MD, [place]/ADDEN DUM; Not Available Not Available Not Available nitrofura ntoin monohydra te/macroc rystals 100 mg capsule Take 1 capsule every 12 hours by oral route for 7 days. 02/24 completed Not Available Not Available Not Available diaper,br ief,adult ,disposab le 03/15 completed Not Available Not Available Not Available omega-3 acid ethyl esters 1 gram capsule TAKE 2 CAPSULES BY MOUTH TWICE A DAY active Not Available Not Available No t Available vitamin E (dl, acetate) 45 mg (100 unit) capsule Take 1 capsule every day by oral route. active Not Available Not Available No t Available chlorhexi dine gluconate 0.12 % mouthwash three times daily as needed 10/23 completed Not Available Not Available Not Available levothyro xine 25 mg daily 10/23 completed Not Available Not Available Not Available ferrous sulfate TWO TIMES DAILY 2013 active RECORDED 07/18/19 14 2:41PM BY JOVANY PEOPLES MD, REFILL REQUEST; Not Available Not Available Not Available fluticaso ne propionat e 16 gm spray 2 spray nasal daily #15 10/23 completed Not Available Not Available Not Available metoprolo l succinate 212.5 mg daily #30 10/23 completed Not Available Not Available Not Available [place] 3 take 1 tablet po daily 03/26 completed Not Available Not Available Not Available Triamcino lone Acetate BID 12/10 completed RECORDED 12/17/19 13 12:35PM BY JOVANY PEOPLES MD, MEDICATI ON AUTO-CHANO CTIVATIO N; Not Available Not Available Not Available varenicli ne tartrate 1 mg tablet TWO TIMES DAILY 03/02 completed RECORDED 03/02/20 10 4:37PM BY [place] HAMMER ON/OBI DUM; Not Available Not Available Not Available Chantix Starting Month Tab 0.5 mg (11)-1 mg (42) tablets in dose pack TWO TIMES DAILY 11/08 completed RECORDED 01/07/20 08 2:50PM BY CHRISTIN Schaefer NP, MEDICATI ON AUTO-CHANO CTIVATIO N; Not Available Not Available Not Available fenofibra te nanocryst allized 145 mg tablet QD 08/15 completed RECORDED 08/15/19 12 5:16PM BY JOVANY PEOPLES MD, ANNOTATI ON/OBI DUM; Not Available Not Available Not Available hydrochlo rothiazid e 12.5 mg tablet TAKE 1 TABLET BY MOUTH EVERY DAY active Not Available Not Available No t Available peg 3350-elec trolytes 236 gram-22.7 4 gram-6.74 gram-5.86 gram solution 09/19 completed Not Available Not Available Not Available FreeStyle Lite Meter kit USE DIRECTED TO TEST BLOOD SUGAR TWICE DAILY active Not Available Not Available No t Available FreeStyle Lite Strips USE 1 STRIP TWICE A DAY DIRECTED 2022 active Not Available Not Available Not Avai lable Lumigan 0.01 % eye drops INSTILL 1 DROP IN LEFT EYE AT BEDTIME active Not Available Not Available No t Available Cosopt (PF) 2 %-0.5 % eye drops in a dropperet te 09/19 completed Not Available Not Available Not Available melatonin 10 mg tablet Take 1 tablet every day by oral route. active Not Available Not Available No t Available Drysol 20 % topical solution Apply 1 applicat ion 3 times a week by topical route as needed for 30 days. 2022 active Not Available Not Available Not Avai lable Vitals Date Recorded Body height Body mass index (BMI) Body weight Heart rate Oxygen saturation Oxygen saturation in Arterial blood by Pulse oximetry Body temperature Systolic And Diastolic Systolic And Diastolic Provider Name and Address Organization Details Last Updated DateTime 2 170.82 cm 33.3 kg/m2 56905.4 7 g 84 /min 99 % 99 % 97.52 [degF] 146/71 mm[Hg] 134/72 mm[Hg] Yennifer Stevens MA [facility] [place] 2 10:53:20 Date Recorded Body height Body mass index (BMI) Body weight Heart rate Oxygen saturation Oxygen saturation in Arterial blood by Pulse oximetry Body temperature Systolic And Diastolic Provider Name and Address Organization Details Last Updated DateTime 2 170.82 cm 33.6 kg/m2 51803.3 5 g 72 /min 98 % 98 % 97.88 [degF] 125/64 mm[Hg] Yennifer Stevens MA [facility] 2 10:37:15 Date Recorded Body height Body mass index (BMI) Body weight Heart rate Oxygen saturation Oxygen saturation in Arterial blood by Pulse oximetry Heart rate Systolic And Diastolic Provider Name and Address Organization Details Last Updated DateTime 3 170.82 cm 33.1 kg/m2 61448.1 7 g 80 /min 97 % 97 % 64 /min 164/81 mm[Hg] Karolyn morales MA [facility] 3 15:23:51 Date Recorded Body height Body mass index (BMI) Body weight Heart rate Oxygen saturation Oxygen saturation in Arterial blood by Pulse oximetry Body temperature Systolic And Diastolic Provider Name and Address Organization Details Last Updated DateTime 1 170.82 cm 35 kg/m2 945457. 28 g 63 /min 98 % 98 % 98.42 [degF] 122/62 mm[Hg] Salud Aldridge MA [facility] 1 11:00:11 Date Recorded Body height Body mass index (BMI) Body weight Heart rate Oxygen saturation Oxygen saturation in Arterial blood by Pulse oximetry Body temperature Systolic And Diastolic Systolic And Diastolic Provider Name and Address Organization Details Last Updated DateTime 2 170.82 cm 32.3 kg/m2 89886.4 2 g 70 /min 98 % 98 % 98.42 [degF] 151/74 mm[Hg] 144/68 mm[Hg] Yennifer Stevens MA [facility] 2 10:37:50 Social History Question Answer Notes LastModified by Organizat ion Details LastModified Time Tobacco Smoking Status Never Smoker Not Available [employer] 04/26/2020 03:36:36 Do You Have An Advance Directive? Yes [email or web address] Information not available 09/20/2021 Is Blood Transfusion Acceptable In An Emergency? Yes [id number] Information not available 04/26/2020 What Is Your Level Of Caffeine Consumption? Moderate 2 Cups Daily Of Coffee; Occ Soda [id number] Information not available 04/26/2020 How Much Tobacco Do You Chew? None [id number] Information not available 04/26/2020 Are You Deaf Or Do You Have Serious Difficulty Hearing? Yes [email or web address] Information not available 09/20/2021 What Type Of Diet Are You Following? CARDIAC Low Salt [id number] Information not available 04/26/2020 Which Illicit Or Recreational Drugs Have You Used? None [id number] Information not available 04/26/2020 Live Alone Or With Others? Alone [email or web address] Information not available 09/20/2021 Do You Take Precautions To Prevent Distracted Driving? No Information not available 03/22/2021 How Often Do You Need To Have Someone Help You When You Read Instructions, Pamphlets, Or Other Written Material From Your Doctor Or Pharmacy? Always Qwite Information not available 05/04/2016 Have You Served In The ? No Qwite Information not available 05/04/2016 *AWV ONLY* Are You Presently Prescribed Opioid Medication By PCP Or Specialist? If YES -Provider Assess The Benefit For Other, Non-opioid Pain Therapies Instead, Even If The Patient Does Not Have OUD But Is Possibly At Risk. No Information not available 03/22/2021 Marital Status Single [email or web address] Informatio n not available 09/20/2021 What Was The Date Of Your Most Recent Tobacco Screening? 10/08/2022 [email or web address] Information not available 10/08/2022 How Many Children Do You Have? 2 Daughters In [place] [id number] Information not available 04/26/2020 Difficulty Reading? Yes [email or web address] Information not available 09/20/2021 Seat Belts Used Routinely Yes [email or web address] Information not available 09/20/2021 Are You Sexually Active? No [id number] Information not available 04/26/2020 Smoke Alarm In Home Yes [email or web address] Information not available 09/20/2021 At What Age Did You Start Smoking Tobacco? 1 [id number] Information not available 04/26/2020 Are You Passively Exposed To Smoke? No [email or web address] Information not available 05/04/2016 How Much Tobacco Do You Smoke? No [id number] Information not available 04/26/2020 Do You Use Sunscreen Routinely? Yes [id number] Information not available 04/26/2020 How Many Years Have You Smoked Tobacco? 0 [id number] Information not available 04/26/2020 Do You Have Difficulty Walking Or Climbing Stairs? Yes [email or web address] Information not available 09/20/2021 Sex: Unknown Functional Status Question Answer Note LastModified by Organizat ion Details LastModified Time Do you use any illicit or recreational drugs? No [email or web address] Information not available 09/20/2021 Do you or have you ever used any other forms of tobacco or nicotine? No [email or web address] Information not available 09/20/2021 What is your level of alcohol consumption? Occasional stopped alcohol early 2018 [id number] Information not available 04/26/2020 Do you or have you ever used smokeless tobacco? Never used smokeless tobacco [id number] Information not available 04/26/2020 Are you currently employed? No retired [id number] Information not available 04/26/2020 Are you able to walk independently without assistance or assistive devices? YESLIMIT [email or web address] Information not available 09/20/2021 Do you have difficulty doing errands alone? Yes [email or web address] Information not available 09/20/2021 Are you able to care for yourself independently? No NEW PATIENT ESCORT: Sophie Camargo # [id number] Information not available 04/26/2020 Do you have difficulty dressing, bathing, grooming, or toileting? Yes Information not available 09/20/2021 Do you or have you ever used e-cigarettes or vape? Never used electronic cigarettes [email or web address] Information not available 09/20/2021 What is your exercise level? None [id number] Information not available 04/26/2020 Mental Status Question Answer Note LastModified by Organization D etails LastModified Time Do you have difficulty concentrating, remembering or making decisions? No [email or web address] Information no t available 09/20/2021 Family History Relationship Description Onset Age of this Age Resolved Age Notes LastModified by Organization Details LastModified Time Father Glaucoma [email or web address] Not avail able 06/14/2015 13:36:14 Medical History Condition Response Other N Gout N Kidney Stones N Blood Diseases N Hyperthyroidism N Breast Cancer N Depression N COPD N Lung Disease N Hypothyroidism N Defects or Inherited Disease N Anesthesia Complications N Headaches/Migraines N Varicose Veins N Anxiety Disorder N Obesity N Vision or Eye Problems N Arthritis N Head Injury/Concussion N Polyps N Infertility N Congenital Anomalies N Acid Reflux (GERD) N Cancer N Stroke N ADHD N Endometriosis N High Cholesterol N Liver Disease N Fibromyalgia N Kidney Disease N Heart Problems N Ear or Hearing Problems N Hospitalizations N Thyroid Problems N GI Problems N Acne N Eating Disorder N Skin Problems N Anemia N Constipation N Bladder Problems N Mental Illness N Ovarian Cancer N Diabetes N Blood Transfusions N Seizures/Epilepsy N Tuberculosis N AIDS/HIV N Congestive Heart Failure (CHF) N Eczema N Diverticulitis N Abuse/Domestic Violence N Asthma N Allergies N Reflux/GERD N Hepatitis N Pulmonary Embolism N Hypertension N Chicken Pox N Autism Spectrum Disorder (ASD) N Osteoporosis N Immunizations Vaccine Type Date Status Note Provider Nam e and Address Organization Details Recorded Time Pneumococcal conjugate PCV 13 5 completed Not Available [facility] 07/11/2019 02:21:36 COVID-19, mRNA, LNP-S, PF, 30 mcg/0.3 mL dose 1 completed Angelica felix [facility] 10/12/2022 13:06:03 COVID-19, mRNA, LNP-S, PF, 30 mcg/0.3 mL dose 1 completed Angelica felix [facility] 10/12/2022 13:06:03 zoster recombinant 1 completed Angelica felix [facility] 10/12/2022 13:06:03 COVID-19, mRNA, LNP-S, PF, 30 mcg/0.3 mL dose 1 completed Angelica felix [facility] 10/12/2022 13:06:03 Influenza, split virus, quadrivalent, PF 5 completed Not Available [facility] 07/11/2019 02:22:02 zoster recombinant 3 completed Angelica felix [facility] 10/12/2022 13:06:03 Td (adult), 5 Lf tetanus toxoid, preservative free, adsorbed 7 completed Not Available [facility] 07/11/2019 02:21:34 Influenza, high-dose, trivalent, PF 8 completed Not Available [facility] 07/11/2019 02:22:14 Influenza, high-dose, trivalent, PF 9 completed Not Available [facility] 07/11/2019 02:22:09 Influenza, high-dose, quadrivalent, PF 0 completed Janie Mascorro MA null, [facility] 03/15/2020 11:05:32 Influenza, high-dose, quadrivalent, PF 1 completed Salud Aldridge MA null, [facility] 03/22/2021 11:56:56 pneumococcal polysaccharide PPV23 7 completed Angelica Blas [facility] 10/12/2022 13:06:03 Td (adult), 2 Lf tetanus toxoid, preservative free, adsorbed 7 completed Angelica Blas [facility] 10/12/2022 13:06:03 Influenza, split virus, trivalent, preservative 8 completed Angelica felix, [facility] 10/12/2022 13:06:03 pneumococcal polysaccharide PPV23 8 [facility] 13:06:03 Novel [id number], all formulations 0 [facility] 13:06:03 Influenza, split virus, trivalent, preservative 0 completed Angelica felix, [facility] 10/12/2022 13:06:03 Influenza, split virus, trivalent, preservative 0 completed Angelica felix, [facility] 10/12/2022 13:06:03 Influenza, split virus, trivalent, preservative 1 [facility] 13:06:03 Influenza, high-dose, quadrivalent, PF 2 completed Jovany Corey MD [address] [address], [place], [address], [facility] 03/26/2022 12:46:42 Past Encounters Encounter ID Performer Location Encounter Start Date Encounter Closed Date Diagnosis/Indication Diagnosis SNOMED-CT Code Diagnosis ICD10 Code Diagnosis IMO Codes Diagnosis Note [id number] [facility] [address] [facility] [place] [address] 08/21/2006 00:00:00 [id number] [employer] [address] [facility] [place] [address] 04/30/2006 00:00:00 [id number] [employer] [address] [facility] [place] [address] 12/28/2005 00:00:00 [id number] [employer] [address] [facility] [place] [address] 10/19/2005 00:00:00 [id number] [employer] [address] [facility] [place] [address] 07/27/2005 00:00:00 [id number] [employer] [facility] [address] [facility] [place] [address] 10/01/2006 00:00:00 [id number] [employer] [address] [facility] [place] [address] 11/21/2006 00:00:00 [id number] [employer] [facility] [address] [facility] [place] [address] 05/14/2007 00:00:00 [id number] [employer] [facility] [address] [facility] [place] [address] 07/04/2007 00:00:00 [id number] [employer] [facility] [address] [facility] [place] [address] 10/10/2007 00:00:00 [id number] [employer] [facility] [address] [facility] [place] [address] 01/20/2008 00:00:00 [id number] [address] [place] [address] 05/04/2008 00:00:00 [id number] [address] [facility] [place] [address] 08/05/2008 00:00:00 [id number] [address] [facility] [address] [place] [address] 08/31/2008 00:00:00 [id number] [facility] [facility] [address] [place] [place] [address] 11/01/2008 00:00:00 [id number] [address] [address] [place] [address] 02/14/2009 00:00:00 [id number] auto[facility]Comm erce [address] [facility] [place] [address] 04/11/2009 00:00:00 [id number] auto[employer]Comm erce [address] [facility] [place] [address] 06/03/2009 00:00:00 [id number] auto[facility]Comm erce [address] [facility] [place] [address] 07/05/2009 00:00:00 [id number] auto[employer]Comm erce [address] [facility] [place] [address] 01/20/2010 00:00:00 [id number] auto[employer]Comm erce [address] [facility] [place] [address] 04/21/2010 00:00:00 [id number] auto[employer]Comm erce [address] [facility] [place] [address] 09/08/2010 00:00:00 [id number] auto[facility]Comm erce [address] [facility] [place] [address] 12/21/2010 00:00:00 [id number] auto[facility]Comm erce [address] [facility] [place] [address] 05/15/2011 00:00:00 [id number] autoEComm erce [address] [facility] [place] [address] 07/16/2011 00:00:00 [id number] auto[facility] erce [address] [place] [address] 11/15/2011 00:00:00 [id number] auto[facility]Comm erce [address] [place] [address] 05/21/2012 00:00:00 [id number] autoEComm erce [address] [facility] [place] [address] 08/19/2012 00:00:00 [id number] [facility] erce [address] [place] [address] 11/10/2012 00:00:00 [id number] auto[employer]Comm erce [address] [facility] [place] [address] 03/19/2013 00:00:00 [id number] [facility] erce [address] [facility] [place] [address] 09/15/2013 00:00:00 [id number] auto[employer] erce [address] [facility] [place] [address] 12/16/2013 00:00:00 [id number] Jovany Corey MD Main Office [address] [address] [place], [place] [address] 03/23/2014 08:47:15 03/23/2014 10:14:32 Type 2 diabetes mellitus 49311650 Mixed hyperlipidemia 298250916 [place] blindness [place] 797304425 Essential hypertension 35231499 [id number] Jovany Corey MD Main Office [address] [address] [place], [place] [address] 07/05/2014 13:44:38 07/05/2014 15:35:38 Adult health examination 390470308 [facility] 597235621 Erectile d ysfunction due to type 2 diabetes mellitus 022132265 Essential hypertension 66344931 Hearing loss 55423539 [id number] Jovany Corey MD Main Office [address] [address] [place] [address] 10/13/2014 09:52:52 10/13/2014 11:08:24 Type 2 diabetes mellitus 35013068 Administra tion of pneumococcal vaccine 00855590 Urinary incontinence 114731226 we will like into getting diapers for him. He is able to put these on himself. Vitamin D deficiency 11062607 he has been taking daily supplement s. Has been low in the past and does not get much sunlight. Legal blindness [place] 847569002 his eyesight is getting worse. He was able to see shadows which helped when he was trying to prepare himself food but that is getting worse. He feels that it is because his eyedrops have changed but his NEW PATIENT ESCORT states that the drops are the same and only the size of the container has changed. He will call Dr Lopes's office to clear this up. 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 063182672 Recurrent major depressive episodes, moderate 913547086 stable on meds [id number] Jovany Corey MD Main Office [address] [address] [place] [address] 06/14/2015 13:20:04 06/14/2015 14:13:09 Erectile dysfunction due to type 2 diabetes mellitus 525393208 N52.1 Needs infl uenza immunization 866358755 Z23 Snoring symptoms 9268936 00 R06.83 Gastroesop hageal reflux disease 135372824 K21.9 Mixed hyperlipidemia 267 958711 E78.2 [id number] Jovany Corey MD Main Office [address] [address] [place] [address] 09/20/2015 08:48:34 09/20/2015 10:02:33 Fear of flying 002220040 F40.243 Essential hypertension 32556610 I10 Gastroesop hageal reflux disease 821010841 K21.9 Allergic rhinitis 019909 04 J30.9 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 Today it was 6.1 so no need for meds. Recurrent major depressive episodes, moderate 559740893 F33.9 stable on meds Neck pain 12949987 M54.2 this appears to be muscular. Mixed hyperlipidemia 267 100838 E78.2 recently changed his meds from simvastati n to atorvastat in in order to get better control. 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 Essential hypertension 67349937 I10 BP has been running high so we will increase his dose of metoprolol and see him back 1 month. Mixed hyperlipidemia 267 783250 E78.2 recently changed his meds from simvastati n to atorvastat in in order to get better control. Urinary incontinence 165 948134 R32 He needs extra large instead of large. He is able to put these on himself. Legal blindness [place] 1937 [address] H54.8 his eyesight is getting worse. He was able to see shadows which helped when he was trying to prepare himself food but that is getting worse. He is still using drops and is followed by Dr Lopes. [id number] Jovany Corey MD Main Office [address] [place] [address] 05/30/2016 09:01:18 05/30/2016 10:01:21 Essential hypertension 92404013 I10 BP has improved since increasing his metoprolol . Continue and monitor. Yoruba as a second language 254019608 Z60.8 Edema 484788158 R60.9 This is intermitte nt and around ankles. Will prescribe stockings but will also get a stress test to r/o heart disease given his fhx. [id number] Jovany Corey MD Main Office [address] [address] [place] [address] 09/24/2016 09:37:10 09/24/2016 10:22:31 Retinopathy due to type 2 diabetes mellitus 865166284 E11.311 Mildly elevated A1C; not on meds. Ankle pain 312545272 M25 .572 No injury; some mild swelling. Recurrent major depressive episodes, moderate 642019031 F33.9 stable on meds Essential hypertension 14640431 I10 Will increase his metoprolol from 50 to 100 mg Low back pain 922875344 M54.5 This is probably from OA and lack of moving around. 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 [id number] Jovany Corey MD Main Office [address] [address] [place] [address] 12/17/2016 10:38:08 12/17/2016 11:23:21 Multiple skin tags 738865038 L91.8 Skin lesion 73140258 L98 .9 These all appear to be benign. [id number] Jovany Corey MD Main Office [address] [address] [place] [place] [address] 01/30/2017 13:51:07 01/30/2017 15:52:31 Retinopathy due to type 2 diabetes mellitus 491233481 E11.311 Mildly elevated A1C; not on meds. Essential hypertension 10851375 I10 No changes at this time. We will follow. Recurrent major depressive episodes, moderate 736048502 F33.1 We will increase his sertraline from 50 to 100 mg to get better control. [id number] Jovany Corey MD Main Office [address] [address] [place] [address] 05/06/2017 10:57:14 05/06/2017 11:55:50 Adult health examination 760537158 Z00.00 We will update his immunizati ons. He is UTD with colonoscop y and no longer needs screening. 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 [place] blindness [place] 1936 [address] H54.8 his eyesight is getting worse. Essential hypertension 52127177 I10 No changes at this time. We will follow. History of malignant neoplasm of prostate 635959001 Z85.46 Followed by urology; had prostatect shane. [id number] Jovany Corey MD Main Office [address] [place] [address] 08/16/2017 09:58:24 08/16/2017 11:04:30 Retinopathy due to type 2 diabetes mellitus 021140130 E11.319 This has been diet-contr olled for years. Recurrent major depressive episodes, moderate 297988012 F33.1 stable on meds [place] 1936 [address] H54.8 his eyesight is getting worse. Foot pain 42147371 M79.6 73 Essential hypertension 04466286 I10 Running high. Will start a diuretic and see him back in one month. Also discussed his alcohol intake and recommende d that he cut back to drinks per day. [id number] Jovany Corey MD Main Office [address] [place] [address] 10/18/2017 10:57:42 10/18/2017 11:38:19 Essential hypertension 08884423 I10 Feels like his BP is running too low at times since adding the chlorthali done. Will stop it and start a low dose of HCTZ instead. Gastroesop hageal reflux disease 627640092 K21.9 Advised to cut back on nighttime eating and alcohol. [id number] Jovany Corey MD Main Office [address] [place] [address] 12/12/2017 10:03:36 12/12/2017 11:15:45 Retinopathy due to type 2 diabetes mellitus 033096333 E11.319 This has been diet-contr olled for years. Hearing loss 02335453 H9 1.93 [id number] Jovany Corey MD Main Office [address] [address] [place] [address] 03/13/2018 10:44:46 03/13/2018 11:25:54 Retinopathy due to type 2 diabetes mellitus 240659876 E11.319 This has been diet-contr olled for years. Influenza vaccine needed 4133281312 106 Z23 Essential hypertension 98054728 I10 Stopped the HCTZ because of a rash on his chest. Taking metoprolol and valsartan and BP under good control [id number] Ryan Small PA-C Main Office [address] [address] [place] [address] 04/21/2018 11:02:30 04/21/2018 12:38:23 Dry skin dermatitis 108912351 L85.3 see below Itching of skin 15526437 0 L29.9 Herpes zoster 2211111 B0 2.9 healed over vesicles at top of L buttocks region - possibly up to 1 wk old as per my guestimate - no pain in this area in prior wk or 2 as per pt - too late for anti-viral tmt, rec calamine (see below), consider shingle shot at next o.v. (PE in 2 wks) [id number] Jovany Corey MD Main Office [address] [address] [place] [address] 05/29/2018 13:05:38 05/29/2018 14:02:20 Adult health examination 277731356 Z00.00 He is UTD with immunizati ons. He is UTD with colonoscop y and no longer needs screening. 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 Essential hypertension 73010296 I10 Stopped the HCTZ because of a rash on his chest. Taking metoprolol and valsartan and BP under good control Bilateral knee pain 1187 856593 6282651 M25.561 M25.562 Possibly OA Male urina ry stress incontinence 033500301 N39.3 [id number] Jovany Corey MD Main Office [address] [address] [place] [address] 09/04/2018 10:20:08 09/04/2018 11:42:42 Retinopathy due to type 2 diabetes mellitus 839991826 E11.319 This has been diet-contr olled for years. A1C is 6.5 today so no need for meds. Essential hypertension 66519291 I10 Will add chlorthali done to his regimen Mass of left breast 1224 466357 0871362 N63.42 Mildly tender. 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 Eczema 13239240 L30.9 [id number] Stone Casper MD Main Office [address] [address] [place] [address] 10/20/2018 10:02:43 10/20/2018 13:13:50 [id number] Stone Casper MD Main Office [address] [address] [place] [address] 10/23/2018 09:55:10 10/23/2018 11:07:41 Transition of care 7028271019 105 Z75.8 Dizziness 197613100 R42 better s/p hospitaliz ation, cont meds as dir Bradycardia 40668824 R00 .1 better p reduction of BB Essential hypertension 56720511 I10 stable, cont meds as dir - check bmp c tsh Hypothyroidism 02170013 E03.9 new dx - check tsh in ~ 6 wks - cont supp as dir [id number] Jovany Corey MD Main Office [address] [address] [place] [address] 01/05/2019 09:39:11 01/05/2019 11:00:43 Retinopathy due to type 2 diabetes mellitus 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 A1C is 6.4 today so no need for meds. Recurrent major depressive episodes, moderate 572421060 F33.1 stable on meds Essential hypertension 58302626 I10 Encouraged him to take his meds daily and not based on his BP results. Mixed hyperlipidemia 267 384349 E78.2 recently changed his meds from simvastati n to atorvastat in in order to get better control. [id number] Jovany Corey MD Main Office [address] [address] [place] [address] 06/03/2019 10:16:45 06/03/2019 11:55:08 Adult health examination 142068742 Z00.00 He is UTD with immunizati ons except for a flu shot. He is UTD with colonoscop y and no longer needs screening. Influenza vaccine needed 8567225806 106 Z23 Allergic rhinitis 760627 04 J30.9 Retinopath y due to type 2 diabetes mellitus 757471837 E11.319 This has been diet-contr olled for years. A1C is 6.4 today so no need for meds. [place] 1936 [address] H54.8 his eyesight is getting worse. Essential hypertension 16216575 I10 Good control on current meds. Mixed hyperlipidemia 267 394772 E78.2 recently changed his meds from simvastati n to atorvastat in in order to get better control. Dysuria 27242118 R30.0 [id number] Jovany Corey MD Main Office [address] [address] 11/19/2019 09:39:58 11/19/2019 10:17:56 Abscess of skin and/or subcutaneous tissue 11255435 L02.91 Retinopath y due to type 2 diabetes mellitus 943709091 E11.319 This has been diet-contr olled for years. A1C is 6.6 today so no need for meds. Hypothyroidism 24951046 E03.9 Essential hypertension 18166924 I10 Good control on current meds. [id number] Jovany Corey MD Main Office [address] [address] 12/08/2019 10:45:35 12/08/2019 11:39:51 Retinopathy due to type 2 diabetes mellitus 699946580 E11.319 This has been diet-contr olled for years. A1C is 6.6 so no need for meds. Essential hypertension 94527154 I10 Good control on current meds. Low back pain 678100715 M54.5 This is probably from OA and lack of moving around. 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 [place] 1936 [address]173 H54.8 his eyesight is getting worse. [id number] Jovany Corey MD Main Office [address] [address] 03/15/2020 10:03:11 03/15/2020 11:08:49 Retinopathy due to type 2 diabetes mellitus 906129718 E11.319 This has been diet-contr olled for years. A1C is 6.6 so no need for meds. Renal diso rder due to type 2 diabetes mellitus 209379584 E11.29 Influenza vaccine needed 0348157309 106 Z23 Essential hypertension 27843750 I10 Good control on current meds. Hypothyroidism 17031764 E03.9 Constipation 69393788 K5 9.00 [id number] Karla fitch MD Main Office [address] [place] [address] 09/01/2020 13:29:36 09/02/2020 00:28:43 [id number] Jovany Corey MD Main Office [address] [place] [address] 09/08/2020 12:32:09 09/08/2020 13:54:23 Urinary tract infectious disease 59766760 N39.0 No dysuria but having frequency and hesitancy. Renal angl e tenderness 498587365 R10.829 Possible kidney stone. No h/o stones. Dizziness 417282156 R42 Benign par oxysmal positional vertigo 065236334 H81.10 Neck pain 81782805 M54.2 this appears to be muscular. [id number] Jovany Corey MD Main Office [address] [address] 03/22/2021 10:03:53 03/22/2021 11:45:59 Adult health examination 485070980 Z00.00 He is UTD with pneumonia, COVID and tetanus vaccines. He will get a flu vaccine today and was advised to get a shingles vaccine at his pharmacy. He was also advised to get his booster COVID shot at this pharmacy. He is UTD with colonoscop y and no longer needs screening. Chronic ki dney disease due to type 2 diabetes mellitus 8928384325 08 E11.22 Hypothyroidism 63754444 E03.9 Varicella vaccination 68 971680 Z23 Influenza vaccine needed 8403015782 106 Z23 Mixed hyperlipidemia 267 769648 E78.2 C/w atorvastat in. Last LDL was at goal. Gastroesop hageal reflux disease 723707025 K21.9 Advised to cut back on night time eating and alcohol. [place] 193 [address]056 H54.8 his eyesight is getting worse. Urinary incontinence 165 860138 R32 He needs extra large instead of large diapers. He is able to put these on himself. Hypertensi ve renal disease 06385958 I12.9 Good control on current meds. Chronic ki dney disease stage 3 979724171 N18.30 [id number] Jovany Corey MD Main Office [address] [address] 06/26/2021 10:32:39 06/26/2021 11:39:57 Hypertensive renal disease 99887490 I12.9 Good control on current meds. Chronic ki dney disease due to type 2 diabetes mellitus 1095178896 08 E11.22 No changes in mgmt. Will follow his A1C twice yearly. Chronic ki dney disease stage 3 322621745 N18.30 Gastroesop hageal reflux disease 455184447 K21.9 Advised to cut back on night time eating and alcohol. [id number] Jovany Corey MD Main Office [address] [address] 09/20/2021 10:19:08 09/20/2021 11:05:46 Hypertensive renal disease 01885245 I12.9 Good control on current meds. Chronic ki dney disease due to type 2 diabetes mellitus 0544604275 08 E11.22 No changes in mgmt. Will follow his A1C twice yearly. History of SARS-CoV-2 29 73731507 77984216 Z86.16 He had mild symptoms after his second vaccine. He was advised to get a second booster (4th vaccine) since it has been 4 months since his last vaccine. His NEW PATIENT ESCORT will call [facility]. Chronic ki dney disease stage 3 479294616 N18.30 [id number] Jovany Corey MD Main Office [address] [address] 03/26/2022 09:46:24 03/26/2022 11:05:33 Adult health examination 274392326 Z00.00 He is UTD with pneumonia, COVID and tetanus vaccines. He will get a flu vaccine today and had his shingles vaccine at his pharmacy. He was also advised to get his booster COVID shot at this pharmacy. He is UTD with colonoscop y and no longer needs screening. Influenza vaccine needed 9131374217 106 Z23 Chronic maddi dney disease due to type 2 diabetes mellitus 0068367991 08 E11.22 No changes in mgmt. Will follow his A1C twice yearly. Chronic maddi dney disease stage 3 979217672 N18.30 Asthma 881094782 J45.90 9 Generally well-contr olled. [id number] Jovany Corey MD Main Office [address] [facility] [address] [place] [address] 10/08/2022 14:19:19 10/08/2022 15:56:26 Hypertensive renal disease 01634675 I12.9 Good control on current meds. Constipation 01445591 K5 9.00 Controlled with meds. Fear of flying 518583482 F40.243 He will be accompanie d by his NEW PATIENT ESCORT. Excessive sweating 17522 005 R61 Varicella vaccination 68 717338 Z23 Mixed hyperlipidemia 267 882580 E78.2 C/w atorvastat in. Last LDL was at goal. Chronic maddi dney disease stage 3A 056700607 N18.31 Renal diso rder due to type 2 diabetes mellitus 897204344 E11.22 This has been diet-contr olled for years. No need for meds. Health Concerns Section Related Observation LastModified by Organization Detai ls LastModified Time None Recorded Concern Status LastModified by Organization Details LastModified Time None Recorded Advance Directives Directive Y: Payers Insurance Date Sequence Insurance Name Policy Number Policy Petersen Covered Member ID Petersen Member ID Guarantor Name 10/05/2022 1 [employer] [facility] - DOS PRIOR TO 2022 - DUAL ELIGIBLE (MEDICARE REPLACEMENT/AD VANTAGE - HMO) Jevon Oliver [id number] Jevon Oliver 03/22/2021 1 [place] [employer] Jevon Oliver [id number] Jevon Oliver 03/22/2021 2 [place] [facility] Jevon Oliver [id number] Jevon Oliver 10/08/2022 1 [facility] - DOS ON OR AFTER 2022 - ONE CARE (MEDICARE REPLACEMENT/AD VANTAGE - HMO) Jevon Oliver [id number] Jevon Oliver Notes Date Note Type Note Provider Name and Address Organization Details Recorded Time 1 text/html Medicare Annual Wellness VisitReported by PatientSocial/Behavioral HistoryFor fracture risk, patient reportshistory of fractures (fell and broke right big toe more than 10 years ago)but reportsno recent explained fracture. For physical activity, patient reportsdoes not exercise on a regular basisanddeconditioned due to sedentary lifestyle. For diet and nutrition, patient reportshealthy diet.Mental Status:For depression risk, patient reportshistory of mood disordersandhistory of depressionbut reportsnever feels sad, empty, or tearful,no loss of interest in activities,no significant changes in weight,no sleep disturbances or insomnia,no agitation,no loss of energy,no feelings of worthlessness or guilt, andno thoughts of suicide. For concentration and memory, patient reportsforgetting wordsbut reportsno decreased concentrating abilityandno memory lapses or loss. For orientation, patient reportsno disorientation to time,no disorientation to date, andno disorientation to place. For speech/motor difficulties, patient reportsno speech difficulties,no difficulty expressing formulated concepts,no difficulty with fine manipulative tasks, andno slowed reaction time.Functional AbilityFor hearing, patient reportsloss of hearing in one ear only (right). For vision, patient reportstotal vision loss. For activities of daily living, patient reportsunable to bathe without assistanceandunable to dress without assistancebut reportsable to contol urination and bowels,able to feed self with limited or no assistance,able to get out of chair or bed with limited or no assistance, andable to toilet with limited or no assistance. For instrumental activities of daily living, patient reportsunable to do house work without assistance,unable to grocery shop without assistance,unable to manage medications without assistance,unable to to prepare meals without assistance, andunable to use the phone without assistancebut reportsable to manage money with limited or no assistance. For falls risk assessment, patient reportsno frequent falls while walking,no fall in the past year,no fall since last visit, andno dizziness/vertigo.ROS as noted in the HPI He has been having problems with sneezing causing urinary incontinence. He has been wearing diapers because of this. Does not always know when he needs to urinate.Also having increasing bilateral knee pain when walking. He spends most of his day sitting. Kat felix, [facility] 03/23/2021 14:09:56 2 text/html Hypertension F/UReported by [facility]or lifestyle, patient reportsnot exercising regularlybut reportslimiting/avoiding salt. For medications, patient reportsnot taking medications as directed (he states that sometimes his bp is running low and he does not take his meds on those days.)but reportsno side effects from medication. For associated symptoms, patient reportsno dizziness,no lightheadedness,no chest pain,no shortness of breath,no edema, andno calf pain with exertion. Diabetes F/UReported by PatientHe does not exercise and does not always watch what he eats. He checks his sugars at home and they generally run in the low 100's. He has not been on meds for years. .ROS as noted in the HPI Jovany Corey MD [address] [address], [place], [address], [facility] 06/26/2021 18:03:29 2 text/html Hypertension F/UReported by PatientS[facility]ITALor lifestyle, patient reportsnot exercising regularlybut reportslimiting/avoiding salt. For associated symptoms, patient reportsno dizziness,no lightheadedness,no chest pain,no shortness of breath,no edema, andno calf pain with exertion. For medications, patient reportstaking medications as directedandno side effects from medication. Diabetes F/UReported by PatientHe does not exercise and does not always watch what he eats. He checks his sugars at home and they generally run in the low 100's. He has not been on meds for years. He sometimes has sugars around 190 but it comes down during the day. He has been fully vaccinated and boosted and is due for his second booster. He had a COVID infection last year with mild symptoms. Kat felix, [facility] 09/20/2021 11:24:27 2 text/html Medicare Annual Wellness VisitReported by PatientSocial/Behavioral HistoryFor fracture risk, patient reportshistory of fractures (fell and broke right big toe more than 10 years ago)but reportsno recent explained fracture. For physical activity, patient reportsdoes not exercise on a regular basisanddeconditioned due to sedentary lifestyle. For diet and nutrition, patient reportshealthy diet.Mental Status:For depression risk, patient reportshistory of mood disordersandhistory of depressionbut reportsnever feels sad, empty, or tearful,no loss of interest in activities,no significant changes in weight,no sleep disturbances or insomnia,no agitation,no loss of energy,no feelings of worthlessness or guilt, andno thoughts of suicide. For concentration and memory, patient reportsforgetting wordsbut reportsno decreased concentrating abilityandno memory lapses or loss. For orientation, patient reportsno disorientation to time,no disorientation to date, andno disorientation to place. For speech/motor difficulties, patient reportsno speech difficulties,no difficulty expressing formulated concepts,no difficulty with fine manipulative tasks, andno slowed reaction time.Functional AbilityFor hearing, patient reportsloss of hearing in one ear only (right). For vision, patient reportstotal vision loss. For activities of daily living, patient reportsunable to bathe without assistanceandunable to dress without assistancebut reportsable to contol urination and bowels,able to feed self with limited or no assistance,able to get out of chair or bed with limited or no assistance, andable to toilet with limited or no assistance. For instrumental activities of daily living, patient reportsunable to do house work without assistance,unable to grocery shop without assistance,unable to manage medications without assistance,unable to to prepare meals without assistance, andunable to use the phone without assistancebut reportsable to manage money with limited or no assistance. For falls risk assessment, patient reportsno frequent falls while walking,no fall in the past year,no fall since last visit, andno dizziness/vertigo.ROS as noted in the HPI Having increasing bilateral knee pain when walking. He spends most of his day sitting. Jovany Corey MD [address] [address], [place], [phone], [facility] 03/26/2022 12:52:47 3 text/html HyperlipidemiaReported by PatientC/w meds and last LDL was at goal Hypertension F/UReported by PatientHPIFor lifestyle, patient reportsnot exercising regularlybut reportslimiting/avoiding salt. For associated symptoms, patient reportsno dizziness,no lightheadedness,no chest pain,no shortness of breath,no edema, andno calf pain with exertion. For medications, patient reportstaking medications as directedandno side effects from medication. Diabetes F/UReported by PatientHe does not exercise and does not always watch what he eats. He checks his sugars at home and they generally run in the low 100's. He has not been on meds for years. He sometimes has sugars around 190 but it comes down during the day. He has been fully vaccinated and boosted and is due for his second booster. He had a COVID infection last year with mild symptoms. [facility]ix[facility] 10/09/2022 13:39:24
--- OUTSIDE RECORDS SUMMARY | 2025-04-20 14:35 | XMS_ITS | Data Portability ---
Author Organization [facility], [facility] Address [address] [place] [address] Care Team Providers Care Ophthalmology Assistant Name Role Phone HIM CCA OTHER TRUPTI BELLA Primary Care Provider [phone] Assessment Encounter Date Assessment Date Assessment LastModified by Organization Details LastModified Time 11/07/2023 11/07/2023 I provided real -time medical direction via phone for this encounter and was available for additional phone-based assistance as needed. I have reviewed and agree with the Assessment and Plan as documented by the Corporate Travel Expert. Patient given the opportunity to ask questions. Our service contacted for an assessment of: a rash As per above, [facility] chest, trunk, legs. Is not particularly symptomatic. Denies any lesions that are bleeding. Per supervisor bridges and buildings on the scene, VSS. Non-toxic. Please see uploaded pictures. Impression: Actinic keratosis Plan: For now - continue Triamcinolone cream. Will ask [facility] team to help with a Derm [...] Details Last Updated DateTime 4 98.7 [degF] 88199.8 72 g 98 % 98 % 16 [...] ICD10 Code Diagnosis IMO Codes Diagnosis Note [id number] Vira Iraheta MD Main - [facility] [address] [place] [id number] 11/07/2023 12:15:09 11/07/2023 22:14:54 Actinic keratosis 744284975 L57.0 Health Concerns Section Related Observation LastModified by Organization Detai ls LastModified Time None Recorded Concern Status LastModified by Organization Details LastModified Time None Recorded Advance Directives Directive None Recorded Payers Insurance Date Sequence Insurance Name Policy Number Policy Petersen Covered Member ID Petersen Member ID Guarantor Name 01/26/2024 1 [facility] - DOS ON OR AFTER 2022 - DUAL ELIGIBLE - HALF-WAY OPTIONS AND ONE CARE (MEDICARE REPLACEMENT/ADV ANTAGE - HMO) Jevon Oliver [id number] Jevon Oliver Notes Date Note Type Note Provider Name and Address Organization Details Recorded Time 11/07/2023 text/html CRC Nurse Triage Notes (Sophie Reid): Reason For Request: Rash/Skin infection Chief Complaints: Pain, Fever/Chills PMH: Diabetes Comments: 1130 member wants visit on 11/06 in the [facility] calling up to report ? skin infection, [...] started except ASA about 3 months agoPMH: [place], [place]. Visit before 1pm if possible so daughter can be there or after 5 pm today. ................... ................... ................... ................... ................... ................... ................... ........ Corporate Travel Expert Note From Maury Camargo: Patient complaint today [...] 1.5 inches in size showed purpling in color.[facility] consultedCare team will be contacted for referral to civil technician.Pt instructed to call for emergency services if red flag signs and symptoms occur. Pt educated on red flag symptoms.Pt instructed to call pcp with any further questions. ................... ................... ................... ................... ................... ................... ................... ........ Disposition: Fulfilled Vira Iraheta MD [address] [place] [address],[address], [place], [address], [facility] 11/07/2023 12:19:32
== END 2025-04-20 12:20 | disposition home or self-care (01) ==
LOC: HO.HMCH 11:22
PROVIDERS: PCP Physician Assistant; Visit Provider Physician Assistant
DX: Z23 Encounter for immunization (principal)

== ENCOUNTER → 2025-04-20 11:21 | Outpatient (BNVA) | payer OTHER, SELFPAY | PROVIDERS: PCP Physician Assistant; Visit Provider Physician Assistant | DX: I78.1 Nevus, non-neoplastic (principal); E11.65 Type 2 diabetes mellitus with hyperglycemia; E11.51 Type 2 diabetes mellitus with diabetic peripheral angiopathy without gangrene; I10 Essential (primary) hypertension; L40.9 Psoriasis, unspecified; E03.9 Hypothyroidism, unspecified; N40.0 Benign prostatic hyperplasia without lower urinary tract symptoms; E78.2 Mixed hyperlipidemia; R20.2 Paresthesia of skin; Z23 Encounter for immunization | CPT/HCPCS: 90471; 90656; 99212 ==

== ENCOUNTER 2025-05-12 08:37 | Outpatient (REF) | payer OTHER, SELFPAY ==
--- NOTE | ~2025-05-12 | FL_ITS ---
EXAMINATION: XR BARIUM SWALLOW CLINICAL INFORMATION: Dysphagia COMPARISON: None available. TECHNIQUE: Patient was administered thick barium and effervescent granules. Barium tablet was also administered. FINDINGS: There is tracheal penetration seen with thick liquid barium. No aspiration. There is abnormal esophageal motility. There is a moderate-sized hiatal hernia. There is gastroesophageal reflux. No mass or stricture. There is temporary stasis of the barium tablet in the mid esophagus. This passed into the stomach with additional liquid. FLUOROSCOPY TIME: 1 minute 47 seconds DOSE AREA PRODUCT: 868 uGy-m2 (microgray-meter squared) FL/FL barium swallow with air IMPRESSION: Penetration into the larynx with liquid barium. No aspiration into the trachea seen. Consider modified barium swallow. Abnormal esophageal motility. Moderate sized hiatal hernia. Gastroesophageal reflux. Electronically signed by: Jenny Barrow MD 05/12/2025 10:09 AM CHRISTY KURTZ
--- OUTSIDE RECORDS SUMMARY | 2025-05-12 16:20 | XMS_ITS | Data Portability ---
Author Organization [facility], [email or web address] Address [address] [place] [address] Care Team Providers Care Battery Tester And Repairer Name Role Phone HIM CCA OTHER TRUPTI BELLA Primary Care Provider Assessment Encounter Date Assessment Date Assessment LastModified by Organization Details LastModified Time 11/07/2023 11/07/2023 I provided real -time medical direction via phone for this encounter and was available for additional phone-based assistance as needed. I have reviewed and agree with the Assessment and Plan as documented by the Detonator Assembler. Patient given the opportunity to ask questions. Our service contacted for an assessment of: a rash As per above[facility], trunk, legs. Is not particularly symptomatic. Denies any lesions that are bleeding. Per fan balancer on the scene, VSS. Non-toxic. Please see uploaded pictures. Impression: Actinic keratosis Plan: For now - continue Triamcinolone cream. Will ask [facility] team to help with a Derm referral. [...] Details Last Updated DateTime 4 98.7 [degF] 42989.8 72 g 98 % 98 % 16 [...] ICD10 Code Diagnosis IMO Codes Diagnosis Note [id number] Vira Iraheta MD Main - [facility] [address] [place] [phone] 11/07/2023 12:15:09 11/07/2023 22:14:54 Actinic keratosis [id number] L57.0 Health Concerns Section Related Observation LastModified by Organization Detai ls LastModified Time None Recorded Concern Status LastModified by Organization Details LastModified Time None Recorded Advance Directives Directive None Recorded Payers Insurance Date Sequence Insurance Name Policy Number Policy Petersen Covered Member ID Petersen Member ID Guarantor Name 01/26/2024 1 [facility] - DOS ON OR AFTER 2022 - DUAL ELIGIBLE - FDC OPTIONS AND ONE CARE (MEDICARE REPLACEMENT/ADV ANTAGE - HMO) Jevon Oliver [id number] Jevon Oliver Notes Date Note Type Note Provider Name and Address Organization Details Recorded Time 11/07/2023 text/html CRC Nurse Triage Notes (Sophie Reid): Reason For Request: Rash/Skin infection Chief Complaints: Pain, Fever/Chills PMH: Diabetes Comments: 1130 member wants visit on 11/06 in the [facility] calling up to report ? [...] started except ASA about 3 months agoPMH: CA, DM. Visit before 1pm if possible so daughter can be there or after 5 pm today. ................... ................... ................... ................... ................... ................... ................... ........ Detonator Assembler Note From Maury Camargo: Patient complaint today [...] 1.5 inches in size showed purpling in color.[facility] consultedCare team will be contacted for referral to principal system software engineer.Pt instructed to call for emergency services if red flag signs and symptoms occur. Pt educated on red flag symptoms.Pt instructed to call pcp with any further questions. ................... ................... ................... ................... ................... ................... ................... ........ Disposition: Fulfilled Vira Iraheta MD [address] [place] [address],[address], [place], [phone], HAM SWAIN 11/07/2023 12:19:32
--- OUTSIDE RECORDS SUMMARY | 2025-05-12 16:20 | XMS_ITS | Data Portability ---
Author Organization [facility], Main Office Address [address] [place] [address] Care Team Providers Care Painter And Grader Cork Name Role Phone JOVANY COREY Primary Care Provider ED BRUNNER Referring Provider [phone] [facility] [place] Urologist IRAIDA BURTON Script Editor Assessment No assessment recorded. Plan of Treatment Reminders Order Date Submit Date Provider Last Modified By Organization Details Last Modified Time Details Appointments None recorded . Lab lipid panel, serum 2022 023 [email or web address] [facility], [address], [place] [address], [place], [address], 3 07:54:10 TSH, serum or plasma 2022 023 [email or web address] [facility], [address], [place] [address], [place], [address], 3 07:54:09 hemoglob in A1C, fingerst ick 2022 023 [email or web address] In-Office Order, Internal Use Only DO Not Attach Compendium DO Not Attach Compendium, Do Not Delete/merge, [id number] 3 13:39:16 CMP, serum or plasma 2022 023 [email or web address] [facility], [address], [place], [address], 3 13:39:16 microalb umin, urine 2022 023 [email or web address] [facility], [address], [address], [place], [address], 3 13:39:16 CBC w/ auto diff 2022 023 [email or web address] [facility], [address], [place] [address], [place], [address], 3 13:39:16 hemoglob in A1C, fingerst ick 2021 022 JESSE In-Office Order, Internal Use Only DO Not Attach Compendium DO Not Attach Compendium, Do Not Delete/merge, [id number] 11:17:52 CMP, serum or plasma 2021 022 JESSE [facility], [address], [place] [address], [place], [address], 2 20:28:36 BMP, serum or plasma 2021 022 [email or web address] [facility], [address], [address], [place], [address], 2 08:59:10 hemoglob in A1C, fingerst ick 2021 022 JESSE In-Office Order, Internal Use Only DO Not Attach Compendium DO Not Attach Compendium, Do Not Delete/merge, [id number] 2 11:22:58 microalb umin, urine 2021 022 JESSE [facility], [address], [place] [address], [place], [address], 2 18:20:41 lipid panel, serum 2021 022 JESSE [facility], [address], [place] [address], [place], [address], 16:49:47 CMP, serum or plasma 2021 022 [email or web address] [facility], [address], [place] [address], [place], [address], 13:50:29 lipid panel, serum 2020 021 JESSE [facility], [address], [place] [address], [place], [address], 16:11:28 CMP, serum or plasma 2020 021 JESSE [facility], [address], [place] [address], [place], [address], 16:11:26 microalb umin, urine 2020 021 JESSE [facility], [address], [address], [place], [place], [address], 16:50:19 hemoglob in A1C, fingerst ick 2020 [email or web address] In-Office Order, Internal Use Only DO Not Attach Compendium DO Not Attach Compendium, Do Not Delete/merge, [id number] 11:15:02 TSH, serum or plasma 2020 021 JESSE [facility], [address], [place] [address], [place], [place], [address], 16:17:29 Referral physical therapis t referral - At risk for falling 2020 021 [email or web address] [facility], [address], [place], [address], 12:47:17 Procedures None recorded . Surgeries None recorded . Imaging electroc ardiogra m 2021 022 [email or web address] In-Office Order, Internal Use Only DO Not Attach Compendium DO Not Attach Compendium, Do Not Delete/merge, [id number] 11:39:57 Medication Orders Drysol 20 % topical solution 2022 023 [id number] [address] [place], [address], 3 08:12:56 lorazepa m 1 mg tablet 2022 023 [facility] [address] [place], [address], 3 15:48:52 docusate sodium 100 mg capsule 2022 023 [facility] [address] [place], [address], 3 15:48:51 albutero l sulfate HFA 90 mcg/actu ation aerosol inhaler 2021 022 [facility] [address] [place], [address], 2 10:49:24 chlortha lidone 25 mg tablet 2020 021 [email or web address] [facility] [address] [place], [address], 2 10:14:43 hydralaz ine 25 mg tablet 2020 021 [facility]71, [address] [place], [address], 1 14:09:50 valsarta n 320 mg tablet 2020 021 [facility], [address] [place], [address], 1 14:09:50 atorvast atin 80 mg tablet 2020 021 JESSE [facility], [address] [facility], [place], [address], 03:33:41 omeprazo le 20 mg capsule, delayed release 2020 021 [email or web address] [facility] #2073, [address] [facility], [place], [address], 08:36:16 tamsulos in 0.4 mg capsule 2020 021 [email or web address] [facility] #[id number], [address] [facility] [facility], [place], [address], 10:14:55 Patient TargetsNo targets recorded. Patient Instructions Encounter Date Encounter Id Patient Instructions Last Modified By Organization Details Last Modified Time 03/22/2021 [id number] aprenda sobre la presi n arterial lópez [...] instructions] [email or web address] Not available 03/22/2021 11:15:02 06/26/2021 [id number] medicamentos que debe evitar cuando tiene marvin enfermedad renal: instrucciones de cuidado - [medicines to avoid with kidney disease: care instructions] [email or web address] Not available 06/26/2021 18:01:57 enfermedad de reflujo gastroesof gico (GERD): instrucciones de cuidado - [gastroesophageal reflux disease (GERD): care instructions] [email or web address] Not available 06/26/2021 18:01:57 03/26/2022 [id number] aprenda sobre el asma - [learning about [...] under) [email or web address] Not available 03/26/2022 10:44:24 10/08/2022 [id number] sudoraci n anormal: instrucciones de cuidado - [...] DO Not Attach Compendium, Do Not Delete/merge, [id number] 03/22/2021 10:29:01 03/23/2003/23/2021 COMPR EHENS XOCHITL METAB OLIC PANL glucose 109 mg/dL (70-99 ) high Not Available [facility] (Centralized Electronic Ordering - All Locations) Patient Can Go To The Location Of Their Choice, [id number] 03/23/2021 16:11:03/23/2003/23/2021 COMPR EHENS XOCHITL METAB OLIC [...] DO Not Attach Compendium, Do Not Delete/merge, [id number] 06/26/2021 11:10:39 09/21/1909/20/2021 COMPR EHENS XOCHITL METAB [...] Go To The Location Of Their Choice, [id number] 03/26/2022 20:28:36 03/26/20 22 03/26/2022 COMPR EHENS [...] Go To The Location Of Their Choice, [id number] 03/26/2022 20:28:36 03/26/20 22 03/26/2022 hemog lobin A1C, finge rstic k A1C 6.2 % 4-6 abnormal Not Available In-Office Order Internal Use Only DO Not Attach Compendium DO Not Attach Compendium, Do Not Delete/merge, [id number] 03/26/2022 10:44:51 10/09/19 23 10/08/2022 hemog lobin A1C, finge rstic k A1C 6.2 % 4-6 abnormal Not Available In-Office Order Internal Use Only DO Not Attach Compendium DO Not Attach Compendium, Do Not Delete/merge, [id number] 10/08/2022 15:24:44 06/26/19 22 06/26/2021 [facility] rocar diogr am No observ ation record ed. [email or web address] In-Office Order Internal Use Only DO Not Attach Compendium DO Not Attach Compendium, Do Not Delete/merge, [id number] 06/26/2021 14:50:15 06/26/19 [facility] rocar diogr am No observ ation record ed. [email or web address] In-Office Order Internal Use Only DO Not Attach Compendium DO Not Attach Compendium, Do Not Delete/merge, [id number] 06/26/2021 11:30:55 Result Notes None recorded. Problems Name Problem SNOMED Code Status Onset Date Resolution Date Notes Provider Name and Address Organization Details Recorded Time Erectile dysfunct ion due to type 2 diabetes mellitus 133178961 Active Not Available [facility] 3 11:45:53 Hearing loss 52143209 Active Sensorin eural Not Available [facility] 3 11:45:52 Type 2 diabetes mellitus 48120233 Completed 09/24/2016 Jovany Corey MD [address], [place], [address] , [facility] 7 10:13:18 Urinary incontin ence 384832717 Active Not Available [facility] 3 11:45:53 Fear of flying 386594899 Active Not Available [facility] 3 11:45:53 Snoring symptoms 137762373 Active Not Available [facility] 3 11:45:53 Retinopa thy due to type 2 diabetes mellitus 312757675 Active Not Available [facility] 3 11:45:53 Hypergly cemia 59845581 Completed 03/23/2021 Removal Reason: diabetes Jovany Corey MD [address], [place], [address] , [facility] 1 08:54:58 Neck pain 93874735 Active Not Available [facility] 3 11:45:53 Carcinom a of prostate 477263093 Active 2006 Followed by urology; had prostate ctomy Not Available [facility] 3 11:45:53 Impairme nt level of both eyes Completed 200701/05/2014 IMPRESSI ON: DR LOPES AND DR ANDREA; RECORDED 07/04/19 08 10:54AM BY KAROLYN PÉREZ MA, ANNOTATI ON/[facility] 6 14:33:43 Impairme nt level of both eyes Completed 200702/01/2014 IMPRESSI ON: DR LOPES AND DR ANDREA; RECORDED 07/04/19 08 10:54AM BY KAROLYN PÉREZ MA, VLADIMIRATI ON/ADDEN DUM Trena Mcdaniels null, [facility] 6 14:33:43 Disorder of breast 55425630 Completed 200801/05/2014 RESOLVED DATE: 11/02/19; RECORDED 11/02/19 8:28PM BY CHRISTIN Schaefer NP, ANNOTATI ON/ADDEN DUM Trena Mcdaniels null, [facility] 6 14:33:43 Prostate specific antigen above referenc e range 430637823 Completed 200801/05/2014 RESOLVED DATE: 11/02/19; RECORDED 11/02/19 8:28PM BY CHRISTIN Schaefer NP, ANNOTATI ON/ADDEN DUM Trena Mcdaniels null, [facility] 6 14:33:43 Pre-surg domingo evaluati on Completed 200801/05/2014 RESOLVED DATE: 11/02/19; RECORDED 11/02/19 8:28PM BY CHRISTIN Schaefer NP, ANNOTATI ON/ADDEN DUM Trena Mcdaniels null, [facility] 6 14:33:43 Screenin g for malignan t neoplasm of colon Completed 200801/05/2014 RECORDED 11/02/19 10:25AM BY VLADIMIR BRICEÑOATI ON/ADDEN DUM Trena Mcdaniels null, [facility] 6 14:33:43 Acquired deformit y of finger 15959116 Completed 200801/05/2014 RESOLVED DATE: 11/02/19; RECORDED 11/02/19 8:28PM BY CHRISTIN Schaefer NP, ANNOTELLIOT ON/ADDEN DUM Trena Mcdaniels null, [facility] 6 14:33:43 Disorder of breast 01750203 Completed 200802/01/2014 RESOLVED DATE: 11/02/19; RECORDED 11/02/19 8:28PM BY CHRISTIN Schaefer NP, ANNOTATI ON/ADDEN DUM Trena Mcdaniels null, [facility] 6 14:33:43 Prostate specific antigen above referenc e range 629150118 Completed 200802/01/2014 RESOLVED DATE: 11/02/19; RECORDED 11/02/19 8:28PM BY CHRISTIN Schaefer NP, ANNOTATI ON/ADDEN DUM Trena Mcdaniels null, [facility] 6 14:33:43 Pre-surg domingo evaluati on Completed 200802/01/2014 RESOLVED DATE: 11/02/19; RECORDED 11/02/19 8:28PM BY CHRISTIN Schaefer NP, ANNOTATI ON/ADDEN DUM Trena Mcdaniels null, [facility] 6 14:33:43 Screenin g for malignan t neoplasm of colon Completed 200802/01/2014 RECORDED 11/02/19 10:25AM BY BRIAN LAMAS, ANNOTATI ON/ADDEN DUM Trena Mcdaniels null, [facility] 6 14:33:43 Acquired deformit y of finger 47447245 Completed 200802/01/2014 RESOLVED DATE: 11/02/19; RECORDED 11/02/19 8:28PM BY CHRISTIN Schaefer NP, ANNOTELLIOT ON/ADDEN DUM Trena Mcdaniels null, [facility] 6 14:33:43 Influenz a vaccine needed 38656407235 06 Completed 201001/05/2014 DATE: 05/15/20 11; RECORDED 05/21/20 12 10:34AM BY TRENTON ORTIZ ON/ADDEN DUM Trena Mcdaniels null, [facility] 6 14:33:43 Influenz a vaccine needed 81535993590 06 Completed 201002/01/2014 DATE: 05/15/20 11; RECORDED 05/21/20 12 10:34AM BY TRENTON ORTIZ ON/ADDEN DUM Trena Mcdaniels null, [facility] 6 14:33:43 Abdomina l pain 48652611 Completed 201101/05/2014 IMPRESSI ON: RUQ, LAST US 1 YEAR AGO, NO MASS IN LIVER SHOWED SOME CHANGE IN [place], PT WITH REINA PRINCE ALCOHOL USE, WILL CHECK LABS AND US; RECORDED 05/21/20 12 10:35AM BY TRENTON ORTIZ ON/ADDEN DUM Trena Mcdaniels null, [facility] 6 14:33:43 Harmful pattern of use of alcohol 34416797 Completed 201101/05/2014 IMPRESSI ON: LONG TALK RE NEED TO DECREASE DUE TO HELATH CONCERNS , PT DOES NOT SEEM READY FOR CHANGE, WILL TX DEPRESSI ON.; RECORDED 05/21/20 12 10:35AM BY TRENTON ORTIZ ON/ADDEN DUM Trena Mcdaniels null, [facility] 6 14:33:43 Breast lump 93413501 Completed 201101/05/2014 IMPRESSI ON: PT TO SEE SURGEON, SEND IMAGING, I LEFT A MESSAGE AT [facility] THAT WE WILL BE SENDING AN APPT FOR BREAST DOCTOR AND WILL SEND A LETTER TOO; RECORDED 05/21/20 12 10:35AM BY TRENTON ORTIZ ON/ADDEN DUM Jovany Corey MD [address] [address], [place], [address] , [facility] 0 10:59:49 Screenin g for malignan t neoplasm of breast Completed 201101/05/2014 RECORDED 05/21/20 12 11:01AM BY JOVANY PEOPLES MD, TR[place]ON ON/ADDEN DUM Trenasav Mcdaniels null, [facility] 6 14:33:43 Respirat ory finding Completed 201101/05/2014 RECORDED 05/21/20 12 10:35AM BY TRENTON ORTIZ ON/ADDEN DUM Trena Mcdaniels null, [facility] 6 14:33:43 Pure hypercho lesterol emia 887349763 Completed 201101/05/2014 IMPRESSI ON: ON MEDS, CHECK LEVELS; RECORDED 05/21/20 12 10:34AM BY TRENTON ORTIZ ON/ADDEN DUM Trena Mcdaniels null, [facility] 6 14:33:43 Hypocalc emia 6742888 Completed 201101/05/2014 IMPRESSI ON: LAB SHOWS LOW CALCIUM OF 8.2, PT WITH ALOT OF ALCOHOL USE, NOT EATING WELL, WILL RECHECK WITH ABLUMIN AND MAKE SURE IT IS A TRUE LOW, WILL AHVE TP CALLED 09/19 ADN TRY TO GET REPEAT OFF VERY SOON; RECORDED 05/21/20 12 10:34AM BY TRENTON ORTIZ ON/ADDEN DUM Trena Mcdaniels null, [facility] 6 14:33:43 Malaise and fatigue 236768371 Completed 201101/05/2014 IMPRESSI ON: DEPRESSE D, TX WITH MEDS, DID NOT START IN PST; RECORDED 05/21/20 12 10:34AM BY TRENTON ORTIZ ON/ADDEN DUM Trena Mcdaniels null, [facility] 6 14:33:43 Peripher al vertigo 50372903 Completed 201101/05/2014 RECORDED 05/21/20 12 10:34AM BY TRENTON ORTIZ ON/ADDEN DUM Trena Mcdaniels null, [facility] 6 14:33:43 Adult health examinat ion Completed 201101/05/2014 RECORDED 05/21/20 12 10:35AM BY TRENTON ORTIZ ON/ADDEN DUM Trena Mcdaniels null, [facility] 6 14:33:43 Type 2 diabetes mellitus without complica tion 263069026 Completed 201101/05/2014 RECORDED 05/21/20 12 10:35AM BY TRENTON ORTIZ ON/ADDEN DUM Trena Mcdaniels null, [facility] 6 14:33:42 Abdomina l pain 25863280 Completed 201102/01/2014 IMPRESSI ON: RUQ, LAST US 1 YEAR AGO, NO MASS IN LIVER SHOWED SOME CHANGE IN [place], PT WITH REINA SURESH ALCOHOL USE, WILL CHECK LABS AND US; RECORDED 05/21/20 12 10:35AM BY TRENTON ORTIZ ON/ADDEN DUM Trena Mcdaniels null, [facility] 6 14:33:43 Harmful pattern of use of alcohol 08375436 Completed 201102/01/2014 IMPRESSI ON: LONG TALK RE NEED TO DECREASE DUE TO HELATH CONCERNS , PT DOES NOT SEEM READY FOR CHANGE, WILL TX DEPRESSI ON.; RECORDED 05/21/20 12 10:35AM BY TRENTON ORTIZ ON/ADDEN DUM Trena Mcdaniels null, [facility] 6 14:33:43 Breast lump 34535937 Completed 201102/01/2014 IMPRESSI ON: PT TO SEE SURGEON, SEND IMAGING, I LEFT A MESSAGE AT [facility] THAT WE WILL BE SENDING AN APPT FOR BREAST DOCTOR AND WILL SEND A LETTER TOO; RECORDED 05/21/20 12 10:35AM BY TRENTON ORTIZ ON/ADDEN DUM Jovany Corey MD [address] [address], [place], [address] , [facility] 0 10:59:49 Respirat ory finding Completed 201102/01/2014 RECORDED 05/21/20 12 10:35AM BY TRENTON ORTIZ ON/ADDEN DUM Trena Mcdaniels null, [facility] 6 14:33:43 Pure hypercho lesterol emia 368078681 Completed 201102/01/2014 IMPRESSI ON: ON MEDS, CHECK LEVELS; RECORDED 05/21/20 12 10:34AM BY TRENTON ORTIZ ON/ADDEN DUM Trena Mcdaniels null, [facility] 6 14:33:43 Hypocalc emia 7091765 Completed 201102/01/2014 IMPRESSI ON: LAB SHOWS LOW CALCIUM OF 8.2, PT WITH ALOT OF ALCOHOL USE, NOT EATING WELL, WILL RECHECK WITH ABLUMIN AND MAKE SURE IT IS A TRUE LOW, WILL AHVE TP CALLED 09/19 ADN TRY TO GET REPEAT OFF VERY SOON; RECORDED 05/21/20 12 10:34AM BY VLADIMIR ORTIZATI ON/ADDEN DUM Trena Mcdaniels null, [facility] 6 14:33:43 Malaise and fatigue 209149553 Completed 201102/01/2014 IMPRESSI ON: DEPRESSE D, TX WITH MEDS, DID NOT START IN PST; RECORDED 05/21/20 12 10:34AM BY TRENTON ORTIZ ON/ADDEN DUM Trenakirsten Mcdaniels null, [facility] 6 14:33:43 Peripher al vertigo 97162740 Completed 201102/01/2014 RECORDED 05/21/20 12 10:34AM BY TRENTON ORTIZ ON/ADDEN DUM Trena Mcdaniels null, [facility] 6 14:33:43 Adult health examinat ion Completed 201102/01/2014 RECORDED 05/21/20 12 10:35AM BY TRENTON ORTIZ ON/ADDEN DUM Trena Mcdanielskirsten felix, [facility] 6 14:33:43 Legal blindnes s [facility] 472932325 Completed 201201/05/2014 RECORDED 07/16/19 13 7:53AM BY VLADIMIR ORTIZATI ON/ADDEN DUM BRIAN Maynard, [facility] 2 16:01:23 Anemia 003800303 Completed 201201/05/2014 RECORDED 08/19/19 13 10:33AM BY VLADIMIR ORTIZATI ON/ADDEN DUM Trena Mcdaniels null, [facility] 6 14:33:43 Apnea 9761659 Completed 201201/05/2014 IMPRESSI ON: WITNESSE D APNEAS FOR LONG 20 SECONDS. ; RECORDED 08/19/19 13 10:33AM BY VLADIMIR ORTIZATI ON/ADDEN DUM Trena Mcdaniels null, [facility] 6 14:33:43 Tobacco user 448545020 Completed 201201/05/2014 RECORDED 08/19/19 13 10:33AM BY SHAUNNA RILEY I ANNOTATI ON/ADDEN DUM Trena Mcdaniels null, [facility] 6 14:33:43 History of clinical finding in subject 165169691 Completed 201203/23/2014 RECORDED 08/19/19 13 10:33AM BY VLADIMIR ORTIZATI ON/ADDEN DUM Trena Mcdaniels null, [facility] 6 14:33:43 Anemia 029465180 Completed 201202/01/2014 RECORDED 08/19/19 13 10:33AM BY SHAUNNA RILEY I ANNOTATI ON/ADDEN DUM Trena Mcdaniels null, [facility] 6 14:33:43 Apnea 1032069 Completed 201202/01/2014 IMPRESSI ON: WITNESSE D APNEAS FOR LONG 20 SECONDS. ; RECORDED 08/19/19 13 10:33AM BY VLADIMIR ORTIZATI ON/ADDEN DUM Trena Mcdaniels null, [facility] 6 14:33:43 Tobacco user [id number] Completed 201202/01/2014 RECORDED 08/19/19 13 10:33AM BY SHAUNNA RILEY I ANNOTATI ON/ADDEN DUM Trena Mcdaniels null, [facility] 6 14:33:43 Iron deficien cy anemia 49109503 Completed 201201/05/2014 RECORDED 11/11/19 13 9:34AM BY VLADIMIR ORTIZATI ON/ADDEN DUM Trena Mcdaniels null, [facility] 6 14:33:43 Iron deficien cy anemia 18328176 Completed 201202/01/2014 RECORDED 11/11/19 13 9:34AM BY SHAUNNA RILEY I ANNOTATI ON/ADDEN DUM Trena Mcdaniels null, [facility] 6 14:33:43 Contact dermatit is 71904362 Completed 201201/05/2014 IMPRESSI ON: RASH ON FACE.; RECORDED 03/19/20 13 8:55AM BY SHAUNNA RILEY I ANNOTATI ON/ADDEN DUM Trena Mcdaniels null, [facility] 6 14:33:43 Contact dermatit is 75935285 Completed 201202/01/2014 IMPRESSI ON: RASH ON FACE.; RECORDED 03/19/20 13 8:55AM BY VLADIMIR ORTIZATI ON/ADDEN DUM Trena Mcdaniels null, [facility] 6 14:33:43 Laborato ry procedur e performe d 875877329 Completed 201301/05/2014 RECORDED 09/16/19 14 6:49AM BY VLADIMIR ORTIZATI ON/ADDEN DUM Trena Mcdaniels null, [facility] 6 14:33:43 Laborato ry procedur e performe d 824236979 Completed 201302/01/2014 RECORDED 09/16/19 14 6:49AM BY VLADIMIR ORTIZATI ON/ADDEN DUM Trena Mcdaniels null, 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 925837802 Active 2013 Not Available [facility] 3 11:45:53 Allergic rhinitis 29344080 Active 2013 Not Available [facility] 3 11:45:53 Gastroes ophageal reflux disease 023739113 Active 2013 Not Available [facility] 3 11:45:53 Glaucoma associat ed with ocular disorder 76616432 Active 2013 Not Available [facility] 3 11:45:53 Legal blindnes s [facility] 747299651 Active 2013 IMPRESSI ON: SECONDAR Y TO GLAUCOMA Not Available [facility] 3 11:45:53 Recurren t major depressi ve episodes , moderate 894354420 Active 2013 Not Available [facility] 3 11:45:53 Mixed hyperlip idemia 871589211 Active 2013 Not Available [facility] 3 11:45:53 Gastro-e sophagea l reflux disease with esophagi tis 676189546 Completed 201303/23/2014 RECORDED 12/17/19 14 9:52AM BY SHAUNNA RILEY I, OFFICE VISIT Trena felix [facility] 6 14:33:43 Type 2 diabetes mellitus without complica tion 187138700 Completed 201307/05/2014 IMPRESSI ON: GOOD CONTROL; CONTINUE CURRENT MGMT; RECORDED 12/17/19 14 9:53AM BY SHAUNNA RILEY I, OFFICE VISIT Trena felix [facility] 6 14:33:42 Disease of liver 628452113 Completed 201303/23/2021 Jovany Corey MD [address] [address] [address] [facility] 1 08:54:21 Vitamin D deficien cy 63592341 Active 2013 Not Available [facility] 3 11:45:53 Screenin g for malignan t neoplasm of breast Completed 201302/01/2014 RECORDED 12/17/19 14 9:53AM BY SHAUNNA RILEY I, ANNOTATI ON/ADDEN DUM Trena felix [facility] 6 14:33:43 Dysphagi a 19400841 Completed 201303/23/2021 Removal Reason: resolved Jovany Corey MD [address], [place], [address] , [facility] 1 08:54:36 Reactive airway disease 88460258108 6 Active 2015 Not Available [facility] 3 11:45:53 Breast lump 20729512 Active 2018 Schedule d for breast mammogra m. Had bx. No cancer. Not Available [facility] 3 11:45:53 Gynecoma stia 4613861 Active 2018 bilatera l; seen at [facility]; no cancer. No further treatmen t. Not Available [facility] 3 11:45:53 Chronic kidney disease stage 3A 384712031 Active 2018 Not Available [facility] 3 11:45:53 Hypothyr oidism 74868416 Active 2019 Not Available [facility] 3 11:45:53 History of SARS-CoV -2 01104323331 3659057 Active 2020 Not Available [facility] 3 11:45:53 Hyperten sive renal disease 99203541 Active 2020 Not Available [facility] 3 11:45:53 Renal disorder due to type 2 diabetes mellitus 123172112 Active 2022 Not Available [facility] 3 11:45:53 Problem Notes None recorded. Procedures Surgical History Date Name Laterality Status Provider Name and Address Organization Details Recorded Time 03/22/20 Diabetic Foot Exam (Monofilament) completed Salud Aldridge MA [facility] 03/22/2021 10:29:10 08/01/19 21 Diabetic Foot Exam (Monofilament) cancelled Janie Mascorro MA [facility] 08/01/2020 09:42:08 08/01/19 Six-Item Cognitive Test cancelled Janie Mascorro MA [facility] 08/01/2020 09:39:45 12/08/19 20 Diabetic Foot Exam (Monofilament) completed Shaunna Schultzki [facility] 12/08/2019 10:48:05 01/06/20 19 Diabetic Foot Exam (Monofilament) completed Shaunnarios Good [facility] 01/05/2019 09:57:27 09/05/19 19 Diabetic [facility]ilament[facility] 10:33:16 12/13/19 18 Diabetic Foot Exam (Monofilament) [facility] [place] [facility] 12/12/2017 10:06:24 05/04/20 16 Fall Risk Assessment [facility] [place] [facility] 05/04/2016 10:19:36 05/04/20 16 Mini-Cog Test completed [facility] 05/04/2016 10:07:27 07/05/19 15 [facility] 14:40:43 07/05/19 15 [facility]Cog Test [facility] 14:42:25 06/24/19 07 Prostate Surgery completed Jovany Corey MD [address], [address] 03/24/2014 08:39:17 06/24/19 07 prostatectomy completed Karolyn parekh MA [facility] 10/08/2022 15:14:16 08/16/19 05 Colonoscopy completed Karolyn parekh MA [facility] 05/30/2016 09:05:52 Imaging Results None recorded. Procedure Notes None recorded. Medical Equipment None Reported. Allergies Allergen ID Allergen Name Allergen Category Reaction Reaction Severity Criticality Documentation Date Start Date Code Code System Note Provider Name and Address Organization Details Recorded Time 87415 cetirizin e medicatio n headache Not available Not available 06/03/2019 RxNorm BRIAN Ortiz [facility] 9 10:54:40 50335 albuterol sulfate medicatio n chest pain severe Not available 03/26/2022 76677 3 RxNorm Not Available [facility] 3 11:45:53 Medications Name Sig Start Date [...] e 50 mcg/actua tion nasal spray,[place] 2 sprays every day by nasal route [...] completed Not Available Not Available Not Available [place] 3 take 1 tablet po daily 03/26 [...] Updated DateTime 2 170.82 cm 33.3 kg/m2 55162.4 7 g 84 /min 99 % 99 % 97.52 [degF] 146/71 mm[Hg] 134/72 mm[Hg] Yennifer Stevens MA [facility] [place] 2 10:53:20 Date Recorded Body height Body mass index (BMI) Body weight Heart rate Oxygen saturation Oxygen saturation in Arterial blood by Pulse oximetry Body temperature Systolic And Diastolic Provider Name and Address Organization Details Last Updated DateTime 2 170.82 cm 33.6 kg/m2 85645.3 5 g 72 /min 98 % 98 % 97.88 [degF] 125/64 mm[Hg] Yennifer Stevens MA [facility] 2 10:37:15 Date Recorded Body height Body mass index (BMI) Body weight Heart rate Oxygen saturation Oxygen saturation in Arterial blood by Pulse oximetry Heart rate Systolic And Diastolic Provider Name and Address Organization Details Last Updated DateTime 3 170.82 cm 33.1 kg/m2 53308.1 7 g 80 /min 97 % 97 % 64 /min 164/81 mm[Hg] Karolyn morales MA [facility] 3 15:23:51 Date Recorded Body height Body mass index (BMI) Body weight Heart rate Oxygen saturation Oxygen saturation in Arterial blood by Pulse oximetry Body temperature Systolic And Diastolic Provider Name and Address Organization Details Last Updated DateTime 1 170.82 cm 35 kg/m2 418454. 28 g 63 /min 98 % 98 % 98.42 [degF] 122/62 mm[Hg] Salud Aldridge MA [facility] 1 11:00:11 Date Recorded Body height Body mass index (BMI) Body weight Heart rate Oxygen saturation Oxygen saturation in Arterial blood by Pulse oximetry Body temperature Systolic And Diastolic Systolic And Diastolic Provider Name and Address Organization Details Last Updated DateTime 2 170.82 cm 32.3 kg/m2 22107.4 2 g 70 /min 98 % 98 % 98.42 [degF] 151/74 mm[Hg] 144/68 mm[Hg] Yennifer Stevens MA [facility] 2 10:37:50 Social History Question Answer Notes LastModified by Organizat ion Details LastModified Time Tobacco Smoking Status Never Smoker Not Available [employer] 04/26/2020 03:36:36 Do You Have An Advance Directive? Yes [email or web address] Information not available 09/20/2021 Is Blood Transfusion Acceptable In An Emergency? Yes [id number] Information not available 04/26/2020 What Is Your Level Of Caffeine Consumption? Moderate 2 Cups Daily Of Coffee; Occ Soda [id number] Information not available 04/26/2020 How Much Tobacco Do You Chew? None [id number] Information not available 04/26/2020 Are You Deaf Or Do You Have Serious Difficulty Hearing? Yes [email or web address] Information not available 09/20/2021 What Type Of Diet Are You Following? CARDIAC Low Salt [id number] Information not available 04/26/2020 Which Illicit Or Recreational Drugs Have You Used? None [id number] Information not available 04/26/2020 Live Alone Or With Others? Alone [email or web address] Information not available 09/20/2021 Do You Take Precautions To Prevent Distracted Driving? No Information not available 03/22/2021 How Often Do You Need To Have Someone Help You When You Read Instructions, Pamphlets, Or Other Written Material From Your Doctor Or Pharmacy? Always [email or web address] Information not available 05/04/2016 Have You Served In The ? No [email or web address] Information not available 05/04/2016 *[facility] ONLY* Are You Presently Prescribed Opioid Medication By PCP Or Specialist? If YES -Provider Assess The Benefit For Other, Non-opioid Pain Therapies Instead, Even If The Patient Does Not Have OUD But Is Possibly At Risk. No Information not available 03/22/2021 Marital Status Single [email or web address] Informatio n not available 09/20/2021 What Was The Date Of Your Most Recent Tobacco Screening? 10/08/2022 [email or web address] Information not available 10/08/2022 How Many Children Do You Have? 2 Daughters In [place] [id number] Information not available 04/26/2020 Difficulty Reading? Yes [email or web address] Information not available 09/20/2021 Seat Belts Used Routinely Yes [email or web address] Information not available 09/20/2021 Are You Sexually Active? No [id number] Information not available 04/26/2020 Smoke Alarm In Home Yes [email or web address] Information not available 09/20/2021 At What Age Did You Start Smoking Tobacco? 1 [id number] Information not available 04/26/2020 Are You Passively Exposed To Smoke? No [email or web address] Information not available 05/04/2016 How Much Tobacco Do You Smoke? No [id number] Information not available 04/26/2020 Do You Use Sunscreen Routinely? Yes [id number] Information not available 04/26/2020 How Many Years Have You Smoked Tobacco? 0 [id number] Information not available 04/26/2020 Do You Have Difficulty Walking Or Climbing Stairs? Yes [email or web address] Information not available 09/20/2021 Sex: Unknown Functional Status Question Answer Note LastModified by Organizat ion Details LastModified Time Do you use any illicit or recreational drugs? No [email or web address] Information not available 09/20/2021 Do you or have you ever used any other forms of tobacco or nicotine? No [email or web address] Information not available 09/20/2021 What is your level of alcohol consumption? Occasional stopped alcohol early 2018 [id number] Information not available 04/26/2020 Do you or have you ever used smokeless tobacco? Never used smokeless tobacco [id number] Information not available 04/26/2020 Are you currently employed? No retired [id number] Information not available 04/26/2020 Are you able to walk independently without assistance or assistive devices? YESLIMIT [email or web address] Information not available 09/20/2021 Do you have difficulty doing errands alone? Yes [email or web address] Information not available 09/20/2021 Are you able to care for yourself independently? No HOME OFFICE REPRESENTATIVE: Sophie Camargo # [id number] Information not available 04/26/2020 Do you have difficulty dressing, bathing, grooming, or toileting? Yes [email or web address] Information not available 09/20/2021 Do you or have you ever used e-cigarettes or vape? Never used electronic cigarettes [email or web address] Information not available 09/20/2021 What is your exercise level? None [id number] Information not available 04/26/2020 Mental Status Question Answer Note LastModified by Organization D etails LastModified Time Do you have difficulty concentrating, remembering or making decisions? No [email or web address] Information no t available 09/20/2021 Family History [...] conjugate PCV 13 5 completed Not Available [facility] 07/11/2019 02:21:36 COVID-19, mRNA, LNP-S, PF, 30 mcg/0.3 mL dose 1 completed Angelica felix [facility] 10/12/2022 13:06:03 COVID-19, mRNA, LNP-S, PF, 30 mcg/0.3 mL dose 1 completed Angelica felix [facility] 10/12/2022 13:06:03 zoster recombinant 1 completed Angelica felix [facility] 10/12/2022 13:06:03 COVID-19, mRNA, LNP-S, PF, 30 mcg/0.3 mL dose 1 completed Angelica felix [facility] 10/12/2022 13:06:03 Influenza, split virus, quadrivalent, PF 5 completed Not Available [facility] 07/11/2019 02:22:02 zoster recombinant 3 completed Angelica felix [facility] 10/12/2022 13:06:03 Td (adult), 5 Lf tetanus toxoid, preservative free, adsorbed 7 completed Not Available [facility] 07/11/2019 02:21:34 Influenza, high-dose, trivalent, PF 8 completed Not Available [facility] 07/11/2019 02:22:14 Influenza, high-dose, trivalent, PF 9 completed Not Available [facility] 07/11/2019 02:22:09 Influenza, high-dose, quadrivalent, PF 0 completed Janie Mascorro MA null, [facility] 03/15/2020 11:05:32 Influenza, high-dose, quadrivalent, PF 1 completed Salud Aldridge MA null, [facility] 03/22/2021 11:56:56 pneumococcal polysaccharide PPV23 7 completed Angelica Blas [facility] 10/12/2022 13:06:03 Td (adult), 2 Lf tetanus toxoid, preservative free, adsorbed 7 completed Angelica Blas [facility] 10/12/2022 13:06:03 Influenza, split virus, trivalent, preservative 8 completed Angelica felix, [facility] 10/12/2022 13:06:03 pneumococcal polysaccharide PPV23 8 [facility] 13:06:03 Novel Hibgdhyub-L1D3-99, all formulations 0 [facility] 13:06:03 Influenza, split virus, trivalent, preservative 0 completed Angelica felix, [facility] 10/12/2022 13:06:03 Influenza, split virus, trivalent, preservative 0 completed Angelica felix, [facility] 10/12/2022 13:06:03 Influenza, split virus, trivalent, preservative 1 [facility] 13:06:03 Influenza, high-dose, quadrivalent, PF 2 completed Jovany Corey MD [address] [address], [place], [address], [facility] 03/26/2022 12:46:42 Past Encounters Encounter ID Performer Location Encounter Start Date Encounter Closed Date Diagnosis/Indication Diagnosis SNOMED-CT Code Diagnosis ICD10 Code Diagnosis IMO Codes Diagnosis Note [id number] [address] [facility],[address] [place] [address] 08/21/2006 00:00:00 [id number] autoEComm erce [address] [facility],[address] [place] [address] 04/30/2006 00:00:00 [id number] autoEComm erce [address] [facility],[address] [place] [address] 12/28/2005 00:00:00 [id number] autoEComm erce [address] [facility],[address] [place] [address] 10/19/2005 00:00:00 [id number] autoEComm erce [address] [facility],[address] [place] [address] 07/27/2005 00:00:00 [id number] auto[employer]Comm erce [address] [facility],[address] [place] [address] 10/01/2006 00:00:00 [id number] autoEComm erce [address] [facility],[address] [place] [address] 11/21/2006 00:00:00 [id number] autoEComm erce [address] [facility],[address] [place] [address] 05/14/2007 00:00:00 [id number] autoEComm erce [address] [facility],[address] [place] [address] 07/04/2007 00:00:00 [id number] autoEComm erce [address] [facility],[address] [place] [address] 10/10/2007 00:00:00 [id number] autoEComm erce [address] [facility],[address] [place] [address] 01/20/2008 00:00:00 [id number] [address] [place] [address] 05/04/2008 00:00:00 [id number] [address] erce [address] [place] [address] 08/05/2008 00:00:00 [id number] [address] er[address] [place] [address] 08/31/2008 00:00:00 [id number] autoEComm erce [address] [place] [place] [address] 11/01/2008 00:00:00 [id number] auto[address]Comm erce [address] [place] [address] 02/14/2009 00:00:00 [id number] autoEComm erce [address] [facility],[address] [place] [address] 04/11/2009 00:00:00 [id number] autoEComm erce [address] [facility],[address] [place] [address] 06/03/2009 00:00:00 [id number] autoEComm erce [address] [facility],[address] [place] [address] 07/05/2009 00:00:00 [id number] autoEComm erce [address] [facility],[address] [place] [address] 01/20/2010 00:00:00 [id number] autoEComm erce [address] [facility],[address] [place] [address] 04/21/2010 00:00:00 [id number] autoEComm erce [address] [facility],[address] [place] [address] 09/08/2010 00:00:00 [id number] autoEComm erce [address] [facility],[address] [place] [address] 12/21/2010 00:00:00 [id number] autoEComm erce [address] [facility],[address] [place] [address] 05/15/2011 00:00:00 [id number] autoEComm erce [address] [facility],[address] [place] [address] 07/16/2011 00:00:00 [id number] autoEComm erce [address] [place] [address] 11/15/2011 00:00:00 [id number] autoEComm erce [address] [facility] [address] [place] [address] 05/21/2012 00:00:00 [id number] autoEComm erce [address] [facility],[address] [place] [address] 08/19/2012 00:00:00 [id number] autoEComm erce [address] [facility] [address] [place] [address] 11/10/2012 00:00:00 [id number] autoEComm erce [address] [facility],[address] [place] [address] 03/19/2013 00:00:00 [id number] autoEComm erce [address] [facility],[address] [place] [address] 09/15/2013 00:00:00 [id number] autoEComm erce [address] [facility],[address] [place] [address] 12/16/2013 00:00:00 [id number] Jovany Corey MD Main Office [address] [address] [place] [address] 03/23/2014 08:47:15 03/23/2014 10:14:32 Type 2 diabetes mellitus 24891963 Mixed hyperlipidemia 282834706 [place] blindness [place] 452003123 Essential hypertension 02471757 [id number] Jovany Corey MD Main Office [address] [address] [place] [address] 07/05/2014 13:44:38 07/05/2014 15:35:38 Adult health examination 298630250 [facility] risk for falls 384863334 Erectile d ysfunction due to type 2 diabetes mellitus 621967400 Essential hypertension 09362063 Hearing loss 40586841 [id number] Jovany Corey MD Main Office [address] [address] [place] [address] 10/13/2014 09:52:52 10/13/2014 11:08:24 Type 2 diabetes mellitus 47698110 Administra tion of pneumococcal vaccine 90243679 Urinary incontinence 227574999 we will like into getting diapers for him. He is able to put these on himself. Vitamin D deficiency 41046118 he has been taking daily supplement s. Has been low in the past and does not get much sunlight. [place] blindness [place] 087772229 his eyesight is getting worse. He was able to see shadows which helped when he was trying to prepare himself food but that is getting worse. He feels that it is because his eyedrops have changed but his HOME OFFICE REPRESENTATIVE states that the drops are the same and only the size of the container has changed. He will call Dr Lopes's office to clear this up. [id number] Jovany Corey MD Main Office [address] [address] [place] [address] 02/15/2015 09:13:52 02/15/2015 10:20:03 Erectile dysfunction due to type 2 diabetes mellitus 328581569 Screening for malignant neoplasm of colon 047708782 Glaucoma a ssociated with ocular disorder 90185677 followed by Dr Lopes Continuous nondependent harmful pattern of use of alcohol 706231187 Recurrent major depressive episodes, moderate 449880225 stable on meds [id number] Jovany Corey MD Main Office [address] [address] [place] [address] 06/14/2015 13:20:04 06/14/2015 14:13:09 Erectile dysfunction due to type 2 diabetes mellitus 212864922 N52.1 Needs infl uenza immunization 735101498 Z23 Snoring symptoms 6284363 00 R06.83 Gastroesop hageal reflux disease 196792708 K21.9 Mixed hyperlipidemia 267 892299 E78.2 [id number] Jovany Corey MD Main Office [address] [address] [place] [address] 09/20/2015 08:48:34 09/20/2015 10:02:33 Fear of flying 952566088 F40.243 Essential hypertension 00428523 I10 Gastroesop hageal reflux disease 241918542 K21.9 Allergic rhinitis 373190 04 J30.9 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 Today it was 6.1 so no need for meds. Recurrent major depressive episodes, moderate 122217180 F33.9 stable on meds Neck pain 61830728 M54.2 this appears to be muscular. Mixed hyperlipidemia 267 849590 E78.2 recently changed his meds from simvastati n to atorvastat in in order to get better control. 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 Essential hypertension 61266835 I10 BP has been running high so we will increase his dose of metoprolol and see him back 1 month. Mixed hyperlipidemia 267 142813 E78.2 recently changed his meds from simvastati n to atorvastat in in order to get better control. Urinary incontinence 165 150120 R32 He needs extra large instead of large. He is able to put these on himself. [place] blindness [place] [address] H54.8 his eyesight is getting worse. He was able to see shadows which helped when he was trying to prepare himself food but that is getting worse. He is still using drops and is followed by Dr Lopes. [id number] Jovany Corey MD Main Office [address] [place] [address] 05/30/2016 09:01:18 05/30/2016 10:01:21 Essential hypertension 58423573 I10 BP has improved since increasing his metoprolol . Continue and monitor. Yoruba as a second language 136675206 Z60.8 Edema 021709224 R60.9 This is intermitte nt and around ankles. Will prescribe stockings but will also get a stress test to r/o heart disease given his fhx. [id number] Jovany Corey MD Main Office [address] [address] [place] [address] 09/24/2016 09:37:10 09/24/2016 10:22:31 Retinopathy due to type 2 diabetes mellitus 541729300 E11.311 Mildly elevated A1C; not on meds. Ankle pain 363054415 M25 .572 No injury; some mild swelling. Recurrent major depressive episodes, moderate 968075443 F33.9 stable on meds Essential hypertension 17409200 I10 Will increase his metoprolol from 50 to 100 mg Low back pain 167642205 M54.5 This is probably from OA and lack of moving around. 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 [id number] Jovany Corey MD Main Office [address] [address] [place] [address] 12/17/2016 10:38:08 12/17/2016 11:23:21 Multiple skin tags 483671524 L91.8 Skin lesion 47972834 L98 .9 These all appear to be benign. [id number] Jovany Corey MD Main Office [address] [address] [place] [address] 01/30/2017 13:51:07 01/30/2017 15:52:31 Retinopathy due to type 2 diabetes mellitus 062955382 E11.311 Mildly elevated A1C; not on meds. Essential hypertension 98953964 I10 No changes at this time. We will follow. Recurrent major depressive episodes, moderate 239611230 F33.1 We will increase his sertraline from 50 to 100 mg to get better control. [id number] Jovany Corey MD Main Office [address] [address] [place] [address] 05/06/2017 10:57:14 05/06/2017 11:55:50 Adult health examination 787550644 Z00.00 We will update his immunizati ons. He is UTD with colonoscop y and no longer needs screening. 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 [place] blindness [place] 1936 [address] H54.8 his eyesight is getting worse. Essential hypertension 26267859 I10 No changes at this time. We will follow. History of malignant neoplasm of prostate 378134330 Z85.46 Followed by urology; had prostatect shane. [id number] Jovany Corey MD Main Office [address] [place] [address] 08/16/2017 09:58:24 08/16/2017 11:04:30 Retinopathy due to type 2 diabetes mellitus 328378250 E11.319 This has been diet-contr olled for years. Recurrent major depressive episodes, moderate 432324899 F33.1 stable on meds [place] blindness [place] 1936 [address]254 H54.8 his eyesight is getting worse. Foot pain 07799200 M79.6 73 Essential hypertension 67851849 I10 Running high. Will start a diuretic and see him back in one month. Also discussed his alcohol intake and recommende d that he cut back to drinks per day. [id number] Jovany Corey MD Main Office [address] [place] [address] 10/18/2017 10:57:42 10/18/2017 11:38:19 Essential hypertension 78311054 I10 Feels like his BP is running too low at times since adding the chlorthali done. Will stop it and start a low dose of HCTZ instead. Gastroesop hageal reflux disease 167950303 K21.9 Advised to cut back on nighttime eating and alcohol. [id number] Jovany Corey MD Main Office [address] [place] [address] 12/12/2017 10:03:36 12/12/2017 11:15:45 Retinopathy due to type 2 diabetes mellitus 482008352 E11.319 This has been diet-contr olled for years. Hearing loss 49763718 H9 1.93 [id number] Jovany Corey MD Main Office [address] [address] [place] [address] 03/13/2018 10:44:46 03/13/2018 11:25:54 Retinopathy due to type 2 diabetes mellitus 108303480 E11.319 This has been diet-contr olled for years. Influenza vaccine needed 8694463749 106 Z23 Essential hypertension 59778029 I10 Stopped the HCTZ because of a rash on his chest. Taking metoprolol and valsartan and BP under good control [id number] Ryan Small PA-C Main Office [address] [address] [place] [address] 04/21/2018 11:02:30 04/21/2018 12:38:23 Dry skin dermatitis 829959869 L85.3 see below Itching of skin 74594620 0 L29.9 Herpes zoster 9758862 B0 2.9 healed over vesicles at top of L buttocks region - possibly up to 1 wk old as per my guestimate - no pain in this area in prior wk or 2 as per pt - too late for anti-viral tmt, rec calamine (see below), consider shingle shot at next o.v. (PE in 2 wks) [id number] Jovany Corey MD Main Office [address] [address] [place] [address] 05/29/2018 13:05:38 05/29/2018 14:02:20 Adult health examination 972418867 Z00.00 He is UTD with immunizati ons. He is UTD with colonoscop y and no longer needs screening. 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 Essential hypertension 17895441 I10 Stopped the HCTZ because of a rash on his chest. Taking metoprolol and valsartan and BP under good control Bilateral knee pain 1187 383748 5213209 M25.561 M25.562 Possibly OA Male urina ry stress incontinence 115395479 N39.3 [id number] Jovany Corey MD Main Office [address] [address] [place] [address] 09/04/2018 10:20:08 09/04/2018 11:42:42 Retinopathy due to type 2 diabetes mellitus 127823601 E11.319 This has been diet-contr olled for years. A1C is 6.5 today so no need for meds. Essential hypertension 32320946 I10 Will add chlorthali done to his regimen Mass of left breast 1224 348862 8106708 N63.42 Mildly tender. Fear of flying 415986103 F40.243 Eczema 43375643 L30.9 [id number] Stone Casper MD Main Office [address] [address] [place] [address] 10/20/2018 10:02:43 10/20/2018 13:13:50 [id number] Stone Casper MD Main Office [address] [address] [place] [address] 10/23/2018 09:55:10 10/23/2018 11:07:41 Transition of care 4781020990 105 Z75.8 Dizziness 042579987 R42 better s/p hospitaliz ation, cont meds as dir Bradycardia 63609843 R00 .1 better p reduction of BB Essential hypertension 42530883 I10 stable, cont meds as dir - check bmp c tsh Hypothyroidism 66853704 E03.9 new dx - check tsh in ~ 6 wks - cont supp as dir [id number] Jovany Corey MD Main Office [address] [address] [place] [address] 01/05/2019 09:39:11 01/05/2019 11:00:43 Retinopathy due to type 2 diabetes mellitus 721973182 E11.319 This has been diet-contr olled for years. A1C is 6.4 today so no need for meds. Recurrent major depressive episodes, moderate [id number] F33.1 stable on meds Essential hypertension 19790661 I10 Encouraged him to take his meds daily and not based on his BP results. Mixed hyperlipidemia 267 397013 E78.2 recently changed his meds from simvastati n to atorvastat in in order to get better control. [id number] Jovany Corey MD Main Office [address] [address] [place] [address] 06/03/2019 10:16:45 06/03/2019 11:55:08 Adult health examination 126384199 Z00.00 He is UTD with immunizati ons except for a flu shot. He is UTD with colonoscop y and no longer needs screening. 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 A1C is 6.4 today so no need for meds. [place] 1936 [address] H54.8 his eyesight is getting worse. Essential hypertension 31146250 I10 Good control on current meds. Mixed hyperlipidemia 267 009806 E78.2 recently changed his meds from simvastati n to atorvastat in in order to get better control. 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 A1C is 6.6 today so no need for meds. Hypothyroidism 72103027 E03.9 Essential hypertension 14437707 I10 Good control on current meds. [id number] Jovany Corey MD Main Office [address] [address] 12/08/2019 10:45:35 12/08/2019 11:39:51 Retinopathy due to type 2 diabetes mellitus 112165228 E11.319 This has been diet-contr olled for years. A1C is 6.6 so no need for meds. Essential hypertension 75169506 I10 Good control on current meds. Low back pain 370716756 M54.5 This is probably from OA and lack of moving around. 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 [place] 1936 [address] H54.8 his eyesight is getting worse. [id number] Jovany Corey MD Main Office [address] [address] 03/15/2020 10:03:11 03/15/2020 11:08:49 Retinopathy due to type 2 diabetes mellitus 492561791 E11.319 This has been diet-contr olled for years. A1C is 6.6 so no need for meds. Renal diso rder due to type 2 diabetes mellitus 822621400 E11.29 Influenza vaccine needed 3105231960 106 Z23 Essential hypertension 26658456 I10 Good control on current meds. Hypothyroidism 60255097 E03.9 Constipation 17283477 K5 9.00 [id number] Karla fitch MD Main Office [address] [place] [address] 09/01/2020 13:29:36 09/02/2020 00:28:43 [id number] Jovany Corey MD Main Office [address] [place] [address] 09/08/2020 12:32:09 09/08/2020 13:54:23 Urinary tract infectious disease 05840374 N39.0 No dysuria but having frequency and hesitancy. Renal angl e tenderness 687608903 R10.829 Possible kidney stone. No h/o stones. Dizziness 233509254 R42 Benign par oxysmal positional vertigo 032414650 H81.10 Neck pain 45646908 M54.2 this appears to be muscular. [id number] Jovany Corey MD Main Office [address] [address] 03/22/2021 10:03:53 03/22/2021 11:45:59 Adult health examination 738687534 Z00.00 He is UTD with pneumonia, COVID and tetanus vaccines. He will get a flu vaccine today and was advised to get a shingles vaccine at his pharmacy. He was also advised to get his booster COVID shot at this pharmacy. He is UTD with colonoscop y and no longer needs screening. Chronic ki dney disease due to type 2 diabetes mellitus 9183348684 08 E11.22 Hypothyroidism 04818092 E03.9 Varicella vaccination 68 524034 Z23 Influenza vaccine needed 2131264553 106 Z23 Mixed hyperlipidemia 267 164958 E78.2 C/w atorvastat in. Last LDL was at goal. Gastroesop hageal reflux disease 455013308 K21.9 Advised to cut back on night time eating and alcohol. [place] 193 [address] H54.8 his eyesight is getting worse. Urinary incontinence 165 578960 R32 He needs extra large instead of large diapers. He is able to put these on himself. Hypertensi ve renal disease 01494947 I12.9 Good control on current meds. Chronic ki dney disease stage 3 925585860 N18.30 [id number] Jovany Corey MD Main Office [address] [address] 06/26/2021 10:32:39 06/26/2021 11:39:57 Hypertensive renal disease 84613413 I12.9 Good control on current meds. Chronic ki dney disease due to type 2 diabetes mellitus 7624674645 08 E11.22 No changes in mgmt. Will follow his A1C twice yearly. Chronic ki dney disease stage 3 316066863 N18.30 Gastroesop hageal reflux disease 099582426 K21.9 Advised to cut back on night time eating and alcohol. [id number] Jovany Corey MD Main Office [address] [address] 09/20/2021 10:19:08 09/20/2021 11:05:46 Hypertensive renal disease 26509717 I12.9 Good control on current meds. Chronic ki dney disease due to type 2 diabetes mellitus 7824028164 08 E11.22 No changes in mgmt. Will follow his A1C twice yearly. History of SARS-CoV-2 29 89800788 87812976 Z86.16 He had mild symptoms after his second vaccine. He was advised to get a second booster (4th vaccine) since it has been 4 months since his last vaccine. His HOME OFFICE REPRESENTATIVE will call [facility]. Chronic ki dney disease stage 3 830239216 N18.30 [id number] Jovany Corey MD Main Office [address] [address] 03/26/2022 09:46:24 03/26/2022 11:05:33 Adult health examination 144185925 Z00.00 He is UTD with pneumonia, COVID and tetanus vaccines. He will get a flu vaccine today and had his shingles vaccine at his pharmacy. He was also advised to get his booster COVID shot at this pharmacy. He is UTD with colonoscop y and no longer needs screening. 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 Will follow his A1C twice yearly. Chronic maddi dney disease stage 3 631129722 N18.30 Asthma 388779014 J45.90 9 Generally well-contr olled. [id number] Jovany Corey MD Main Office [address] [facility] [address] [place] [address] 10/08/2022 14:19:19 10/08/2022 15:56:26 Hypertensive renal disease 55904975 I12.9 Good control on current meds. Constipation 03560609 K5 9.00 Controlled with meds. Fear of flying 090928329 F40.243 He will be accompanie d by his HOME OFFICE REPRESENTATIVE. Excessive sweating 29824 005 R61 Varicella vaccination 68 972591 Z23 Mixed hyperlipidemia 267 336046 E78.2 C/w atorvastat in. Last LDL was at goal. Chronic maddi dney disease stage 3A 240854807 N18.31 Renal diso rder due to type 2 diabetes mellitus 754922830 E11.22 This has been diet-contr olled for years. No need for meds. Health Concerns Section Related Observation LastModified by Organization Detai ls LastModified Time None Recorded Concern Status LastModified by Organization Details LastModified Time None Recorded Advance Directives Directive Y: Payers Insurance Date Sequence Insurance Name Policy Number Policy Petersen Covered Member ID Petersen Member ID Guarantor Name 10/05/2022 1 [employer] [facility] [employer] - DOS PRIOR TO 2022 - DUAL ELIGIBLE (MEDICARE REPLACEMENT/AD VANTAGE - HMO) Jevon Oliver [id number] Jevon Oliver 03/22/2021 1 [place] [employer] Jevon Oliver [id number] Jevon Oliver 03/22/2021 2 [place] [facility] Jevon Oliver [id number] Jevon Oliver 10/08/2022 1 [facility] - DOS ON OR AFTER 2022 - ONE CARE (MEDICARE REPLACEMENT/AD VANTAGE - HMO) Jevon Oliver [id number] Jevon Oliver Notes Date Note Type Note [...] most of his day sitting. Kat felix, [facility] 03/23/2021 14:09:56 2 text/html Hypertension F[facility] lifestyle, patient reportsnot exercising regularlybut reportslimiting/avoiding salt. [...] in the HPI Jovany Corey MD [address] [address], [place], [phone], [facility] 06/26/2021 18:03:29 2 text/html Hypertension F/[facility]eported by [facility] lifestyle, patient reportsnot exercising regularlybut reportslimiting/avoiding salt. [...] last year with mild symptoms. Kat felix, [facility] 09/20/2021 11:24:27 2 text/html Medicare Annual Wellness [...] of his day sitting. Jovany Corey MD [address] [address], [place], [phone], [facility] 03/26/2022 12:52:47 3 text/html HyperlipidemiaReported by PatientC/w [...] last [facility] with mild symptoms. [facility] 10/09/2022 13:39:24
== END 2025-05-12 08:38 | disposition home or self-care (01) ==
LOC: HO.XRAY 08:37
PROVIDERS: PCP Physician Assistant; Visit Provider Physician Assistant
DX: R13.13 Dysphagia, pharyngeal phase (principal)
CPT/HCPCS: 74221

== ENCOUNTER → 2025-05-12 08:40 | Outpatient (BNV) | payer OTHER, SELFPAY | PROVIDERS: PCP Physician Assistant; Visit Provider Radiology Diagnostic Radiology | DX: R13.13 Dysphagia, pharyngeal phase (principal) | CPT/HCPCS: 74221 ==

== ENCOUNTER 2025-06-03 10:04 | Emergency (ER) | payer OTHER, SELFPAY ==
--- NOTE | ~2025-06-03 | XR_ITS ---
EXAMINATION: XR RIBS 3 VIEWS MINIMUM WITH CHEST RIGHT HISTORY: FALL-BACK AND RIB PAIN COMPARISON: There are no prior studies available for comparison. FINDINGS: A single PA view of the chest and 3 views of the right ribs are submitted. The lungs are expanded and clear. There is no pleural effusion, pneumothorax, or pulmonary vascular congestion. The heart is normal in size. There is a small hiatal hernia. There is a minimally displaced fracture of the posterolateral aspect of the left 6th rib. There is an old healed fracture of the 9th rib. XR/XR ribs RT min 3V w CXR1V IMPRESSION: 1. Minimally displaced fracture of the left 6th rib. 2. Small hiatal hernia. Electronically signed by: Juan A Monzon MD 06/03/2025 11:21 AM [facility]
--- NOTE | ~2025-06-03 | XR_ITS ---
EXAMINATION: XR THORACIC SPINE CLINICAL INFORMATION: FALL--MID BACK PAIN COMPARISON: Correlated to CT neck dated July 28, 2024. TECHNIQUE: AP, lateral and swimmer's projection. FINDINGS: Inadequate collimation of the swimmer's projection. Multilevel endplate sclerosis decreased intervertebral disc height and marginal osteophyte formation throughout the mid to lower thoracic spine. Osteopenia versus osteoporosis. Mild, 20% volume loss of the vertebral bodies in the mid to lower thoracic spine. No gross malalignment. No lytic or blastic lesions. Vascular calcifications, aorta. XR/XR thoracic spine 3V IMPRESSION: Multilevel spondylosis without overt acute fracture or trauma-related listhesis. Electronically signed by: Corey Burns MD 06/03/2025 11:19 AM [facility]Y
[2025-06-03 10:17] VITALS: BP 156/78; PULSE 90; RESP 16; O2SAT 98; BMI 31.3
--- NOTE | 2025-06-03 11:30 | ED_ITS ---
HPI - General Adult General Chief complaint: Back Pain/Injury Stated complaint: fall Time Seen by Provider: 06/03/25 11:30 Source: patient and family (patient's daughter) Mode of arrival: wheelchair Limitations: no limitations History of Present Illness ED Provider: Siobhan Weir PA-C HPI narrative: Patient is an 84 year old male with a history of GERD, HTN, HLD, and BPPV presenting to the emergency department today with back and rib pain after a fall. Patient states that he misstep and fell - hurting his right ribs and middle back. Patient denies any head strike or loss of consciousness with the incident. Patient denies any anti-coagulation medication use. Patient denies any other complaints at this time. Related Data Home Medications ?Medication ?Instructions ?Recorded ?Confirmed bimatoprost 0.01 % eye drops 1 drp ophthalmic (eye) BE DTIME 11/07/22 04/20/25 (Lumigan) docusate sodium 100 mg capsule 100 mg PO DAILY 3 04/20/25 timolol maleate 0.5 % eye drops 1 drp ophthalmic (eye) QAM 11/07/22 04/20/25 blood-glucose meter (FreeStyle #1 ea 02/11/23 04/20/25 Lite Meter kit) Previous Rx's ?Medication ?Instructions ?Recorded disposable bedpads #150 ea 02/11/23 disposable gloves #50 ea 02/11/23 incontinence wipes #2 multiple units 02/11/23 men's pull ups #150 ea 02/11/23 blood sugar diagnostic (FreeStyle #100 ea 05/28/24 Lite Strips) fluocinonide 0.05 % topical cream 1 appl topical BID 3 0 days #120 05/28/24 Held on 04/20/25. grams Instructions: Doctor's Order trazodone 50 mg tablet 25 mg (1/2 x 50 mg) PO BEDTI ME 05/28/24 sleep 90 days #45 tabs lorazepam 0.5 mg tablet 0.5 mg PO DAILY anxiety 4 da ys #4 10/06/24 tabs triamcinolone acetonide 0.1 % 1 appl topical DAILY 30 days #80 01/03/25 topical ointment grams albuterol sulfate 90 mcg/actuation 2 puff inhalation Q 4H 30 days #6.7 01/14/25 aerosol inhaler (Ventolin HFA) grams aspirin 81 mg tablet,delayed 81 mg PO DAILY 90 days #9 0 tabs 01/14/25 release atorvastatin 80 mg tablet 80 mg PO DAILY 90 days #90 t abs 01/14/25 amlodipine 5 mg tablet 5 mg PO DAILY 90 days #90 ta bs 02/23/25 omeprazole 40 mg capsule,delayed 40 mg PO DAILY 90 day s #90 caps 03/31/25 release metformin 500 mg tablet 500 mg PO BID 90 days #180 t abs 04/20/25 triamcinolone acetonide 0.1 % 1 appl topical DAILY 4 w eeks #80 04/20/25 topical ointment grams levothyroxine 125 mcg tablet 125 mcg PO DAILY #90 tabs 05/05/25 hand held shower head #1 ea 05/13/25 lidocaine 5 % topical patch 1 patch topical DAILY 30 d ays #30 05/13/25 ea shower chair #1 ea 05/13/25 shower mat #1 ea 05/13/25 urinal #1 ea 05/13/25 walker #1 ea 05/13/25 walker (Ultra-Light Rollator misc) #1 ea 05/13/25 hydralazine 25 mg tablet 25 mg PO Q8H 90 days #270 ta bs 05/31/25 fluticasone propionate 50 1 spray intranasal Q12H PRN nasal 06/02/25 mcg/actuation nasal congestion 30 days #16 grams spray,suspension (Flonase Allergy Relief) Allergies Allergy/AdvReac Type Severity Reaction Status Date / Time codeine Allergy Rash Verified 06/03/25 10:18 Review of Systems Constitutional: Constitutional: Reports as per HPI Eyes: Eyes: Reports as per HPI ENT: Reports as per HPI Cardiovascular: Cardiovascular: Reports as per HPI Respiratory: Respiratory: Reports as per HPI Gastrointestinal: Gastrointestinal: Reports as per HPI Genitourinary: Genitourinary: Reports as per HPI Musculoskeletal: Musculoskeletal: Reports as per HPI Integumentary/Breasts: Skin/Breast: Reports as per HPI Neurologic: Reports as per HPI Psychiatric: Psychiatric: Reports as per HPI Endocrine: Endocrine: Reports as per HPI Hematologic/Lymphatic: Hematologic/Lymphatic: Reports as per HPI Allergic/Immunologic: Allergic/Immunologic: Reports as per HPI [facility] Past Medical History Attestation statement: The following information was validated with the patient. (all information validated with the patient's daughter) Source: old records reviewed, obtained from family (patient's daughter provided additional history and confirmed the history provided by the patient. 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, moderate Fear of flying Vitamin D deficiency Renal disorder Carcinoma of prostate HLD (hyperlipidemia) Hypothyroid Memory impairment Obese Asthma Type II diabetes mellitus Surgical History History of colonoscopy S/P prostatectomy Family History Family History Mother No known health problems Father Glaucoma Social History Social History Housing: Apartment Alcohol intake: never Patient Tobacco Use Status: Never used Tobacco e-Cigarette/Vaping Use: Never Used Second Hand Smoke Exposure: No service: No Current occupational status: disabled Cognitive needs: No Hearing needs: No Vision needs: Yes Physical Exam ED Vital Signs: Vital Signs - 24 hr 06/03/25 10:17 06/03/25 12:04 Temperature 0 F L Pulse Rate 90 90 Respiratory Rate 16 16 Blood Pressure 156/78 H 156/78 H Pulse Oximetry 98 98 Oxygen Delivery Method Room Air Room Air BMI result Body Mass Index 31.3 Const General: cooperative, no acute distress, alert and awake Nutritional Appearance: well nourished Orientation/consciousness: patient oriented x3 HENMT Head: Yes normal to inspection and Yes atraumatic Ears: hearing grossly normal bilaterally and external ears normal General nose exam: Normal external nose present, no nasal discharge noted and no epistaxis Face and sinus: Yes normal facial exam, No abrasion and No laceration Mouth: Normal oral and palatal mucosa present, no drooling and no muffled voice Eyes General: appearance normal, both eyes and all related structures Periorbital: periorbital findings normal Eyelids: Yes eyelids normal Conjunctivae: conjunctivae normal Pupils: Equal, round and reactive pupils present EOM: EOMs intact bilaterally Neck Neck: Yes normal visual inspection and Yes full ROM Resp Effort & Inspection: normal respiratory effort and able to speak in complete sentences Neuro General: patient oriented x3, moves all extremities and CN's II-XI intact bilaterally Cranial nerves: Yes Equal, round and reactive pupils present Cognition (Neuro): normal cognition Extrem General: Yes normal to inspection, Yes full ROM and Yes capillary refill normal Psych Appearance: grossly normal Mental Status: mental status grossly normal Affect: normal affect Attitude: cooperative Thought process: Normal thought process present Thought content: Normal thought content present Insight: Good insight present (Psych) Medications Administered Discontinued Medications Generic Name Dose Route Start Last Admin Trade Name Latoya PRN Reason Stop Dose Admin Ketorolac Tromethamine 15 mg 06/03/25 11:31 06/03/25 11:49 Ketorolac Tromethamine 15 Mg/Ml Vial IM 06/03/25 11:32 15 mg ONCE ONE Administration Medical Decision Making Medical Decision Making [facility] Narrative: Patient is an 84 year old male with a history of GERD, HTN, HLD, and BPPV presenting to the emergency department today with back and rib pain after a fall. Patient's physical exam was as noted in the physical exam portion of this note. Patient's thoracic spine x-ray showed no acute process. Patient's right rib x-ray showed a right 6th rib fracture. Patient received IM Toradol. Patient was given an incentive spirometer with instructions and demonstrated his ability to appropriately use it to avoid pneumonia. I explained my physical exam findings as well as all test results to the patient and the patient's daughter. I answered all questions asked by the patient and the patient's daughter. I stressed the importance of the patient taking his medication as directed (either prescribed or as the over the counter packaging recommends). I stressed the importance of the patient following up with his primary care provider. I stressed the importance of the patient returning to the emergency department immediately if his symptoms were to worsen or if he were to develop any dizziness, shortness of breath, difficulty breathing, chest pain, blurry vision, loss of vision, nausea, vomiting, abdominal pain, fever, chills, back pain, or any other complaints. Patient verbalized agreement and understanding with this treatment plan and discharge. Differential Diagnosis Differential Diagnoses: The differential diagnosis associated with the presentation includes Rib fracture Rib contusion Fall Admission/Observation Consideration of admission/observation: Escalation of care including admiss ion/observation considered Patient would have been admitted to the hospital had his work up had any findings where hospital admission was appropriate and his clinical presentation warranted hospital admission. Independent Interpretation I performed an independent interpretation of an: Plain X-Ray Interpretation: My interpretation is in agreement with the radiologist's impression of these imaging studies as written below. Reason for Exam: FALL--MID BACK PAIN EXAMINATION: XR THORACIC SPINE CLINICAL INFORMATION: FALL--MID BACK PAIN COMPARISON: Correlated to CT neck dated July 28, 2024. TECHNIQUE: AP, lateral and swimmer's projection. FINDINGS: Inadequate collimation of the swimmer's projection. Multilevel endplate sclerosis decreased intervertebral disc height and marginal osteophyte formation throughout the mid to lower thoracic spine. Osteopenia versus osteoporosis. Mild, 20% volume loss of the vertebral bodies in the mid to lower thoracic spine. No gross malalignment. No lytic or blastic lesions. Vascular calcifications, aorta. XR/XR thoracic spine 3V IMPRESSION: Multilevel spondylosis without overt acute fracture or trauma-related listhesis. Electronically signed by: Corye Burns MD 06/03/2025 11:19 AM EST Dictated By: Corey Stahl MD Signed By: Electronically signed by Corey Campos MD 06/03/25 1119 EXAMINATION: XR RIBS 3 VIEWS MINIMUM WITH CHEST RIGHT HISTORY: FALL-BACK AND RIB PAIN COMPARISON: There are no prior studies available for comparison. FINDINGS: A single PA view of the chest and 3 views of the right ribs are submitted. The lungs are expanded and clear. There is no pleural effusion, pneumothorax, or pulmonary vascular congestion. The heart is normal in size. There is a small hiatal hernia. There is a minimally displaced fracture of the posterolateral aspect of the right 6th rib. There is an old healed fracture of the 9th rib. XR/XR ribs RT min 3V w CXR1V IMPRESSION: 1. Minimally displaced fracture of the right 6th rib. 2. Small hiatal hernia. Electronically signed by: Juan A Monzon MD 06/03/2025 11:21 AM EST RP Dictated By: Juan A Monzon MD Signed By: Electronically signed by Juan A Monzon MD 06/03/25 1121 Radiology Impression Discussion of test interpretation with radiology: I have reviewed the radiologist's reading. Independent Historian Clinical information obtained from an independent historian. History obtained from or confirmed by: Other (patient's daughter provided additional history and confirmed the history provided by the patient. ) Discharge Plan Discharge Clinical Impression: Fracture of rib Qualifiers: Encounter type: initial encounter Rib fracture type: single rib Fracture type: closed Laterality: left Qualified Code(s): S22.32XA - Fracture of one rib, left side, initial encounter for closed fracture Patient Disposition: Home, Self-Care Instructions: Rib Fracture (ED) Additional Instructions: Your x=ray showed a rib fracture. It is crucial you use the incentive spirometer as directed to avoid developing pneumonia. IF you are prescribed home medications and/or you are taking over the counter medications at home- it is very important you continue to do so as prescribed / directed unless told otherwise. SI le recetan medicamentos y/o est? tomando medicamentos de venta lacy, es muy importante que contin?e haci?ndolo seg?n lo recetado/indicado a menos que le indiquen lo contrario. Follow up with your primary care provider. Return to the emergency department immediately if your symptoms worsen or if you develop any dizziness, shortness of breath, difficulty breathing, chest pain, blurry vision, loss of vision, nausea, vomiting, abdominal pain, fever, chills, back pain, or any other complaints. Haleigh?seguimiento?con betancourt m?dico de atenci?n primaria. Acuda inmediatamente al servicio de urgencias si camille s?ntomas empeoran o si presenta falta de aliento, dificultad para respirar, dolor tor?cico, mareos, aturdimiento, dolor de espalda, dolor abdominal, fiebre, escalofr?os o cualquier otro s?ntoma. Please see the information below about our Patient Portal. If you are not yet enrolled in the [facility] Patient Portal, you will receive an enrollment email invitation following your visit to any [facility] care setting. You may also self-enroll in the Patient Portal by visiting our website: [email or web address] The following information is required to access the Patient Portal: - Your [facility] Medical Record Number - Your personal home email address (must match what is in your electronic medical record, Registration staff can assist with this) - Name - Date of Capabilities of the Patient Portal: - Message some providers - View upcoming appointments - Access your health summary, medical history, and visit history - View current conditions and allergies - View procedure and lab results - View your medications, including guidelines, side effects, and precautions - Complete pre-appointment questionnaires requested by your provider - Ready summary reports of your office visits and procedures To access the Patient Portal Mobile Claudette, follow these directions: - Search [employer] in the [employer]ette Store or [employer] Store - Download the Claudette - Search for [facility] - Enter your login/password Portal del paciente Si usted no esta inscrito en el portal de pacientes de [facility], recibira marvin invitacion de inscripcion despues de betancourt visita al [facility] o al [facility] via correo electronico. Tambien puede inscribirse voluntariamente en el portal de pacientes visitando nuestra pagina web: [email or web address] La siguiente informacion sera requerida para acceder al portal: - Betancourt fredrick de historia medica de [facility] - Betancourt direccion de correo electronico personal - Nombre - Fecha de nacimiento Capacidades: Las siguientes capacidades estan disponibles en el portal de pacientes: - Enviar mensajes a algunos doctores - Verificar proximas citas - Acceso a betancourt historial de love, registro medico e historial de visitas - Caesar las condiciones actuales y alergias caesar procedimientos y resultados del laboratorio - Caesar camille medicamentos, incluyendo las pautas - Efectos secundarios y precauciones - Completar o llenar formularios / cuestionarios de - Citas solicitadas por betancourt doctor - Leer los resumenes de reportes medicos de camille visitas y procedimientos Lowes acceder a la aplicacion movil: - [facility] en la [facility]ette Store o [employer] Store - Descargue la aplicacion - [facility] [place] - Ingrese betancourt nombre de usuario / Contrasena Prescriptions: No Action triamcinolone acetonide 0.1 % ointment 1 appl topical DAILY 30 Days Qty: 80 2RF amlodipine 5 mg tablet 5 mg PO DAILY 90 Days Qty: 90 1RF omeprazole 40 mg capsule,delayed release(DR/EC) 40 mg PO DAILY 90 Days Qty: 90 1RF levothyroxine 125 mcg tablet 125 mcg PO DAILY Qty: 90 1RF (DME) Ultra-Light Rollator Misc See Rx Instructions .Route Qty: 1 0RF Rx Instructions: As directed (DME) walker Misc See Rx Instructions .Route Qty: 1 0RF Rx Instructions: As directed (DME) hand held shower head See Rx Instructions .Route .MEDSUPPLY Qty: 1 0RF Rx Instructions: As directed (DME) shower chair See Rx Instructions .Route .MEDSUPPLY Qty: 1 0RF Rx Instructions: As directed (DME) shower mat See Rx Instructions .Route .MEDSUPPLY Qty: 1 0RF Rx Instructions: As directed (DME) urinal See Rx Instructions .Route .MEDSUPPLY Qty: 1 0RF Rx Instructions: As directed lidocaine 5 % adhesive patch,medicated 1 patch topical DAILY 30 Days Qty: 30 3RF Rx Instructions: leave on most painful area for up to 12 hrs hydralazine 25 mg tablet 25 mg PO Q8H 90 Days Qty: 270 1RF fluticasone propionate [Flonase Allergy Relief] 50 mcg/actuation spray,suspension 1 spray intranasal Q12H PRN (Reason: nasal congestion) 30 Days Qty: 16 1RF Rx Instructions: administer into each nostril (DME) blood-glucose meter [FreeStyle Lite Meter] Kit See Rx Instructions .ROUTE BID Qty: 1 Rx Instructions: As directed (DME) disposable bedpads See Rx Instructions .Route .MEDSUPPLY Qty: 150 11RF Rx Instructions: As directed (DME) incontinence wipes See Rx Instructions .Route .MEDSUPPLY Qty: 2 11RF Rx Instructions: As directed (DME) men's pull ups XL See Rx Instructions .Route .MEDSUPPLY Qty: 150 11RF Rx Instructions: As directed (DME) disposable gloves Package See Rx Instructions .Route Qty: 50 11RF Rx Instructions: As directed timolol maleate 0.5 % drops 1 drp ophthalmic (eye) QAM Lumigan 0.01 % drops 1 drp ophthalmic (eye) BEDTIME docusate sodium 100 mg capsule 100 mg PO DAILY lorazepam 0.5 mg tablet 0.5 mg PO DAILY 4 Days Qty: 4 0RF Rx Instructions: Take 1 hour before flight or travel aspirin 81 mg tablet,delayed release (DR/EC) 81 mg PO DAILY 90 Days Qty: 90 1RF albuterol sulfate [Ventolin HFA] 90 mcg/actuation HFA aerosol inhaler 2 puff inhalation Q4H 30 Days Qty: 6.7 3RF atorvastatin 80 mg tablet 80 mg PO DAILY 90 Days Qty: 90 1RF triamcinolone acetonide 0.1 % ointment 1 appl topical DAILY 28 Days Qty: 80 0RF metformin 500 mg tablet 500 mg PO BID 90 Days Qty: 180 1RF (DME) FreeStyle Lite Strips Strip See Rx Instructions .ROUTE .MEDSUPPLY Qty: 100 3RF Rx Instructions: testing Twice per day trazodone 50 mg tablet 25 mg PO BEDTIME 90 Days Qty: 45 3RF fluocinonide 0.05 % cream 1 appl topical BID 30 Days Qty: 120 3RF Referrals: Jerrod Smith PA-C [Primary Care Provider, Internal Medicine] Interventions: ED Discharge Assessment Last Done: 06/03/25 12:04 Discharge Date/Time: 06/03/25 12:10 Print Language: Kinyarwanda
[2025-06-03 12:04] VITALS: BP 156/78; PULSE 90; RESP 16; TEMP -17.7; TEMP 0; O2SAT 98
== END 2025-06-03 12:10 | disposition home or self-care (01) ==
PROVIDERS: Emergency Provider Emergency Medicine; PCP Physician Assistant
DX: S22.32XA Fracture of one rib, left side, initial encounter for closed fracture (principal); S29.9XXA Unspecified injury of thorax, initial encounter; R07.89 Other chest pain; M54.6 Pain in thoracic spine; W10.9XXA Fall (on) (from) unspecified stairs and steps, initial encounter; Y93.9 Activity, unspecified; Y92.9 Unspecified place or not applicable; Y99.8 Other external cause status
CPT/HCPCS: 71101; 72072; 96372; 99283; 99284; J1885

== ENCOUNTER → 2025-06-03 11:00 | Outpatient (BNV) | payer OTHER, SELFPAY | PROVIDERS: Emergency Provider Emergency Medicine; PCP Physician Assistant; Visit Provider Radiology Diagnostic Radiology | DX: S22.42XA Multiple fractures of ribs, left side, initial encounter for closed fracture (principal); K44.9 Diaphragmatic hernia without obstruction or gangrene; M47.814 Spondylosis without myelopathy or radiculopathy, thoracic region | CPT/HCPCS: 71101; 72072 ==